=== PATIENT | female | born 1940 | race Caucasian/White ===

== ENCOUNTER → 2018-05-27 10:25 | Outpatient (CLI) | payer MEDICARE, SELFPAY ==
[2018-05-27 10:40] LABS: RBC Urine None Seen (0-5/HPF)
[2018-05-27 11:14] LABS: Appearance Urine UA CLEAR; Bilirubin Urine UA NEGATIVE (NEGATIVE); Color Urine UA YELLOW; Glucose Urine UA NEGATIVE (Normal); Ketones Urine UA NEGATIVE (NEGATIVE); Leukocyte Esterase Urine UA 1+ (NEGATIVE); Nitrite Urine UA NEGATIVE (Negative); Occult Blood Urine UA 1+ (Negative); Protein Urine UA NEGATIVE (Negative); Urobilinogen Urine UA 0.2 E.U./dL (0.2); pH Urine UA 6.5 (4.5-8.0)
[2018-05-27 11:33] LABS: Bacteria Urine Moderate (10-30); WBC Urine 5-10/HPF (0-5/HPF)
[2018-05-27 11:34] LABS: Culture Indicated Urine Specimen Cultured
[2018-05-27 12:20] LABS: Add Manual Diff / Slide Review NO; Basophils Percent Auto 0.7 % (0-2); Eosinophils Percent Auto 1.4 % (2-4); Hematocrit 42.3 % (36-46); Hemoglobin 14.4 g/dL (12.0-16.0); Lymphocytes Percent Auto 25.2 % (25-40); Mean Corpuscular HGB Conc 33.9 % (30-36); Mean Corpuscular Hemoglobin 30.6 PG (26-34); Mean Corpuscular Volume 90.3 fL (80-100); Neutrophils Absolute Auto 5400 /uL (3000-5900); Neutrophils Percent Auto 66.7 % (50-75); Platelet Count 247 X10^3/uL (150-400); Red Blood Cell Count 4.68 X10^6/uL (4.0-5.2); Red Cell Distribution Width 12.5 % (11.6-14.8); White Blood Cell Count 8.1 X10^3/uL (4.5-11.0)
[2018-05-27 12:34] LABS: Blood Urea Nitrogen 12 mg/dL (7-17); Carbon Dioxide 30 mmol/L (22-32); Chloride 96 mmol/L (98-107); Estimated Glomerular Filt Rate > 60.0 mL/min (>60); Glucose 97 mg/dL (80-110); HEMOLYSIS 32 (0-50); Sodium 136 mmol/L (137-145)
[2018-05-27 12:49] LABS: Hemoglobin A1C% w Est Avg Glu 5.6 % (4.0-6.0)
== END ==
PROVIDERS: Family Provider Internal Medicine; PCP Internal Medicine; Visit Provider Orthopaedic Surgery
DX: Z01.818 Encounter for other preprocedural examination (principal); N39.9 Disorder of urinary system, unspecified; R73.09 Other abnormal glucose
CPT/HCPCS: 36415; 80048; 81001; 83036; 85025; 87086; 93005; 93010

== ENCOUNTER → 2018-05-31 12:41 | Outpatient (CLI) | payer MEDICARE, SELFPAY ==
--- NOTE | 2018-05-31 | DI.MRI.S_ITS ---
PROCEDURE: MR KNEE RT WO CON INDICATIONS: PRIMARY OSTEOARTHRITIS OF RIGHT KNEE TECHNIQUE: Noncontrast sagittal PD fast spin echo and T2 fast spin echo with fat saturation, sagittal 3-D FLASH with fat saturation; coronal T1 spin echo and PD fast spin echo with fat saturation, and axial PD fast spin echo with fat saturation through the knee. COMPARISON: None. FINDINGS: Image quality: Excellent. Menisci: There is peripheral displacement of medial meniscus bowling medial collateral ligament. Complex tear involving posterior horn of medial meniscus is seen extending to both superior and inferior articulating surfaces. There is no evidence of focal lateral meniscal tear. The meniscal root ligaments appear intact. Cruciate ligaments: The anterior and posterior cruciate ligaments appear intact. Medial structures: The medial collateral ligament appears intact. The posterior oblique ligament, semimembranosus tendon insertions, oblique popliteal ligament, and meniscocapsular junction appear intact. Visualized portions of the pes anserinus tendons appear normal. No abnormal bursal fluid. Lateral structures: The lateral collateral ligament, long and short heads of the biceps femoris tendon appear intact. The popliteus tendon appears normal; the popliteofibular ligament appears intact. The posterosuperior and anteroinferior popliteomeniscal fascicles appear intact. The arcuate and fabellofibular ligaments appear intact, on either side of the lateral inferior geniculate artery. Iliotibial band appears normal. Anterior structures: The quadriceps and patellar tendons appear intact. Patellar alignment is normal. No femoral trochlear dysplasia or ventral trochlear prominence. No edema in the infrapatellar fat pad. Bones and cartilage: Moderate to severe tricompartment osteoarthritis is seen most prominent in medial femoral-tibial compartment. 6 x 5 mm osteochondral lesion and weightbearing portion of medial femoral condyle is seen. Low to moderate grade chondromalacia involving apex and medial facet of patella cartilage is seen. Joint space: There is moderate knee joint fluid. No Bedolla's cyst. Suggestion of a 1.8 x 0.8 x 2.3 cm loose body in medial aspect of patella femoral compartment is seen. Thickened synovial lining is seen with suggestion of synovitis. IMPRESSION: 1. Moderate to severe tricompartment osteoarthritis more prominent in the medial femorotibial compartment with 6 x 5 mm osteochondral lesion involving weight-bearing portion of medial femoral condyle. No fracture or dislocation. 2. Moderate amount of joint fluid with suggestion of synovitis. Possible loose body in medial aspect of patella femoral compartment. 3. Complex tear involving body and posterior horn of medial meniscus extending to both superior and inferior articulating surfaces. No evidence of focal lateral meniscal tear. 4. Cruciate ligaments are intact. Dictated by: Everardo Arshad M.D. on 05/31/2018 at 14:51 Approved by: Everardo Arshad M.D. on 05/31/2018 at 14:57
== END ==
PROVIDERS: Family Provider Physical Therapist; PCP Internal Medicine; Visit Provider Orthopaedic Surgery
DX: M17.11 Unilateral primary osteoarthritis, right knee (principal)
CPT/HCPCS: 73721

== ENCOUNTER → 2018-06-17 14:59 | Outpatient (CLI) | payer MEDICARE, SELFPAY ==
[2018-06-17 16:04] LABS: Bilirubin Urine UA NEGATIVE (NEGATIVE); Color Urine UA YELLOW; Glucose Urine UA NEGATIVE (Normal); Ketones Urine UA NEGATIVE (NEGATIVE); Leukocyte Esterase Urine UA 2+ (NEGATIVE); Nitrite Urine UA NEGATIVE (Negative); Occult Blood Urine UA TRACE-INTACT (Negative); Protein Urine UA NEGATIVE (Negative); Specific Gravity Urine UA 1.015 (1.000-1.035); Urobilinogen Urine UA 0.2 E.U./dL (0.2); pH Urine UA 6.5 (4.5-8.0)
[2018-06-17 16:20] LABS: Amorphous Sediment Urine 1+; Appearance Urine UA Slightly Cloudy; Bacteria Urine Few (2-10); Mucus Urine 1+ (Negative); RBC Urine 0-1/HPF (0-5/HPF); Squamous Epithelial Cell Urine 0-1 /HPF; WBC Urine 10-30/HPF (0-5/HPF)
[2018-06-17 16:21] LABS: Culture Indicated Urine Specimen Cultured
== END ==
PROVIDERS: PCP Internal Medicine; Visit Provider Orthopaedic Surgery
DX: N39.0 Urinary tract infection, site not specified (principal)
CPT/HCPCS: 81001; 87086

== ENCOUNTER → 2018-07-15 08:00 | Outpatient (CLI) | payer MEDICARE, SELFPAY ==
[2018-07-15 09:46] LABS: HEMOLYSIS < 15 (0-50); Potassium 4.2 mmol/L (3.4-5.1)
== END ==
PROVIDERS: Family Provider Internal Medicine; PCP Internal Medicine; Visit Provider Physician Assistant
DX: M17.11 Unilateral primary osteoarthritis, right knee (principal)
CPT/HCPCS: 36415; 84132

== ENCOUNTER 2018-07-23 10:43 | Inpatient (IN) | payer MEDICARE, SELFPAY ==
[2018-07-08 08:21] VITALS: BMI 28.3
[2018-07-23] VITALS (14 sets, daily range): BP systolic 113–178; BP diastolic 64–88; PULSE 57–92; RESP 11–18; TEMP 36.4–37.1; O2SAT 95–100; BMI 28.3
--- NOTE | 2018-07-23 | DI.RAD.S_ITS ---
PROCEDURE: XR KNEE RT 1TO2V INDICATIONS: POST OP TECHNIQUE: 2 view(s) of the knee acquired. COMPARISON: [facility] Brandyn Castillo, CR, XR KNEE ARTHRITIC SERIES BI, 05/27/2018, 8:31. FINDINGS: Bones: Patient is status post knee joint arthroplasty. Hardware components are in expected positions. Visualized bony structures are intact. Soft tissues: Overlying postoperative changes are noted. Expected postsurgical changes are identified within the soft tissues overlying the knee with areas of soft tissue edema, air, and fluid. Surgical drainage catheter is evident. No unexpected radiopaque foreign bodies are appreciated. IMPRESSION: Expected postoperative changes related to a total right knee arthroplasty. Dictated by: Elian Lam M.D. on 07/23/2018 at 15:56 Approved by: Elian Lam M.D. on 07/23/2018 at 15:57
[2018-07-23] MEDS: LACTATED RINGERS 1,000 ML 42 ML IV ×2 (11:30→14:02)
[2018-07-23] MEDS: ACETAMINOPHEN 325 MG TABLET 975 MG PO ×2 (11:34→19:04)
[2018-07-23] MEDS: PREGABALIN 75 MG CAPSULE PO ×2 (11:35→11:36)
[2018-07-23] MEDS: VANCOMYCIN 1,000 MG/200 ML FROZ.PIGGY 200 MG IV (12:05)
[2018-07-23] MEDS: fentaNYL 100 MCG/2 ML INJ 50 MCG IV (12:28)
[2018-07-23] MEDS: MIDAZOLAM 2 MG/2 ML VIAL IV (12:30)
--- NOTE | 2018-07-23 12:35 | PM.PREOP ---
Pre-operative Note Interval Note Pre-op Check: Yes History & Physical Reviewed by Physician and Yes Exam Performed Changes: No
--- NOTE | 2018-07-23 12:38 | SUR.PREOP ---
Block start time [1230] . Monitoring initiated and maintained throughout procedure. Oxygen and medications given per anesthesiologist instructions. Patient remained stable throughout procedure, no adverse reactions noted. Block end time [1238].
--- NOTE | 2018-07-23 12:42 | P.OP_ITS ---
Operative Date/Time/Diagnoses Date of procedure: 07/23/18 Time of procedure: 12:56 Pre-op diagnosis: Right knee OA Post-op diagnosis: same Procedure & Clinicians Procedure: right total knee arthroplasty Same procedure as scheduled: Yes Indications: The patient has had progressively worsening right knee pain with radiographic changes consistent with arthritis. Non-operative management has failed and the patient has requested total knee replacement. The risks, benefits and alternatives to surgery were discussed with the patient prior to proceeding. Risks discussed included, but were not limited to, failure to relieve pain, stiffness, infection, nerve damage, deep venous thrombosis, pulmonary embolism, stroke, coma, heart attack, permanent paralysis and , as well as the potential need for eventual revision of the prosthetic. Surgeon: Stephanie Hunter Hot Die Press Feeder: Waleska Barraza Anesthesia Type: Spinal and Sedation Operative Notes Findings: severe right knee osteoarthritis Closure Type: primary Specimen(s): none sent Implants & Drains: Hunter and Nephshae Arreguin BCS2 5 femur, 3 tibia, +9 poly, 32 oval mm patella Estimated Blood Loss (mL): 250 Blood products transfused: none Tourniquet time (min): 74 Procedure in detail: The patient was seen in the pre-operative area, where the patient identified the right knee as the operative site and this was marked with my initials. The patient received pre-operative antibiotics, and was taken to the operating room and placed on the operative table in the supine position. After satisfactory anesthesia, a back strip machine operator out was performed. The right leg was encircled with a tourniquet about the proximal thigh, and the leg was prepared from the toes to the tourniquet with ChloroPrep in the usual fashion and draped through sterile drapes. The leg was elevated and exsanguinated with Eschmark bandage and the tourniquet inflated to [250] mmHg pressure. The knee was approached through an approximately 18 cm incision centered over the patella and carried into the knee through a medial parapatellar arthrotomy. A portion of the medial and lateral meniscus was resected. Soft tissue was carefully mobilized around the patella the patella was measured with a caliper. Bone was resected from the patella and the patellar height was reconstituted with up an appropriate sized patellar component. A cover was then placed on the patella. A small amount of additional medial and lateral meniscus was resected. A large loose body in the suprapatellar pouch was removed. The visionare guide fit well to the distal femur. It looked like an appropriate distal femoral cut and the cut was made without difficulty. The rotation was assessed and the appropriate size femoral guide was placed on the distal femur and finishing cuts were made. There was no evidence of notching. The anterior, posterior and chamfer cuts were then made. The posterior osteophytes and soft tissues were then removed. The posterior capsule was injected with part of a mixture of 60 ml 0.25% Marcaine mixed with 20 ml Exparel for post operative pain control. The remainder of this mixture was injected into the capsule and subcutaneous tissues during cement curing. The tibia was prepared and the visionaire guide fit well to the distal tibia. The rotation was assessed. The patient was placed in extension residual medial and lateral meniscus as well as any residual bone was carefully resected. [No] additional tibia was resected. Hemostasis was achieved especially posteriorly. Additional local was injected into the posterior capsule. The extension gap was assessed and additional releases for gap balancing were performed as necessary. It was checked with the gap shredded filler hopper feeder. The femoral component was trial was placed and the notch was finished. Trial tibial and femoral components were then placed and the knee placed through a range of motion. Range of motion was [ 0-130], with good stability throughout the range. The trials were then removed, and the tibia was finished. The bone was prepared with pulsatile lavage, and dried with a sponge. Cement was applied and the final prosthetics placed. Excess cement was removed during and after cement curing. A brief Betadine soak was performed. After confirming there was no extruded cement posteriorly, the final tibial insert was placed. The knee was copiously irrigated and the tourniquet deflated. Hemostasis was obtained with the Bovie. A drain was placed and brought out superolaterally. The capsule was closed with interrupted poly suture. The subcutaneous layer was closed with barbed sutures, and the skin with a running 3-0 V-Lock suture and Surgical glue. An Aquacel Ag dressing was applied and the patient was taken to recovery having tolerated the procedure well. Complications: none Condition: stable Disposition: Acute Care Plan for aftercare: The patient will be maintained on a standard total knee replacement protocol with weight bearing as tolerated. The patient will receive aspirin and sequential compression devices for DVT prophylaxis. The patient will be likely will be discharged to an extended care rehab facility because of her medical problems including gout, htn, depression, and h/o TIA or home if she does better than expected with PT when safe for the home environment.
[2018-07-23] MEDS: CEFAZOLIN 2 GM/100 ML FROZ.PIGGY IV ×2 (12:58→20:42)
[2018-07-23] MEDS: BUPIVACAINE 0.25% W/ EPI VIAL 50 ML INJ (13:41)
[2018-07-23] MEDS: BUPIVACAINE LIPOSOME 266 MG/20 ML VIAL INJ (13:43)
[2018-07-23] MEDS: POVIDONE-IODINE 15 ML, SODIUM CHLORIDE 0.9% 250 ML TOP (13:44)
[2018-07-23] MEDS: TRANEXAMIC ACID 1,000 MG VIAL 1000 MG INJ ×2 (13:45→14:41)
--- NOTE | 2018-07-23 13:48 | SUR.OPER ---
Supine on padded OR bed. Pillow under head, arms secured on padded armboards <90 degree abduction. Safety belt across torso. Non-operative leg secured with tape over blanket over lower leg. Operative leg secured in DeMayo/Vu positioner. Foam padded brace at thigh of operative leg.
--- NOTE | 2018-07-23 15:52 | SUR.PHASEI ---
REPORT CALLED TO ANGELITA LYNN ON ACUTE CARE FLOOR. PT IN STABLE CONDITION, VSS. PT BEING TRANSFERED TO ACUTE CARE FLOOR.
--- NOTE | 2018-07-23 16:22 | SUR.PHASEI ---
PT TRANSFERED TO ACUTE CARE FLOOR IN STABLE CONDITION. PT TALKING TO RN DURING TRANSPORT. BEDSIDE REPORT GIVEN TO ANGELITA ARCHULETA UPON ARRIVAL TO ACUTE CARE. PT TRANSFERED TO ANGELITA ARCHULETA AT THAT TIME.
--- NOTE | 2018-07-23 16:32 | PC.NURSE ---
Pt arrived to floor via PACU @1610. A&Ox3, krystle calf SCD in place. Hemovac clamped, to be unclamped at 1700. Bed alarm. Aquacel drsg w/ romie wrap CDI. No sensation to bilateral LE, unable to move feet r/t spinal. IVF infusing per MD order. Continuous pulse ox 97% RA. Tolerating ice chips.
[2018-07-23] MEDS: LACTATED RINGERS 1,000 ML 125 ML IV (16:39)
[2018-07-23] MEDS: TRAMADOL 50 MG TABLET PO (18:37)
[2018-07-23] MEDS: OXYCODONE IR 5 MG TABLET PO (19:04)
[2018-07-23] MEDS: DOCUSATE 100 MG CAPSULE PO (19:05)
[2018-07-23] MEDS: HYDROMORPHONE 0.5 MG INJ IV (19:54)
[2018-07-23] MEDS: ASPIRIN EC 81 MG TABLET PO (20:41)
[2018-07-23] MEDS: HYDROMORPHONE 2 MG TABLET PO (21:20)
[2018-07-23] MEDS: ATORVASTATIN 20 MG TABLET 40 MG PO (21:55)
[2018-07-23] MEDS: ONDANSETRON 4 MG ODT PO (21:56)
[2018-07-24] MEDS: LACTATED RINGERS 1,000 ML 125 ML IV ×2 (00:55→08:37)
[2018-07-24] MEDS: HYDROMORPHONE 2 MG TABLET PO ×3 (01:16→08:11)
[2018-07-24 03:29] VITALS: BP 138/72; PULSE 65; RESP 16; TEMP 36.6; O2SAT 97
[2018-07-24] MEDS: CEFAZOLIN 2 GM/100 ML FROZ.PIGGY IV (05:29)
[2018-07-24 05:50] LABS: Hematocrit 33.1 % (36-46); Hemoglobin 11.5 g/dL (12.0-16.0)
[2018-07-24] MEDS: HYDROMORPHONE 0.5 MG INJ IV ×3 (06:41→14:23)
[2018-07-24 07:14] VITALS: BP 137/80; PULSE 88; RESP 18; TEMP 36.6; O2SAT 100
--- NOTE | 2018-07-24 07:58 | PM.PNPO.1 ---
Subjective Date Patient Seen: 07/24/18 Time Patient Seen: 07:58 Interval history: Patient's pain was mild overnight. Early this morning her pain is more moderate to severe. She was given some pain meds and now her pain is more mild again. Denies fever chills. No nausea vomiting. Exam Vital Signs (past 8 hours): - 07/24/18 03:29 07/24/18 07:14 Temperature 97.9 F 97.9 F Pulse Rate 65 88 Respiratory Rate 16 18 Blood Pressure 138/72 137/80 Pulse Oximetry 97 100 Oxygen Delivery Method Room Air Narrative Exam Narrative: Drain is in place. Dressing is clean, dry and intact. Neurovascular status is intact distal right lower extremity. Objective Labs Result Diagrams: 07/24/18 05:30 Labs: Laboratory Results - last 24 hr 07/24/18 05:30 Hgb 11.5 L Hct 33.1 L Assessment & Plan Post-op Postoperative Procedures Operation Date: 07/23/18 13:00 Actual Procedures Side Surgeon p Total Knee Arthroplasty Right Stephanie Hunter MD Mobilize with physical therapy. Discharge home or nursing facility in the next 1-2 days.
[2018-07-24] MEDS: ONDANSETRON 4 MG ODT PO ×2 (08:11→20:29)
--- NOTE | 2018-07-24 08:28 | CM.DPC ---
Referral faxed to [facility] per Jeaneth
--- NOTE | 2018-07-24 09:20 | CM.DANOTE ---
Addendum entered by Mary Styles R.N. 07/24/18 14:53: Discussed patient in team rounds with Monique Denis in ortho. Confirmed that patient would need to be here another 2 days, would be eligible for senior living on Sunday. Angela from [facility] confirmed that she received referral. Original Note: DCP: Case received, EMR reviewed and met with patient. Introduced self and role. DCP template completed with information currently available. Patient is a 78 year old female who admitted yesterday morning to the care of the hospitalist team. PCP: Dr. Bee. Surgeon: Dr. Hunter. Payer: confirmed: Medicare/[employer] Patient came to hospital for total knee procedure. Has has chronic knee pain. Patient alert and oriented. Lives alone, and had been going to outpatient P.T. Is requesting rehab, for she stated she lives alone, and has stairs, and may need extra help. Is aware that she would have to be here for 3 days as inpatient for Medicare to cover. She is requesting [facility]. P: To be determined, and will consult with P.T. Went ahead and faxed clinicals to Angela at [facility], who state: can accomidate. Mary Styles RN/Special Education Teaching Assistant
[2018-07-24] MEDS: ACETAMINOPHEN 325 MG TABLET 975 MG PO ×3 (10:57→20:29)
[2018-07-24] MEDS: DOCUSATE 100 MG CAPSULE PO ×2 (10:58→20:29)
[2018-07-24] MEDS: ASPIRIN EC 81 MG TABLET PO ×2 (10:58→20:29)
[2018-07-24] MEDS: LOSARTAN 50 MG TABLET 100 MG PO (10:58)
[2018-07-24] MEDS: hydroCHLOROthiazide 25 MG TABLET PO (10:59)
--- NOTE | 2018-07-24 11:45 | PT.IIE ---
Current Diagnoses Unilateral primary osteoarthritis, right knee (07/23/18) Surgery Performed Operation Date: 07/23/18 13:00 Actual Procedures p Total Knee Arthroplasty(Right) - Stephanie Hunter MD Surgical History (Last Updated 07/08/18 @ 09:01 by Laura Rousseau, RN) Status post total hip replacement, left (Inactive 06/06/16) S/P bilateral breast reduction (Inactive) Hx of appendectomy (Acute) S/P total abdominal hysterectomy and bilateral salpingo-oophorectomy Medical History (Last Updated 07/08/18 @ 09:23 by Laura Rousseau RN) Hypertension (Chronic) Hyperlipidemia (Chronic) Gout (Chronic 07/19/11) Idiopathic peripheral neuropathy (Chronic 02/12/15) Peripheral edema (Chronic 03/21/16) 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) Anxiety (Acute) Depression (Acute) Impaired hearing (Acute) Insomnia (Acute) Multiple lipomas (Acute) TIA (transient ischemic attack) (Acute) Vaginal pessary present (Acute) Physical Therapy Inpatient Evaluation/Re-Eval M1 PT/OT-IP Prior Functional Status Start: 07/24/18 12:38 Freq: NEEDED Status: Active Protocol: Document 07/24/18 11:45 AB (Rec: 07/24/18 13:04 AB [id number]) Medical Review Prior Functional Status Medical History Reviewed Yes Communication able to make needs known Mobility and Gait stated that she is modified independent with all mobilities and ambulation without AD Social History Household Members none Living Arrangements Apartment/Condo Number of Floors (Floors) Two Floors Number of Stairs To Enter/Railing? has 3 steps to enter with L rail ascending to enter; has 13 steps to get to bedroom level: first half has bilateral rails and other half has just R rail ascending (pt uses quad cane on L side) Home Environment Standard Height Toilet Walk in Shower Built-In Shower Seat Home Equipment Front Wheel Walker Quad Cane Straight Cane Bedside Commode Raised Toilet Seat w/Armrests Raised Toilet Seat Without Armrests Shower Seat without Backrest Employment Status Retired M2 PT-IP Current Condition Start: 07/24/18 12:38 Freq: NEEDED Status: Active Protocol: Document 07/24/18 11:45 AB (Rec: 07/24/18 13:04 AB [id number]) Physical Therapy Current Condition Current Condition Evaluation Date 07/24/18 Treatment Diagnosis s/p R TKA; difficulty in walking Onset Date 07/23/18 Weight Bearing Status Weight Bearing Status Weight Bear as Tolerated M3 PT-IP Subjective Start: 07/24/18 12:38 Freq: NEEDED Status: Active Protocol: Document 07/24/18 11:45 AB (Rec: 07/24/18 13:04 AB [id number]) Subjective Physical Therapy Visit Type Type Initial Evaluation Visit Start Time 11:45 Visit Stop Time 12:30 Total Visit Minutes 45 Number of SHIPPING AGENT Visits 0 Physical Therapy Visit Comments Patient Comments i have a lot of pain Patient Goals stated that she plans to go to [facility] Pain Assessment Pain When Pain Assessed At Rest Pain Present Pain Present Pain Reported Location Right Knee Intensity 5 Scale Used increases with mobility Pain Management Techniques Apply Cold Re-positioning Timing of Activity with Medications M4 PT-IP Mobility and Gait Start: 07/24/18 12:38 Freq: NEEDED Status: Active Protocol: Document 07/24/18 11:45 AB (Rec: 07/24/18 13:04 AB [id number]) PT-Bed Mobility Assessment Supine to Sit Supine to Sit Maximum Assistance 1 Person Assistance Scooting Scooting to Edge of Bed Moderate Assistance PT-Transfer Assessment Sit to and From Stand Sit to and from Stand Moderate Assistance 1 Person Assistance Use of Upper Extremities Equipment Transfer Assistive Device Gait Belt Front Wheeled Walker Orthotic/Prosthetic Devices or Brace: No Transfers Transfer Destination Chair Transfer Technique Stand Step Pivot Transfer Ability Level of Assist Maximum Assistance 1 Person Assistance Use of Upper Extremities Gait Assessment Gait Gait Assistance Required: Maximum Assistance Distance (Feet) 5 Able to Maintain Weight Bearing Status Yes During Gait Assistive Devices Assistive Device Gait Belt Front Wheeled Walker Orthotic/Prosthetic Devices or Brace: No Gait Deviations General Gait Pattern Antalgic Decreased Stride Length Decreased Feet Clearance Step-to Gait Factors Limiting Gait Function Factors Limiting Gait Function Decreased Activity Tolerance Decreased Strength Limited Range of Motion Pain Poor Balance Poor Safety Awareness Comments Gait Comments pt c/o increase pain on R knee with movement and unable to put much weight during transfers and ambulation. presents with increase knee flexion ~ 10-15 degrees with standing on RLE. pt ambulated using FWW bed towards the chair ~ 5 ft requiring max A and max cues. required increase time to complete all tasks. After 5 ft of ambulation, pt stated that she cannot do anymore. Asked NAC to move chair closer . pt had a standing rest break requiring max A to maintain standing balance. completed step pivot transfer to chair once chair was closer requiring max A and max cues. positioned pt on chair. call light and table placed within reach. PT-Balance Assessment Sitting Balance and Reactions Static Sitting Balance Ability Good Dynamic Sitting Balance Ability Good Standing Balance and Reactions Static Standing Balance Ability Poor Dynamic Standing Balance Ability Poor Device Used FWW M5 PT-IP Objective Assessments Start: 07/24/18 12:38 Freq: NEEDED Status: Active Protocol: Document 07/24/18 11:45 AB (Rec: 07/24/18 13:04 AB [id number]) Orientation Orientation/Cognition Level of Alertness Alert Orientation Name Age Birthday Month Date Year Day of Week Place Situation Safety Awareness Decreased Safety Awareness Comments seems sleepy Gross Range of Motion Upper Extremity ROM Assessment Within Functional Limits Lower Extremity ROM Assessment Right Impaired Impairments R knee flexion: ~ 20 degrees PROM R knee extension: unable to extend knee to 0 degrees; ~ 10 degrees lacking to 0 Strength Lower Extremity Strength Assessment Right Impaired Knee 3-/5 M6 PT-IP Treatment Start: 07/24/18 12:38 Freq: NEEDED Status: Active Protocol: Document 07/24/18 11:45 AB (Rec: 07/24/18 13:04 AB [id number]) Physical Therapy Treatment Exercises Exercises Heel Slides Seated Knee Flexion/Extension Education Education Provided Precautions Weight Bearing Status Post-Op Packet Safety M7 PT-IP Assessment and Plan Start: 07/24/18 12:38 Freq: NEEDED Status: Active Protocol: Document 07/24/18 11:45 AB (Rec: 07/24/18 13:04 AB [id number]) PT Summary Assessment and Plan Potential Rehabilitation Potential Fair Status of Condition at Evaluation Evolving Summary Impairments Pain ROM Strength Balance Coordination Sensation Tone Cognition Bed Mobility Transfers Gait Activity Tolerance Assessment Summary pt requiring max A with mobility and unable to tolerate much activity due to c/o increase R knee pain. pt will require SNF rehab to improve strength and function. Goals Bed Mobility Goal Contact Guard Assistance Transfer Goal Contact Guard Assistance Front Wheeled Walker Gait Goal Contact Guard Assistance Front Wheel Walker Gait Distance 50 Other Goals up/down 3 steps with L rail ascending CGA; up/down 7 steps bilateral rails + 6 steps R rail ascending /quad cane Days to Meet Goals 5 Frequency of Treatment Frequency Of Treatment Twice a Day Treatment Plan Physical Therapy Treatment Plan Bed Mobility Training Transfer Training Gait Training Therapeutic Exercise Balance Retraining Post Op Education Discharge Planning Hot or Cold Pack Neuromuscular Re-ed Coordination Retraining Manual Therapy Other Recommendations and Next Treatment ambulation Focus Recommendations To Nursing Amount of Assist Needed 1 Person Assist Discharge Recommendations PT Discharge Recommendations SNF Rehab
[2018-07-24] MEDS: METOPROLOL ER 50 MG TABLET 100 MG PO (14:23)
--- NOTE | 2018-07-24 15:59 | PT.IPTN ---
Current Diagnoses Unilateral primary osteoarthritis, right knee (07/23/18) Surgery Performed Operation Date: 07/23/18 13:00 Actual Procedures p Total Knee Arthroplasty(Right) - Stephanie Hunter MD Physical Therapy Treatment Note M2 PT-IP Current Condition Start: 07/24/18 12:38 Freq: NEEDED Status: Active Protocol: Document 07/24/18 11:45 AB (Rec: 07/24/18 13:04 AB [id number]) Physical Therapy Current Condition Current Condition Evaluation Date 07/24/18 Treatment Diagnosis s/p R TKA; difficulty in walking Onset Date 07/23/18 Weight Bearing Status Weight Bearing Status Weight Bear as Tolerated M3 PT-IP Subjective Start: 07/24/18 12:38 Freq: NEEDED Status: Active Protocol: Document 07/24/18 15:58 AB (Rec: 07/24/18 15:59 AB [id number]) Subjective Physical Therapy Visit Type Type Patient Refusal Notes pt stated that she is not going to do anymore therapy for the day. stated that her pain is ok but knows that after PT she will have pain. educated on importance of PT. pt understood but continues to refuse PT. M
[2018-07-24 16:21] VITALS: BP 145/60; PULSE 72; RESP 16; TEMP 36.6
[2018-07-24] MEDS: ONDANSETRON 4 MG/2 ML INJ IV (16:40)
[2018-07-24 17:24] VITALS: BP 145/60; PULSE 72
[2018-07-24] MEDS: CALCIUM CARBONATE 500 MG TAB PO (17:26)
[2018-07-24] MEDS: OXYCODONE IR 5 MG TABLET PO ×3 (17:27→22:42)
[2018-07-24] MEDS: ATORVASTATIN 20 MG TABLET 40 MG PO (20:29)
[2018-07-24 21:38] VITALS: BP 137/75; PULSE 78; RESP 18; TEMP 36.6; O2SAT 99
[2018-07-25] VITALS (17 sets, daily range): BP systolic 130–184; BP diastolic 55–92; PULSE 60–84; RESP 12–18; TEMP 36.3–37.7; O2SAT 94–100; BMI 28.3
[2018-07-25] MEDS: OXYCODONE IR 5 MG TABLET PO ×4 (01:43→20:43)
[2018-07-25] MEDS: ONDANSETRON 4 MG ODT PO ×2 (06:16→20:44)
--- NOTE | 2018-07-25 07:15 | PM.PNPO.1 ---
Subjective Date Patient Seen: 07/25/18 Interval history: Patient seen bedside s/p R. TKA POD #2. Patient's pain has improved, but her hemovac drain could not be pulled out overnight. The nurse stated that it appeared to be stuck. Exam Vital Signs (past 8 hours): - 07/25/18 00:45 07/25/18 01:31 07/25/18 03:38 Temperature 98.7 F 98.0 F Pulse Rate 60 76 67 Respiratory Rate 18 16 Blood Pressure 140/78 Pulse Oximetry 95 96 96 Oxygen Delivery Method Room Air Oxygen Flow Rate 0 Narrative Exam Narrative: WDWN NAD A&Ox3. Dressing CDI, hemovac has minimal drainage but would not move when pulled on. Calf is soft and compressible and operative leg is NVI. Objective Labs Result Diagrams: 07/24/18 05:30 Assessment & Plan Post-op Postoperative Procedures Operation Date: 07/23/18 13:00 Actual Procedures Side Surgeon p Total Knee Arthroplasty Right Stephanie Hunter MD 1. s/p R. TKA POD #2-continue PT, but patient to be made NPO for OR today for drain removal. Discharge plan is tomorrow to a SNF.
--- NOTE | 2018-07-25 10:38 | PT.IPTN ---
Current Diagnoses Unilateral primary osteoarthritis, right knee (07/23/18) Surgery Performed Operation Date: 07/23/18 13:00 Actual Procedures p Total Knee Arthroplasty(Right) - Stephanie Hunter MD Operation Date: 07/25/18 15:00 <No data on this case meets the specified criteria> Physical Therapy Treatment Note M2 PT-IP Current Condition Start: 07/24/18 12:38 Freq: NEEDED Status: Active Protocol: Document 07/24/18 11:45 AB (Rec: 07/24/18 13:04 AB [id number]) Physical Therapy Current Condition Current Condition Evaluation Date 07/24/18 Treatment Diagnosis s/p R TKA; difficulty in walking Onset Date 07/23/18 Weight Bearing Status Weight Bearing Status Weight Bear as Tolerated M3 PT-IP Subjective Start: 07/24/18 12:38 Freq: NEEDED Status: Active Protocol: Document 07/25/18 10:38 GGD (Rec: 07/25/18 10:38 GGD [id number]) Subjective Physical Therapy Visit Type Notes Hold today, pt having surgery at 1500 Recommendations To Nursing Amount of Assist Needed 1 Person Assist Discharge Recommendations PT Discharge Recommendations SNF Rehab
[2018-07-25] MEDS: METOPROLOL ER 50 MG TABLET 100 MG PO (10:47)
[2018-07-25] MEDS: HYDROMORPHONE 0.5 MG INJ IV (10:57)
--- NOTE | 2018-07-25 16:44 | PC.NURSE ---
Addendum entered by Nichole Morel R.N. 07/25/18 17:06: pt transferred off of unit for drain removal Original Note: drain removal hemovac in place. pt awaiting surgery now planned for 1714 for removal. pt states frustration r/t the same.
[2018-07-25] MEDS: LACTATED RINGERS 1,000 ML 42 ML IV (17:29)
[2018-07-25] MEDS: BUPIVACAINE 0.5% W/ EPI (PF) VIAL 30 ML INJ (18:31)
[2018-07-25] MEDS: CEFAZOLIN 1 GM VIAL IV (18:31)
--- NOTE | 2018-07-25 19:04 | PM.OP.1 ---
Operative Date/Time/Diagnoses Date of procedure: 07/25/18 Time of procedure: 18:07 Pre-op diagnosis: Inability to remove right knee drain postoperatively, possibly some sewn in. Post-op diagnosis: same Procedure & Clinicians Procedure: Removal of drain right knee Same procedure as scheduled: Yes Indications: this is a 78-year-old female who had a right total knee arthroplasty. She had substantial pain and we are unable to remove her drain on the zurita without causing undue pain and it was felt that it was possibly sewn in. She brought the operating room for removal of her drain. Surgeon: Stephanie Hunter Click Yes if Unassisted: Yes Anesthesia Type: General Operative Notes Findings: Drain was not sewn in but it was caught in the capsular tissue and could not be easily removed without performing a small arthrotomy. Mild hemarthrosis. Closure Type: primary Estimated Blood Loss (mL): 10 Blood products transfused: none Tourniquet time (min): 16 Procedure in detail: patient was brought to the operating room. Time-out was performed. Antibiotics were given. Anesthesia was given. Patient was transferred to the operating room table and her right lower extremities prepped and draped in a standard sterile fashion after an attempted drain removal showed that it was very tight and difficult to remove. It appeared that it was pulling on the medial aspect of the capsule and it was felt that possibly was sewn in. She was prepped and draped sterilely. About a 2 cm incision was made through the patient's previous surgical incision. Dissection was carried out down to the capsular layer. Two capsular sutures were removed. There was a moderate hematoma in the right knee which was evacuated with the suction. A finger was placed into the knee joint and the drain was palpated. It was mobilized with a finger and then removed without difficulty. The knee was meticulously irrigated with normal saline and any additional hematoma was removed as tolerated. Marcaine was injected into the capsular incision and the incision was closed with interrupted nonabsorbable stitches Vicryl was used in the subcutaneous tissues and skin dalton. Tourniquet was deflated. There was minimal bleeding. Wound was dressed sterilely. Complications none. Complications: none Condition: stable Disposition: Acute Care Plan for aftercare: The patient will be maintained on a standard total knee replacement protocol with weight bearing as tolerated. The patient will receive aspirin and sequential compression devices for DVT prophylaxis. The patient will be discharged home when safe for the home environment.
[2018-07-25] MEDS: ACETAMINOPHEN 325 MG TABLET 975 MG PO (20:44)
[2018-07-25] MEDS: ASPIRIN EC 81 MG TABLET PO (20:44)
[2018-07-25] MEDS: ATORVASTATIN 20 MG TABLET 40 MG PO (20:44)
[2018-07-25] MEDS: DOCUSATE 100 MG CAPSULE PO (20:44)
[2018-07-26 00:05] VITALS: BP 130/60; PULSE 68; RESP 16; TEMP 36.6; O2SAT 95
[2018-07-26] MEDS: OXYCODONE IR 5 MG TABLET PO ×5 (00:26→12:33)
[2018-07-26] MEDS: CEFAZOLIN 2 GM/100 ML FROZ.PIGGY IV ×2 (02:30→11:42)
[2018-07-26 08:10] VITALS: BP 152/72; PULSE 76; RESP 18; TEMP 36.6; O2SAT 97
[2018-07-26] MEDS: METOPROLOL ER 50 MG TABLET 100 MG PO (09:26)
[2018-07-26] MEDS: POLYETHYLENE GLYCOL 3350 17 GM POWD.PACK PO (09:26)
[2018-07-26] MEDS: DOCUSATE 100 MG CAPSULE PO (09:26)
[2018-07-26] MEDS: ACETAMINOPHEN 325 MG TABLET 975 MG PO (09:27)
[2018-07-26] MEDS: ASPIRIN EC 81 MG TABLET PO (09:28)
--- NOTE | 2018-07-26 11:09 | PC.NURSE ---
Pt's aquacel dressing changed to new dressing, pts old one saturated with blood. She tolerated the dressing change well. Will be discharging to [facility].
--- NOTE | 2018-07-26 11:17 | PM.DS.1 ---
History of Present Illness Date Patient Seen: 07/26/18 Time Patient Seen: 11:17 Chief complaint: [id number] Narrative: Hospital day 4, postop day 3 following right total knee arthroplasty by Dr. Hunter. Patient be taken back to the OR yesterday evening of to have her Hemovac drain removed as it was stuck in some tissue and could not be pulled out. Patient states her pain is much better today since the drain was removed. Pain control with oxycodone. Still needs some assist with ambulation and transfers. Still having some difficulty with moving her leg. She is scheduled to go to [facility] today. Discharge Providers Date of admission: 07/23/18 10:43 Primary care physician: Edgardo Bee MD Consults: 07/23/18 11:19 Consult to Anesthesiology Routine Comment: Consulting Provider: Anesthesiologist Reason for consultation: Regional block for post operative pain control 07/23/18 16:09 Consult to Discharge Planning Routine Comment: wants ecf Consult to Physical Therapy Evaluate & Treat Comment: Physician Instructions: postop TKA protocol Consult to Respiratory Therapy Evaluate & Treat Comment: Physician Instructions: Evaluate and treat Discharge provider: Izaiah Porter PA-C Discharge Date: 07/26/18 Summary Discharge Diagnosis: 1. Status post right total knee arthroplasty. 2. Surgical drain removal right knee. Hospital Course: Patient brought to hospital on 07/23/2018 for above noted surgery. She remained stable postoperatively. Progressed slowly with physical therapy. Had persisting right knee pain postoperatively. Unable to remove Hemovac drain postop day 2 and patient was taken to the OR for removal of drain. Pain improved significantly after drain removed. Still needed further assist with ambulation activity. PT OT recommended some SNF. Status at Discharge Cognitive/behavioral status at discharge: Alert, oriented no acute distress Functional status at discharge: uses cane/walker Overall status at discharge: patient is progressing back to baseline Time Spent with Patient Less than 30 minutes Exam Vital Signs (past 8 hours): - 07/26/18 08:10 Temperature 97.9 F Pulse Rate 76 Respiratory Rate 18 Blood Pressure 152/72 H Pulse Oximetry 97 Oxygen Delivery Method Room Air Oxygen Flow Rate 0 Narrative Exam Narrative: Right leg. Aquacel dressing in place to knee without drainage or inflammation. Dry gauze dressing to the Hemovac site as small shadowing. Mild to moderate edema of the knee and lower leg. Calf is soft and nontender. Good pulses distally. Patient is weak on firing her quad. Objective Labs Result Diagrams: 07/24/18 05:30 Discharge Plan Discharge Plan Patient Disposition: SNF Transfer to: [facility] Under care of provider: Facility MD or PCP. Transportation: Facility vehicle Discharge comment: Gradually increase knee range of motion and ambulation with PT OT as tolerated. I certify the postop hospital half-way care is medically necessary on a continuing basis for any conditions for which he/ she received care during this hospitalization.: Yes The receiving facility has agreed to accept transfer and provide medical treatment.: Yes Discharge Med Rec/Prescriptions Prescriptions: New acetaminophen 325 mg Tablet 975 mg PO TID Qty: 60 RF: 0 aspirin 81 mg Tablet,Delayed Release (Dr/Ec) 81 mg PO BID Qty: 60 RF: 0 oxycodone 5 mg Tablet 5 mg PO Q3HR PRN (Reason: Pain, Moderate (4-6)) Qty: 40 RF: 0 Continue tramadol 50 MG tablet 50 mg PO BID PRN (Reason: pain) Qty: 30 RF: 0 losartan 100 mg tablet 100 mg PO DAILY Qty: 90 RF: 1 atorvastatin 40 mg tablet 40 mg PO HS Qty: 90 RF: 3 hydrochlorothiazide 25 mg tablet 25 mg PO QDAY Qty: 90 RF: 3 metoprolol succinate 100 MG tablet extended release 24 hr 100 mg PO QAM RF: 0 Discontinued aspirin 81 mg Tablet,Delayed Release (Dr/Ec) 81 mg PO QPM Qty: 0 RF: 0 acetaminophen 325 MG tablet 325 mg PO PRN PRN (Reason: pain) Qty: 0 RF: 0 Discharge Health Status Brief summary of current health status: Patient is stable postoperatively. Needs further assist with ambulation and activity and strengthening of right leg with range of motion. Multidrug resistant organism: No MDRO MDRO Verified by culture: No Provider Discharge Instructions Diet: Diet as Tolerated Liquid consistency: Normal/Thin Food texture: Regular Activity: Ambulate as tolerated. Work on range of motion of knee. Cold/Heat Therapy: Cold packs to the right knee as needed. Skin/Wound/Dressing Care Report to your healthcare provider any signs of infection, such as:: chills, fever, night sweats, increased pain, unusual drainage and unusual redness Dressing: Keep Aquacel dressing in place until postop visit. Special Rehabilitation Services Reason for rehabilitation: Post-operative therapy Rehab type: Physical therapy and Occupational therapy Discharge Data Primary Care Provider: Edgardo Bee Attending Provider: Stephanie Hunter Admit Date/Time: 07/23/18 10:43
--- NOTE | 2018-07-26 11:22 | P.DS_ITS ---
History of Present Illness Date Patient Seen: 07/26/18 Time Patient Seen: 11:17 Chief complaint: [id number] Narrative: Hospital day 4, postop day 3 following right total knee arthroplasty by Dr. Hunter. Patient be taken back to the OR yesterday evening of to have her Hemovac drain removed as it was stuck in some tissue and could not be pulled out. Patient states her pain is much better today since the drain was removed. Pain control with oxycodone. Still needs some assist with ambulation and transfers. Still having some difficulty with moving her leg. She is scheduled to go to [facility] today. Discharge Providers Date of admission: 07/23/18 10:43 Primary care physician: Edgardo Bee MD Consults: 07/23/18 11:19 Consult to Anesthesiology Routine Comment: Consulting Provider: Anesthesiologist Reason for consultation: Regional block for post operative pain control 07/23/18 16:09 Consult to Discharge Planning Routine Comment: wants ecf Consult to Physical Therapy Evaluate & Treat Comment: Physician Instructions: postop TKA protocol Consult to Respiratory Therapy Evaluate & Treat Comment: Physician Instructions: Evaluate and treat Discharge provider: Izaiah Porter PA-C Discharge Date: 07/26/18 Summary Discharge Diagnosis: 1. Status post right total knee arthroplasty. 2. Surgical drain removal right knee. Hospital Course: Patient brought to hospital on 07/23/2018 for above noted surgery. She remained stable postoperatively. Progressed slowly with physical therapy. Had persisting right knee pain postoperatively. Unable to remove Hemovac drain postop day 2 and patient was taken to the OR for removal of drain. Pain improved significantly after drain removed. Still needed further assist with ambulation activity. PT OT recommended some SNF. Status at Discharge Cognitive/behavioral status at discharge: Alert, oriented no acute distress Functional status at discharge: uses cane/walker Overall status at discharge: patient is progressing back to baseline Time Spent with Patient Less than 30 minutes Exam Vital Signs (past 8 hours): - 07/26/18 08:10 Temperature 97.9 F Pulse Rate 76 Respiratory Rate 18 Blood Pressure 152/72 H Pulse Oximetry 97 Oxygen Delivery Method Room Air Oxygen Flow Rate 0 Narrative Exam Narrative: Right leg. Aquacel dressing in place to knee without drainage or inflammation. Dry gauze dressing to the Hemovac site as small shadowing. Mild to moderate edema of the knee and lower leg. Calf is soft and nontender. Good pulses distally. Patient is weak on firing her quad. Objective Labs Result Diagrams: 07/24/18 05:30 Discharge Plan Discharge Plan Patient Disposition: SNF Transfer to: [facility] Under care of provider: Facility MD or PCP. Transportation: Facility vehicle Discharge comment: Gradually increase knee range of motion and ambulation with PT OT as tolerated. I certify the postop hospital chcf care is medically necessary on a continuing basis for any conditions for which he/ she received care during this hospitalization.: Yes The receiving facility has agreed to accept transfer and provide medical treatment.: Yes Discharge Med Rec/Prescriptions Prescriptions: New acetaminophen 325 mg Tablet 975 mg PO TID Qty: 60 RF: 0 aspirin 81 mg Tablet,Delayed Release (Dr/Ec) 81 mg PO BID Qty: 60 RF: 0 oxycodone 5 mg Tablet 5 mg PO Q3HR PRN (Reason: Pain, Moderate (4-6)) Qty: 40 RF: 0 Continue tramadol 50 MG tablet 50 mg PO BID PRN (Reason: pain) Qty: 30 RF: 0 losartan 100 mg tablet 100 mg PO DAILY Qty: 90 RF: 1 atorvastatin 40 mg tablet 40 mg PO HS Qty: 90 RF: 3 hydrochlorothiazide 25 mg tablet 25 mg PO QDAY Qty: 90 RF: 3 metoprolol succinate 100 MG tablet extended release 24 hr 100 mg PO QAM RF: 0 Discontinued aspirin 81 mg Tablet,Delayed Release (Dr/Ec) 81 mg PO QPM Qty: 0 RF: 0 acetaminophen 325 MG tablet 325 mg PO PRN PRN (Reason: pain) Qty: 0 RF: 0 Discharge Health Status Brief summary of current health status: Patient is stable postoperatively. Needs further assist with ambulation and activity and strengthening of right leg with range of motion. Multidrug resistant organism: No MDRO MDRO Verified by culture: No Provider Discharge Instructions Diet: Diet as Tolerated Liquid consistency: Normal/Thin Food texture: Regular Activity: Ambulate as tolerated. Work on range of motion of knee. Cold/Heat Therapy: Cold packs to the right knee as needed. Skin/Wound/Dressing Care Report to your healthcare provider any signs of infection, such as:: chills, fever, night sweats, increased pain, unusual drainage and unusual redness Dressing: Keep Aquacel dressing in place until postop visit. Special Rehabilitation Services Reason for rehabilitation: Post-operative therapy Rehab type: Physical therapy and Occupational therapy Discharge Data Primary Care Provider: Edgardo Bee Attending Provider: Stephanie Hunter Admit Date/Time: 07/23/18 10:43
[2018-07-26] MEDS: hydroCHLOROthiazide 25 MG TABLET PO (11:53)
--- NOTE | 2018-07-26 14:31 | CM.DPC ---
DCP: assessment: Case received and ortho MOOKIE Porter wrote d/c to snf orders. EMR reviewed. DC summary was noted. Rest of snf orders were not completed. JOLLY completed and faxed to [facility]. Confirmed with pt that this remained her plan. Confirmed with Angela/[facility] that she had a bed for pt and could accept today. ANGELITA Whelan was able to get ortho MOOKIE Tony to complete the rest of the orders although there was some question of the medication for pain and dosing changes with pt noting I have been needing the pain medicine every three hours. She was discussing this with Cleopatra who will pass on info to Angela in report. (MOOKIE Tony had already returned to clinic). Van now anticipate at 1445. Will follow prn until pt leaves.
--- NOTE | 2018-07-26 14:42 | PT.IPTN ---
Current Diagnoses Unilateral primary osteoarthritis, right knee (07/23/18) Surgery Performed Operation Date: 07/23/18 13:00 Actual Procedures p Total Knee Arthroplasty(Right) - Stephanie Hunter MD Operation Date: 07/25/18 15:00 Actual Procedures p Knee drain removal(Right) - Stephanie Hunter MD Physical Therapy Treatment Note M2 PT-IP Current Condition Start: 07/24/18 12:38 Freq: NEEDED Status: Active Protocol: Document 07/26/18 10:25 (Rec: 07/26/18 10:26 [id number]) Physical Therapy Current Condition Current Condition Evaluation Date 07/24/18 Treatment Diagnosis s/p R TKA; difficulty in walking Onset Date 07/23/18 Weight Bearing Status Weight Bearing Status Weight Bear as Tolerated M3 PT-IP Subjective Start: 07/24/18 12:38 Freq: NEEDED Status: Active Protocol: Document 07/26/18 14:41 AB (Rec: 07/26/18 14:41 AB [id number]) Subjective Physical Therapy Visit Type Notes pt getting ready to d/c to SNF and refused PT.
--- NOTE | 2018-07-26 15:10 | PC.NURSE ---
Pt discharged to [facility] and report called.
== END 2018-07-26 14:45 | DRG 470 ==
PROVIDERS: Admitting Provider Orthopaedic Surgery; Family Provider Internal Medicine; PCP Internal Medicine; Visit Provider Orthopaedic Surgery
PROC: 0SRC0JZ Replacement of Right Knee Joint with Synthetic Substitute, Open Approach (ICD-10-PCS; CPT 27447; principal; 2018-07-23 13:00)
PROC: 0SP Lower Joints, Removal (ICD-10-PCS; principal; 2018-07-25 15:00)
DX: M17.11 Unilateral primary osteoarthritis, right knee (principal); T85.698A Other mechanical complication of other specified internal prosthetic devices, implants and grafts, initial encounter; M96.840 Postprocedural hematoma of a musculoskeletal structure following a musculoskeletal system procedure; Z96.642 Presence of left artificial hip joint; I10 Essential (primary) hypertension; E78.5 Hyperlipidemia, unspecified; Z87.891 Personal history of nicotine dependence
CPT/HCPCS: 36415; 64450; 73560; 85014; 85018; 97116; 97162; 97530; C1776; C9290; J0690; J1170; J2250; J2405; J2704; J3010; J3370

== ENCOUNTER 2018-10-06 09:09 | Emergency (ER) | payer MEDICARE, SELFPAY ==
[2018-07-23 16:12] VITALS: BMI 28.3
[2018-10-06 09:10] VITALS: BP 156/76; PULSE 89; RESP 16; TEMP 35.6; O2SAT 100; BMI 28.3
--- NOTE | 2018-10-06 09:26 | ED_ITS ---
HPI - Epistaxis General Chief complaint: Nasal Problem Stated complaint: Epistaxis Time Seen by Provider: 10/06/18 09:24 Source: patient and EMS Mode of arrival: EMS Limitations: no limitations History of Present Illness HPI Narrative: The patient is a 78-year-old female presenting with left-sided epistaxis ongoing for the last 1-2 hours. EMS noted her blood pressure to be quite elevated with 200/100. She is not anticoagulated. His she says it is dripping down her throat. She is unable to get it to stop at home. She previously has nosebleed from the left side 3-4 months ago as well. MD complaint: epistaxis Location: left nostril Onset (ago): hour(s) (2) Duration: constant Related Data Home Medications Medication Instructions Recorded Confirmed diclofenac 1 % topical gel TOP gram 10/01/18 10/01/18 Previous Rx's Medication Instructions Recorded atorvastatin 40 mg tablet 40 mg PO HS #90 tab 06/10/18 hydrochlorothiazide 25 mg tablet 25 mg PO QDAY #90 tab 06/10/18 aspirin 81 mg PO BID #60 tab 07/26/18 [address] #1 each 08/20/18 losartan 100 mg tablet 100 mg PO DAILY #90 tab 08/20/18 metoprolol succinate ER 100 mg 150 mg PO QAM #135 tab 10/01/18 tablet,extended release 24 hr Allergies Allergy/AdvReac Type Severity Reaction Status Date / Time meloxicam Allergy Severe Itching, Verified 10/01/18 10:39 open sores Penicillins [PENICILLINS] Allergy Unknown rash-CHILDH Verified 10/01/18 10:39 OOD amlodipine [AMLODIPINE] AdvReac Intermediate LEG Verified 10/01/18 10:39 SWELLING lisinopril [LISINOPRIL] AdvReac Intermediate cough Verified 10/01/18 10:39 venlafaxine [VENLAFAXINE] AdvReac Mild Pt unsure Verified 10/01/18 10:39 of reaction L NARES TIGHT AdvReac Mild DO NOT USE Uncoded 10/01/18 10:39 L NARES FOR TUBES Review of Systems Review of Systems ROS Unobtainable: All systems reviewed & are unremarkable except as noted in HPI and below Constitutional Denies chills, Denies fever(s), Denies lethargy and Denies weakness Eyes Reports dry eyes ENT Ears, Nose, Mouth, and Throat: Reports as per HPI Cardiovascular Denies chest pain, Denies irregular heart rhythm, Denies lightheadedness, Denies palpitations, Denies dyspnea, Denies dyspnea on exertion and Denies orthopnea Respiratory Denies cough, Denies dyspnea, Denies dyspnea on exertion and Denies wheezing Gastrointestinal Gastrointestinal: Denies abdominal pain, Denies change in bowel habits, Denies diarrhea, Denies nausea and Denies vomiting Musculoskeletal Denies back pain, Denies muscle weakness, Denies numbness and Denies tingling Integumentary/Breasts Denies pruritus, Denies erythema, Denies rash and Denies wounds Neurologic Denies numbness, Denies tingling and Denies weakness Endocrine Denies palpitations Allergic/Immunologic Denies wheezing [facility] Medical History Hypertension (Chronic) Hyperlipidemia (Chronic) Gout (Chronic 07/19/11) Idiopathic peripheral neuropathy (Chronic 02/12/15) Peripheral edema (Chronic 03/21/16) 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) Anxiety (Acute) Depression (Acute) Impaired hearing (Acute) Insomnia (Acute) Multiple lipomas (Acute) TIA (transient ischemic attack) (Acute) Vaginal pessary present (Acute) Surgical History Status post total hip replacement, left (Inactive 06/06/16) S/P bilateral breast reduction (Inactive) Hx of appendectomy (Acute) S/P total abdominal hysterectomy and bilateral salpingo-oophorectomy Social History household members: none Smoking Status: Never smoker alcohol intake: former Social History household members: none Smoking Status: Never smoker alcohol intake: former Exam Initial Vital Signs Initial Vital Signs: Vital Signs Temperature 96.1 F L 10/06/18 09:10 Pulse Rate 89 10/06/18 09:10 Respiratory Rate 16 10/06/18 09:10 Blood Pressure 156/76 H 10/06/18 09:10 Pulse Oximetry 100 10/06/18 09:10 GENERAL: Well-appearing, well-nourished and in no acute distress. CARDIOVASCULAR: peripheral pulses in tact, cap refill <2 sec RESPIRATORY: No respiratory distress, speaks in full sentences without difficulty EXTREMITIES: Normal range of motion, no clubbing or edema. Neurovascularly intact NEUROLOGICAL: Cranial nerves II through XII grossly intact. Normal gait and speech. SKIN: Warm, dry, no petechiae, no rashes or lesions. Procedures Epistaxis Control Time Out Performed: Yes Nostril: left Nose Prepped With: oxymetazoline Direct Inspection: unable to visualize Clots Removed by: blowing nose Device Inserted: hemostatic balloon Patient Tolerated Procedure: well Complications: continued epistaxis Course Vital Signs - 8 hr 10/06/18 09:10 10/06/18 09:58 10/06/18 11:24 Temperature 96.1 F L Pulse Rate 89 89 83 Respiratory Rate 16 18 15 Blood Pressure 156/76 H Blood Pressure [Left Arm] 138/59 L 137/65 Pulse Oximetry 100 97 98 MDM - Epistaxis MDM Narrative Medical decision making narrative: initially foam placed which quickly filled with blood. rhino rocket in place in left nostril 0 bleeding seemed to stop. Patient did tilt her head forward go while going to the restroom it came out the right nostril but then stopped again. The balloon was left in place for an hour and a half. His blue none removed. She felt it bleeding again dripping down her throat. Direct visualization possible site. Silver nitrate used. Bleeding has definitely slowed. I called and spoke with a Dr. Shepherd ENT who recommends reinserting a balloon and leaving in place with follow-up with ENT this week. Patient begrudgingly allowed the is rhino rocket to be replaced. Bleeding controlled and stopped. Patient ready for discharge. Discharge Plan Departure Patient Disposition: Home Clinical Impression: Epistaxis Discharge Date/Time: 10/06/18 11:52 Interventions: ED Discharge Assessment Last Done: 10/06/18 11:51 Instructions: DI for Nosebleed Activity Restrictions/Additional Instructions: *You have been diagnosed with nose bleed *What to do: keep balloon in nose for 2-3 days as. Need to follow-up with ear nose and throat doctor. *Continue to take medications as directed *Follow up with your primary care provider in 2-[address] Ibrahim, ear nose and throat doctor tomorrow *Return to ER if you should have recurrent nose bleed is, worsening pain or any new, worsening or concerning symptoms Prescriptions: No Action atorvastatin 40 mg tablet 40 mg PO HS Qty: 90 RF: 3 hydrochlorothiazide 25 mg tablet 25 mg PO QDAY Qty: 90 RF: 3 losartan 100 mg tablet 100 mg PO DAILY Qty: 90 RF: 3 Disabled Parking Qty: 1 RF: 0 diclofenac sodium 1 % gel TOP RF: 0 metoprolol succinate 100 mg tablet extended release 24 hr 150 mg PO QAM Qty: 135 RF: 3 aspirin 81 mg Tablet,Delayed Release (Dr/Ec) 81 mg PO BID Qty: 60 RF: 0 Referrals: Tai Ibrahim MD [Physician] - Edgardo Bee MD [Primary Care Provider] -
[2018-10-06 09:58] VITALS: BP 138/59; PULSE 89; RESP 18; O2SAT 97
--- NOTE | 2018-10-06 10:06 | PC.NURSE ---
pt had episode while getting up from toilet where blood came out of her right nostril. After we got her back to bed and sitting still bleeding has stopped. I let Dr. Gandara know. All she reports doing is bending over and that was enough to have blood escape from her right nare. it has now stopped.
[2018-10-06 11:24] VITALS: BP 137/65; PULSE 83; RESP 15; O2SAT 98
--- NOTE | 2018-10-06 11:25 | PC.NURSE ---
pt's nose started bleeding again, without the rhino in, gave her some nose clamps as she continues to sit up in no apparent distress.
== END 2018-10-06 11:52 | disposition home or self-care (01) ==
PROVIDERS: Emergency Provider Emergency Medicine; PCP Internal Medicine
DX: R04.0 Epistaxis (principal)
CPT/HCPCS: 30903; 99282

== ENCOUNTER → 2018-11-04 10:06 | Outpatient (CLI) | payer MEDICARE, SELFPAY ==
[2018-07-23 16:12] VITALS: BMI 28.3
--- NOTE | 2018-11-04 | DI.CT.S_ITS ---
PROCEDURE: CT SINUS SCREEN WO CON INDICATIONS: Other chronic sinusitis TECHNIQUE: Noncontrast 3.0 mm axial images acquired from the frontal sinuses to the mid-sella, with coronal and sagittal reformats. For radiation dose reduction, the following was used: automated exposure control, adjustment of mA and/or kV according to patient size. COMPARISON: [facility], , CT SINUS INTERMEDIATE, 01/08/2004, 13:26. FINDINGS: Image quality: Excellent. Maxillary Sinuses: No bony remodeling or destruction. Probable left antrectomy. Bilateral mucosal thickening, mucous retention cyst and air-fluid levels, left greater than right. Ethmoid Air Cells: No bony remodeling or destruction. Sinuses are clear. Sphenoid Sinuses: No bony remodeling or destruction. The left sphenoid sinus is near completely opacified with an air-fluid level. There is calcification within mucous retention material. Frontal Sinuses: No bony remodeling or destruction. Sinuses are clear. Ostiomeatal Complexes: Ostiomeatal complexes are patent. No William cells. Miscellaneous: Visualized intra-orbital contents are normal. No giselle bullosa or paradoxical turbinate curvature. Mild leftward nasal septal deviation. IMPRESSION: 1. The left sphenoid sinus is near completely opacified with an air-fluid level. There is calcification within mucous retention material suggesting inssipated mucous. 2. Bilateral maxillary sinusitis. 3. Mild left nasal septum deviation. Dictated by: Jeff Jefferson M.D. on 11/04/2018 at 11:12 Approved by: Jeff Jefferson M.D. on 11/04/2018 at 11:24
== END ==
PROVIDERS: Family Provider Ophthalmology; PCP Internal Medicine; Visit Provider Otolaryngology
DX: J32.8 Other chronic sinusitis (principal); J34.2 Deviated nasal septum; R51 Headache
CPT/HCPCS: 70486

== ENCOUNTER → 2019-02-18 10:28 | Outpatient (CLI) | payer MEDICARE, SELFPAY ==
[2018-07-23 16:12] VITALS: BMI 28.3
--- NOTE | 2019-02-18 10:30 | DI.MG.S_ITS ---
BILATERAL DIGITAL SCREENING MAMMOGRAM 3D/2D WITH CAD: 02/18/2019 CLINICAL: Routine screening. Comparison is made to exams dated: 01/24/2017 mammogram - [facility], 07/11/2016 mammogram - [facility], 12/22/2015 mammogram, and 10/29/2013 mammogram - [facility]. There are scattered fibroglandular elements in both breasts. Current study was also evaluated with a Computer Aided Detection (CAD) system. There are benign vascular calcifications in both breasts. There also is a benign biopsy clip in the left breast. No significant masses, calcifications, or other findings are seen in either breast. There has been no significant interval change. IMPRESSION: There is no mammographic evidence of malignancy. A 1 year screening mammogram is recommended. This exam was interpreted at Station ID: [id number]. NOTE: For mammograms, a report in lay terms will be sent to the patient. Approximately 15% of breast malignancies will not be visualized mammographically. In the management of a palpable breast mass, a negative mammogram must not discourage biopsy of a clinically suspicious lesion. Electronically Signed By: Alejandra araya/shell:02/18/2019 12:46:36 letter sent: Normal Exam ACR BI-RADS Category 2: Benign Finding(s) 3342F
== END ==
PROVIDERS: PCP Internal Medicine; Visit Provider Internal Medicine
DX: Z12.31 Encounter for screening mammogram for malignant neoplasm of breast (principal)
CPT/HCPCS: 77063; 77067

== ENCOUNTER → 2019-03-07 09:29 | Outpatient (CLI) | payer MEDICARE, SELFPAY ==
[2018-07-23 16:12] VITALS: BMI 28.3
[2019-03-07 10:17] LABS: Add Manual Diff / Slide Review NO; Basophils Absolute Auto 0 /uL (0-100); Basophils Percent Auto 0.6 % (0-2); Eosinophils Absolute Auto 100 /uL (0-450); Eosinophils Percent Auto 1.7 % (2-4); Hematocrit 39.4 % (36-46); Hemoglobin 13.8 g/dL (12.0-16.0); Lymphocytes Absolute Auto 1900 /uL (1100-4500); Lymphocytes Percent Auto 23.6 % (25-40); Mean Corpuscular HGB Conc 34.9 % (30-36); Mean Corpuscular Volume 88.6 fL (80-100); Monocytes Absolute Auto 600 /uL (0-900); Neutrophils Absolute Auto 5300 /uL (1500-7000); Neutrophils Percent Auto 67.1 % (50-75); Platelet Count 240 X10^3/uL (150-400); Red Blood Cell Count 4.45 X10^6/uL (4.0-5.2); Red Cell Distribution Width 12.9 % (11.6-14.8); White Blood Cell Count 7.9 X10^3/uL (4.5-11.0)
[2019-03-07 10:26] LABS: Alanine Aminotransferase 24 IU/L (9-52); Albumin 4.6 g/dL (3.5-5.0); Albumin Globulin Ratio 1.6 (1.0-2.8); Alkaline Phosphatase 75 U/L (38-126); Aspartate Aminotransferase 25 IU/L (14-36); BUN Creatinine Ratio 18.3 (6-22); Bilirubin Total 1.9 mg/dL (0.2-1.3); Blood Urea Nitrogen 11 mg/dL (7-17); Calcium 10.1 mg/dL (8.4-10.2); Carbon Dioxide 28 mmol/L (22-32); Chloride 95 mmol/L (98-107); Estimated Glomerular Filt Rate > 60.0 mL/min (>60); Globulin 2.8 g/dL (1.7-4.1); Glucose 101 mg/dL (80-110); HEMOLYSIS < 15 (0-50); Sodium 134 mmol/L (137-145); Total Protein 7.4 g/dL (6.3-8.2)
[2019-03-07 10:58] LABS: TSH w/ Reflex to FT4 1.01 uIU/mL (0.47-4.68)
== END ==
PROVIDERS: PCP Internal Medicine; Visit Provider Internal Medicine
DX: E78.5 Hyperlipidemia, unspecified (principal); G60.9 Hereditary and idiopathic neuropathy, unspecified; I10 Essential (primary) hypertension; M85.80 Other specified disorders of bone density and structure, unspecified site; R60.9 Edema, unspecified
CPT/HCPCS: 36415; 80053; 84443; 85025

== ENCOUNTER → 2019-05-07 14:52 | Outpatient (CLI) | payer MEDICARE, SELFPAY ==
[2018-07-23 16:12] VITALS: BMI 28.3
--- NOTE | 2019-05-07 14:56 | DI.RAD.S_ITS ---
PROCEDURE: XR CHEST 2V INDICATIONS: GERD TECHNIQUE: 2 views of the chest were acquired. COMPARISON: [facility], CHEST 2 VIEW, 04/10/2007, 9:41. [facility], CHEST 2 VIEW, 06/24/2010, 11:53. FINDINGS: Surgical changes and devices: None. Lungs and pleura: Mild diffuse interstitial prominence with patchy bibasilar opacities. Mild hyperaeration with flattening of the hemidiaphragms best noted on the lateral view. No focal consolidation. Subtle increased medial right lung base opacity remains stable without correlate on the lateral view. This likely represents superimposition of structures. No pleural effusions or pneumothorax. Mediastinum: Mediastinal contours are normal. Heart size is normal. Bones and chest wall: No suspicious bony abnormalities. Soft tissues appear unremarkable. IMPRESSION: Mild diffuse interstitial prominence with patchy bibasilar opacities. Findings may represent an infectious/inflammatory process without focal consolidations. Bibasilar opacities favored to represent atelectasis. Consider short interval followup radiographs for reevaluation if persistent symptoms. Dictated by: Chester Mahoney M.D. on 05/07/2019 at 16:01 Approved by: Chester Mahoney M.D. on 05/07/2019 at 16:05
== END ==
PROVIDERS: PCP Internal Medicine; Visit Provider Hospitalist
DX: K21.9 Gastro-esophageal reflux disease without esophagitis (principal); J84.9 Interstitial pulmonary disease, unspecified
CPT/HCPCS: 71046

== ENCOUNTER → 2019-06-04 09:49 | Outpatient (CLI) | payer MEDICARE, SELFPAY ==
[2018-07-23 16:12] VITALS: BMI 28.3
--- NOTE | 2019-06-04 | DI.MRI.S_ITS ---
PROCEDURE: MR LUMBAR SPINE WO CON INDICATIONS: low back pain TECHNIQUE: Noncontrast sagittal T1 spin echo and T2 fast echo, sagittal STIR, axial T1 and T2 fast spin echo through the lumbar spine. In cases with scoliosis, additional coronal T2 fast spin echo may be performed. COMPARISON: None. FINDINGS: Image quality: Excellent. Alignment and Curvature: There is normal bony alignment. Bone Marrow: Marrow is of normal overall signal. No acute vertebral body compression fractures. There is a remote anterior wedge deformity seen of the L1 level, with 50% loss of height anteriorly. There is minimal posterior displacement of fracture fragments of 2 mm. Spinal Cord: Conus medullaris terminates at the L1 level. Visualized cord demonstrates normal signal and size. Paraspinous Soft Tissues: No paravertebral masses. T12-L1: Mild loss of disc height is seen. Loss of disc signal is seen. Bridging endplate osteophytes are seen. Moderate generalized disc bulge is seen. Mild bilateral neural foraminal narrowing is seen. Mild central canal narrowing is seen. L1-L2: The disc height is well-preserved. Loss of disc signal is seen at this level. Mild to moderate disc bulge is seen, with a left lateral recess disc protrusion, as on series 6 image 12. There is moderate left-sided and mild right-sided neural foraminal narrowing seen. Mild central canal narrowing is seen. L2-L3: The disc height is well-preserved. Loss of disc signal is seen at this level. No significant neural foraminal or central canal narrowing can be seen. L3-L4: The disc height is well-preserved. Loss of disc signal is seen at this level. Mild to moderate disc bulge is seen. Lpdw-gq-dmeibiev facet hypertrophy is seen. There is moderate right-sided and mild left-sided neural foraminal narrowing seen. Mild central canal narrowing is seen. L4-L5: The disc height is well-preserved. Loss of disc signal is seen at this level. Moderate disc bulge is seen, which is eccentric to the left. Moderate to prominent facet hypertrophy is seen. There is associated moderate hypertrophy of the ligamentum flavum. Moderate to severe bilateral neural narrowing seen, left worse than right. There is a degree of compression seen upon the exiting nerve roots. Moderate to severe central canal narrowing is seen, as on series 6 image 26. L5-S1: The disc height is well-preserved. Loss of disc signal is seen at this level. Scmc-ct-mewbixkc disc bulge is seen, which is eccentric to the right. Moderate to prominent facet hypertrophy is seen. Mild bilateral neural foraminal narrowing is seen. Mild central canal narrowing is seen. IMPRESSION: Lumbar spine degenerative changes are seen, which are most prominent at L4-L5, where there is moderate to severe bilateral neural foraminal narrowing and moderate to severe central canal narrowing present. Remote anterior wedge deformity of L1, with minimal posterior displacement of fracture fragments Dictated by: Devonte Arreola M.D. on 06/04/2019 at 10:33 Approved by: Devonte Arreola M.D. on 06/04/2019 at 10:39
== END ==
PROVIDERS: PCP Internal Medicine; Visit Provider Physical Medicine & Rehabilitation Pain Medicine
DX: M54.5 Low back pain (principal); M47.816 Spondylosis without myelopathy or radiculopathy, lumbar region; M47.817 Spondylosis without myelopathy or radiculopathy, lumbosacral region; M48.061 Spinal stenosis, lumbar region without neurogenic claudication; M48.07 Spinal stenosis, lumbosacral region
CPT/HCPCS: 72148

== ENCOUNTER → 2019-10-31 08:50 | Outpatient (CLI) | payer MEDICARE, SELFPAY ==
[2018-07-23 16:12] VITALS: BMI 28.3
[2019-10-31 09:51] LABS: Alanine Aminotransferase 22 IU/L (<35); Albumin 4.6 g/dL (3.5-5.0); Albumin Globulin Ratio 1.3 (1.0-2.8); Alkaline Phosphatase 78 U/L (38-126); Aspartate Aminotransferase 24 IU/L (14-36); BUN Creatinine Ratio 23.5 (6-22); Blood Urea Nitrogen 12 mg/dL (7-17); Carbon Dioxide 30 mmol/L (22-32); Chloride 92 mmol/L (98-107); Cholesterol 172 mg/dL (140-199); Estimated Glomerular Filt Rate > 60.0 mL/min (>60); Globulin 3.5 g/dL (1.7-4.1); Glucose 104 mg/dL (80-110); HDL Cholesterol 56 mg/dL (40-60); HEMOLYSIS 18 (0-50); LDL Cholesterol Calculated 95 mg/dL (<100); Potassium 4.2 mmol/L (3.4-5.1); Sodium 130 mmol/L (137-145); Total Protein 8.1 g/dL (6.3-8.2); Triglycerides 104 mg/dL (35-150)
== END ==
PROVIDERS: PCP Internal Medicine; Referring Provider Internal Medicine; Visit Provider Internal Medicine
DX: E78.5 Hyperlipidemia, unspecified (principal); I10 Essential (primary) hypertension; M10.9 Gout, unspecified
CPT/HCPCS: 36415; 80053; 80061

== ENCOUNTER → 2020-03-09 08:42 | Outpatient (CLI) | payer MEDICARE, SELFPAY ==
[2020-03-08 11:47] VITALS: BMI 28.3
[2020-03-10 17:11] LABS: COVID19 Sendout Not Detected (Not Detected)
== END ==
PROVIDERS: PCP Internal Medicine; Visit Provider Physician Assistant
DX: Z11.59 Encounter for screening for other viral diseases (principal)
CPT/HCPCS: 87635

== ENCOUNTER → 2020-03-20 09:09 | Outpatient (CLI) | payer MEDICARE, SELFPAY ==
[2018-07-23 16:12] VITALS: BMI 28.3
[2020-03-08 11:47] VITALS: BMI 28.3
--- NOTE | 2020-03-20 | DI.MG.S_ITS ---
BILATERAL DIGITAL SCREENING MAMMOGRAM 3D/2D WITH CAD: 03/20/2020 CLINICAL: Routine screening. Comparison is made to exams dated: 02/18/2019 mammogram, 01/24/2017 mammogram, and 12/22/2015 mammogram - [facility]. There are scattered fibroglandular elements in both breasts. Current study was also evaluated with a Computer Aided Detection (CAD) system. There are benign vascular calcifications in both breasts. There also are benign post operative findings in the right breast. Additionally, there are benign post operative findings and biopsy clip in the left breast. No significant masses, calcifications, or other findings are seen in either breast. There has been no significant interval change. IMPRESSION: BENIGN There is no mammographic evidence of malignancy. A 1 year screening mammogram is recommended. This exam was interpreted at Station ID: [id number]. NOTE: For mammograms, a report in lay terms will be sent to the patient. Approximately 15% of breast malignancies will not be visualized mammographically. In the management of a palpable breast mass, a negative mammogram must not discourage biopsy of a clinically suspicious lesion. Electronically Signed By: Chester rogers/shell:03/22/2020 07:46:35 letter sent: Normal Exam ACR BI-RADS Category 2: Benign Finding(s) 3342F
== END ==
PROVIDERS: PCP Internal Medicine; Referring Provider Internal Medicine; Visit Provider Internal Medicine
DX: Z12.31 Encounter for screening mammogram for malignant neoplasm of breast (principal)
CPT/HCPCS: 77063; 77067

== ENCOUNTER → 2020-06-16 09:58 | Outpatient (CLI) | payer MEDICARE, SELFPAY ==
[2020-04-06 16:19] VITALS: BMI 28.3
[2020-06-16 11:50] LABS: Appearance Urine UA CLEAR; Bilirubin Urine UA NEGATIVE (NEGATIVE); Color Urine UA YELLOW; Glucose Urine UA NEGATIVE (Negative); Ketones Urine UA NEGATIVE (NEGATIVE); Leukocyte Esterase Urine UA 1+ (NEGATIVE); Nitrite Urine UA NEGATIVE (Negative); Occult Blood Urine UA 1+ (Negative); Protein Urine UA NEGATIVE (Negative); Urobilinogen Urine UA 0.2 E.U./dL (0.2)
[2020-06-16 12:00] LABS: Bacteria Urine Moderate (10-30); Culture Indicated Urine Specimen Cultured; RBC Urine 0-1/HPF (0-5/HPF); Squamous Epithelial Cell Urine 0-1 /HPF (0-5/HPF); WBC Urine 10-30/HPF (0-5/HPF)
== END ==
PROVIDERS: PCP Internal Medicine; Referring Provider Internal Medicine; Visit Provider Internal Medicine
DX: R30.9 Painful micturition, unspecified (principal)
CPT/HCPCS: 81001; 87077; 87086; 87186

== ENCOUNTER → 2020-07-13 16:15 | Outpatient (CLI) | payer MEDICARE, SELFPAY ==
[2020-04-06 16:19] VITALS: BMI 28.3
== END ==
PROVIDERS: PCP Internal Medicine; Referring Provider Internal Medicine; Visit Provider Internal Medicine
DX: N39.0 Urinary tract infection, site not specified (principal)
CPT/HCPCS: 87077; 87086; 87186

== ENCOUNTER → 2020-07-14 15:29 | Outpatient (CLI) | payer MEDICARE, SELFPAY ==
[2020-04-06 16:19] VITALS: BMI 28.3
--- NOTE | 2020-07-14 15:31 | DI.RAD.S_ITS ---
PROCEDURE: XR WRIST LT MIN 3V INDICATIONS: Left wrist pain after fall TECHNIQUE: 4 views of the wrist were acquired. COMPARISON: [facility], , WRIST MINIMUM 3 VIEWS LEFT, 10/31/2011, 7:57. FINDINGS: Bones: Moderate osteoarthritic changes along radial aspect of left wrist are again seen most prominent at 1st CMC joint. No acute fractures or dislocations. No suspicious bony lesions. Scaphoid view: Scaphoid is intact. Soft tissues: No suspicious soft tissue calcifications. Dorsal wrist soft tissue swelling at the level of carpal bones and metacarpal bases are seen. IMPRESSION: Osteoarthritic changes along radial aspect of left wrist most prominent at 1st CMC joint. No acute fracture or dislocation. Dorsal wrist soft tissue swelling. Dictated by: Everardo Arshad M.D. on 07/14/2020 at 15:59 Approved by: Everardo Arshad M.D. on 07/14/2020 at 16:01
== END ==
PROVIDERS: PCP Internal Medicine; Referring Provider Family Medicine; Visit Provider Family Medicine
DX: S69.92XA Unspecified injury of left wrist, hand and finger(s), initial encounter (principal); W19.XXXA Unspecified fall, initial encounter
CPT/HCPCS: 73110

== ENCOUNTER → 2020-07-15 15:39 | Outpatient (CLI) | payer MEDICARE, SELFPAY ==
[2020-07-15 11:09] VITALS: BMI 28.3
--- NOTE | 2020-07-15 15:40 | DI.CT.S_ITS ---
PROCEDURE: CT HEAD/BRAIN WO CON INDICATIONS: ground level fall on her face, takes aspirin TECHNIQUE: Noncontrast 4.5 mm thick angled axial sections acquired from the foramen magnum to the vertex, with coronal and sagittal reformats. For radiation dose reduction, the following was used: automated exposure control, adjustment of mA and/or kV according to patient size. COMPARISON: [facility], CT, CT SINUS SCREEN WO CON, 11/04/2018, 10:17. FINDINGS: Image quality: Excellent. CSF spaces: Basal cisterns are patent. No extra-axial fluid collections. The ventricles are symmetric in size and shape. Brain: No intracranial bleeds or masses. There is cerebral volume loss for age, with resultant ventricular and sulcal prominence. There are periventricular and deep white matter chronic small vessel ischemic changes. There is intracranial internal carotid artery atherosclerosis. Skull and face: Mild soft tissue swelling can be seen involving the right forehead. No underlying calvarial fracture is seen. Calvarium and visualized facial bones appear intact, without suspicious lesions. Sinuses: There is again seen complete opacification of the left sphenoid sinus, which is not significantly changed compared to 2019. Hyperdense elements can be seen within this opacified sinus. Visualized sinuses and mastoids are otherwise clear. IMPRESSION: No acute intracranial hemorrhage is seen. No acute intracranial process is seen. Mild right forehead soft tissue swelling, without an underlying calvarial fracture. Complete opacification of the left sphenoid sinus again seen. Dictated by: Devonte Arreola M.D. on 07/15/2020 at 15:08 Approved by: Devonte Arreola M.D. on 07/15/2020 at 15:10
== END ==
PROVIDERS: PCP Family Medicine; Referring Provider Nurse Practitioner Family; Visit Provider Nurse Practitioner Family
DX: S00.83XA Contusion of other part of head, initial encounter (principal); S09.90XA Unspecified injury of head, initial encounter; M79.89 Other specified soft tissue disorders; W18.30XA Fall on same level, unspecified, initial encounter; Z79.82 Long term (current) use of aspirin; I65.29 Occlusion and stenosis of unspecified carotid artery
CPT/HCPCS: 70450

== ENCOUNTER → 2020-08-02 08:00 | Outpatient (CLI) | payer MEDICARE, SELFPAY ==
[2020-07-15 11:09] VITALS: BMI 28.3
[2020-08-02 10:51] LABS: Add Manual Diff / Slide Review NO; Basophils Absolute Auto 0 /uL (0-100); Basophils Percent Auto 0.6 % (0-2); Eosinophils Absolute Auto 0 /uL (0-450); Hematocrit 39.6 % (36-46); Hemoglobin 13.7 g/dL (12.0-16.0); Lymphocytes Absolute Auto 1700 /uL (1100-4500); Lymphocytes Percent Auto 23.6 % (25-40); Mean Corpuscular HGB Conc 34.6 % (30-36); Mean Corpuscular Hemoglobin 31.4 PG (26-34); Mean Corpuscular Volume 90.8 fL (80-100); Monocytes Absolute Auto 500 /uL (0-900); Monocytes Percent Auto 7.2 % (3-14); Neutrophils Absolute Auto 4900 /uL (1500-7000); Neutrophils Percent Auto 68.6 % (50-75); Platelet Count 254 X10^3/uL (150-400); Red Blood Cell Count 4.36 X10^6/uL (4.0-5.2); Red Cell Distribution Width 12.7 % (11.6-14.8); White Blood Cell Count 7.2 X10^3/uL (4.5-11.0)
[2020-08-02 11:26] LABS: Alanine Aminotransferase 32 IU/L (<35); Albumin 4.1 g/dL (3.5-5.0); Albumin Globulin Ratio 1.3 (1.0-2.8); Alkaline Phosphatase 80 U/L (38-126); Aspartate Aminotransferase 30 IU/L (14-36); BUN Creatinine Ratio 24.1 (6-22); Bilirubin Total 1.1 mg/dL (0.2-1.3); Blood Urea Nitrogen 13 mg/dL (7-17); Calcium 9.8 mg/dL (8.4-10.2); Carbon Dioxide 31 mmol/L (22-32); Chloride 98 mmol/L (98-107); Cholesterol 165 mg/dL (140-199); Estimated Glomerular Filt Rate > 60.0 mL/min (>60); Globulin 3.1 g/dL (1.7-4.1); Glucose 98 mg/dL (80-110); HDL Cholesterol 53 mg/dL (40-60); HEMOLYSIS < 15 (0-50); LDL Cholesterol Calculated 81 mg/dL (<100); Potassium 4.3 mmol/L (3.4-5.1); Sodium 133 mmol/L (137-145); Total Protein 7.2 g/dL (6.3-8.2); Triglycerides 155 mg/dL (35-150)
[2020-08-02 11:53] LABS: TSH w/ Reflex to FT4 1.64 uIU/mL (0.47-4.68)
== END ==
PROVIDERS: PCP Family Medicine; Referring Provider Family Medicine; Visit Provider Family Medicine
DX: E78.2 Mixed hyperlipidemia (principal); I10 Essential (primary) hypertension; Z13.29 Encounter for screening for other suspected endocrine disorder
CPT/HCPCS: 36415; 80053; 80061; 84443; 85025

== ENCOUNTER → 2020-10-22 15:33 | Outpatient (CLI) | payer MEDICARE, SELFPAY ==
[2020-09-30 09:59] VITALS: BMI 28.3
[2020-10-22] MEDS: COVID-19 VACC, Ad26(JANSSEN)/PF 0.5 ML IM (15:47)
== END ==
PROVIDERS: PCP Family Medicine; Visit Provider Internal Medicine
DX: Z23 Encounter for immunization (principal)
CPT/HCPCS: 0031A; 91303

== ENCOUNTER → 2021-04-06 08:20 | Outpatient (CLI) | payer MEDICARE, SELFPAY ==
[2020-09-30 09:59] VITALS: BMI 28.3
--- NOTE | 2021-04-06 | DI.MG.S_ITS ---
BILATERAL DIGITAL SCREENING MAMMOGRAM 3D/2D WITH CAD: 04/06/2021 CLINICAL: Routine screening. Comparison is made to exams dated: 03/20/2020 mammogram, 02/18/2019 mammogram, and 01/24/2017 mammogram - [facility]. There are scattered fibroglandular elements in both breasts. Current study was also evaluated with a Computer Aided Detection (CAD) system. There is a cluster of grouped fine rim calcifications in the right breast central to the nipple anterior depth. No other significant masses, calcifications, or other findings are seen in either breast. IMPRESSION: INCOMPLETE: NEEDS ADDITIONAL IMAGING EVALUATION The cluster of grouped fine rim calcifications in the right breast are indeterminate. Additional views are recommended. This exam was interpreted at Station ID: [id number]. NOTE: For mammograms, a report in lay terms will be sent to the patient. Approximately 15% of breast malignancies will not be visualized mammographically. In the management of a palpable breast mass, a negative mammogram must not discourage biopsy of a clinically suspicious lesion. Electronically Signed By: Dallas Gan M.D., jr/shell:04/06/2021 10:18:57 letter sent: Additional Imaging Needed ACR BI-RADS Category 0: Incomplete 3340F
== END ==
PROVIDERS: PCP Family Medicine; Referring Provider Family Medicine; Visit Provider Family Medicine
DX: Z12.31 Encounter for screening mammogram for malignant neoplasm of breast (principal)
CPT/HCPCS: 77063; 77067

== ENCOUNTER → 2021-04-13 13:55 | Outpatient (CLI) | payer MEDICARE, SELFPAY ==
[2020-09-30 09:59] VITALS: BMI 28.3
[2021-04-13 17:46] LABS: Uric Acid 5.3 mg/dL (2.5-6.2)
[2021-04-13 18:26] LABS: Hemoglobin A1C% w Est Avg Glu 5.5 % (4.0-6.0)
[2021-04-13 18:39] LABS: Vitamin B12 735 pg/mL (239-931)
== END ==
PROVIDERS: PCP Family Medicine; Referring Provider Family Medicine; Visit Provider Family Medicine
DX: G60.9 Hereditary and idiopathic neuropathy, unspecified (principal); M10.9 Gout, unspecified; B37.0 Candidal stomatitis; I10 Essential (primary) hypertension; E78.5 Hyperlipidemia, unspecified; E66.9 Obesity, unspecified
CPT/HCPCS: 36415; 82607; 83036; 84550

== ENCOUNTER → 2021-04-27 08:37 | Outpatient (CLI) | payer MEDICARE, SELFPAY ==
[2020-09-30 09:59] VITALS: BMI 28.3
--- NOTE | 2021-04-27 08:38 | DI.MG.S_ITS ---
UNILATERAL RIGHT DIGITAL DIAGNOSTIC MAMMOGRAM 3D/2D WITH ADDITIONAL VIEWS: 04/27/2021 CLINICAL: Additional evaluation requested from prior study. Comparison is made to exams dated: 04/06/2021 mammogram, 03/20/2020 mammogram, and 02/18/2019 mammogram - [facility]. There are scattered fibroglandular elements in right breast. The previously questioned cluster of fine calcifications in the right breast central to the nipple anterior depth is not reproduced and presumably represented superimposed breast tissue. No other significant masses or calcifications are seen in the breast. IMPRESSION: PROBABLY BENIGN The previously questioned calcifications are no longer seen. Precautionary follow-up mammogram in 6 months is recommended. This exam was interpreted at Station ID: [id number]. NOTE: For mammograms, a report in lay terms will be sent to the patient. Approximately 15% of breast malignancies will not be visualized mammographically. In the management of a palpable breast mass, a negative mammogram must not discourage biopsy of a clinically suspicious lesion. Electronically Signed By: Dallas Gan M.D. jr/:04/27/2021 09:18:26 letter sent: Followup Recommended ACR BI-RADS Category 3: Probably benign [id number]
== END ==
PROVIDERS: PCP Family Medicine; Referring Provider Family Medicine; Visit Provider Family Medicine
DX: R92.8 Other abnormal and inconclusive findings on diagnostic imaging of breast (principal); G60.9 Hereditary and idiopathic neuropathy, unspecified; N63.10 Unspecified lump in the right breast, unspecified quadrant
CPT/HCPCS: 77065; G0279

== ENCOUNTER → 2021-05-10 10:12 | Outpatient (CLI) | payer MEDICARE, SELFPAY ==
[2020-09-30 09:59] VITALS: BMI 28.3
[2021-05-10 10:44] LABS: Add Manual Diff / Slide Review NO; Basophils Absolute Auto 100 /uL (0-100); Basophils Percent Auto 0.6 % (0-2); Eosinophils Absolute Auto 200 /uL (0-450); Eosinophils Percent Auto 1.9 % (2-4); Hematocrit 41.8 % (36-46); Hemoglobin 14.4 g/dL (12.0-16.0); Lymphocytes Absolute Auto 2100 /uL (1100-4500); Lymphocytes Percent Auto 22.8 % (25-40); Mean Corpuscular HGB Conc 34.6 % (30-36); Mean Corpuscular Hemoglobin 31.3 PG (26-34); Mean Corpuscular Volume 90.7 fL (80-100); Monocytes Absolute Auto 800 /uL (0-900); Neutrophils Absolute Auto 6200 /uL (1500-7000); Neutrophils Percent Auto 66.7 % (50-75); Platelet Count 236 X10^3/uL (150-400); Red Blood Cell Count 4.61 X10^6/uL (4.0-5.2); Red Cell Distribution Width 12.8 % (11.6-14.8); White Blood Cell Count 9.4 X10^3/uL (4.5-11.0)
[2021-05-10 11:11] LABS: Alanine Aminotransferase 25 IU/L (<35); Albumin 4.7 g/dL (3.5-5.0); Albumin Globulin Ratio 1.6 (1.0-2.8); Alkaline Phosphatase 76 U/L (38-126); Aspartate Aminotransferase 31 IU/L (14-36); Bilirubin Total 1.3 mg/dL (0.2-1.3); Blood Urea Nitrogen 13 mg/dL (7-17); Calcium 10.2 mg/dL (8.4-10.2); Carbon Dioxide 30 mmol/L (22-32); Chloride 95 mmol/L (98-107); Estimated Glomerular Filt Rate > 60.0 mL/min (>60); Glucose 102 mg/dL (80-110); HEMOLYSIS < 15 (0-50); Potassium 4.4 mmol/L (3.4-5.1); Sodium 133 mmol/L (137-145); Total Protein 7.7 g/dL (6.3-8.2)
[2021-05-10 11:39] LABS: TSH w/ Reflex to FT4 0.72 uIU/mL (0.47-4.68)
== END ==
PROVIDERS: PCP Family Medicine; Referring Provider Family Medicine; Visit Provider Family Medicine
DX: E78.5 Hyperlipidemia, unspecified (principal); I10 Essential (primary) hypertension
CPT/HCPCS: 36415; 80053; 84443; 85025

== ENCOUNTER 2021-06-10 09:00 | Outpatient (RCR) | payer MEDICARE, SELFPAY ==
[2020-09-30 09:59] VITALS: BMI 28.3
--- NOTE | 2021-05-03 17:00 | PT.OIE ---
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) Chronic sinusitis Chronic UTI Depression Gilbert syndrome Gout (07/19/11) Head contusion Head injury, acute, without loss of consciousness Hordeolum externum of right lower eyelid Hx of appendectomy Hyperlipidemia Hypertension Idiopathic peripheral neuropathy (02/12/15) Idiopathic peripheral neuropathy Impaired hearing Insomnia Left wrist sprain Multiple lipomas Osteoarthritis Osteopenia Osteoporosis Peripheral edema (03/21/16) Postmenopausal atrophic vaginitis Recurrent UTI (urinary tract infection) S/P bilateral breast reduction Status post total right knee replacement Thrush TIA (transient ischemic attack) Tinea Toe deformity Traumatic ecchymosis of face Vaginal pessary present Past Surgical History (Last Reviewed 12/29/20 @ 09:53 by Soy Vu MD) Hx of appendectomy S/P bilateral breast reduction S/P total abdominal hysterectomy and bilateral salpingo-oophorectomy Status post total hip replacement, left (06/06/16) Status post total right knee replacement Visit Care Team Role Provider Type Estuardo Willams DO Attending Provider Physician Primary Care Provider Referring Provider Specialty: [facility] Address: [address] [place] [address], [facility] Email: [email or web address] [facility] Initial Evaluation PT-OP-A Visit Information Start: 05/03/21 16:28 Freq: Status: Active Protocol: Document 05/03/21 16:29 (Rec: 05/03/21 17:00 [email or web address]) Out-Patient Physical Therapy Visit Information Visit Information Visit Type Initial Evaluation Visit Start Time 08:15 Visit Stop Time 09:00 Total Visit Minutes 45 Visit Number 08/31 Number of FARE REGISTER REPAIRER Visits 0 Evaluation Information Evaluation Date 05/03/21 Precautions Precautions Osteoporosis HTN 2 falls within the last month PT-OP-B Current Condition Start: 05/03/21 16:28 Freq: Status: Active Protocol: Document 05/03/21 16:29 HH (Rec: 05/03/21 17:00 [email or web address]) Current Condition History of Current Condition Onset Date a month ago Current Complaints 2 recent falls, decreased in balance History of Current Condition Katie is a 80yo female here to improve her balance who recently has 2 falls within the same month. She stated her balance seemed to decrease suddenly and she tripped over curb/ object and twice. She also has difficulty getting up from floor d/t weakness. Both incidents affect her confidence tremendously to walk since she also lives alone with a cat. She also c/o frequent cramping at lower leg and calves who also has difficulty stepping on gas while driving sometimes. Prior Treatments and Tests Dr. Pelletier has told pt she has peripheral neuropathy. Pt is not diabetic R TKA, L EARLENE Current Functional Impairments (Reported) Functional Limitations- Mobility/Gait pt has 14 steps to 2nd floor. Uses B rails for 7 steps and L rail for remaining 7 steps. Personal Factors Other Personal Factors That May Effect Osteoporosis Therapy/Recovery HTN 2 falls within the last month PT-OP-C Subjective Start: 05/03/21 16:28 Freq: Status: Active Protocol: Document 05/03/21 16:29 (Rec: 05/03/21 17:00 [email or web address]) Patient Questionnaires ABC- Activity Specific Balance Confidence Scale ABC Score 75 ABC Functional Impairment 20 to <40% Impaired (Score 61- 80) PT-OP-D Balance Start: 05/03/21 16:28 Freq: Status: Active Protocol: Document 05/03/21 16:29 (Rec: 05/03/21 17:00 [email or web address]) Balance Tests Single Limb Standing Single Limb- Right 2-3s Single Limb- Left 6-10s PT-OP-E Functional Tests Start: 05/03/21 16:28 Freq: Status: Active Protocol: Document 05/03/21 16:29 (Rec: 05/03/21 17:00 [email or web address]) Functional Tests 30 Second Sit to Stand Test Score 12 times Comments from 20 chair, light push off from table Dynamic Gait Index (DGI) Score 21 DGI Impairment Rating 1 to <20% Impaired (Score 20- 23) Timed Up and Go (TUG) Score 11 TUG Impairment Rating 1 to <20% Impaired (Score 11) PT-OP-F Manual Assessment Start: 05/03/21 16:28 Freq: Status: Active Protocol: Document 05/03/21 16:29 HH (Rec: 05/03/21 17:00 [email or web address]) Manual Assessments Soft Tissue Assessment Soft Tissue Mobility Assessment significant hypertonicty on lower gastro complex discoloration noted at ankle region bilaterally. PT-OP-G Mobility & Gait Start: 05/03/21 16:28 Freq: Status: Active Protocol: Document 05/03/21 16:29 HH (Rec: 05/03/21 17:00 [email or web address]) OP Gait Assessment Comments Gait Comments flat feet gait pattern noted with minimal feet clearance during swing phase. L hip drop noted during RLE stance phase PT-OP-H Neuro Start: 05/03/21 16:28 Freq: Status: Active Protocol: Document 05/03/21 16:29 HH (Rec: 05/03/21 17:00 [email or web address]) Sensation Evaluation Comments Summary Comments sensation to touch and pressure on B LEs = WFL, slight decreased sensation to touch at R lateral calf. Deep Tendon Reflex & Clonus Assessment Deep Tendon Reflex Bilateral Achilles Deep Tendon Reflex 2+ Normal Bilateral Patellar Deep Tendon Reflex 3+ Normal But Brisk PT-OP-K Range of Motion Start: 05/03/21 16:28 Freq: Status: Active Protocol: Document 05/03/21 16:29 HH (Rec: 05/03/21 17:00 [email or web address]) Ankle and Foot Goniometric Range of Motion Ankle and Foot Right Active Ankle/Foot ROM WFL No Testing Position Supine Dorsiflexion with Knee Flexed 5 Dorsiflexion with Knee Extended 0 Plantarflexion 40 Inversion 30 Eversion 0 Left Active Ankle/Foot ROM WFL No Testing Position Supine Dorsiflexion with Knee Flexed 4 Dorsiflexion with Knee Extended 0 Plantarflexion 38 Inversion 28 Eversion 2 PT-OP-M Strength Start: 05/03/21 16:28 Freq: Status: Active Protocol: Document 05/03/21 16:29 HH (Rec: 05/03/21 17:00 [email or web address]) Hip Strength Hip Manual Muscle Testing Right Flexion (L2) 4- Good- Abduction 3+ Fair+ Left Flexion (L2) 4- Good- Abduction 4- Good- Knee Strength Knee Manual Muscle Testing Right Flexion (S2) 4 Good Extension (L3) 4 Good Left Flexion (S2) 4 Good Extension (L3) 4 Good Ankle/Foot Strength Ankle and Foot Manual Muscle Testing Right Dorsiflexion (L4) 4 Good Plantarflexion (S1) 4 Good Left Dorsiflexion (L4) 4 Good Plantarflexion (S1) 4 Good PT-OP-T Assessment and Plan Start: 05/03/21 16:28 Freq: Status: Active Protocol: Document 05/03/21 16:29 (Rec: 05/03/21 17:00 [email or web address]) Physical Therapy Assessment Rehab Potential Rehabilitation Potential Good Evaluation Complexity Number of Personal Factors/Comorbidities 3 or More Number of Body Systems Impaired 3 Clinical Presentation at Evaluation Stable Impairments Impairments Activity Tolerance,Balance, Functional Activities, Functional Mobility,Gait,Pain, Posture,ROM,Soft Tissue Mobility,Strength,Transfers Goals fall recovery Impairment pt stated she is uanble to recovery from the floor Short Term Goal (STG) pt will show improved single leg stability and strength to complete 6 step up x 5 times without UE support. STG Duration 4 weeks Concrete Boom Pump Operator Goal (LTG) pt will show improved single leg stability and strength to recover from the floor with use of chair LTG Duration 8 weeks falls Impairment pt has 2 recent falls within a month Concrete Boom Pump Operator Goal (LTG) pt will show improved mobility , strength and balance so she will not fall again for the next 60 days. LTG Duration 8 weeks ankle ROM Impairment significant limited ankle ROm Short Term Goal (STG) pt will show improved ankle ROM by 5 degrees in all directions STG Duration 4 weeks Concrete Boom Pump Operator Goal (LTG) pt will show improved ankle ROM by 10 degrees in all directions to improve her feet clearance during gait LTG Duration 8 weeks Assessment Summary Assessment Katie is a 80yo female here to improve her balance after 2 recent falls. Upon assessment , pt presents WFL balance who scores 21/24 on DGI, TUG =11 s , 30s STS= 12 times with minimal use of hands. However, pt has very limited ankle AROM and significant muscle tightness which affects her gait stability and feet clearance. I believe pt will show improved gait mechanics, balance to reduce her fall risks and ability to recover from the floor by skilled therapy. Physical Therapy Plan Frequency and Duration Frequency of Treatment 1-2x/wk Duration of Treatment 8 weeks Plan of Care Start Date 05/03/21 Plan of Care End Date 07/02/21 Therapeutic Interventions Therapeutic Interventions Aquatic Therapy,Balance Training,Gait Training,Home Exercise Program,Joint Mobilizations,Manual Therapy, Neuromuscular Re-education, Patient/Caregiver Education, Self-Care/Home Management,Soft Tissue Mobilization,Taping, Therapeutic Activities, Therapeutic Exercises Modalities Cold Pack/Ice Massage,Electric Stimulation,Hot Packs, Infrared Therapy,Traction- Mechanical,Ultrasound Next Visit Focus/Plan Next Note Type Treatment Note Next Visit Plan calf stretch, pf stretch 4 way ankle calf rasies
--- NOTE | 2021-05-03 17:00 | PT.OPPOC ---
Physical, Occupational & Speech Therapy At [facility] Current Diagnoses Hereditary and idiopathic neuropathy, unspecified (05/03/21) Other abnormalities of gait and mobility (05/03/21) Visit Care Team Role Provider Type Estuardo Willams DO Attending Provider Physician Primary Care Provider Referring Provider Specialty: [facility] Address: [address] [place] [address], [facility] Email: [email or web address] Plan Of Care PT-OP-T Assessment and Plan Start: 05/03/21 16:28 Freq: Status: Active Protocol: Document 05/03/21 16:29 (Rec: 05/03/21 17:00 [email or web address]) Physical Therapy Assessment Rehab Potential Rehabilitation Potential Good Evaluation Complexity Number of Personal Factors/Comorbidities 3 or More Number of Body Systems Impaired 3 Clinical Presentation at Evaluation Stable Impairments Impairments Activity Tolerance,Balance, Functional Activities, Functional Mobility,Gait,Pain, Posture,ROM,Soft Tissue Mobility,Strength,Transfers Goals fall recovery Impairment pt stated she is uanble to recovery from the floor Short Term Goal (STG) pt will show improved single leg stability and strength to complete 6 step up x 5 times without UE support. STG Duration 4 weeks Care Home Goal (LTG) pt will show improved single leg stability and strength to recover from the floor with use of chair LTG Duration 8 weeks falls Impairment pt has 2 recent falls within a month Finance Controller Goal (LTG) pt will show improved mobility , strength and balance so she will not fall again for the next 60 days. LTG Duration 8 weeks ankle ROM Impairment significant limited ankle ROm Short Term Goal (STG) pt will show improved ankle ROM by 5 degrees in all directions STG Duration 4 weeks Finance Controller Goal (LTG) pt will show improved ankle ROM by 10 degrees in all directions to improve her feet clearance during gait LTG Duration 8 weeks Assessment Summary Assessment Katie is a 80yo female here to improve her balance after 2 recent falls. Upon assessment , pt presents WFL balance who scores 21/24 on DGI, TUG =11 s , 30s STS= 12 times with minimal use of hands. However, pt has very limited ankle AROM and significant muscle tightness which affects her gait stability and feet clearance. I believe pt will show improved gait mechanics, balance to reduce her fall risks and ability to recover from the floor by skilled therapy. Physical Therapy Plan Frequency and Duration Frequency of Treatment 1-2x/wk Duration of Treatment 8 weeks Plan of Care Start Date 05/03/21 Plan of Care End Date 07/02/21 Therapeutic Interventions Therapeutic Interventions Aquatic Therapy,Balance Training,Gait Training,Home Exercise Program,Joint Mobilizations,Manual Therapy, Neuromuscular Re-education, Patient/Caregiver Education, Self-Care/Home Management,Soft Tissue Mobilization,Taping, Therapeutic Activities, Therapeutic Exercises Modalities Cold Pack/Ice Massage,Electric Stimulation,Hot Packs, Infrared Therapy,Traction- Mechanical,Ultrasound Next Visit Focus/Plan Next Note Type Treatment Note Next Visit Plan calf stretch, pf stretch 4 way ankle calf rasies Plan of Care Dates Plan of Care Start Date 05/03/21 Plan of Care End Date 07/02/21 Electronically Signed by: Tony Headley, PT 05/03/21 1700 Please Sign and Return: I have reviewed this Plan of Care and certify that the skilled therapy services above are required to meet the patient?s needs. Physician Signature Date Printed Name and Credentials Clinical Instructor Signature Printed Name and Credentials
--- NOTE | 2021-05-06 15:16 | PT.OTN ---
Current Diagnoses Hereditary and idiopathic neuropathy, unspecified (05/06/21) Other abnormalities of gait and mobility (05/06/21) Physical Therapy Treatment Note PT-OP-A Visit Information Start: 05/03/21 16:28 Freq: Status: Active Protocol: Document 05/06/21 14:33 HH (Rec: 05/06/21 15:15 HH [id number]) Out-Patient Physical Therapy Visit Information Visit Information Visit Type Initial Evaluation Visit Start Time 14:32 Visit Stop Time 15:15 Total Visit Minutes 43 Visit Number 10/01 Number of ULTRASONIC SEAMING MACHINE OPERATOR Visits 0 PT-OP-B Current Condition Start: 05/03/21 16:28 Freq: Status: Active Protocol: Document 05/03/21 16:29 HH (Rec: 05/03/21 17:00 HH [email or web address]) Current Condition History of Current Condition Onset Date a month ago Current Complaints 2 recent falls, decreased in balance History of Current Condition Katie is a 80yo female here to improve her balance who recently has 2 falls within the same month. She stated her balance seemed to decrease suddenly and she tripped over curb/ object and twice. She also has difficulty getting up from floor d/t weakness. Both incidents affect her confidence tremendously to walk since she also lives alone with a cat. She also c/o frequent cramping at lower leg and calves who also has difficulty stepping on gas while driving sometimes. Prior Treatments and Tests Dr. Pelletier has told pt she has peripheral neuropathy. Pt is not diabetic R TKA, L EARLENE Current Functional Impairments (Reported) Functional Limitations- Mobility/Gait pt has 14 steps to 2nd floor. Uses B rails for 7 steps and L rail for remaining 7 steps. Personal Factors Other Personal Factors That May Effect Osteoporosis Therapy/Recovery HTN 2 falls within the last month PT-OP-C Subjective Start: 05/03/21 16:28 Freq: Status: Active Protocol: Document 05/06/21 14:33 HH (Rec: 05/06/21 15:15 HH [email or web address]) OP-PT Subjective Patient Comments Patient Comments My ankles seem to be looser PT-OP-D Balance Start: 05/03/21 16:28 Freq: Status: Active Protocol: Document 05/03/21 16:29 HH (Rec: 05/03/21 17:00 HH [email or web address]) Balance Tests Single Limb Standing Single Limb- Right 2-3s Single Limb- Left 6-10s PT-OP-E Functional Tests Start: 05/03/21 16:28 Freq: Status: Active Protocol: Document 05/03/21 16:29 HH (Rec: 05/03/21 17:00 [email or web address]) Functional Tests 30 Second Sit to Stand Test Score 12 times Comments from 20 chair, light push off from table Dynamic Gait Index (DGI) Score 21 DGI Impairment Rating 1 to <20% Impaired (Score 20- 23) Timed Up and Go (TUG) Score 11 TUG Impairment Rating 1 to <20% Impaired (Score 11) PT-OP-F Manual Assessment Start: 05/03/21 16:28 Freq: Status: Active Protocol: Document 05/03/21 16:29 HH (Rec: 05/03/21 17:00 [email or web address]) Manual Assessments Soft Tissue Assessment Soft Tissue Mobility Assessment significant hypertonicty on lower gastro complex discoloration noted at ankle region bilaterally. PT-OP-G Mobility & Gait Start: 05/03/21 16:28 Freq: Status: Active Protocol: Document 05/03/21 16:29 HH (Rec: 05/03/21 17:00 [email or web address]) OP Gait Assessment Comments Gait Comments flat feet gait pattern noted with minimal feet clearance during swing phase. L hip drop noted during RLE stance phase PT-OP-H Neuro Start: 05/03/21 16:28 Freq: Status: Active Protocol: Document 05/03/21 16:29 HH (Rec: 05/03/21 17:00 [email or web address]) Sensation Evaluation Comments Summary Comments sensation to touch and pressure on B LEs = WFL, slight decreased sensation to touch at R lateral calf. Deep Tendon Reflex & Clonus Assessment Deep Tendon Reflex Bilateral Achilles Deep Tendon Reflex 2+ Normal Bilateral Patellar Deep Tendon Reflex 3+ Normal But Brisk PT-OP-K Range of Motion Start: 05/03/21 16:28 Freq: Status: Active Protocol: Document 05/03/21 16:29 HH (Rec: 05/03/21 17:00 [email or web address]) Ankle and Foot Goniometric Range of Motion Ankle and Foot Right Active Ankle/Foot ROM WFL No Testing Position Supine Dorsiflexion with Knee Flexed 5 Dorsiflexion with Knee Extended 0 Plantarflexion 40 Inversion 30 Eversion 0 Left Active Ankle/Foot ROM WFL No Testing Position Supine Dorsiflexion with Knee Flexed 4 Dorsiflexion with Knee Extended 0 Plantarflexion 38 Inversion 28 Eversion 2 PT-OP-M Strength Start: 05/03/21 16:28 Freq: Status: Active Protocol: Document 05/03/21 16:29 HH (Rec: 05/03/21 17:00 HH [email or web address]) Hip Strength Hip Manual Muscle Testing Right Flexion (L2) 4- Good- Abduction 3+ Fair+ Left Flexion (L2) 4- Good- Abduction 4- Good- Knee Strength Knee Manual Muscle Testing Right Flexion (S2) 4 Good Extension (L3) 4 Good Left Flexion (S2) 4 Good Extension (L3) 4 Good Ankle/Foot Strength Ankle and Foot Manual Muscle Testing Right Dorsiflexion (L4) 4 Good Plantarflexion (S1) 4 Good Left Dorsiflexion (L4) 4 Good Plantarflexion (S1) 4 Good PT-OP-Q Treatments Start: 05/03/21 16:28 Freq: Status: Active Protocol: Document 05/06/21 14:33 HH (Rec: 05/06/21 15:15 [id number]) Cardio Equipment Recumbent Stepper (Sci-Fit) Duration (Minutes) 5 Resistance 2 Therapeutic Exercises Standing Exercises weight shift Standing Exercise Name sagittal place Comments for HEP calf raises Reps/Minutes 10 x2 Comments for HEP PF stretch Reps/Minutes 15s x 5 Comments for HEP, painful at toes d/t pressure calf stretch Reps/Minutes 15s x5 Comments for HEP Manual Therapy Treatment Soft Tissue Mobilization gastro Body Location gastro complex Mobilization Type Myofascial Release,Sustained Pressure,Trigger Point Release Intensity/Depth Moderate Body Position Supine Comments significant hypertonicity at post tib PT-OP-T Assessment and Plan Start: 05/03/21 16:28 Freq: Status: Active Protocol: Document 05/06/21 14:33 HH (Rec: 05/06/21 15:15 [id number]) Physical Therapy Assessment Goals fall recovery Impairment pt stated she is uanble to recovery from the floor Short Term Goal (STG) pt will show improved single leg stability and strength to complete 6 step up x 5 times without UE support. STG Duration 4 weeks Mcfp Goal (LTG) pt will show improved single leg stability and strength to recover from the floor with use of chair LTG Duration 8 weeks falls Impairment pt has 2 recent falls within a month Livestock Agent Goal (LTG) pt will show improved mobility , strength and balance so she will not fall again for the next 60 days. LTG Duration 8 weeks ankle ROM Impairment significant limited ankle ROm Short Term Goal (STG) pt will show improved ankle ROM by 5 degrees in all directions STG Duration 4 weeks Mcfp Goal (LTG) pt will show improved ankle ROM by 10 degrees in all directions to improve her feet clearance during gait LTG Duration 8 weeks Assessment Summary Assessment first tx session today with focus on ankle stretches and strengthening ex. She does has signifciant tightness at gastro complex with posterior tib as well. Will assess her post session tolerance. Also check hip mobility next time. Physical Therapy Plan Frequency and Duration Frequency of Treatment 1-2x/wk Duration of Treatment 8 weeks Plan of Care Start Date 05/03/21 Plan of Care End Date 07/02/21 Therapeutic Interventions Therapeutic Interventions Aquatic Therapy,Balance Training,Gait Training,Home Exercise Program,Joint Mobilizations,Manual Therapy, Neuromuscular Re-education, Patient/Caregiver Education, Self-Care/Home Management,Soft Tissue Mobilization,Taping, Therapeutic Activities, Therapeutic Exercises Modalities Cold Pack/Ice Massage,Electric Stimulation,Hot Packs, Infrared Therapy,Traction- Mechanical,Ultrasound Next Visit Focus/Plan Next Note Type Treatment Note Next Visit Plan calf stretch, pf stretch 4 way ankle calf rasies
--- NOTE | 2021-05-11 09:04 | PT.OTN ---
Current Diagnoses Hereditary and idiopathic neuropathy, unspecified (05/11/21) Other abnormalities of gait and mobility (05/11/21) Physical Therapy Treatment Note PT-OP-A Visit Information Start: 05/03/21 16:28 Freq: Status: Active Protocol: Document 05/11/21 08:15 HH (Rec: 05/11/21 09:04 [id number]) Out-Patient Physical Therapy Visit Information Visit Information Visit Type Treatment Note Visit Start Time 08:16 Visit Stop Time 09:00 Total Visit Minutes 44 Visit Number 3 Number of CASE PACKER AND SEALER Visits 0 PT-OP-B Current Condition Start: 05/03/21 16:28 Freq: Status: Active Protocol: Document 05/03/21 16:29 HH (Rec: 05/03/21 17:00 [email or web address]) Current Condition History of Current Condition Onset Date a month ago Current Complaints 2 recent falls, decreased in balance History of Current Condition Katie is a 80yo female here to improve her balance who recently has 2 falls within the same month. She stated her balance seemed to decrease suddenly and she tripped over curb/ object and twice. She also has difficulty getting up from floor d/t weakness. Both incidents affect her confidence tremendously to walk since she also lives alone with a cat. She also c/o frequent cramping at lower leg and calves who also has difficulty stepping on gas while driving sometimes. Prior Treatments and Tests Dr. Pelletier has told pt she has peripheral neuropathy. Pt is not diabetic R TKA, L EARLENE Current Functional Impairments (Reported) Functional Limitations- Mobility/Gait pt has 14 steps to 2nd floor. Uses B rails for 7 steps and L rail for remaining 7 steps. Personal Factors Other Personal Factors That May Effect Osteoporosis Therapy/Recovery HTN 2 falls within the last month PT-OP-C Subjective Start: 05/03/21 16:28 Freq: Status: Active Protocol: Document 05/11/21 08:15 HH (Rec: 05/11/21 09:04 [id number]) OP-PT Subjective Patient Comments Patient Comments Sanam been doing my stretches. Im going to see Dr. Hunter soon for my R knee pain. PT-OP-D Balance Start: 05/03/21 16:28 Freq: Status: Active Protocol: Document 05/03/21 16:29 HH (Rec: 05/03/21 17:00 [email or web address]) Balance Tests Single Limb Standing Single Limb- Right 2-3s Single Limb- Left 6-10s PT-OP-E Functional Tests Start: 05/03/21 16:28 Freq: Status: Active Protocol: Document 05/03/21 16:29 HH (Rec: 05/03/21 17:00 [email or web address]) Functional Tests 30 Second Sit to Stand Test Score 12 times Comments from 20 chair, light push off from table Dynamic Gait Index (DGI) Score 21 DGI Impairment Rating 1 to <20% Impaired (Score 20- 23) Timed Up and Go (TUG) Score 11 TUG Impairment Rating 1 to <20% Impaired (Score 11) PT-OP-F Manual Assessment Start: 05/03/21 16:28 Freq: Status: Active Protocol: Document 05/03/21 16:29 HH (Rec: 05/03/21 17:00 [email or web address]) Manual Assessments Soft Tissue Assessment Soft Tissue Mobility Assessment significant hypertonicty on lower gastro complex discoloration noted at ankle region bilaterally. PT-OP-G Mobility & Gait Start: 05/03/21 16:28 Freq: Status: Active Protocol: Document 05/03/21 16:29 HH (Rec: 05/03/21 17:00 [email or web address]) OP Gait Assessment Comments Gait Comments flat feet gait pattern noted with minimal feet clearance during swing phase. L hip drop noted during RLE stance phase PT-OP-H Neuro Start: 05/03/21 16:28 Freq: Status: Active Protocol: Document 05/03/21 16:29 (Rec: 05/03/21 17:00 [email or web address]) Sensation Evaluation Comments Summary Comments sensation to touch and pressure on B LEs = WFL, slight decreased sensation to touch at R lateral calf. Deep Tendon Reflex & Clonus Assessment Deep Tendon Reflex Bilateral Achilles Deep Tendon Reflex 2+ Normal Bilateral Patellar Deep Tendon Reflex 3+ Normal But Brisk PT-OP-K Range of Motion Start: 05/03/21 16:28 Freq: Status: Active Protocol: Document 05/03/21 16:29 HH (Rec: 05/03/21 17:00 [email or web address]) Ankle and Foot Goniometric Range of Motion Ankle and Foot Right Active Ankle/Foot ROM WFL No Testing Position Supine Dorsiflexion with Knee Flexed 5 Dorsiflexion with Knee Extended 0 Plantarflexion 40 Inversion 30 Eversion 0 Left Active Ankle/Foot ROM WFL No Testing Position Supine Dorsiflexion with Knee Flexed 4 Dorsiflexion with Knee Extended 0 Plantarflexion 38 Inversion 28 Eversion 2 PT-OP-M Strength Start: 05/03/21 16:28 Freq: Status: Active Protocol: Document 05/03/21 16:29 HH (Rec: 05/03/21 17:00 HH [email or web address]) Hip Strength Hip Manual Muscle Testing Right Flexion (L2) 4- Good- Abduction 3+ Fair+ Left Flexion (L2) 4- Good- Abduction 4- Good- Knee Strength Knee Manual Muscle Testing Right Flexion (S2) 4 Good Extension (L3) 4 Good Left Flexion (S2) 4 Good Extension (L3) 4 Good Ankle/Foot Strength Ankle and Foot Manual Muscle Testing Right Dorsiflexion (L4) 4 Good Plantarflexion (S1) 4 Good Left Dorsiflexion (L4) 4 Good Plantarflexion (S1) 4 Good PT-OP-Q Treatments Start: 05/03/21 16:28 Freq: Status: Active Protocol: Document 05/11/21 08:15 HH (Rec: 05/11/21 09:04 HH [id number]) Cardio Equipment Recumbent Stepper (Sci-Fit) Duration (Minutes) 5 Resistance 2 Gym Equipment Shuttle Recovery SL squat Resistance #37 Shuttle Recovery Platform Stable Reps/Time 12 x 2 Therapeutic Exercises Standing Exercises ankle board Standing Exercise Name cues with ankle mobility, knee extended Side bilateral Reps/Minutes 8 mins weight shift Standing Exercise Name sagittal place Comments for HEP calf raises Standing Exercise Name review Reps/Minutes 10 x2 Comments for HEP PF stretch Standing Exercise Name review Reps/Minutes 15s x 5 Comments for HEP, painful at toes d/t pressure calf stretch Standing Exercise Name review Reps/Minutes 15s x5 Comments for HEP Manual Therapy Treatment Soft Tissue Mobilization gastro Body Location gastro complex Mobilization Type Myofascial Release,Sustained Pressure,Trigger Point Release Intensity/Depth Moderate Body Position Supine Comments significant hypertonicity at post tib Neuro Re-Education Treatment Balance Activities NBOS Details EO, EC Surface ground level then blue foam Comments CGA tandem stance Details close to full tandem Surface ground level Comments tandem walk after PT-OP-T Assessment and Plan Start: 05/03/21 16:28 Freq: Status: Active Protocol: Document 05/11/21 08:15 HH (Rec: 05/11/21 09:04 [id number]) Physical Therapy Assessment Goals fall recovery Impairment pt stated she is uanble to recovery from the floor Short Term Goal (STG) pt will show improved single leg stability and strength to complete 6 step up x 5 times without UE support. STG Duration 4 weeks Retirement Goal (LTG) pt will show improved single leg stability and strength to recover from the floor with use of chair LTG Duration 8 weeks falls Impairment pt has 2 recent falls within a month Behavioral Health Counselor Goal (LTG) pt will show improved mobility , strength and balance so she will not fall again for the next 60 days. LTG Duration 8 weeks ankle ROM Impairment significant limited ankle ROm Short Term Goal (STG) pt will show improved ankle ROM by 5 degrees in all directions STG Duration 4 weeks Behavioral Health Counselor Goal (LTG) pt will show improved ankle ROM by 10 degrees in all directions to improve her feet clearance during gait LTG Duration 8 weeks Assessment Summary Assessment pt shows good understanding of HEP. She shows improved ankle mobility and strategy today. Will add hip stability ex next visit. Physical Therapy Plan Frequency and Duration Frequency of Treatment 1-2x/wk Duration of Treatment 8 weeks Plan of Care Start Date 05/03/21 Plan of Care End Date 07/02/21 Therapeutic Interventions Therapeutic Interventions Aquatic Therapy,Balance Training,Gait Training,Home Exercise Program,Joint Mobilizations,Manual Therapy, Neuromuscular Re-education, Patient/Caregiver Education, Self-Care/Home Management,Soft Tissue Mobilization,Taping, Therapeutic Activities, Therapeutic Exercises Modalities Cold Pack/Ice Massage,Electric Stimulation,Hot Packs, Infrared Therapy,Traction- Mechanical,Ultrasound Next Visit Focus/Plan Next Note Type Treatment Note Next Visit Plan calf stretch, pf stretch 4 way ankle calf rasies
--- NOTE | 2021-05-13 09:03 | PT.OTN ---
Current Diagnoses Hereditary and idiopathic neuropathy, unspecified (05/13/21) Other abnormalities of gait and mobility (05/13/21) Physical Therapy Treatment Note PT-OP-A Visit Information Start: 05/03/21 16:28 Freq: Status: Active Protocol: Document 05/13/21 08:22 HH (Rec: 05/13/21 09:03 [id number]) Out-Patient Physical Therapy Visit Information Visit Information Visit Type Treatment Note Visit Start Time 08:17 Visit Stop Time 09:00 Total Visit Minutes 44 Visit Number 11/29 Number of PAPER AND PULP MILL WORKER Visits 0 PT-OP-B Current Condition Start: 05/03/21 16:28 Freq: Status: Active Protocol: Document 05/03/21 16:29 HH (Rec: 05/03/21 17:00 [email or web address]) Current Condition History of Current Condition Onset Date a month ago Current Complaints 2 recent falls, decreased in balance History of Current Condition Katie is a 80yo female here to improve her balance who recently has 2 falls within the same month. She stated her balance seemed to decrease suddenly and she tripped over curb/ object and twice. She also has difficulty getting up from floor d/t weakness. Both incidents affect her confidence tremendously to walk since she also lives alone with a cat. She also c/o frequent cramping at lower leg and calves who also has difficulty stepping on gas while driving sometimes. Prior Treatments and Tests Dr. Pelletier has told pt she has peripheral neuropathy. Pt is not diabetic R TKA, L EARLENE Current Functional Impairments (Reported) Functional Limitations- Mobility/Gait pt has 14 steps to 2nd floor. Uses B rails for 7 steps and L rail for remaining 7 steps. Personal Factors Other Personal Factors That May Effect Osteoporosis Therapy/Recovery HTN 2 falls within the last month PT-OP-C Subjective Start: 05/03/21 16:28 Freq: Status: Active Protocol: Document 05/13/21 08:22 HH (Rec: 05/13/21 09:03 HH [id number]) OP-PT Subjective Patient Comments Patient Comments I didnt get too tired from last time. I noticed my leg cramps are getting less frequent Patient Reported Progress Improving PT-OP-D Balance Start: 05/03/21 16:28 Freq: Status: Active Protocol: Document 05/03/21 16:29 HH (Rec: 05/03/21 17:00 HH [email or web address]) Balance Tests Single Limb Standing Single Limb- Right 2-3s Single Limb- Left 6-10s PT-OP-E Functional Tests Start: 05/03/21 16:28 Freq: Status: Active Protocol: Document 05/03/21 16:29 (Rec: 05/03/21 17:00 [email or web address]) Functional Tests 30 Second Sit to Stand Test Score 12 times Comments from 20 chair, light push off from table Dynamic Gait Index (DGI) Score 21 DGI Impairment Rating 1 to <20% Impaired (Score 20- 23) Timed Up and Go (TUG) Score 11 TUG Impairment Rating 1 to <20% Impaired (Score 11) PT-OP-F Manual Assessment Start: 05/03/21 16:28 Freq: Status: Active Protocol: Document 05/03/21 16:29 (Rec: 05/03/21 17:00 [email or web address]) Manual Assessments Soft Tissue Assessment Soft Tissue Mobility Assessment significant hypertonicty on lower gastro complex discoloration noted at ankle region bilaterally. PT-OP-G Mobility & Gait Start: 05/03/21 16:28 Freq: Status: Active Protocol: Document 05/03/21 16:29 (Rec: 05/03/21 17:00 [email or web address]) OP Gait Assessment Comments Gait Comments flat feet gait pattern noted with minimal feet clearance during swing phase. L hip drop noted during RLE stance phase PT-OP-H Neuro Start: 05/03/21 16:28 Freq: Status: Active Protocol: Document 05/03/21 16:29 (Rec: 05/03/21 17:00 [email or web address]) Sensation Evaluation Comments Summary Comments sensation to touch and pressure on B LEs = WFL, slight decreased sensation to touch at R lateral calf. Deep Tendon Reflex & Clonus Assessment Deep Tendon Reflex Bilateral Achilles Deep Tendon Reflex 2+ Normal Bilateral Patellar Deep Tendon Reflex 3+ Normal But Brisk PT-OP-K Range of Motion Start: 05/03/21 16:28 Freq: Status: Active Protocol: Document 05/03/21 16:29 (Rec: 05/03/21 17:00 [email or web address]) Ankle and Foot Goniometric Range of Motion Ankle and Foot Right Active Ankle/Foot ROM WFL No Testing Position Supine Dorsiflexion with Knee Flexed 5 Dorsiflexion with Knee Extended 0 Plantarflexion 40 Inversion 30 Eversion 0 Left Active Ankle/Foot ROM WFL No Testing Position Supine Dorsiflexion with Knee Flexed 4 Dorsiflexion with Knee Extended 0 Plantarflexion 38 Inversion 28 Eversion 2 PT-OP-M Strength Start: 05/03/21 16:28 Freq: Status: Active Protocol: Document 05/03/21 16:29 (Rec: 05/03/21 17:00 [email or web address]) Hip Strength Hip Manual Muscle Testing Right Flexion (L2) 4- Good- Abduction 3+ Fair+ Left Flexion (L2) 4- Good- Abduction 4- Good- Knee Strength Knee Manual Muscle Testing Right Flexion (S2) 4 Good Extension (L3) 4 Good Left Flexion (S2) 4 Good Extension (L3) 4 Good Ankle/Foot Strength Ankle and Foot Manual Muscle Testing Right Dorsiflexion (L4) 4 Good Plantarflexion (S1) 4 Good Left Dorsiflexion (L4) 4 Good Plantarflexion (S1) 4 Good PT-OP-Q Treatments Start: 05/03/21 16:28 Freq: Status: Active Protocol: Document 05/13/21 08:22 (Rec: 05/13/21 09:03 [id number]) Cardio Equipment Recumbent Stepper (Sci-Fit) Duration (Minutes) 5 Resistance 2 Therapeutic Exercises Supine Exercises bridging Side bilateral Reps/Minutes 10 x2 Standing Exercises ankle board Standing Exercise Name cues with ankle mobility, knee extended Side bilateral Reps/Minutes 8 mins weight shift Standing Exercise Name sagittal place Comments for [facility] Gait Training Gait Activity marching Level of Assistance SBA Surface ground level Distance/Duration 20 ft x6 Comments for [facility] heel toe Level of Assistance SBA Surface ground level Distance/Duration 20 ft x 6 Comments for [facility] Manual Therapy Treatment Soft Tissue Mobilization gastro Body Location gastro complex Mobilization Type Myofascial Release,Sustained Pressure,Trigger Point Release Intensity/Depth Moderate Body Position Supine Comments significant hypertonicity at post tib PT-OP-T Assessment and Plan Start: 05/03/21 16:28 Freq: Status: Active Protocol: Document 05/13/21 08:22 (Rec: 05/13/21 09:03 [id number]) Physical Therapy Assessment Goals fall recovery Impairment pt stated she is uanble to recovery from the floor Short Term Goal (STG) pt will show improved single leg stability and strength to complete 6 step up x 5 times without UE support. STG Duration 4 weeks [facility] Goal (LTG) pt will show improved single leg stability and strength to recover from the floor with use of chair LTG Duration 8 weeks falls Impairment pt has 2 recent falls within a month [facility] Goal (LTG) pt will show improved mobility , strength and balance so she will not fall again for the next 60 days. LTG Duration 8 weeks ankle ROM Impairment significant limited ankle ROm Short Term Goal (STG) pt will show improved ankle ROM by 5 degrees in all directions STG Duration 4 weeks [facility] Goal (LTG) pt will show improved ankle ROM by 10 degrees in all directions to improve her feet clearance during gait LTG Duration 8 weeks Assessment Summary Assessment pt shows good balance with EC and improved ankle strategy. However, she lacks of heel strike during gait with minimal feet clearance. Added heel toe gait and marching in place for HEP. Physical Therapy Plan Frequency and Duration Frequency of Treatment 1-2x/wk Duration of Treatment 8 weeks Plan of Care Start Date 05/03/21 Plan of Care End Date 07/02/21 Therapeutic Interventions Therapeutic Interventions Aquatic Therapy,Balance Training,Gait Training,Home Exercise Program,Joint Mobilizations,Manual Therapy, Neuromuscular Re-education, Patient/Caregiver Education, Self-Care/Home Management,Soft Tissue Mobilization,Taping, Therapeutic Activities, Therapeutic Exercises Modalities Cold Pack/Ice Massage,Electric Stimulation,Hot Packs, Infrared Therapy,Traction- Mechanical,Ultrasound Next Visit Focus/Plan Next Note Type Treatment Note Next Visit Plan calf stretch, pf stretch 4 way ankle calf rasies
--- NOTE | 2021-05-25 12:09 | PT.OTN ---
Current Diagnoses Hereditary and idiopathic neuropathy, unspecified (05/25/21) Other abnormalities of gait and mobility (05/25/21) Physical Therapy Treatment Note PT-OP-A Visit Information Start: 05/03/21 16:28 Freq: Status: Active Protocol: Document 05/25/21 10:31 HH (Rec: 05/25/21 12:09 [id number]) Out-Patient Physical Therapy Visit Information Visit Information Visit Type Treatment Note Visit Start Time 10:33 Visit Stop Time 11:15 Total Visit Minutes 42 Visit Number 12/29 Number of ASSISTANT OFFSET PRESS OPERATOR Visits 0 PT-OP-B Current Condition Start: 05/03/21 16:28 Freq: Status: Active Protocol: Document 05/03/21 16:29 HH (Rec: 05/03/21 17:00 HH [email or web address]) Current Condition History of Current Condition Onset Date a month ago Current Complaints 2 recent falls, decreased in balance History of Current Condition Katie is a 80yo female here to improve her balance who recently has 2 falls within the same month. She stated her balance seemed to decrease suddenly and she tripped over curb/ object and twice. She also has difficulty getting up from floor d/t weakness. Both incidents affect her confidence tremendously to walk since she also lives alone with a cat. She also c/o frequent cramping at lower leg and calves who also has difficulty stepping on gas while driving sometimes. Prior Treatments and Tests Dr. Pelletier has told pt she has peripheral neuropathy. Pt is not diabetic R TKA, L EARLENE Current Functional Impairments (Reported) Functional Limitations- Mobility/Gait pt has 14 steps to 2nd floor. Uses B rails for 7 steps and L rail for remaining 7 steps. Personal Factors Other Personal Factors That May Effect Osteoporosis Therapy/Recovery HTN 2 falls within the last month PT-OP-C Subjective Start: 05/03/21 16:28 Freq: Status: Active Protocol: Document 05/25/21 10:31 HH (Rec: 05/25/21 12:09 [id number]) OP-PT Subjective Patient Comments Patient Comments I went to [facility] and saw my nieces and granddaughter. I noticed my balance has gotten slightly better but i did lost my balance while getting to the bathroom and my arm hit the ledge of the side. Patient Reported Progress Improving PT-OP-D Balance Start: 05/03/21 16:28 Freq: Status: Active Protocol: Document 05/03/21 16:29 HH (Rec: 05/03/21 17:00 [email or web address]) Balance Tests Single Limb Standing Single Limb- Right 2-3s Single Limb- Left 6-10s PT-OP-E Functional Tests Start: 05/03/21 16:28 Freq: Status: Active Protocol: Document 05/03/21 16:29 HH (Rec: 05/03/21 17:00 [email or web address]) Functional Tests 30 Second Sit to Stand Test Score 12 times Comments from 20 chair, light push off from table Dynamic Gait Index (DGI) Score 21 DGI Impairment Rating 1 to <20% Impaired (Score 20- 23) Timed Up and Go (TUG) Score 11 TUG Impairment Rating 1 to <20% Impaired (Score 11) PT-OP-F Manual Assessment Start: 05/03/21 16:28 Freq: Status: Active Protocol: Document 05/03/21 16:29 HH (Rec: 05/03/21 17:00 [email or web address]) Manual Assessments Soft Tissue Assessment Soft Tissue Mobility Assessment significant hypertonicty on lower gastro complex discoloration noted at ankle region bilaterally. PT-OP-G Mobility & Gait Start: 05/03/21 16:28 Freq: Status: Active Protocol: Document 05/03/21 16:29 HH (Rec: 05/03/21 17:00 [email or web address]) OP Gait Assessment Comments Gait Comments flat feet gait pattern noted with minimal feet clearance during swing phase. L hip drop noted during RLE stance phase PT-OP-H Neuro Start: 05/03/21 16:28 Freq: Status: Active Protocol: Document 05/03/21 16:29 HH (Rec: 05/03/21 17:00 [email or web address]) Sensation Evaluation Comments Summary Comments sensation to touch and pressure on B LEs = WFL, slight decreased sensation to touch at R lateral calf. Deep Tendon Reflex & Clonus Assessment Deep Tendon Reflex Bilateral Achilles Deep Tendon Reflex 2+ Normal Bilateral Patellar Deep Tendon Reflex 3+ Normal But Brisk PT-OP-K Range of Motion Start: 05/03/21 16:28 Freq: Status: Active Protocol: Document 05/03/21 16:29 HH (Rec: 05/03/21 17:00 [email or web address]) Ankle and Foot Goniometric Range of Motion Ankle and Foot Right Active Ankle/Foot ROM WFL No Testing Position Supine Dorsiflexion with Knee Flexed 5 Dorsiflexion with Knee Extended 0 Plantarflexion 40 Inversion 30 Eversion 0 Left Active Ankle/Foot ROM WFL No Testing Position Supine Dorsiflexion with Knee Flexed 4 Dorsiflexion with Knee Extended 0 Plantarflexion 38 Inversion 28 Eversion 2 PT-OP-M Strength Start: 05/03/21 16:28 Freq: Status: Active Protocol: Document 05/03/21 16:29 HH (Rec: 05/03/21 17:00 [email or web address]) Hip Strength Hip Manual Muscle Testing Right Flexion (L2) 4- Good- Abduction 3+ Fair+ Left Flexion (L2) 4- Good- Abduction 4- Good- Knee Strength Knee Manual Muscle Testing Right Flexion (S2) 4 Good Extension (L3) 4 Good Left Flexion (S2) 4 Good Extension (L3) 4 Good Ankle/Foot Strength Ankle and Foot Manual Muscle Testing Right Dorsiflexion (L4) 4 Good Plantarflexion (S1) 4 Good Left Dorsiflexion (L4) 4 Good Plantarflexion (S1) 4 Good PT-OP-Q Treatments Start: 05/03/21 16:28 Freq: Status: Active Protocol: Document 05/25/21 10:31 HH (Rec: 05/25/21 12:09 [id number]) Cardio Equipment Recumbent Stepper (Sci-Fit) Duration (Minutes) 5 Resistance 2 Gym Equipment Shuttle Recovery SL squat Resistance #37, 50 Shuttle Recovery Platform Stable Reps/Time 12 x2 x Therapeutic Exercises Standing Exercises ankle board Standing Exercise Name cues with ankle mobility, knee extended Side bilateral Reps/Minutes 8 mins weight shift Standing Exercise Name sagittal place Comments for HEP Manual Therapy Treatment Soft Tissue Mobilization R knee Mobilization Type Myofascial Release Intensity/Depth Moderate Body Position Supine Comments R knee joint line, surgical scar. Neuro Re-Education Treatment Balance Activities step tap Reps/Duration 20 x 2 Comments for HEP. side stepping Surface ground level Equipment next to grab bar Reps/Duration 20 ft x 5 marching Surface ground level Equipment next to grab bar Reps/Duration 20ft x 5 PT-OP-T Assessment and Plan Start: 05/03/21 16:28 Freq: Status: Active Protocol: Document 05/25/21 10:31 HH (Rec: 05/25/21 12:09 [id number]) Physical Therapy Assessment Goals fall recovery Impairment pt stated she is uanble to recovery from the floor Short Term Goal (STG) pt will show improved single leg stability and strength to complete 6 step up x 5 times without UE support. STG Duration 4 weeks Lead Worker Of Housekeeping And Laundry Goal (LTG) pt will show improved single leg stability and strength to recover from the floor with use of chair LTG Duration 8 weeks falls Impairment pt has 2 recent falls within a month [facility] Goal (LTG) pt will show improved mobility , strength and balance so she will not fall again for the next 60 days. LTG Duration 8 weeks ankle ROM Impairment significant limited ankle ROm Short Term Goal (STG) pt will show improved ankle ROM by 5 degrees in all directions STG Duration 4 weeks Lead Worker Of Housekeeping And Laundry Goal (LTG) pt will show improved ankle ROM by 10 degrees in all directions to improve her feet clearance during gait LTG Duration 8 weeks Assessment Summary Assessment pt reports improved ankle mobility and strength so far. She does notice slight improved in balance but still has occasional LOB. Denies dizziness/ weakness. Updated her HEP with more focus on LE strength, and dynamic balance. Physical Therapy Plan Frequency and Duration Frequency of Treatment 1-2x/wk Duration of Treatment 8 weeks Plan of Care Start Date 05/03/21 Plan of Care End Date 07/02/21 Therapeutic Interventions Therapeutic Interventions Aquatic Therapy,Balance Training,Gait Training,Home Exercise Program,Joint Mobilizations,Manual Therapy, Neuromuscular Re-education, Patient/Caregiver Education, Self-Care/Home Management,Soft Tissue Mobilization,Taping, Therapeutic Activities, Therapeutic Exercises Modalities Cold Pack/Ice Massage,Electric Stimulation,Hot Packs, Infrared Therapy,Traction- Mechanical,Ultrasound Next Visit Focus/Plan Next Note Type Treatment Note Next Visit Plan calf stretch, pf stretch 4 way ankle calf rasies
--- NOTE | 2021-06-01 09:46 | PT.OTN ---
Current Diagnoses Hereditary and idiopathic neuropathy, unspecified (06/01/21) Other abnormalities of gait and mobility (06/01/21) Physical Therapy Treatment Note PT-OP-A Visit Information Start: 05/03/21 16:28 Freq: Status: Active Protocol: Document 06/01/21 08:12 HH (Rec: 06/01/21 09:46 HH [id number]) Out-Patient Physical Therapy Visit Information Visit Information Visit Type Treatment Note Visit Start Time 09:01 Visit Stop Time 09:45 Total Visit Minutes 44 Visit Number 02/28 Number of DRUM WORKER Visits 0 PT-OP-B Current Condition Start: 05/03/21 16:28 Freq: Status: Active Protocol: Document 05/03/21 16:29 HH (Rec: 05/03/21 17:00 HH [email or web address]) Current Condition History of Current Condition Onset Date a month ago Current Complaints 2 recent falls, decreased in balance History of Current Condition Katie is a 80yo female here to improve her balance who recently has 2 falls within the same month. She stated her balance seemed to decrease suddenly and she tripped over curb/ object and twice. She also has difficulty getting up from floor d/t weakness. Both incidents affect her confidence tremendously to walk since she also lives alone with a cat. She also c/o frequent cramping at lower leg and calves who also has difficulty stepping on gas while driving sometimes. Prior Treatments and Tests Dr. Pelletier has told pt she has peripheral neuropathy. Pt is not diabetic R TKA, L EARLENE Current Functional Impairments (Reported) Functional Limitations- Mobility/Gait pt has 14 steps to 2nd floor. Uses B rails for 7 steps and L rail for remaining 7 steps. Personal Factors Other Personal Factors That May Effect Osteoporosis Therapy/Recovery HTN 2 falls within the last month PT-OP-C Subjective Start: 05/03/21 16:28 Freq: Status: Active Protocol: Document 06/01/21 08:12 HH (Rec: 06/01/21 09:46 HH [id number]) OP-PT Subjective Patient Comments Patient Comments I feel my legs are getting stronger. Sanam been trying to lift my legs up higher while climbing stairs. Patient Reported Progress Improving PT-OP-D Balance Start: 05/03/21 16:28 Freq: Status: Active Protocol: Document 05/03/21 16:29 HH (Rec: 05/03/21 17:00 HH [email or web address]) Balance Tests Single Limb Standing Single Limb- Right 2-3s Single Limb- Left 6-10s PT-OP-E Functional Tests Start: 05/03/21 16:28 Freq: Status: Active Protocol: Document 05/03/21 16:29 (Rec: 05/03/21 17:00 [email or web address]) Functional Tests 30 Second Sit to Stand Test Score 12 times Comments from 20 chair, light push off from table Dynamic Gait Index (DGI) Score 21 DGI Impairment Rating 1 to <20% Impaired (Score 20- 23) Timed Up and Go (TUG) Score 11 TUG Impairment Rating 1 to <20% Impaired (Score 11) PT-OP-F Manual Assessment Start: 05/03/21 16:28 Freq: Status: Active Protocol: Document 05/03/21 16:29 (Rec: 05/03/21 17:00 [email or web address]) Manual Assessments Soft Tissue Assessment Soft Tissue Mobility Assessment significant hypertonicty on lower gastro complex discoloration noted at ankle region bilaterally. PT-OP-G Mobility & Gait Start: 05/03/21 16:28 Freq: Status: Active Protocol: Document 05/03/21 16:29 (Rec: 05/03/21 17:00 [email or web address]) OP Gait Assessment Comments Gait Comments flat feet gait pattern noted with minimal feet clearance during swing phase. L hip drop noted during RLE stance phase PT-OP-H Neuro Start: 05/03/21 16:28 Freq: Status: Active Protocol: Document 05/03/21 16:29 (Rec: 05/03/21 17:00 [email or web address]) Sensation Evaluation Comments Summary Comments sensation to touch and pressure on B LEs = WFL, slight decreased sensation to touch at R lateral calf. Deep Tendon Reflex & Clonus Assessment Deep Tendon Reflex Bilateral Achilles Deep Tendon Reflex 2+ Normal Bilateral Patellar Deep Tendon Reflex 3+ Normal But Brisk PT-OP-K Range of Motion Start: 05/03/21 16:28 Freq: Status: Active Protocol: Document 05/03/21 16:29 (Rec: 05/03/21 17:00 [email or web address]) Ankle and Foot Goniometric Range of Motion Ankle and Foot Right Active Ankle/Foot ROM WFL No Testing Position Supine Dorsiflexion with Knee Flexed 5 Dorsiflexion with Knee Extended 0 Plantarflexion 40 Inversion 30 Eversion 0 Left Active Ankle/Foot ROM WFL No Testing Position Supine Dorsiflexion with Knee Flexed 4 Dorsiflexion with Knee Extended 0 Plantarflexion 38 Inversion 28 Eversion 2 PT-OP-M Strength Start: 05/03/21 16:28 Freq: Status: Active Protocol: Document 05/03/21 16:29 HH (Rec: 05/03/21 17:00 [email or web address]) Hip Strength Hip Manual Muscle Testing Right Flexion (L2) 4- Good- Abduction 3+ Fair+ Left Flexion (L2) 4- Good- Abduction 4- Good- Knee Strength Knee Manual Muscle Testing Right Flexion (S2) 4 Good Extension (L3) 4 Good Left Flexion (S2) 4 Good Extension (L3) 4 Good Ankle/Foot Strength Ankle and Foot Manual Muscle Testing Right Dorsiflexion (L4) 4 Good Plantarflexion (S1) 4 Good Left Dorsiflexion (L4) 4 Good Plantarflexion (S1) 4 Good PT-OP-Q Treatments Start: 05/03/21 16:28 Freq: Status: Active Protocol: Document 06/01/21 08:12 HH (Rec: 06/01/21 09:46 [id number]) Cardio Equipment Recumbent Stepper (Sci-Fit) Duration (Minutes) 5 Resistance 2 Gym Equipment Shuttle Recovery SL squat Resistance #37, 50 Shuttle Recovery Platform Stable Reps/Time 15x2 Therapeutic Exercises Standing Exercises ankle board Standing Exercise Name cues with ankle mobility, knee extended Side bilateral Reps/Minutes 8 mins weight shift Standing Exercise Name sagittal place Comments for HEP Therapeutic Activity Therapeutic Activity stair climb Comments step to pattern on4 and 6 SBA Gait Training Gait Activity marching Level of Assistance SBA Surface ground level Distance/Duration 20 ft x6 Comments for HEP heel toe Level of Assistance SBA Surface ground level Distance/Duration 20 ft x 6 Comments for HEP Neuro Re-Education Treatment Balance Activities hurdles Reps/Duration 10 mins Comments step to pattern first then step over. PT-OP-T Assessment and Plan Start: 05/03/21 16:28 Freq: Status: Active Protocol: Document 06/01/21 08:12 (Rec: 06/01/21 09:46 [id number]) Physical Therapy Assessment Goals fall recovery Impairment pt stated she is uanble to recovery from the floor Short Term Goal (STG) pt will show improved single leg stability and strength to complete 6 step up x 5 times without UE support. STG Duration 4 weeks Nuclear Equipment Research Engineer Goal (LTG) pt will show improved single leg stability and strength to recover from the floor with use of chair LTG Duration 8 weeks falls Impairment pt has 2 recent falls within a month [facility] Goal (LTG) pt will show improved mobility , strength and balance so she will not fall again for the next 60 days. LTG Duration 8 weeks ankle ROM Impairment significant limited ankle ROm Short Term Goal (STG) pt will show improved ankle ROM by 5 degrees in all directions STG Duration 4 weeks Nuclear Equipment Research Engineer Goal (LTG) pt will show improved ankle ROM by 10 degrees in all directions to improve her feet clearance during gait LTG Duration 8 weeks Assessment Summary Assessment pt reports improved leg strength overall and no more leg cramps at night now. She continues to show good balance and increased confidence. Recommended her to participate strength and balance at [facility] to carry over. Physical Therapy Plan Frequency and Duration Frequency of Treatment 1-2x/wk Duration of Treatment 8 weeks Plan of Care Start Date 05/03/21 Plan of Care End Date 07/02/21 Therapeutic Interventions Therapeutic Interventions Aquatic Therapy,Balance Training,Gait Training,Home Exercise Program,Joint Mobilizations,Manual Therapy, Neuromuscular Re-education, Patient/Caregiver Education, Self-Care/Home Management,Soft Tissue Mobilization,Taping, Therapeutic Activities, Therapeutic Exercises Modalities Cold Pack/Ice Massage,Electric Stimulation,Hot Packs, Infrared Therapy,Traction- Mechanical,Ultrasound Next Visit Focus/Plan Next Note Type Treatment Note Next Visit Plan calf stretch, pf stretch 4 way ankle calf rasies
--- NOTE | 2021-06-10 09:55 | PT.OTN ---
Current Diagnoses Hereditary and idiopathic neuropathy, unspecified (06/10/21) Other abnormalities of gait and mobility (06/10/21) Physical Therapy Treatment Note PT-OP-A Visit Information Start: 05/03/21 16:28 Freq: Status: Active Protocol: Document 06/10/21 09:06 HH (Rec: 06/10/21 09:54 [id number]) Out-Patient Physical Therapy Visit Information Visit Information Visit Type Discharge Summary Visit Start Time 09:02 Visit Stop Time 09:45 Total Visit Minutes 43 Visit Number 03/31 Number of [employer]ATION MANAGER Visits 0 PT-OP-B Current Condition Start: 05/03/21 16:28 Freq: Status: Active Protocol: Document 05/03/21 16:29 HH (Rec: 05/03/21 17:00 HH [email or web address]) Current Condition History of Current Condition Onset Date a month ago Current Complaints 2 recent falls, decreased in balance History of Current Condition Katie is a 80yo female here to improve her balance who recently has 2 falls within the same month. She stated her balance seemed to decrease suddenly and she tripped over curb/ object and twice. She also has difficulty getting up from floor d/t weakness. Both incidents affect her confidence tremendously to walk since she also lives alone with a cat. She also c/o frequent cramping at lower leg and calves who also has difficulty stepping on gas while driving sometimes. Prior Treatments and Tests Dr. Pelletier has told pt she has peripheral neuropathy. Pt is not diabetic R TKA, L EARLENE Current Functional Impairments (Reported) Functional Limitations- Mobility/Gait pt has 14 steps to 2nd floor. Uses B rails for 7 steps and L rail for remaining 7 steps. Personal Factors Other Personal Factors That May Effect Osteoporosis Therapy/Recovery HTN 2 falls within the last month PT-OP-C Subjective Start: 05/03/21 16:28 Freq: Status: Active Protocol: Document 06/10/21 09:06 HH (Rec: 06/10/21 09:54 [id number]) OP-PT Subjective Patient Comments Patient Comments Its going pretty good so far. However, my L middle toe was very painful for a few days so i didnt walk too much. I have more confidence now and i can climb my stairs without holding onto the rails. Patient Reported Progress Improving PT-OP-D Balance Start: 05/03/21 16:28 Freq: Status: Active Protocol: Document 05/03/21 16:29 HH (Rec: 05/03/21 17:00 [email or web address]) Balance Tests Single Limb Standing Single Limb- Right 2-3s Single Limb- Left 6-10s PT-OP-E Functional Tests Start: 05/03/21 16:28 Freq: Status: Active Protocol: Document 05/03/21 16:29 HH (Rec: 05/03/21 17:00 [email or web address]) Functional Tests 30 Second Sit to Stand Test Score 12 times Comments from 20 chair, light push off from table Dynamic Gait Index (DGI) Score 21 DGI Impairment Rating 1 to <20% Impaired (Score 20- 23) Timed Up and Go (TUG) Score 11 TUG Impairment Rating 1 to <20% Impaired (Score 11) PT-OP-F Manual Assessment Start: 05/03/21 16:28 Freq: Status: Active Protocol: Document 05/03/21 16:29 HH (Rec: 05/03/21 17:00 [email or web address]) Manual Assessments Soft Tissue Assessment Soft Tissue Mobility Assessment significant hypertonicty on lower gastro complex discoloration noted at ankle region bilaterally. PT-OP-G Mobility & Gait Start: 05/03/21 16:28 Freq: Status: Active Protocol: Document 05/03/21 16:29 HH (Rec: 05/03/21 17:00 [email or web address]) OP Gait Assessment Comments Gait Comments flat feet gait pattern noted with minimal feet clearance during swing phase. L hip drop noted during RLE stance phase PT-OP-H Neuro Start: 05/03/21 16:28 Freq: Status: Active Protocol: Document 05/03/21 16:29 HH (Rec: 05/03/21 17:00 [email or web address]) Sensation Evaluation Comments Summary Comments sensation to touch and pressure on B LEs = WFL, slight decreased sensation to touch at R lateral calf. Deep Tendon Reflex & Clonus Assessment Deep Tendon Reflex Bilateral Achilles Deep Tendon Reflex 2+ Normal Bilateral Patellar Deep Tendon Reflex 3+ Normal But Brisk PT-OP-K Range of Motion Start: 05/03/21 16:28 Freq: Status: Active Protocol: Document 05/03/21 16:29 HH (Rec: 05/03/21 17:00 [email or web address]) Ankle and Foot Goniometric Range of Motion Ankle and Foot Right Active Ankle/Foot ROM WFL No Testing Position Supine Dorsiflexion with Knee Flexed 5 Dorsiflexion with Knee Extended 0 Plantarflexion 40 Inversion 30 Eversion 0 Left Active Ankle/Foot ROM WFL No Testing Position Supine Dorsiflexion with Knee Flexed 4 Dorsiflexion with Knee Extended 0 Plantarflexion 38 Inversion 28 Eversion 2 PT-OP-M Strength Start: 05/03/21 16:28 Freq: Status: Active Protocol: Document 05/03/21 16:29 (Rec: 05/03/21 17:00 [email or web address]) Hip Strength Hip Manual Muscle Testing Right Flexion (L2) 4- Good- Abduction 3+ Fair+ Left Flexion (L2) 4- Good- Abduction 4- Good- Knee Strength Knee Manual Muscle Testing Right Flexion (S2) 4 Good Extension (L3) 4 Good Left Flexion (S2) 4 Good Extension (L3) 4 Good Ankle/Foot Strength Ankle and Foot Manual Muscle Testing Right Dorsiflexion (L4) 4 Good Plantarflexion (S1) 4 Good Left Dorsiflexion (L4) 4 Good Plantarflexion (S1) 4 Good PT-OP-Q Treatments Start: 05/03/21 16:28 Freq: Status: Active Protocol: Document 06/10/21 09:06 (Rec: 06/10/21 09:54 [id number]) Cardio Equipment Recumbent Stepper (Sci-Fit) Duration (Minutes) 5 Resistance 2 Gym Equipment Shuttle Recovery SL squat Resistance 50 Shuttle Recovery Platform Stable Reps/Time 15x2 Therapeutic Exercises Sitting Exercises lumbar flexion Reps/Minutes 15 s hold x 5 Comments for HEP Standing Exercises calf stretch Standing Exercise Name review Reps/Minutes 15s x5 Comments for HEP Gait Training Gait Activity SPC Level of Assistance SBA Surface ground level Distance/Duration 20 ft x 5 Comments with SPC. 2 point pattern Manual Therapy Treatment Soft Tissue Mobilization R knee Mobilization Type Myofascial Release Intensity/Depth Moderate Body Position Supine Comments R knee joint line, surgical scar. Joint Mobilizations patella Joint patella mob Direction medial nad lateral Grade III Body Position Supine PT-OP-T Assessment and Plan Start: 05/03/21 16:28 Freq: Status: Active Protocol: Document 06/10/21 09:06 (Rec: 06/10/21 09:54 [id number]) Physical Therapy Assessment Goals fall recovery Impairment pt stated she is uanble to recovery from the floor Short Term Goal (STG) 06/10 goal met pt is able to complete 6 step up x 5 times without UE support. STG Duration 4 weeks Care Home Goal (LTG) pt will show improved single leg stability and strength to recover from the floor with use of chair LTG Duration 8 weeks falls Impairment pt has 2 recent falls within a month Short Term Goal (STG) 06/10 goal met pt has not reported any LOB/ falls since evaluation. She felt more confident with her blaance at this point. She is also able to climb stairs witohut support. Care Home Goal (LTG) pt will show improved mobility , strength and balance so she will not fall again for the next 60 days. LTG Duration 8 weeks ankle ROM Impairment significant limited ankle ROm Short Term Goal (STG) pt will show improved ankle ROM by 5 degrees in all directions STG Duration 4 weeks [employer]house Order Filler Goal (LTG) pt will show improved ankle ROM by 10 degrees in all directions to improve her feet clearance during gait LTG Duration 8 weeks Assessment Summary Assessment pt reports she is more confident and able to be more attentive on challenging physical activity which reduces her fall risk. Educated her how to use SPC with 2 point pattern for future use. Pt please with her progress and would like to be DC. She will start strength and balance class at the [facility] soon. Physical Therapy Plan Frequency and Duration Frequency of Treatment 1-2x/wk Duration of Treatment 8 weeks Plan of Care Start Date 05/03/21 Plan of Care End Date 07/02/21 Therapeutic Interventions Therapeutic Interventions Aquatic Therapy,Balance Training,Gait Training,Home Exercise Program,Joint Mobilizations,Manual Therapy, Neuromuscular Re-education, Patient/Caregiver Education, Self-Care/Home Management,Soft Tissue Mobilization,Taping, Therapeutic Activities, Therapeutic Exercises Modalities Cold Pack/Ice Massage,Electric Stimulation,Hot Packs, Infrared Therapy,Traction- Mechanical,Ultrasound Next Visit Focus/Plan Next Note Type Treatment Note Next Visit Plan calf stretch, pf stretch 4 way ankle calf rasies
== END 2021-06-23 14:08 ==
LOC: PHYS 09:00
PROVIDERS: PCP Family Medicine; Referring Provider Family Medicine; Visit Provider Family Medicine
DX: R26.89 Other abnormalities of gait and mobility (principal); G60.9 Hereditary and idiopathic neuropathy, unspecified
CPT/HCPCS: 97110; 97112; 97116; 97140; 97161

== ENCOUNTER → 2021-10-26 16:34 | Outpatient (CLI) | payer MEDICARE, SELFPAY ==
[2020-09-30 09:59] VITALS: BMI 28.3
--- NOTE | 2021-10-26 16:40 | DI.MRI.S_ITS ---
PROCEDURE: MR LUMBAR SPINE WO CON INDICATIONS: spinal stenosis, lumbar region TECHNIQUE: Noncontrast sagittal T1 spin echo and T2 fast echo, sagittal STIR, axial T1 and T2 fast spin echo through the lumbar spine. In cases with scoliosis, additional coronal T2 fast spin echo may be performed. COMPARISON: [facility], CR, XR LUMBAR SPINE WITH OBLIQUES PLUS FLEXION EXTENSION, 10/19/2021, 14:20. [facility], , MR LUMBAR SPINE WO CON, 06/04/2019, 9:57. FINDINGS: Image quality: Excellent. Alignment and Curvature: There is normal bony alignment. Bone Marrow: Marrow is of normal overall signal. No acute vertebral body compression fractures. Moderately severe chronic L1 compression fracture, unchanged, with approximately 50% anterior vertebral body height loss and minimal posterior retropulsion. Spinal Cord: Conus medullaris terminates at the L1-L2 level. Visualized cord demonstrates normal signal and size. Paraspinous Soft Tissues: No paravertebral masses. T11-T12: No canal stenosis or foraminal stenosis. T12-L1: Unchanged. The L1 compression has resulted in minimal posterior bony retropulsion at the level of T12-L1 with associated disc bulge. Borderline canal stenosis. Mild right foraminal stenosis. L1-L2: Unchanged. Minimal disc bulge. No canal stenosis. Mild bilateral foraminal stenosis. L2-L3: No significant change. Mild disc bulge. Facet hypertrophy. No canal stenosis or significant foraminal stenosis. L3-L4: Unchanged. Facet hypertrophy. Borderline canal stenosis. Mild right foraminal stenosis. L4-L5: Slight interval progression. Disc bulge. Prominent facet and ligament hypertrophy. Moderate to severe canal stenosis. Moderate to severe bilateral foraminal narrowing with a degree of bilateral foraminal L4 nerve root impingement. L5-S1: Prominent bilateral facet hypertrophy. No central canal stenosis. No significant foraminal stenosis. IMPRESSION: 1. Old L1 compression fracture, unchanged. No new compression fractures. 2. Findings are most significant at L4-L5, where there has been interval progression. There is moderate to severe canal stenosis and bilateral moderate to severe foraminal narrowing with bilateral foraminal L4 nerve root impingement. 3. Findings are not significantly at other levels. Dictated by: Rob Cornell M.D. on 10/27/2021 at 8:34 Approved by: Rob Cornell M.D. on 10/27/2021 at 8:54
== END ==
PROVIDERS: PCP Family Medicine; Referring Provider Physical Medicine & Rehabilitation Pain Medicine; Visit Provider Physical Medicine & Rehabilitation Pain Medicine
DX: M48.062 Spinal stenosis, lumbar region with neurogenic claudication (principal); M48.56XA Collapsed vertebra, not elsewhere classified, lumbar region, initial encounter for fracture
CPT/HCPCS: 72148

== ENCOUNTER → 2021-10-28 11:10 | Outpatient (CLI) | payer MEDICARE, SELFPAY ==
[2020-09-30 09:59] VITALS: BMI 28.3
[2021-10-28 12:22] LABS: Add Manual Diff / Slide Review NO; Basophils Absolute Auto 0 /uL (0-100); Basophils Percent Auto 0.6 % (0-2); Eosinophils Absolute Auto 200 /uL (0-450); Eosinophils Percent Auto 2.2 % (2-4); Hematocrit 39.3 % (36-46); Hemoglobin 13.5 g/dL (12.0-16.0); Lymphocytes Absolute Auto 1500 /uL (1100-4500); Lymphocytes Percent Auto 19.2 % (25-40); Mean Corpuscular HGB Conc 34.3 % (30-36); Mean Corpuscular Hemoglobin 30.7 PG (26-34); Mean Corpuscular Volume 89.6 fL (80-100); Monocytes Absolute Auto 600 /uL (0-900); Monocytes Percent Auto 8.2 % (3-14); Neutrophils Absolute Auto 5400 /uL (1500-7000); Neutrophils Percent Auto 69.8 % (50-75); Platelet Count 231 X10^3/uL (150-400); Red Blood Cell Count 4.38 X10^6/uL (4.0-5.2); Red Cell Distribution Width 12.3 % (11.6-14.8); White Blood Cell Count 7.7 X10^3/uL (4.5-11.0)
[2021-10-28 12:50] LABS: Alanine Aminotransferase 19 IU/L (<35); Albumin 4.4 g/dL (3.5-5.0); Albumin Globulin Ratio 1.5 (1.0-2.8); Alkaline Phosphatase 68 U/L (38-126); Aspartate Aminotransferase 24 IU/L (14-36); BUN Creatinine Ratio 25.4 (6-22); Bilirubin Total 0.8 mg/dL (0.2-1.3); Blood Urea Nitrogen 15 mg/dL (7-17); Carbon Dioxide 30 mmol/L (22-32); Chloride 96 mmol/L (98-107); Estimated Glomerular Filt Rate > 60.0 mL/min (>60); Globulin 2.9 g/dL (1.7-4.1); Glucose 92 mg/dL (80-110); HEMOLYSIS < 15 (0-50); Potassium 4.3 mmol/L (3.4-5.1); Sodium 132 mmol/L (137-145); Total Protein 7.3 g/dL (6.3-8.2)
== END ==
PROVIDERS: PCP Family Medicine; Referring Provider Family Medicine; Visit Provider Family Medicine
DX: E78.5 Hyperlipidemia, unspecified (principal); I10 Essential (primary) hypertension; Z00.00 Encounter for general adult medical examination without abnormal findings
CPT/HCPCS: 36415; 80053; 85025

== ENCOUNTER → 2021-11-01 10:03 | Outpatient (CLI) | payer MEDICARE, SELFPAY ==
[2020-09-30 09:59] VITALS: BMI 28.3
[2021-11-02 09:41] LABS: Fecal Immunochemical Test Negative (Negative)
== END ==
PROVIDERS: PCP Family Medicine; Referring Provider Family Medicine; Visit Provider Family Medicine
DX: I10 Essential (primary) hypertension (principal); E78.5 Hyperlipidemia, unspecified; Z00.00 Encounter for general adult medical examination without abnormal findings
CPT/HCPCS: 82274

== ENCOUNTER → 2021-11-07 12:38 | Outpatient (CLI) | payer MEDICARE, SELFPAY ==
[2020-09-30 09:59] VITALS: BMI 28.3
[2021-11-07 13:23] LABS: Appearance Urine UA CLOUDY; Bilirubin Urine UA NEGATIVE (NEGATIVE); Color Urine UA YELLOW; Glucose Urine UA NEGATIVE (Negative); Ketones Urine UA NEGATIVE (NEGATIVE); Leukocyte Esterase Urine UA 1+ (NEGATIVE); Nitrite Urine UA NEGATIVE (Negative); Occult Blood Urine UA 3+ (Negative); Protein Urine UA TRACE (Negative); Specific Gravity Urine UA 1.015 (1.000-1.035); Urobilinogen Urine UA 0.2 E.U./dL (0.2)
[2021-11-07 13:48] LABS: pH Urine UA 6.5 (4.5-8.0)
[2021-11-07 13:55] LABS: Amorphous Sediment Urine 1+; Bacteria Urine Moderate (10-30); Culture Indicated Urine Cult Not Indicated; RBC Urine 5-10/HPF (0-5/HPF); Squamous Epithelial Cell Urine 5-10 /HPF (0-5/HPF); WBC Urine 5-10/HPF (0-5/HPF)
== END ==
PROVIDERS: PCP Family Medicine; Referring Provider Family Medicine; Visit Provider Family Medicine
DX: N39.0 Urinary tract infection, site not specified (principal); R30.9 Painful micturition, unspecified
CPT/HCPCS: 81001

== ENCOUNTER → 2021-11-22 09:08 | Outpatient (CLI) | payer MEDICARE, SELFPAY ==
[2020-09-30 09:59] VITALS: BMI 28.3
[2021-11-22 11:19] LABS: Appearance Urine UA CLEAR; Bilirubin Urine UA NEGATIVE (NEGATIVE); Color Urine UA YELLOW; Glucose Urine UA TRACE g/dL (Negative); Ketones Urine UA NEGATIVE (NEGATIVE); Leukocyte Esterase Urine UA NEGATIVE (NEGATIVE); Nitrite Urine UA NEGATIVE (Negative); Occult Blood Urine UA TRACE-LYSED (Negative); Protein Urine UA NEGATIVE (Negative); Specific Gravity Urine UA 1.015 (1.000-1.035); Urobilinogen Urine UA 0.2 E.U./dL (0.2)
[2021-11-22 11:47] LABS: Amorphous Sediment Urine 1+; Bacteria Urine Few (2-10); Culture Indicated Urine Specimen Cultured; RBC Urine 1-5/HPF (0-5/HPF); Squamous Epithelial Cell Urine 1-5 /HPF (0-5/HPF); WBC Urine 0-1/HPF (0-5/HPF)
== END ==
PROVIDERS: PCP Family Medicine; Referring Provider Family Medicine; Visit Provider Family Medicine
DX: N39.0 Urinary tract infection, site not specified (principal)
CPT/HCPCS: 81001; 87086

== ENCOUNTER → 2021-12-28 14:33 | Outpatient (CLI) | payer MEDICARE, SELFPAY ==
[2020-09-30 09:59] VITALS: BMI 28.3
--- NOTE | 2021-12-28 14:35 | DI.ECHO.S_ITS ---
[place] [facility]---------+ [facility] +---------+ : : [address] : : : : [id number] : : : : Phone: [phone]+ Echocardiogram Report + + :Name: MARK BEAL Study Date: 12/28/2021 Height: 64 in : :[facility] ReadingLocation: Weight: 180 lb : : Gender: Female BSA: 1.9 m2 : :: 1940 Age: 81 yrs BP: 180/71 mmHg: :Reason For Study: HYPERTENSION : :Ordering Physician: BRYANNA, : :OSIEL Performed By: Sonal Solis : :Referring: OSIEL GOULD : + + Interpretation Summary 1) Mildly increased left ventricular thickness (concentric) with normal size, normal wall motion, and normal systolic function (EF 65-70%). 2) Normal right ventricular size and function. 3) There is mild aortic regurgitation. 4) There is mild to moderate tricuspid regurgitation. 5) The right ventricular systolic pressure is estimated to be at least 57 mmHg based on an estimated right atrial pressure of 3 mm Hg. 6) Hypertension present during the study (BP 180/71mmHg). 7) No prior Echo available for comparison. Procedure: A two-dimensional transthoracic echocardiogram with color flow and Doppler was performed. The study quality was technically adequate. There is no prior echocardiogram noted for this patient. The patient was in sinus rhythm with heart rates between 57-63 bpm during the exam. Left Ventricle: The left ventricle is normal in size. There is mild concentric left ventricular hypertrophy. The ejection fraction is estimated to be 65-70%. Left ventricular systolic function appears normal without focal wall motion abnormalities. Right Ventricle: The right ventricle is normal in size and function. Atria: The left atrium is severely dilated. Right atrial size is normal. There is no Doppler evidence for an interatrial shunt. Mitral Valve: The mitral valve chordae are thickened and/or calcified. There is mild mitral annular calcification. There is trace mitral regurgitation. Aortic Valve: The aortic valve is trileaflet. The aortic valve is mildly calcified. There is no aortic valve stenosis. There is mild aortic regurgitation. Tricuspid Valve: The tricuspid valve is normal in structure and function. There is mild to moderate tricuspid regurgitation. The right ventricular systolic pressure is estimated to be at least 57 mmHg based on an estimated right atrial pressure of 3 mm Hg. Pulmonic Valve: The pulmonic valve leaflets are thin and pliable; valve motion is normal. There is no pulmonic valvular regurgitation. Great Vessels: The aortic root is normal size. The dimensions of the ascending aorta are normal. The IVC is of normal diameter and collapses greater than 50% with a sniff. This suggests a low right atrial pressure of 3 mm Hg. Pericardium/ Pleura There is no pericardial effusion. There is no pleural effusion. MMode/2D Measurements & Calculations LVIDd: 3.9 cm LVOT diam: 2.0 cm LVIDs: 2.5 cm Ao root diam: 2.9 cm FS: 36.3 % asc Aorta Diam: 3.4 cm IVSd: 1.4 cm Ao Arch Diam (Prox Trans): 3.1 cm LVPWd: 1.1 cm LV baxter. diameter/BSA (cm/m^2): 2.1 LV sys. diameter/BSA (cm/m^2): 1.3 LA A2 area: 27.7 cm2 RA long axis: 6.2 cm LA A4 area: 26.4 cm2 RA area: 21.3 cm2 LA length (vol): 5.9 cm RA vol: 61.8 ml LA vol: 105.0 ml RA : 33.0 ml/m2 LA vol index: 56.2 ml/m2 IVC diam: 1.2 cm RVD1 (basal): 3.9 cm RVD2 (mid): 3.2 cm TAPSE: 2.4 cm Doppler Measurements & Calculations Ao V2 max: 143.3 cm/sec LVOT Max Ian: 109.9 cm/sec Ao V2 mean: 99.7 cm/sec LV V1 max P.8 mmHg Ao max P.2 mmHg LV V1 VTI: 27.1 cm Ao mean P.5 mmHg JUANITO(I,D): 2.7 cm2 Ao V2 VTI: 31.9 cm JUANITO(V,D): 2.4 cm2 sev ratio: 0.85 JUANITO indexed to BSA (cm^2/m^2): 1.4 AI P1/2t: 666.9 msec AI dec slope: 167.0 cm/sec2 MV E max ian: 130.3 cm/sec TR max ian: 369.2 cm/sec MV A max ian: 32.4 cm/sec TR max P.5 mmHg MV E/A: 4.0 PA V2 max: 85.0 cm/sec Med Peak E' Ian: 5.3 cm/sec PA V2 mean: 60.4 cm/sec E/E' med: 24.6 PA mean P.7 mmHg Lat Peak E' Ian: 6.1 cm/sec PA pr(Accel): 36.2 mmHg E/E' lat: 21.5 E/e' average: 23.0 MV dec time: 0.18 sec SV(LVOT): 85.2 ml Reading Physician:04:01 PM
== END ==
PROVIDERS: PCP Family Medicine; Referring Provider Family Medicine; Visit Provider Family Medicine
DX: I10 Essential (primary) hypertension (principal); E78.5 Hyperlipidemia, unspecified; I08.2 Rheumatic disorders of both aortic and tricuspid valves
CPT/HCPCS: 93306

== ENCOUNTER → 2022-04-04 13:17 | Outpatient (CLI) | payer MEDICARE, SELFPAY ==
[2020-09-30 09:59] VITALS: BMI 28.3
--- NOTE | 2022-04-04 13:18 | DI.RAD.S_ITS ---
PROCEDURE: XR HAND RT MIN 3V INDICATIONS: Dog bite TECHNIQUE: 3 views of the hand(s) acquired. COMPARISON: None. FINDINGS: Bones: No fractures or dislocations. Degenerative arthritis involving the base of the thumb, wrist, and multiple DIP and PIP joints. Soft tissues: No suspicious soft tissue calcifications. Dorsal soft tissue swelling. There is no soft tissue gas or radiopaque foreign body. IMPRESSION: 1. 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 2. No evidence acute bony abnormality of the right hand. Dictated by: Rob Cornell M.D. on 04/04/2022 at 13:45 Approved by: Rob Cornell M.D. on 04/04/2022 at 13:46
== END ==
PROVIDERS: PCP Family Medicine; Referring Provider Student in an Organized Health Care Education/Training Program; Visit Provider Student in an Organized Health Care Education/Training Program
DX: S61.451A Open bite of right hand, initial encounter (principal); M19.041 Primary osteoarthritis, right hand; M19.031 Primary osteoarthritis, right wrist; W54.0XXA Bitten by dog, initial encounter
CPT/HCPCS: 73130

== ENCOUNTER → 2022-04-24 08:02 | Outpatient (CLI) | payer MEDICARE, SELFPAY ==
[2020-09-30 09:59] VITALS: BMI 28.3
[2022-04-24 09:26] LABS: Add Manual Diff / Slide Review NO; Basophils Absolute Auto 0 /uL (0-100); Basophils Percent Auto 0.6 % (0-2); Eosinophils Absolute Auto 100 /uL (0-450); Hematocrit 40.9 % (36-46); Hemoglobin 14.2 g/dL (12.0-16.0); Lymphocytes Absolute Auto 1400 /uL (1100-4500); Lymphocytes Percent Auto 19.4 % (25-40); Mean Corpuscular HGB Conc 34.7 % (30-36); Mean Corpuscular Hemoglobin 31.1 PG (26-34); Mean Corpuscular Volume 89.5 fL (80-100); Monocytes Absolute Auto 500 /uL (0-900); Monocytes Percent Auto 7.1 % (3-14); Neutrophils Absolute Auto 5100 /uL (1500-7000); Neutrophils Percent Auto 70.9 % (50-75); Platelet Count 232 X10^3/uL (150-400); Red Blood Cell Count 4.57 X10^6/uL (4.0-5.2); Red Cell Distribution Width 12.5 % (11.6-14.8); White Blood Cell Count 7.2 X10^3/uL (4.5-11.0)
[2022-04-24 09:47] LABS: Alanine Aminotransferase 22 IU/L (<35); Albumin 4.1 g/dL (3.5-5.0); Albumin Globulin Ratio 1.2 (1.0-2.8); Alkaline Phosphatase 69 U/L (38-126); Aspartate Aminotransferase 23 IU/L (14-36); Bilirubin Total 1.2 mg/dL (0.2-1.3); Blood Urea Nitrogen 13 mg/dL (7-17); Calcium 9.6 mg/dL (8.4-10.2); Carbon Dioxide 29 mmol/L (22-32); Chloride 98 mmol/L (98-107); Estimated Glomerular Filt Rate > 60 mL/min (>60); Globulin 3.3 g/dL (1.7-4.1); Glucose 111 mg/dL (80-110); HEMOLYSIS < 15 (0-50); Potassium 4.1 mmol/L (3.4-5.1); Sodium 134 mmol/L (137-145); Total Protein 7.4 g/dL (6.3-8.2); Uric Acid 4.3 mg/dL (2.5-6.2)
[2022-04-24 10:37] LABS: Thyroid Stimulating Hormone 1.45 uIU/mL (0.47-4.68)
== END ==
PROVIDERS: PCP Family Medicine; Referring Provider Family Medicine; Visit Provider Family Medicine
DX: I10 Essential (primary) hypertension (principal); E78.5 Hyperlipidemia, unspecified; Z00.00 Encounter for general adult medical examination without abnormal findings; M10.9 Gout, unspecified
CPT/HCPCS: 36415; 80053; 84443; 84550; 85025

== ENCOUNTER → 2022-06-09 08:40 | Outpatient (CLI) | payer MEDICARE, SELFPAY ==
[2020-09-30 09:59] VITALS: BMI 28.3
--- NOTE | 2022-06-09 08:43 | DI.MG.S_ITS ---
BILATERAL DIGITAL DIAGNOSTIC MAMMOGRAM 3D/2D SHORT-TERM FOLLOW-UP: 06/09/2022 CLINICAL: Short term follow up of the right breast, due for bilateral imaging. Comparison is made to exams dated: 04/27/2021 mammogram, 04/06/2021 mammogram, and 03/20/2020 mammogram - [facility]. There are scattered areas of fibroglandular density in both breasts (category b / 25%-50% glandular tissue). No significant masses, calcifications, or other findings are seen in either breast. There has been no significant interval change. IMPRESSION: NEGATIVE There is no mammographic evidence of malignancy. A 1 year screening mammogram is recommended. Based on the Tyrer Cuzick model (a risk assessment model) the patient's lifetime risk is 2.6% and her 10 year risk is 0.0%. According to the ACR, ACS, and NCCN guidelines, an annual breast MRI exam along with mammogram is recommended if the patient's lifetime risk is 20% or greater. This exam was interpreted at Station ID: [id number]. NOTE: For mammograms, a report in lay terms will be sent to the patient. Approximately 15% of breast malignancies will not be visualized mammographically. In the management of a palpable breast mass, a negative mammogram must not discourage biopsy of a clinically suspicious lesion. Electronically Signed By: Alejandra araya/shell:06/09/2022 09:11:06 letter sent: Normal Exam ACR BI-RADS Category 1: Negative [id number]
== END ==
PROVIDERS: PCP Family Medicine; Referring Provider Family Medicine; Visit Provider Family Medicine
DX: R92.8 Other abnormal and inconclusive findings on diagnostic imaging of breast (principal)
CPT/HCPCS: 77066; G0279

== ENCOUNTER 2022-06-13 12:11 | Emergency (ER) | payer MEDICARE, SELFPAY ==
[2020-09-30 09:59] VITALS: BMI 28.3
[2022-06-13] VITALS (13 sets, daily range): BP systolic 225–253; BP diastolic 92–114; PULSE 49–62; RESP 15–25; TEMP 35.9; O2SAT 96–98; BMI 30.9
--- NOTE | 2022-06-13 12:34 | DI.RAD.S_ITS ---
PROCEDURE: XR CHEST 2V INDICATIONS: shortness of breath TECHNIQUE: 2 views of the chest were acquired. COMPARISON: [facility], CR, XR CHEST 2V, 05/07/2019, 14:56. FINDINGS: Surgical changes and devices: None. Lungs and pleura: Increased pulmonary vascular prominence. Mediastinum: Mediastinal contours are normal. Heart size is enlarged. Bones and chest wall: No suspicious bony abnormalities. Soft tissues appear unremarkable. IMPRESSION: Increased pulmonary vascularity most suggestive of edema. Dictated by: Bridget Bettencourt M.D. on 06/13/2022 at 13:21 Approved by: Bridget Bettencourt M.D. on 06/13/2022 at 13:22
[2022-06-13 13:06] LABS: Add Manual Diff / Slide Review NO; Basophils Absolute Auto 100 /uL (0-100); Basophils Percent Auto 0.6 % (0-2); Eosinophils Absolute Auto 100 /uL (0-450); Eosinophils Percent Auto 1.6 % (2-4); Hematocrit 38.7 % (36-46); Lymphocytes Absolute Auto 1700 /uL (1100-4500); Lymphocytes Percent Auto 17.9 % (25-40); Mean Corpuscular HGB Conc 33.6 % (30-36); Mean Corpuscular Hemoglobin 30.8 PG (26-34); Mean Corpuscular Volume 91.7 fL (80-100); Monocytes Absolute Auto 600 /uL (0-900); Monocytes Percent Auto 6.7 % (3-14); Neutrophils Absolute Auto 6800 /uL (1500-7000); Neutrophils Percent Auto 73.2 % (50-75); Platelet Count 227 X10^3/uL (150-400); Red Blood Cell Count 4.23 X10^6/uL (4.0-5.2); Red Cell Distribution Width 12.9 % (11.6-14.8); White Blood Cell Count 9.3 X10^3/uL (4.5-11.0)
[2022-06-13 13:09] LABS: Alanine Aminotransferase 27 IU/L (<35); Albumin 4.2 g/dL (3.5-5.0); Albumin Globulin Ratio 1.3 (1.0-2.8); Alkaline Phosphatase 78 U/L (38-126); Aspartate Aminotransferase 30 IU/L (14-36); BUN Creatinine Ratio 25.4 (6-22); Bilirubin Total 1.4 mg/dL (0.2-1.3); Blood Urea Nitrogen 15 mg/dL (7-17); Calcium 9.5 mg/dL (8.4-10.2); Carbon Dioxide 25 mmol/L (22-32); Chloride 101 mmol/L (98-107); Estimated Glomerular Filt Rate > 60 mL/min (>60); Globulin 3.3 g/dL (1.7-4.1); Glucose 103 mg/dL (80-110); HEMOLYSIS 18 (0-50); Sodium 133 mmol/L (137-145); Total Protein 7.5 g/dL (6.3-8.2)
[2022-06-13 13:10] LABS: Lactate (Lactic Acid) 0.8 mmol/L (0.7-2.1)
[2022-06-13 13:18] LABS: NT-proBNP (BNP-Adult 18+) 687 pg/mL (<450)
[2022-06-13 15:05] LABS: Troponin I < 0.012 ng/mL (0.01-0.034)
[2022-06-13 16:19] LABS: Troponin I < 0.012 ng/mL (0.01-0.034)
[2022-06-13] MEDS: hydroCHLOROthiazide 25 MG TABLET PO (16:30)
--- NOTE | 2022-06-20 20:08 | ED_ITS ---
HPI - SOB/Dyspnea General Chief Complaint: Shortness of Breath/Dyspnea Stated Complaint: Chest pressure, exhaustion, Pain in left arm Time Seen by Provider: 06/13/22 14:40 Source: patient Mode of arrival: Family Vehicle History of Present Illness HPI Narrative: 82-year-old female with past medical history hyperlipidemia, hypertension, GERD, gout presents to the ED for worsening shortness of breath, fatigue over several weeks. Patient states that the shortness of breath and fatigue is worse with activity. Patient also complains of being hypertensive, her PCP Dr. Willams has been titrating her medications for better BP control. Patient denies fever, chills, chest pain, abdominal pain, dysuria, nausea, vomiting, lightheadedness, dizziness, syncope. Patient also had a recent echocardiogram in December 2021, with no acute findings other than hypertension. Related Data Home Medications Medication Instructions Recorded Confirmed aspirin 81 mg tablet,delayed 81 mg PO ONCE 02/04/19 06/14/22 release melatonin 5 mg capsule 5 mg PO BEDTIME 05/07/19 06/14/22 famotidine 10 mg tablet (Pepcid AC) 10 mg PO DAILY PRN 01/30/20 06/14/22 diphenhydramine HCl 25 mg capsule 25 mg PO BEDTIME 09/14/20 06/14/22 (Allergy (diphenhydramine)) calcium citrate 200 mg (950 mg) 200 mg PO DAILY 09/27/20 06/14/22 tablet glucosamine HCl 750 mg tablet 750 mg PO DAILY 09/27/20 06/14/22 lysine 500 mg tablet (L-Lysine) 500 mg PO DAILY 09/27/20 06/14/22 multivitamin (Multiple Vitamins 1 tab PO DAILY 09/27/20 06/14/22 tablet) omega-3 fatty acids 1,250 mg 1,250 mg PO DAILY 09/27/20 06/14/22 capsule D-Mannose PO 11/30/20 06/14/22 Turmeric Liquid - 2000mg PO 04/13/21 06/14/22 Previous Rx's Medication Instructions Recorded diclofenac sodium 1 % topical gel 2 g topical TID-QID #100 grams 06/02/21 estradiol 0.01% (0.1 mg/gram) 1 g vaginal 2XW #42.5 grams 06/24/21 vaginal cream nystatin 100,000 unit/mL oral 1 ml buccal TID As needed thrush 10/11/21 suspension #250 mL triamcinolone acetonide 0.1 % 1 applic mucous membrane BID-TID 10/11/21 dental paste PRN mouth irritation #5 grams valacyclovir 1 gram tablet 1,000 mg PO TID #20 tabs 10/11/21 atorvastatin 40 mg tablet See Rx Instructions .Route 01/31/22 .COMPLEX #90 tabs olmesartan 40 mg tablet See Rx Instructions .Route 01/31/22 .COMPLEX #90 tabs ketoconazole 2 % topical cream 1 applic topical TID #60 grams 02/27/22 metoprolol succinate 100 mg 100 mg PO BID #180 tabs 04/05/22 tablet,extended release 24 hr losartan 50 mg tablet 50 mg PO DAILY #90 tabs 04/21/22 clotrimazole 10 mg ladi 10 mg mucous membrane 5XD #20 tabs 05/09/22 gabapentin 100 mg capsule See Rx Instructions .Route 05/17/22 .COMPLEX #200 caps meloxicam 15 mg tablet 15 mg PO DAILY #90 tabs 05/17/22 chlorthalidone 25 mg tablet 25 mg PO DAILY blood pressure #90 06/14/22 tabs Allergies Allergy/AdvReac Type Severity Reaction Status Date / Time Penicillins [PENICILLINS] Allergy Unknown rash-CHILDH Verified 06/14/22 09:26 OOD amlodipine [AMLODIPINE] AdvReac Intermediate LEG Verified 06/14/22 09:26 SWELLING lisinopril [LISINOPRIL] AdvReac Intermediate cough Verified 06/14/22 09:26 venlafaxine [VENLAFAXINE] AdvReac Mild Pt unsure Verified 06/14/22 09:26 of reaction L NARES TIGHT AdvReac Mild DO NOT USE Uncoded 06/14/22 09:26 L NARES FOR TUBES. Review of Systems Review of Systems ROS Unobtainable: All systems reviewed & are unremarkable except as noted in HPI and below Constitutional Constitutional: Denies chills, Reports fatigue, Denies fever(s), Denies frequent falls, Reports lethargy and Denies weakness Eyes Eyes: Denies change in vision, Denies eye discharge, Denies irritation and Denies loss of vision ENT Ears, Nose, Mouth, and Throat: Denies change in voice, Denies dizziness, Denies neck pain, Denies sore throat and Denies throat swelling Cardiovascular Cardiovascular: Denies chest pain, Denies irregular heart rhythm, Denies lightheadedness, Denies palpitations, Reports dyspnea, Reports dyspnea on exertion and Denies orthopnea Respiratory Respiratory: Denies cough, Reports dyspnea, Reports dyspnea on exertion and De nies wheezing Gastrointestinal Gastrointestinal: Denies abdominal pain, Denies change in bowel habits, Denies diarrhea, Denies nausea and Denies vomiting Genitourinary Genitourinary: Denies hematuria, Denies flank pain, Denies urinary incontinence and Denies urinary urgency Musculoskeletal Musculoskeletal: Denies back pain, Denies muscle weakness, Denies neck pain, Denies numbness and Denies tingling Integumentary/Breasts Skin/Breast: Denies pruritus, Denies erythema, Denies rash and Denies wounds Neurologic Neurologic: Denies behavioral changes, Denies confusion, Denies dizziness, Denies frequent falls, Denies loss of vision, Denies numbness, Denies tingling and Denies weakness Psychiatric Psychiatric: Denies anxiety, Denies behavioral changes, Denies confusion, Denies depression, Denies homicidal ideation and Denies suicidal ideation Endocrine Endocrine: Reports fatigue, Denies flushing and Denies palpitations Hematologic/Lymphatic Hematologic/Lymphatic: Denies easy bruising Allergic/Immunologic Allergic/Immunologic: Denies urticaria, Denies throat swelling and Denies wheezing Patient History Medical History Anxiety Arthritis [place] grade 3 cystocele (03/21/16) Chronic sinusitis Chronic UTI Depression Gilbert syndrome Gout (07/19/11) Head contusion Head injury, acute, without loss of consciousness Hordeolum externum of right lower eyelid Hyperlipidemia Hypertension Idiopathic peripheral neuropathy (02/12/15) Idiopathic peripheral neuropathy Impaired hearing Insomnia Left wrist sprain Multiple lipomas Osteoarthritis Osteopenia Osteoporosis Peripheral edema (03/21/16) Postmenopausal atrophic vaginitis Recurrent UTI (urinary tract infection) Thrush TIA (transient ischemic attack) Tinea Toe deformity Traumatic ecchymosis of face Vaginal pessary present Well adult exam Surgical History Hx of appendectomy S/P bilateral breast reduction S/P total abdominal hysterectomy and bilateral salpingo-oophorectomy Status post total hip replacement, 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 Father Prostate cancer Mother Ventricular fibrillation Diabetes mellitus Thyroid disorder Social History marital status: household members: none Smoking Status: Never smoker alcohol intake: current caffeine: No Smoking Status: Never smoker alcohol intake frequency: holidays/special occasions only Substance Use Type: does not use Exam Narrative Exam Narrative: Const General:?cooperative, healthy appearing and comfortable [facility] Head:?normal to inspection Ears:?hearing grossly normal bilaterally Nose:?external nose normal Face and sinus:?normal facial exam and sinuses nontender Mouth:?oral mucosae normal Throat:?posterior oropharynx normal Eyes General:?appearance normal, both eyes and all related structures Neck Neck:?normal visual inspection and no lymphadenopathy noted Resp Effort & Inspection:?normal respiratory effort Auscultation:?clear to auscultation bilaterally Cardio Rate:?regular rate Rhythm:?regular rhythm GI Abdomen is soft, nondistended, nontender to palpation. No CVA tenderness. Neuro General:?patient alert, patient awake and patient oriented x3 Initial Vital Signs Initial Vital Signs: Vital Signs Temperature 96.7 F L 06/13/22 12:23 Pulse Rate 62 06/13/22 12:23 Respiratory Rate 18 06/13/22 12:23 Blood Pressure 253/114 H 06/13/22 12:23 Pulse Oximetry 96 06/13/22 12:23 Oxygen Delivery Method 06/13/22 12:23 Course Orders Ordered: Discontinued Medications Hydrochlorothiazide (Hydrochlorothiazide 25 Mg Tablet) 25 mg PO NOW ONE Stop: 06/13/22 16:10 Last Admin: 06/13/22 16:30 Dose: 25 mg Documented By: MSDon MDM - SOB/Dyspnea Lab Data Result diagrams: 06/13/22 12:50 06/13/22 12:50 Labs: Lab Results 06/13/22 06/13/22 06/13/22 Range/Units 12:50 12:50 12:50 WBC 9.3 (4.5-11.0) X10^3/uL RBC 4.23 (4.0-5.2) X10^6/uL Hgb 13.0 (12.0-16.0) g/dL Hct 38.7 (36-46) % MCV 91.7 (80-100) fL MCH 30.8 (26-34) PG MCHC 33.6 (30-36) % RDW 12.9 (11.6-14.8) % Plt Count 227 (150-400) X10^3/uL Neut % (Auto) 73.2 (50-75) % Lymph % (Auto) 17.9 L (25-40) % [place] % (Auto) 6.7 (3-14) % Eos % (Auto) 1.6 L (2-4) % Baso % (Auto) 0.6 (0-2) % Neut # (Auto) 6800 (0305-0889) /uL Lymph # (Auto) 1700 (8041-2551) /uL [place] # (Auto) 600 (0-900) /uL Eos # (Auto) 100 (0-450) /uL Baso # (Auto) 100 (0-100) /uL Sodium 133 L (137-145) mmol/L Potassium 4.0 (3.4-5.1) mmol/L Chloride 101 (98-107) mmol/L Carbon Dioxide 25 (22-32) mmol/L BUN 15 (7-17) mg/dL Creatinine 0.59 (0.52-1.04) mg/dL Estimated GFR > 60 (>60) mL/min BUN/Creatinine Ratio 25.4 H (6-22) Glucose 103 (80-110) mg/dL Lactate 0.8 (0.7-2.1) mmol/L Calcium 9.5 (8.4-10.2) mg/dL Total Bilirubin 1.4 H (0.2-1.3) mg/dL AST 30 (14-36) IU/L ALT 27 (<35) IU/L Alkaline Phosphatase 78 (38-126) U/L Troponin I (0.01-0.034) ng/mL NT-Pro-B Natriuret Pep 687 H (<450) pg/mL Total Protein 7.5 (6.3-8.2) g/dL Albumin 4.2 (3.5-5.0) g/dL Globulin 3.3 (1.7-4.1) g/dL Albumin/Globulin Ratio 1.3 (1.0-2.8) 06/13/22 06/13/22 Range/Units 12:50 15:48 WBC (4.5-11.0) X10^3/uL RBC (4.0-5.2) X10^6/uL Hgb (12.0-16.0) g/dL Hct (36-46) % MCV (80-100) fL MCH (26-34) PG MCHC (30-36) % RDW (11.6-14.8) % Plt Count (150-400) X10^3/uL Neut % (Auto) (50-75) % Lymph % (Auto) (25-40) % [place] % (Auto) (3-14) % Eos % (Auto) (2-4) % Baso % (Auto) (0-2) % Neut # (Auto) (6460-5452) /uL Lymph # (Auto) (4165-4802) /uL [place] # (Auto) (0-900) /uL Eos # (Auto) (0-450) /uL Baso # (Auto) (0-100) /uL Sodium (137-145) mmol/L Potassium (3.4-5.1) mmol/L Chloride (98-107) mmol/L Carbon Dioxide (22-32) mmol/L BUN (7-17) mg/dL Creatinine (0.52-1.04) mg/dL Estimated GFR (>60) mL/min BUN/Creatinine Ratio (6-22) Glucose (80-110) mg/dL Lactate (0.7-2.1) mmol/L Calcium (8.4-10.2) mg/dL Total Bilirubin (0.2-1.3) mg/dL AST (14-36) IU/L ALT (<35) IU/L Alkaline Phosphatase (38-126) U/L Troponin I < 0.012 < 0.012 (0.01-0.034) ng/mL NT-Pro-B Natriuret Pep (<450) pg/mL Total Protein (6.3-8.2) g/dL Albumin (3.5-5.0) g/dL Globulin (1.7-4.1) g/dL Albumin/Globulin Ratio (1.0-2.8) Urine Dip Bedside Urine Glucose Negative Bedside Urine Bilirubin - Negative Bedside Urine Ketone - Negative Urine Specific [place] 1.015 Bedside Urine Occult Blood - Negative Bedside Urine pH 6.0 Bedside Urine Protein - Negative Bedside Urine Urobilinogen - Negative Bedside Urine Nitrite - Negative Bedside Urine Leukocytes - Negative Esterase Imaging Data Chest x-ray: Radiologist's Impression: PROCEDURE:? XR CHEST 2V ? INDICATIONS:? shortness of breath ? TECHNIQUE:? 2 views of the chest were acquired.? ? COMPARISON:? [facility], CR, XR CHEST 2V, 05/07/2019, 14:56. ? FINDINGS:? ? Surgical changes and devices:? None.? ? Lungs and pleura:? Increased pulmonary vascular prominence. ? Mediastinum:? Mediastinal contours are normal.? Heart size is enlarged. ? Bones and chest wall:? No suspicious bony abnormalities.? Soft tissues appear unremarkable.? ? IMPRESSION:? Increased pulmonary vascularity most suggestive of edema. ? ? Dictated by: Bridget Bettencourt M.D. on 06/13/2022 at 13:21 ? ? Approved by: Bridget Bettencourt M.D. on 06/13/2022 at 13:22 ? MDM Narrative Medical decision making narrative: 82-year-old female with past medical history hyperlipidemia, hypertension, GERD, gout presents to the ED for worsening shortness of breath, fatigue over several weeks. Concern for ACS versus CHF versus pneumonia versus electrolyte derangements versus dehydration versus UTI versus other. Will obtain chest x- ray, EKG, labs, troponin. Workup was unremarkable. It is unclear why patient is experiencing symptoms of shortness of breath and fatigue. Patient agrees to follow-up with PCP for continued BP control and monitoring. ED return precautions were discussed with patient. Patient verbalized understanding. Discharge Plan Departure Patient Disposition: Home Clinical Impression: Fatigue Instructions: DI for Fatigue, DI for Shortness of Breath Activity Restrictions/Additional Instructions: You were evaluated in the ED today for fatigue and shortness of breath on exertion. Your labs, EKG, chest x-ray, urine were normal. Your blood pressure was high today, please follow-up with your PCP to re-evaluate your blood pressure medications for better control. Return to the ED if you experience any chest pain, shortness of breath. Prescriptions: No Action diclofenac sodium 1 % gel 2 g topical TID-QID Qty: 100 2RF Rx Instructions: Apply to right knee TID-QID PRN for pain estradiol 0.01 % (0.1 mg/gram) cream 1 g VAG 2XW Qty: 42.5 3RF Rx Instructions: use a pea sized amount and apply to the outer vaginal area, 2 times per week atorvastatin 40 mg tablet See Rx Instructions .ROUTE .COMPLEX Qty: 90 3RF Dose Instruction: TAKE 1 TABLET BY MOUTH AT BEDTIME Rx Instructions: TAKE 1 TABLET BY MOUTH AT BEDTIME olmesartan 40 mg tablet See Rx Instructions .ROUTE .COMPLEX Qty: 90 3RF Dose Instruction: TAKE 1 TABLET BY MOUTH DAILY Rx Instructions: TAKE 1 TABLET BY MOUTH DAILY ketoconazole 2 % cream 1 applic topical TID Qty: 60 2RF Rx Instructions: Apply to affected areas clotrimazole 10 mg ladi 10 mg mucous membrane 5XD Qty: 20 1RF gabapentin 100 mg capsule See Rx Instructions .ROUTE .COMPLEX Qty: 200 2RF Dose Instruction: TAKE 1 CAPSULE BY MOUTH TWICE DAILY Rx Instructions: TAKE 1 CAPSULE BY MOUTH TWICE DAILY meloxicam 15 mg tablet 15 mg PO DAILY Qty: 90 3RF melatonin 5 mg capsule 5 mg PO BEDTIME famotidine [Pepcid AC] 10 mg tablet 10 mg PO DAILY PRN Turmeric Liquid - 2000mg PO Rx Instructions: Take 1000mg PO BID - if all vitamins taken valacyclovir 1 gram tablet 1,000 mg PO TID Qty: 20 2RF Rx Instructions: One p.o. t.i.d. for 1 day as needed cold sore triamcinolone acetonide 0.1 % paste 1 applic mucous membrane BID-TID PRN (Reason: mouth irritation) Qty: 5 1RF Rx Instructions: Use on apthus ulcers nystatin 100,000 unit/mL suspension 1 ml buccal TID Qty: 250 1RF Rx Instructions: administer 1/2 of dose in each side of the mouth losartan 50 mg tablet 50 mg PO DAILY Qty: 90 3RF aspirin 81 mg tablet,delayed release (DR/EC) 81 mg PO ONCE diphenhydramine HCl [Allergy (diphenhydramine)] 25 mg capsule 25 mg PO BEDTIME D-Mannose 500 mg capsule PO metoprolol succinate 100 mg tablet extended release 24 hr 100 mg PO BID Qty: 180 3RF chlorthalidone 25 mg tablet 25 mg PO DAILY Qty: 90 0RF multivitamin [Multiple Vitamins] Tablet 1 tab PO DAILY omega-3 fatty acids 1,250 mg capsule 1,250 mg PO DAILY calcium citrate 200 mg (950 mg) tablet 200 mg PO DAILY glucosamine HCl 750 mg tablet 750 mg PO DAILY Rx Instructions: administer with a meal lysine [L-Lysine] 500 mg tablet 500 mg PO DAILY Referrals: Estuardo Willams, [Primary Care Provider] - Visit Report Forms: Patient Portal/API
== END 2022-06-13 18:13 | disposition home or self-care (01) ==
PROVIDERS: Family Medicine Addiction Medicine; Emergency Provider Student in an Organized Health Care Education/Training Program; PCP Family Medicine
DX: R06.02 Shortness of breath (principal); R53.83 Other fatigue; I10 Essential (primary) hypertension
CPT/HCPCS: 36415; 71046; 80053; 81003; 83605; 83880; 84484; 85025; 93005; 99284

== ENCOUNTER 2022-06-30 10:56 | Emergency (ER) | payer MEDICARE, SELFPAY ==
[2020-09-30 09:59] VITALS: BMI 28.3
[2022-06-30 12:16] VITALS: BP 185/100; PULSE 60; RESP 18; TEMP 36.2; O2SAT 99
[2022-06-30 17:02] VITALS: BP 188/70; PULSE 78; RESP 14; O2SAT 99
[2022-06-30 17:15] LABS: RBC Urine 1-5/HPF (0-5/HPF); WBC Urine 1-5/HPF (0-5/HPF)
[2022-06-30 17:16] LABS: Bacteria Urine Few (2-10); Culture Indicated Urine Specimen Cultured; Squamous Epithelial Cell Urine 1-5 /HPF (0-5/HPF)
--- NOTE | 2022-06-30 17:17 | ED_ITS ---
HPI - Back Pain/Injury <Jolanta Roy, [facility] - Last Filed: 06/30/22 17:26> General Chief Complaint: Back Pain/Injury Stated Complaint: Pain RT side from front to back t-3 Time Seen by Provider: 06/30/22 16:11 Source: patient History of Present Illness HPI Narrative: This is a 82-year-old female presents to the emergency department right-sided low back pain and states that it is been worse with activity. She states that it is a right flank side but she endorses working out in her yd 2 weeks ago, she is right-hand dominant and was raking leaves. She states that the pain kind of radiates over her hip and into her groin. She denies any numbness or tingling, denies any weakness. Patient states that she has history UTIs, denies any dysuria, urinary frequency or urgency but states that she has incontinence at baseline and wears depends. On prior chart review it looks like patient has had urinary tract infections for most all of her urine tests, she has multiple resistant organisms and multiple allergies to antibiotics. Most recent susceptibility of her urine grew E coli with resistance to ampicillin, Cipro, levofloxacin, and Bactrim it does show susceptibility to Macrobid Related Data Previous Rx's Medication Instructions Recorded atorvastatin 40 mg tablet See Rx Instructions .Route 01/31/22 .COMPLEX #90 tabs metoprolol succinate 100 mg 100 mg PO BID #180 tabs 04/05/22 tablet,extended release 24 hr gabapentin 100 mg capsule See Rx Instructions .Route 05/17/22 .COMPLEX #200 caps meloxicam 15 mg tablet 15 mg PO DAILY #90 tabs 05/17/22 olmesartan 40 mg tablet See Rx Instructions .Route 06/26/22 .COMPLEX #90 tabs chlorthalidone 25 mg tablet 25 mg PO DAILY blood pressure #90 07/12/22 tabs methocarbamol 500 mg tablet 500 mg PO TID PRN muscle pain #60 07/12/22 tabs tramadol 50 mg tablet 50 mg PO Q6H PRN pain #60 tabs 07/12/22 amlodipine 2.5 mg tablet (Norvasc) 2.5 mg PO DAILY blood pressure #90 07/14/22 tabs oxycodone-acetaminophen 7.5 mg-325 1 tab PO Q6H PRN pain #30 tabs 07/14/22 mg tablet Allergies Allergy/AdvReac Type Severity Reaction Status Date / Time Penicillins [PENICILLINS] Allergy Unknown rash-CHILDH Verified 07/14/22 10:09 OOD amlodipine [AMLODIPINE] AdvReac Intermediate LEG Verified 07/14/22 10:09 SWELLING lisinopril [LISINOPRIL] AdvReac Intermediate cough Verified 07/14/22 10:09 venlafaxine [VENLAFAXINE] AdvReac Mild Pt unsure Verified 07/14/22 10:09 of reaction L NARES TIGHT AdvReac Mild DO NOT USE Uncoded 07/14/22 10:09 L NARES FOR TUBES. Review of Systems <PHOENIX Ramos - Last Filed: 06/30/22 17:26> Review of Systems Narrative: Review of systems is negative for acute abnormalities unless otherwise noted in HPI Patient History <PHOENIX Ramos - Last Filed: 06/30/22 17:26> Medical History Anxiety Arthritis [place] grade 3 cystocele (03/21/16) Chronic sinusitis Chronic UTI Depression Gilbert syndrome Gout (07/19/11) Head contusion Head injury, acute, without loss of consciousness Hordeolum externum of right lower eyelid Hyperlipidemia Hypertension Idiopathic peripheral neuropathy (02/12/15) Idiopathic peripheral neuropathy Impaired hearing Insomnia Left wrist sprain Multiple lipomas Osteoarthritis Osteopenia Osteoporosis Peripheral edema (03/21/16) Postmenopausal atrophic vaginitis Recurrent UTI (urinary tract infection) Thrush TIA (transient ischemic attack) Tinea Toe deformity Traumatic ecchymosis of face Vaginal pessary present Well adult exam Surgical History Hx of appendectomy S/P bilateral breast reduction S/P total abdominal hysterectomy and bilateral salpingo-oophorectomy Status post total hip replacement, 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 Father Prostate cancer Mother Ventricular fibrillation Diabetes mellitus Thyroid disorder Social History marital status: household members: none Smoking Status: Never smoker alcohol intake: current caffeine: No Smoking Status: Never smoker alcohol intake frequency: holidays/special occasions only Substance Use Type: does not use Exam <PHOENIX Ramos - Last Filed: 06/30/22 17:26> Narrative Exam Narrative: Reviewed vitals signs and nursing notes. General: cooperative, comfortable, in no acute distress, well groomed afebrile HEENT: symmetrical facial expressions, moist mucous membranes Cardiovascular: regular rate and rhythm, no peripheral edema, warm extremities Respiratory: normal effort, able to speak in complete sentences, without wheezing, stridor, or abnormal breath sounds. No retractions or tachypnea. GI: abdomen soft, nontender to palpation, nondistended, without masses, rebound tenderness or exquisite tenderness with exam. MSK: moves all extremities, neurovascularly intact, no weakness, normal tone right-sided CVA tenderness, no tenderness along her lumbar spine, paraspinal musculature of her lumbar spine is tense but nontender, CVA tenderness is present in her right flank Skin: brisk capillary refill, without pallor or erythema Neuro: normal speech and cognition, A&O x3, ambulatory, clear speech Psych: mental status is grossly normal, congruent mood, normal affect, pleasant and cooperative Initial Vital Signs Initial Vital Signs: Vital Signs Temperature 97.1 F L 06/30/22 12:16 Pulse Rate 60 06/30/22 12:16 Respiratory Rate 18 06/30/22 12:16 Blood Pressure 185/100 H 06/30/22 12:16 Pulse Oximetry 99 06/30/22 12:16 Oxygen Delivery Method 06/30/22 12:16 <Mirella Angel DO - Last Filed: 07/14/22 11:00> Initial Vital Signs Initial Vital Signs: Vital Signs Temperature 97.1 F L 06/30/22 12:16 Pulse Rate 60 06/30/22 12:16 Respiratory Rate 18 06/30/22 12:16 Blood Pressure 185/100 H 06/30/22 12:16 Pulse Oximetry 99 06/30/22 12:16 Oxygen Delivery Method 06/30/22 12:16 Course <PHOENIX Ramos - Last Filed: 06/30/22 17:26> Orders Ordered: ED Orders 06/30/22 16:45 Urine Culture Stat Urine Microscopic Stat Vital Signs Vital signs: Vital Signs - 8 hr 06/30/22 12:16 06/30/22 17:02 Temperature 97.1 F L Pulse Rate 60 78 Respiratory Rate 18 14 Blood Pressure 185/100 H 188/70 H Pulse Oximetry 99 99 Oxygen Delivery Method Room Air Room Air <Mirella Angel DO - Last Filed: 07/14/22 11:00> Orders Ordered: ED Orders 06/30/22 16:45 Urine Culture Stat Urine Microscopic Stat Vital Signs Vital signs: Vital Signs - 8 hr 06/30/22 12:16 06/30/22 17:02 Temperature 97.1 F L Pulse Rate 60 78 Respiratory Rate 18 14 Blood Pressure 185/100 H 188/70 H Pulse Oximetry 99 99 Oxygen Delivery Method Room Air Room Air MDM - Back Pain/Injury <PHOENIX Ramos - Last Filed: 06/30/22 17:26> Lab Data Labs: Lab Results 06/30/22 Range/Units 16:45 Urine RBC 1-5/hpf (0-5/HPF) Urine WBC 1-5/hpf (0-5/HPF) Ur Squamous Epith Cells 1-5 /hpf (0-5/HPF) Urine Bacteria Few (2-10) H (None) Ur Culture Indicated? Specimen cultured Urine Dip Bedside Urine Glucose Negative Bedside Urine Bilirubin - Negative Bedside Urine Ketone - Negative Urine Specific [place] 1.015 Bedside Urine Occult Blood - Negative Bedside Urine pH 7.0 Bedside Urine Protein +/- 15 Bedside Urine Urobilinogen - Negative Bedside Urine Nitrite - Negative Bedside Urine Leukocytes - Negative [facility] CLIA ID [id number] [address] [place] [address] RUN DATE: 06/30/22 Specimen Inquiry PAGE 1 RUN TIME: 1721 Name: Katie Vincent Age/Sex: 80/F Attend Dr: Edgardo Bee MD Unit#: [id number] : 1940Location: LAB Re07/13/20 Disch: Status: REG CLI SPEC #: [id number] RIDGE: 07/13/20 STATUS: COMP REQ #: [id number] SPDESC: RECD: 07/13/[address]: Edgardo Bee MD SOURCE: Urine CC ENTR: 07/13/20 [facility] : FAX TO: ORDERED: URINE CULTURE Procedure Result Verified Site Urine Culture Final 07/15/20651 Organism 1 Escherichia coli [place] Count 10,000 - 20,000 CFU/ml 1. Escherichia coli M.I.C. RX --------- --- * Amoxicillin/Clavulanate 16 I * Ampicillin >=32 R * Ampicillin/Sulbactam >=32 R * Cefazolin <=4 S * Cefepime <=1 S * Ceftriaxone <=1 S * Ciprofloxacin >=4 R * Ertapenem <=0.5 S * Gentamicin <=1 S * Imipenem <=0.25 S * Levofloxacin >=8 R * Nitrofurantoin <=16 S * Tobramycin <=1 S * Trimethoprim/Sulfamethoxazole >=320 R * Piperacillin/Tazobactam <=4 S MDM Narrative Medical decision making narrative: This is an 82-year-old female presents to the emergency department with right- sided flank pain. History of urinary tract infections. Patient was discharged prior to her urine coming back however she has a urinary tract infection with bacteria in her urine and is resistant to multiple antibiotics with multiple antibiotic allergies. Patient does not have any weakness, sensation changes, she is ambulatory, afebrile, without abdominal pain, nausea vomiting, chills, fever or of vomiting. She denies any upper respiratory symptoms. She was nontender over her lumbar spine, she has right-sided CVA tenderness to palpation, no suprapubic tenderness, urinary incontinence at baseline. Patient was prescribed methocarbamol to use at night for muscle spasms, instructed that she may have sleepiness associated with this and to not take during the day. Told her she could take her tramadol and that is okay to take, she has a urinary tract infection with culture pending, prescribed for her nitrofurantoin as she was resistant to most other antibiotics on her last urine culture. Encouraged her to follow-up with her primary care provider for test of cure. No peritoneal signs on abdominal exam. Patient remains p.o. tolerant. Serial abdominal exam without increase in abdominal pain. Given history and exam, low suspicion for acute abdominal process, such as acute cholecystitis, pancreatitis, perforated viscus, atypical appendicitis, colitis, diverticulitis or torsion. Multiple etiologies of back pain considered including; Epidural abscess, cauda equina, mass occupying lesion, lumbar fracture, intra-abdominal pathology chronic neuropathic pain and other considered Extensive conversation about ER return precautions and need for close follow-up. Patient is appropriate and amenable to discharge home. Vital signs are stable on repeat examination is unremarkable. Patient has been informed of results. Patient has been given strict return to ER precautions for any new or worsening symptoms. Patient understands to follow up closely with outpatient providers as instructed. Patient understands plan and agrees to discharge home. All questions and concerns answered at this time. <Mirella Angel, DO - Last Filed: 07/14/22 11:00> Lab Data Labs: Lab Results 06/30/22 Range/Units 16:45 Urine RBC 1-5/hpf (0-5/HPF) Urine WBC 1-5/hpf (0-5/HPF) Ur Squamous Epith Cells 1-5 /hpf (0-5/HPF) Urine Bacteria Few (2-10) H (None) Ur Culture Indicated? Specimen cultured Urine Dip Bedside Urine Glucose Negative Bedside Urine Bilirubin - Negative Bedside Urine Ketone - Negative Urine Specific [place] 1.015 Bedside Urine Occult Blood - Negative Bedside Urine pH 7.0 Bedside Urine Protein +/- 15 Bedside Urine Urobilinogen - Negative Bedside Urine Nitrite - Negative Bedside Urine Leukocytes - Negative Esterase Discharge Plan Departure Patient Disposition: Home Clinical Impression: Acute lumbar radiculopathy, Muscle strain Acute cystitis Qualifiers: Hematuria presence: without hematuria Qualified Code(s): N30.00 - Acute cystitis without hematuria Instructions: DI for Muscle Strain, DI for Back Spasm, DI for Lumbar Radiculopathy Activity Restrictions/Additional Instructions: *You have been diagnosed with low back pain with an exacerbation of it. This could be a muscle strain, it could be a urinary tract infection, I will call you if urine is positive for an infection. I have sent a muscle relaxer and lidocaine patches and a topical gel to the pharmacy for you to use for pain control. Please take tramadol morning and night as needed for your pain, you can take this in addition to Tylenol 650 mg every 6 hours with food and water. Please apply a lidocaine patch to the area of pain and or the diclofenac gel. This will hopefully help with your pain. You can take a half of a muscle relaxer if this is helpful to start, it will make you sleepy so please take right before bed so that you do not get too sleepy and have a fall. Please schedule follow-up appointment with Dr. Edward Miller if you have worsening of your symptoms. Please have him help work you up for your concerns about your lipomas. I hope you have a happy Thanksgiving, stay hydrated, empty her bladder frequently as able, I will call you soon if your urine has infection and send the prescription to your pharmacy. *What to do: *Please continue to take your regular medications as directed. [x ] New medication prescriptions sent to your pharmacy: [ [facility]] [ ] New medication written as a paper prescription [ ] No new medications given *Please follow up with your primary care provider in 2-3 days, call for an appointment. Let them know you were seen in the Emergency Department and that we asked that you be seen for follow-up. We will electronically transmit a record of today's note if your PCP is in our system *If you do not have a primary care provider please contact [phone] to establish care with one of [facility] primary care providers. *Return to Emergency Department if you should have any new, worsening, or concerning symptoms, such as [fever greater than 101F, chills, worsening pain, persistent vomiting or other bothersome symptoms]. Prescriptions: No Action atorvastatin 40 mg tablet See Rx Instructions .ROUTE .COMPLEX Qty: 90 3RF Dose Instruction: TAKE 1 TABLET BY MOUTH AT BEDTIME Rx Instructions: TAKE 1 TABLET BY MOUTH AT BEDTIME gabapentin 100 mg capsule See Rx Instructions .ROUTE .COMPLEX Qty: 200 2RF Dose Instruction: TAKE 1 CAPSULE BY MOUTH TWICE DAILY Rx Instructions: TAKE 1 CAPSULE BY MOUTH TWICE DAILY meloxicam 15 mg tablet 15 mg PO DAILY Qty: 90 3RF olmesartan 40 mg tablet See Rx Instructions .ROUTE .COMPLEX Qty: 90 3RF Dose Instruction: TAKE 1 TABLET BY MOUTH DAILY Rx Instructions: TAKE 1 TABLET BY MOUTH DAILY metoprolol succinate 100 mg tablet extended release 24 hr 100 mg PO BID Qty: 180 3RF oxycodone-acetaminophen 7.5-325 mg tablet 1 tab PO Q6H PRN (Reason: pain) Qty: 30 0RF amlodipine [Norvasc] 2.5 mg tablet 2.5 mg PO DAILY Qty: 90 3RF chlorthalidone 25 mg tablet 25 mg PO DAILY Qty: 90 3RF methocarbamol 500 mg tablet 500 mg PO TID PRN (Reason: muscle pain) Qty: 60 5RF tramadol 50 mg tablet 50 mg PO Q6H PRN (Reason: pain) Qty: 60 3RF Referrals: Estuardo Willams DO [Primary Care Provider] - Edward Miller DO [Physician] - Visit Report Forms: Patient Portal/API <Mirella Angel DO - Last Filed: 07/14/22 11:00> Cosign ED Attending Teresaature Attestation: I was immediately available in the department for consultation. Documentation has been reviewed.
== END 2022-06-30 17:04 | disposition home or self-care (01) ==
PROVIDERS: Emergency Provider Nurse Practitioner Critical Care Medicine; PCP Family Medicine
DX: M54.16 Radiculopathy, lumbar region (principal); S39.012A Strain of muscle, fascia and tendon of lower back, initial encounter; N30.00 Acute cystitis without hematuria
CPT/HCPCS: 81003; 81015; 87086; 99282

== ENCOUNTER 2022-07-10 07:03 | Emergency (ER) | payer MEDICARE, SELFPAY ==
[2020-09-30 09:59] VITALS: BMI 28.3
[2022-07-10 07:08] VITALS: BP 225/100; PULSE 54; RESP 18; TEMP 36.6; O2SAT 96; BMI 29.2
--- NOTE | 2022-07-10 07:34 | DI.RAD.S_ITS ---
PROCEDURE: XR THORACIC SPINE 2V INDICATIONS: R sided T/L pain TECHNIQUE: 2 views of the thoracic spine were acquired. COMPARISON: None. FINDINGS: Bones: Height loss of multiple vertebral bodies, including T7 and T8. L1 height loss also present, seen on lumbar radiograph from 05/17/2020. There is some wedging of other thoracic vertebral bodies. Moderate overall spondylotic changes. Soft tissues: No suspicious calcifications. IMPRESSION: Age-indeterminate vertebral body height loss as above. Consider MRI evaluation to determine chronicity if necessary. Moderate overall spondylosis Dictated by: Hi Dewitt M.D. on 07/10/2022 at 8:40 Approved by: Hi Dewitt M.D. on 07/10/2022 at 8:43
--- NOTE | 2022-07-10 07:34 | DI.RAD.S_ITS ---
PROCEDURE: XR LUMBAR SPINE 2-3V INDICATIONS: R sided T/L pain TECHNIQUE: 3 views of the lumbar spine were acquired. [facility]PAR[facility], XR LUMBAR SPINE WITH OBLIQUES PLUS FLEXION EXTENSION, 10/19/2021, 14:20. FINDINGS: Bones: There are 5 lumbar type vertebral bodies. Height loss of the L1 vertebral body was seen previously. Mild to moderate overall spondylosis. Trace anterolisthesis of L4 on L5 and retrolisthesis of L3 on L4. Soft tissues: Vascular calcifications. Partially seen left hip arthroplasty. Right hip arthrosis partially seen. Moderate fecal loading. IMPRESSION: [id number] overall spondylosis. Height loss of the L1 vertebral body was seen previously. If there is high concern for further derangement, consider MRI evaluation. Dictated by: Hi Dewitt M.D. on 07/10/2022 at 8:43 Approved by: Hi Dewitt M.D. on 07/10/2022 at 8:45
--- NOTE | 2022-07-10 07:34 | ED_ITS ---
HPI - Back Pain/Injury General Chief Complaint: Back Pain/Injury Stated Complaint: back pain Time Seen by Provider: 07/10/22 07:17 Source: patient Mode of arrival: Ambulatory Limitations: no limitations History of Present Illness HPI Narrative: Patient is an 82 year female who is here for evaluation of right-sided mid and lower back discomfort. She was seen here in the emergency department approximately 10 days ago for very similar symptoms. During that workup is found that she would bacteria in her urine. She does have frequent urinary tract infections. She was treated with antibiotics for urinary tract infection. She was also given medications has it sounds like the diagnosis of the back pain was musculoskeletal and not a pyelonephritis. Patient returns today because of continued/increasing discomfort. She has had discomfort like this in the past. Was many years ago. She has had multiple injections in the past. She does have a primary care doctor and is scheduled to see him later this week. He has been taking some oxycodone that she had left over from a knee procedure. She is no radiation down into her legs. No fevers. No specific injury that caused the discomfort. Related Data Home Medications Medication Instructions Recorded Confirmed aspirin 81 mg tablet,delayed 81 mg PO ONCE 02/04/19 07/05/22 release melatonin 5 mg capsule 5 mg PO BEDTIME 05/07/19 07/05/22 famotidine 10 mg tablet (Pepcid AC) 10 mg PO DAILY PRN 01/30/20 07/05/22 diphenhydramine HCl 25 mg capsule 25 mg PO BEDTIME 09/14/20 07/05/22 (Allergy (diphenhydramine)) calcium citrate 200 mg (950 mg) 200 mg PO DAILY 09/27/20 07/05/22 tablet glucosamine HCl 750 mg tablet 750 mg PO DAILY 09/27/20 07/05/22 lysine 500 mg tablet (L-Lysine) 500 mg PO DAILY 09/27/20 07/05/22 multivitamin (Multiple Vitamins 1 tab PO DAILY 09/27/20 07/05/22 tablet) omega-3 fatty acids 1,250 mg 1,250 mg PO DAILY 09/27/20 07/05/22 capsule D-Mannose PO 11/30/20 07/05/22 Turmeric Liquid - 2000mg PO 04/13/21 07/05/22 Previous Rx's Medication Instructions Recorded estradiol 0.01% (0.1 mg/gram) 1 g vaginal 2XW #42.5 grams 06/24/21 vaginal cream nystatin 100,000 unit/mL oral 1 ml buccal TID As needed thrush 10/11/21 suspension #250 mL triamcinolone acetonide 0.1 % 1 applic mucous membrane BID-TID 10/11/21 dental paste PRN mouth irritation #5 grams atorvastatin 40 mg tablet See Rx Instructions .Route 01/31/22 .COMPLEX #90 tabs ketoconazole 2 % topical cream 1 applic topical TID #60 grams 02/27/22 metoprolol succinate 100 mg 100 mg PO BID #180 tabs 04/05/22 tablet,extended release 24 hr losartan 50 mg tablet 50 mg PO DAILY #90 tabs 04/21/22 clotrimazole 10 mg ladi 10 mg mucous membrane 5XD #20 tabs 05/09/22 gabapentin 100 mg capsule See Rx Instructions .Route 05/17/22 .COMPLEX #200 caps meloxicam 15 mg tablet 15 mg PO DAILY #90 tabs 05/17/22 chlorthalidone 25 mg tablet 25 mg PO DAILY blood pressure #90 06/14/22 tabs olmesartan 40 mg tablet See Rx Instructions .Route 06/26/22 .COMPLEX #90 tabs diclofenac sodium 1 % topical gel 2 g topical QID PRN pain #100 grams 06/30/22 lidocaine 5 % topical patch 1 patch topical DAILY PRN low back 06/30/22 (Lidoderm) pain #15 ea methocarbamol 500 mg tablet 500 mg PO TID PRN muscle spasm #30 07/05/22 tabs tramadol 50 mg tablet 50 mg PO Q8H PRN pain #30 tabs 07/05/22 tramadol 50 mg tablet 50 mg PO Q6H PRN pain #30 tabs 07/10/22 Allergies Allergy/AdvReac Type Severity Reaction Status Date / Time Penicillins [PENICILLINS] Allergy Unknown rash-CHILDH Verified 07/05/22 07:21 OOD amlodipine [AMLODIPINE] AdvReac Intermediate LEG Verified 07/05/22 07:21 SWELLING lisinopril [LISINOPRIL] AdvReac Intermediate cough Verified 07/05/22 07:21 venlafaxine [VENLAFAXINE] AdvReac Mild Pt unsure Verified 07/05/22 07:21 of reaction L NARES TIGHT AdvReac Mild DO NOT USE Uncoded 07/05/22 07:21 L NARES FOR TUBES. Review of Systems Constitutional Constitutional: Reports system reviewed and no additional complaints, except as documented Cardiovascular Cardiovascular: Reports system reviewed and no additional complaints, except as documented Respiratory Respiratory: Reports system reviewed and no additional complaints, except as documented Gastrointestinal Gastrointestinal: Reports system reviewed and no additional complaints, except as documented Genitourinary Genitourinary: Reports system reviewed and no additional complaints, except as documented Musculoskeletal Musculoskeletal: Reports system reviewed and no additional complaints, except as documented Integumentary/Breasts Skin/Breast: Reports system reviewed and no additional complaints, except as documented Neurologic Neurologic: Reports system reviewed and no additional complaints, except as documented Allergic/Immunologic Allergic/Immunologic: Reports system reviewed and no additional complaints, except as documented Patient History Medical History Anxiety Arthritis [place]-Walker grade 3 cystocele (03/21/16) Chronic sinusitis Chronic UTI Depression Gilbert syndrome Gout (07/19/11) Head contusion Head injury, acute, without loss of consciousness Hordeolum externum of right lower eyelid Hyperlipidemia Hypertension Idiopathic peripheral neuropathy (02/12/15) Idiopathic peripheral neuropathy Impaired hearing Insomnia Left wrist sprain Multiple lipomas Osteoarthritis Osteopenia Osteoporosis Peripheral edema (03/21/16) Postmenopausal atrophic vaginitis Recurrent UTI (urinary tract infection) Thrush TIA (transient ischemic attack) Tinea Toe deformity Traumatic ecchymosis of face Vaginal pessary present Well adult exam Surgical History Hx of appendectomy S/P bilateral breast reduction S/P total abdominal hysterectomy and bilateral salpingo-oophorectomy Status post total hip replacement, 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 Father Prostate cancer Mother Ventricular fibrillation Diabetes mellitus Thyroid disorder Social History marital status: household members: none Smoking Status: Never smoker alcohol intake: current caffeine: No Smoking Status: Never smoker alcohol intake frequency: holidays/special occasions only Substance Use Type: does not use Exam Initial Vital Signs Initial Vital Signs: Vital Signs Temperature 97.8 F 07/10/22 07:08 Pulse Rate 54 L 07/10/22 07:08 Respiratory Rate 18 07/10/22 07:08 Blood Pressure 225/100 H 07/10/22 07:08 Pulse Oximetry 96 07/10/22 07:08 Oxygen Delivery Method 07/10/22 07:08 Const General: cooperative and comfortable HENMT Head: normal to inspection Resp Effort & Inspection: normal respiratory effort Cardio Rate: regular rate GI Inspection: normal to inspection Palpation: soft, No firm and No tender Back/Spine/Pelvis Back: CVA tenderness right Thoracic/Lumbar Spine: paraspinal tenderness (Right side), No thoracic spinal tenderness and No lumbar spinal tenderness Skin General: no rashes or lesions noted Neuro General: patient alert, patient awake and moves all extremities Extrem General: normal to inspection and capillary refill normal Psych Appearance: grossly normal and well kempt Course Orders Ordered: ED Orders 07/10/22 07:34 XR lumbar spine 2-3V Stat XR thoracic spine 2V Stat Vital Signs Vital signs: Vital Signs - 8 hr 07/10/22 07:08 Temperature 97.8 F Pulse Rate 54 L Respiratory Rate 18 Blood Pressure 225/100 H Pulse Oximetry 96 Oxygen Delivery Method Room Air MDM - Back Pain/Injury Imaging Data T spine: Radiologist's Impression: [place] [address] XRay Report Signed Patient: Katie Vincent MR#: [id number] : 1940 Acct:[id number] Age/Sex: 82 / F Date of Service: 07/10/22 Loc: ED Accession Number: [id number] ?? Procedure: XR thoracic spine 2V Ordering Provider: Kwadwo Pacheco D.O. PROCEDURE:? XR THORACIC SPINE 2V ? INDICATIONS:? R sided T/L pain ? TECHNIQUE:? 2 views of the thoracic spine were acquired.? ? COMPARISON:? None. ? FINDINGS:? ? Bones:? Height loss of multiple vertebral bodies, including T7 and T8.? L1 height loss also present, seen on lumbar radiograph from 05/17/2020.? There is some wedging of other thoracic vertebral bodies.? Moderate overall spondylotic changes. ? Soft tissues:? No suspicious calcifications. ? ? IMPRESSION:? Age-indeterminate vertebral body height loss as above.? Consider MRI evaluation to determine chronicity if necessary.? Moderate overall spondylosis ? Dictated by: Hi Dewitt M.D. on 07/10/2022 at 8:40 ? ? Approved by: Hi Dewitt M.D. on 07/10/2022 at 8:43?? L spine: Radiologist's Impression: [address] [address] XRay Report Signed Patient: Katie Vincent MR#: [id number] : 1940 Acct:[id number] Age/Sex: 82 / F Date of Service: 07/10/22 Loc: ED Accession Number: [id number] ?? Procedure: XR lumbar spine 2-3V Ordering Provider: Kwadwo Pacheco D.O. PROCEDURE:? XR LUMBAR SPINE 2-3V ? INDICATIONS:? R sided T/L pain ? TECHNIQUE:? 3 views of the lumbar spine were acquired.? ? COMPARISON:? [facility], XR LUMBAR SPINE WITH OBLIQUES PLUS FLEXION EXTENSION, 10/19/2021, 14:20. ? FINDINGS:? ? Bones:? There are 5 lumbar type vertebral bodies.? Height loss of the L1 vertebral body was seen previously.? Mild to moderate overall spondylosis.? Trace anterolisthesis of L4 on L5 and retrolisthesis of L3 on L4. ? Soft tissues:? Vascular calcifications.? Partially seen left hip arthroplasty.? Right hip arthrosis partially seen.? Moderate fecal loading. ? ? IMPRESSION:? [id number] overall spondylosis.? Height loss of the L1 vertebral body was seen previously. If there is high concern for further derangement, consider MRI evaluation. ? Dictated by: Hi Dewitt M.D. on 07/10/2022 at 8:43 ? ? Approved by: Hi Dewitt M.D. on 07/10/2022 at 8:45? MDM Narrative Medical decision making narrative: X-rays today show no signs of acute fractures although she does have compressions of her thoracic spine. Her tenderness is not midline but off to the side. I feel that we can hold on a CT scan for now as the discomfort that she is having is reproducible with palpation to the right paraspinal muscles and she has had discomfort like this in the past. No abdominal tenderness. I have low suspicion that this is pyelonephritis. Higher suspicion that this is musculoskeletal. She has a prescription for diclofenac cream, lidocaine patches which she states she can not use because she can put them on her back and also methocarbamol. She had prescription for tramadol at home because of a knee injury in the past and she thinks that that works better than the oxycodone. I will refill her prescription for the tramadol. Will have her follow-up with her primary doctor on Sunday to discuss potential further imaging to include MRI and also potentially referral to see Physical therapy Orthopedic surgery. She was given return precautions. Discharge Plan Departure Patient Disposition: Home Clinical Impression: Right-sided back pain Instructions: DI for Back Strain or Sprain Activity Restrictions/Additional Instructions: I recommend that you continue to use the diclofenac cream and also the methocarbamol. The methocarbamol as a muscle relaxer. Keep your appointment that you have on Sunday with your primary care doctor and discuss the indications for referral to see physical therapy or potential further imaging studies such as an MRI. A prescription for tramadol was sent to [facility] per your request. Please take it as needed and as directed. Return to the emergency department for new symptoms. Prescriptions: New tramadol 50 mg tablet 50 mg PO Q6H PRN (Reason: pain) Qty: 30 0RF No Action estradiol 0.01 % (0.1 mg/gram) cream 1 g VAG 2XW Qty: 42.5 3RF Rx Instructions: use a pea sized amount and apply to the outer vaginal area, 2 times per week atorvastatin 40 mg tablet See Rx Instructions .ROUTE .COMPLEX Qty: 90 3RF Dose Instruction: TAKE 1 TABLET BY MOUTH AT BEDTIME Rx Instructions: TAKE 1 TABLET BY MOUTH AT BEDTIME ketoconazole 2 % cream 1 applic topical TID Qty: 60 2RF Rx Instructions: Apply to affected areas clotrimazole 10 mg ladi 10 mg mucous membrane 5XD Qty: 20 1RF gabapentin 100 mg capsule See Rx Instructions .ROUTE .COMPLEX Qty: 200 2RF Dose Instruction: TAKE 1 CAPSULE BY MOUTH TWICE DAILY Rx Instructions: TAKE 1 CAPSULE BY MOUTH TWICE DAILY meloxicam 15 mg tablet 15 mg PO DAILY Qty: 90 3RF olmesartan 40 mg tablet See Rx Instructions .ROUTE .COMPLEX Qty: 90 3RF Dose Instruction: TAKE 1 TABLET BY MOUTH DAILY Rx Instructions: TAKE 1 TABLET BY MOUTH DAILY melatonin 5 mg capsule 5 mg PO BEDTIME famotidine [Pepcid AC] 10 mg tablet 10 mg PO DAILY PRN Turmeric Liquid - 2000mg PO Rx Instructions: Take 1000mg PO BID - if all vitamins taken triamcinolone acetonide 0.1 % paste 1 applic mucous membrane BID-TID PRN (Reason: mouth irritation) Qty: 5 1RF Rx Instructions: Use on apthus ulcers nystatin 100,000 unit/mL suspension 1 ml buccal TID Qty: 250 1RF Rx Instructions: administer 1/2 of dose in each side of the mouth losartan 50 mg tablet 50 mg PO DAILY Qty: 90 3RF aspirin 81 mg tablet,delayed release (DR/EC) 81 mg PO ONCE diphenhydramine HCl [Allergy (diphenhydramine)] 25 mg capsule 25 mg PO BEDTIME D-Mannose 500 mg capsule PO metoprolol succinate 100 mg tablet extended release 24 hr 100 mg PO BID Qty: 180 3RF chlorthalidone 25 mg tablet 25 mg PO DAILY Qty: 90 0RF tramadol 50 mg tablet 50 mg PO Q8H PRN (Reason: pain) Qty: 30 0RF methocarbamol 500 mg tablet 500 mg PO TID PRN (Reason: muscle spasm) Qty: 30 0RF Rx Instructions: This will make you tired, please take only before bed so that you do not get too sleepy and have a fall. lidocaine [Lidoderm] 5 % adhesive patch,medicated 1 patch topical DAILY PRN (Reason: low back pain) Qty: 15 0RF Rx Instructions: leave on most painful area for up to 12 hrs diclofenac sodium 1 % gel 2 g topical QID PRN (Reason: pain) Qty: 100 0RF Rx Instructions: Apply to area pain up to 4 times daily multivitamin [Multiple Vitamins] Tablet 1 tab PO DAILY omega-3 fatty acids 1,250 mg capsule 1,250 mg PO DAILY calcium citrate 200 mg (950 mg) tablet 200 mg PO DAILY glucosamine HCl 750 mg tablet 750 mg PO DAILY Rx Instructions: administer with a meal lysine [L-Lysine] 500 mg tablet 500 mg PO DAILY Referrals: Estuardo Willams, DO [Primary Care Provider] -
[2022-07-10 09:26] VITALS: BP 188/76; PULSE 60; RESP 17; O2SAT 99
== END 2022-07-10 09:26 | disposition home or self-care (01) ==
PROVIDERS: Emergency Provider Emergency Medicine; PCP Family Medicine
DX: M54.50 Low back pain, unspecified (principal)
CPT/HCPCS: 72070; 72100; 99281; 99283

== ENCOUNTER → 2022-07-19 15:19 | Outpatient (CLI) | payer MEDICARE, SELFPAY ==
[2020-09-30 09:59] VITALS: BMI 28.3
--- NOTE | 2022-07-19 15:20 | DI.MRI.S_ITS ---
PROCEDURE: MR LUMBAR SPINE WO CON INDICATIONS: back pain, ? compression fx TECHNIQUE: Noncontrast sagittal T1 spin echo and T2 fast echo, sagittal STIR, and T2 fast spin echo through the lumbar spine. In cases with scoliosis, additional coronal T2 fast spin echo may be performed. COMPARISON: [facility], MR, MR LUMBAR SPINE WO CON, 10/26/2021, 16:56. FINDINGS: Image quality: Excellent. Alignment and Curvature: There is normal bony alignment. Bone Marrow: Marrow is of normal overall signal. No acute vertebral body compression fractures. There is an old appearing moderate to severe wedge compression fracture involving L1. Spinal Cord: Conus medullaris terminates at the L1 level. Visualized cord demonstrates normal signal and size. Paraspinous Soft Tissues: No paravertebral masses. T12-L1: There is mild retropulsion of fracture fragments involving the superior endplate of L1 however there is no significant central canal stenosis. There is mild bilateral neural foraminal stenosis. L1-L2: There is a mild diffuse disc bulge present. No significant central canal or neural foraminal stenosis. L2-L3: There is a mild diffuse disc bulge present. There is mild bilateral neural foraminal stenosis. Mild central canal stenosis. L3-L4: No significant disc bulge or protrusion. There is mild bilateral neural foraminal stenosis and mild central canal stenosis. L4-L5: There is a small to moderate-sized broad-based disc protrusion present causing moderate to severe bilateral neural foraminal stenosis and in conjunction with ligamentum flavum buckling and moderate bilateral facet degenerative change causes moderate to severe central canal stenosis. L5-S1: Normal appearance. IMPRESSION: 1. Degenerative changes noted throughout the patient's lumbar spine from T12-L1 through L5-S1 as described above on a level by level basis with the L4-L5 level being most severely affected. 2. The degree of degenerative change appears relatively stable dating back to prior examination 10/26/2021. 3. Stable moderate to severe old wedge compression fracture L1. Dictated by: Kwadwo Joseph M.D. on 07/19/2022 at 16:48 Approved by: Kwadwo Joseph M.D. on 07/19/2022 at 16:54
--- NOTE | 2022-07-19 15:20 | DI.MRI.S_ITS ---
PROCEDURE: MR THORACIC SPINE WO CON INDICATIONS: back pain, ? compression fx TECHNIQUE: Noncontrast sagittal T1 spine echo and T2 fast spin echo, sagittal STIR, and T2 fast spin echo through the thoracic spine. COMPARISON: None. FINDINGS: Image quality: Excellent. Alignment and Curvature: There is normal bony alignment. Bone Marrow: There is moderate bone marrow edema present in the T8 vertebral body with an associated moderate to severe compression fracture involving the inferior endplate of T8 with approximately 60% loss of vertebral body height. No retropulsion of fracture fragments are identified. There is an old moderate to severe wedge compression fracture involving T7. There are mild diffuse disc bulges present T6-T7, T7-T8, and T8-T9. There is some moderate bilateral neural foraminal stenosis present T8-T9. No central canal stenosis is seen. Spinal Cord: Visualized spinal cord is normal in size and signal. Paraspinous Soft Tissues: No paravertebral masses. Miscellaneous: On axial images, central canal and foramina appear widely patent at all scanned levels. IMPRESSION: 1. Moderate to severe acute wedge compression fracture with associated marrow edema involving the T8 vertebral body with loss of approximately 60% of vertebral body height. 2. Old moderate to severe wedge compression fracture T7 3. Mild diffuse disc bulges present T6-T7, T7-T8, and T8-T9. 4. Moderate bilateral neural foraminal stenosis present T8-T9. 5. Vertebral body hemangioma in T4. Dictated by: Kwadwo Joseph M.D. on 07/19/2022 at 16:30 Approved by: Kwadwo Joseph M.D. on 07/19/2022 at 16:36
== END ==
PROVIDERS: PCP Family Medicine; Referring Provider Family Medicine; Visit Provider Family Medicine
DX: M51.34 Other intervertebral disc degeneration, thoracic region (principal); M48.54XA Collapsed vertebra, not elsewhere classified, thoracic region, initial encounter for fracture; M47.815 Spondylosis without myelopathy or radiculopathy, thoracolumbar region; M47.816 Spondylosis without myelopathy or radiculopathy, lumbar region; M47.817 Spondylosis without myelopathy or radiculopathy, lumbosacral region; M54.50 Low back pain, unspecified; M48.56XS Collapsed vertebra, not elsewhere classified, lumbar region, sequela of fracture
CPT/HCPCS: 72146; 72148

== ENCOUNTER → 2022-11-07 10:53 | Outpatient (CLI) | payer MEDICARE, SELFPAY ==
[2020-09-30 09:59] VITALS: BMI 28.3
--- NOTE | 2022-11-07 10:55 | DI.RAD.S_ITS ---
PROCEDURE: XR THORACIC SPINE 3V INDICATIONS: COMPRESSION FRACTURE TECHNIQUE: 3 views of the thoracic spine were acquired. COMPARISON: [facility], MR, MR THORACIC SPINE WO CON, 07/19/2022, 15:26. [facility], CR, XR THORACIC SPINE 2V, 07/10/2022, 7:40. FINDINGS: Bones: Compression fracture is present at T8 with approximately 61% compression. This corresponds to subacute compression deformity on 07/19/2022. T7 compression deformity appearing old on 07/19/2022 is unchanged. Wedge deformity at L1 is also stable. No suspicious bony lesions. 12 pairs of ribs are noted, and appear intact where visualized. Multilevel bridging anterior osteophytes as well as degenerative disc space narrowing is present. Soft tissues: No paravertebral stripe thickening. IMPRESSION: Stable appearance of previously identified compression deformities. Dictated by: Bridget Bettencourt M.D. on 11/07/2022 at 12:23 Approved by: Bridget Bettencourt M.D. on 11/07/2022 at 12:26
--- NOTE | 2022-11-07 10:55 | DI.RAD.S_ITS ---
PROCEDURE: XR LUMBAR SPINE MIN 4V INDICATIONS: compression fracture L1 TECHNIQUE: 5 views of the lumbar spine were acquired, including bilateral oblique views. COMPARISON: [facility], MR, MR LUMBAR SPINE WO CON, 07/19/2022, 15:26. [facility], CR, XR LUMBAR SPINE 2-3V, 07/10/2022, 7:40. FINDINGS: Bones: 5 nonrib-bearing vertebrae are present. There is normal bony alignment. Compression deformity at L1 is stable. Multilevel degenerative disc and foraminal narrowing are present. Small bridging anterior osteophytes are noted most prominent at T12-L1. No suspicious bony lesions. Soft tissues: Overlying bowel gas pattern is normal. No suspicious soft tissue calcifications. Oblique images: No pars defects. IMPRESSION: Compression deformity at L1 stable compared to 07/19/2022 Dictated by: Bridget Bettencourt M.D. on 11/07/2022 at 12:26 Approved by: Bridget Bettencourt M.D. on 11/07/2022 at 12:27
== END ==
PROVIDERS: PCP Family Medicine; Referring Provider Physical Medicine & Rehabilitation; Visit Provider Physical Medicine & Rehabilitation
DX: S22.060D Wedge compression fracture of T7-T8 vertebra, subsequent encounter for fracture with routine healing (principal); S32.010D Wedge compression fracture of first lumbar vertebra, subsequent encounter for fracture with routine healing
CPT/HCPCS: 72072; 72110

== ENCOUNTER → 2022-12-01 15:56 | Outpatient (CLI) | payer MEDICARE, SELFPAY ==
[2020-09-30 09:59] VITALS: BMI 28.3
== END ==
PROVIDERS: PCP Family Medicine; Visit Provider Family Medicine
DX: R31.9 Hematuria, unspecified (principal)
CPT/HCPCS: 87077; 87086; 87186

== ENCOUNTER 2023-03-04 19:19 | Inpatient (IN) | payer MEDICARE, SELFPAY ==
[2020-09-30 09:59] VITALS: BMI 28.3
[2023-03-04] VITALS (9 sets, daily range): BP systolic 151–213; BP diastolic 70–86; PULSE 59–75; RESP 13–25; TEMP 35.9–36.2; O2SAT 95–99; BMI 25.7
--- NOTE | 2023-03-04 | DI.ECHO.S_ITS ---
[facility] +---------+ [facility] +---------+ : : [address] : : : : [id number] : : : : Phone: [phone]+ Echocardiogram Report + + :Name: MARK BEAL Study Date: 03/05/2023 Height: 64 in : :[facility] ReadingLocation: Weight: 150 lb : : Gender: Female BSA: 1.7 m2 : :: 1940 Age: 82 yrs BP: 162/76 mmHg: :Reason For Study: CVA : :Ordering Physician: Francine, : :Tobi Performed By: Nichole Canela : :Referring: Tobi Escamilla : + + Interpretation Summary The ejection fraction is estimated to be 65-70%. There is mild-moderate concentric left ventricular hypertrophy. The right ventricle is normal size. The right ventricular systolic pressure is estimated to be at least 51 mmHg based on an estimated right atrial pressure of 3 mm Hg. There is no Doppler evidence for an interatrial shunt. There is mild mitral stenosis. There is a moderate left-sided pleural effusion. Procedure: A two-dimensional transthoracic echocardiogram with color flow and Doppler was performed. The study quality was technically adequate. Comparison is made with the echocardiogram of 12/28/2021. The patient was in normal sinus rhythm during the exam. Left Ventricle: The left ventricle is normal in size. There is mild-moderate concentric left ventricular hypertrophy. The ejection fraction is estimated to be 65-70%. Diastolic parameters suggest a relaxation abnormality of the left ventricle, consistent with probable normal filling pressures. Right Ventricle: The right ventricle is normal size. The right ventricular systolic function is normal. Atria: The left atrium grossly appears normal in size. Right atrial size is normal. There is no Doppler evidence for an interatrial shunt. Mitral Valve: The mitral valve leaflets appear mildly thickened, but open well. There is mild to moderate mitral annular calcification. There is mild mitral stenosis. The mitral valve mean gradient is 4 mmHg. There is trace mitral regurgitation. Aortic Valve: The aortic valve is not well visualized. There is no aortic valve stenosis. There is mild aortic regurgitation. Tricuspid Valve: The tricuspid valve is not well visualized. There is no tricuspid stenosis. Regurgitant color flow jet not well visualized. Spectral soppler suggestive of mild to moderate tricupsid regurgitation. The right ventricular systolic pressure is estimated to be at least 51 mmHg based on an estimated right atrial pressure of 3 mm Hg. Pulmonic Valve: The pulmonic valve is not well visualized. There is no pulmonic valvular stenosis. There is no pulmonic valvular regurgitation. Great Vessels: The aortic root is normal size. The ascending aorta is normal in size. The pulmonary artery is normal size. The IVC is of normal diameter and collapses greater than 50% with a sniff. This suggests a low right atrial pressure of 3 mm Hg. Pericardium/ Pleura There is a trivial pericardial effusion noted. There is a moderate left-sided pleural effusion. MMode/2D Measurements & Calculations LVIDd: 3.3 cm LVOT diam: 2.8 cm LVIDs: 1.8 cm Ao root diam: 2.7 cm FS: 45.5 % asc Aorta Diam: 3.3 cm IVSd: 1.7 cm LVPWd: 1.3 cm LV baxter. diameter/BSA (cm/m^2): 1.9 LV sys. diameter/BSA (cm/m^2): 1.0 LA A2 area: 18.0 cm2 RA long axis: 4.8 cm LA A4 area: 17.7 cm2 RA area: 10.6 cm2 LA length (vol): 5.3 cm RA vol: 19.6 ml LA vol: 50.8 ml RA : 11.3 ml/m2 LA vol index: 29.4 ml/m2 RVD1 (basal): 3.5 cm LVLd ap2: 6.4 cm LVLs ap2: 5.1 cm Doppler Measurements & Calculations Ao V2 max: 168.0 cm/sec LVOT Max Ian: 143.0 cm/sec Ao V2 mean: 121.0 cm/sec LV V1 max P.2 mmHg Ao max P.0 mmHg LV V1 VTI: 32.0 cm Ao mean P.0 mmHg JUANITO(I,D): 5.3 cm2 Ao V2 VTI: 36.1 cm JUANITO(V,D): 5.1 cm2 sev ratio: 0.89 JUANITO indexed to BSA (cm^2/m^2): 3.0 Lat Peak E' Ian: 7.1 cm/sec TR max ian: 346.0 cm/sec MVA(VTI): 6.2 cm2 TR max P.9 mmHg MV V2 mean: 95.6 cm/sec SV(LVOT): 190.1 ml MV mean P.0 mmHg MV V2 VTI: 30.7 cm AV VR_phl: 0.85 JUANITO(VTI)/BSA_phl: 3.2 Reading Physician:CODIE
--- NOTE | 2023-03-04 10:29 | DI.MRI.S_ITS ---
PROCEDURE: MR HEAD/BRAIN WO CON INDICATIONS: CVA TECHNIQUE: Non-contrast axial T1 spin echo, axial T2 fast spin echo, sagittal and axial FLAIR, coronal T2 fast spin echo, axial gradient echo, axial diffusion and ADC through the brain. COMPARISON: [facility], CT, CT STROKE, 03/04/2023, 19:38. FINDINGS: Image quality: Excellent. CSF spaces: Ventricles appear symmetric in size and shape. Basal cisterns are patent. No extra-axial fluid collections. Brain: There are multiple small foci of restricted diffusion throughout the left cerebral hemisphere with a larger focus of restricted diffusion in the left posterior parietal and occipital lobes. There is associated edema. There is no hemorrhagic conversion. No intracranial bleeds or mass effects. There is cerebral volume loss for age. There are periventricular and deep white matter chronic small vessel ischemic changes. Brainstem appears normal. Normal intravascular flow voids are present. Skull and face: Calvarial bone marrow is normal in signal. Orbits are normal. Sinuses: Sinuses and mastoids are clear. IMPRESSION: 1. Infarct within left posterior parietal and occipital lobe with associated edema. There are multiple additional small foci restricted diffusion throughout the left cerebral hemisphere. Findings are most concerning for embolic phenomenon. No hemorrhagic conversion. 2. Age-related volume loss and small vessel ischemic change. Findings discussed with Dr. Crane at 11:31 a.m. On 03/05/2023. Dictated by: Jose Antonio Nowak M.D. on 03/05/2023 at 11:22 Approved by: Jose Antonio Nowak M.D. on 03/05/2023 at 11:33
--- NOTE | 2023-03-04 19:29 | DI.CT.S_ITS ---
PROCEDURE: CT STROKE INDICATIONS: altered, word finding TECHNIQUE: Noncontrast 4.5 mm thick angled axial sections acquired from the foramen magnum to the vertex, with coronal reformats. For radiation dose reduction, the following was used: automated exposure control, adjustment of mA and/or kV according to patient size. COMPARISON: [facility], CT, CT HEAD/BRAIN WO CON, 07/15/2020, 15:41. FINDINGS: Image quality: Mild streak artifact can be seen through the skull base. CSF spaces: Basal cisterns are patent. No extra-axial fluid collections. The ventricles are symmetric in size and shape. Brain: No intracranial bleeds or masses. There is cerebral volume loss for age, with resultant ventricular and sulcal prominence. There are periventricular and deep white matter chronic small vessel ischemic changes. There is intracranial internal carotid artery atherosclerosis. Symmetric calcification can be seen involving the basal ganglia, which is considered to be normal for age. Skull and face: Calvarium and visualized facial bones appear intact, without suspicious lesions. Sinuses: There is complete opacification of the left sphenoid sinus. The right sphenoid sinus is now opacified. The paranasal sinuses otherwise appear clear. No abnormal fluid is seen within the mastoid air cells. IMPRESSION: No acute intracranial hemorrhage is seen. No acute intracranial process is seen. If there is strong clinical suspicion for an acute stroke, please consider a brain MRI for further evaluation, as it is more sensitive (assuming that there is no contraindication to MRI). Complete opacification of the sphenoid sinuses incidentally noted. Note: Case discussed by telephone with Dr. Mccormack at 6:47 p.m. [place] time on March 04, 2023. This study fulfills neurological imaging criteria for inclusion or exclusion of acute stroke therapies based on available published neurological guidelines. Dictated by: Devonte Arreola M.D. on 03/04/2023 at 18:46 Approved by: Devonte Arreola M.D. on 03/04/2023 at 18:49
--- NOTE | 2023-03-04 19:30 | DI.CT.S_ITS ---
PROCEDURE: CT ANGIO HEAD AND NECK INDICATIONS: altered, word finding TECHNIQUE: Noncontrast images were performed earlier in the day and not repeated. After the administration of intravenous contrast, 1 mm thick sections acquired from the aortic arch through the [place] of [place]. Post-contrast 4.5 mm thick sections then re-acquired from the foramen magnum to the vertex. 3-dimensional baepkpi-sgbpcgvxi-ldezvgwpzs (MIP) and/or volume rendering reformats were acquired of the central intracranial vasculature and neck separately. For radiation dose reduction, the following was used: automated exposure control, adjustment of mA and/or kV according to patient size. COMPARISON: [facility], CT, CT STROKE, 03/04/2023, 19:38. [facility], MR, MR THORACIC SPINE WO CON, 07/19/2022, 15:26. FINDINGS: Image quality: Excellent. BRAIN: CSF spaces: Ventricles are normal in size and shape. Basal cisterns are patent. No extra-axial fluid collections. Brain: No midline shift. No intracranial bleeds or masses. Javed-white matter interface appears intact. Skull and face: Calvarium and facial bones appear intact, without suspicious lesions. Orbits appear normal. Sinuses: Sinuses and mastoids are clear. HEAD CT ANGIOGRAPHY: Anterior circulation: Intracranial internal carotid arteries are normal in size and flow. The flow within the paired anterior cerebral arteries is normal and symmetric. The flow within the middle cerebral arteries is normal and symmetric. The anterior communicating artery is seen. No aneurysms are seen. Posterior circulation: Visualized portions of the vertebral arteries demonstrate normal caliber, and join to form a normal appearing basilar artery. Flow within the posterior cerebral arteries is normal and symmetric. No aneurysms are seen. NECK CT ANGIOGRAPHY: Carotid system: The great vessels demonstrate a conventional anatomy as they arise from the aortic arch. The origins of the common carotid arteries appear patent. The common carotid arteries demonstrate normal caliber and courses. The bifurcation regions are both widely patent. The internal carotid arteries demonstrate normal calibers. The internal carotid arteries are mildly to moderately tortuous. Posterior circulation: Note is made of bilateral type origins of the posterior cerebral arteries, with an associated diminutive basilar artery. The flow within the posterior cerebral arteries is normal and symmetric. The distal vertebral arteries are overall small in size, yet otherwise unremarkable. No aneurysms are seen. Soft tissues: Visualized neck soft tissues demonstrate no suspicious abnormalities. Irregularity can be seen of the thyroid including a 1.8 cm right thyroid nodule and a 1.9 cm left thyroid nodule Bones: No suspicious bony lesions. Visualized cervical spine appears normally aligned. Focal sphenoid sinus disease is seen. Moderate lower cervical spine degenerative change can be seen. There is a remote C6 fracture, which is stable compared to 202. A T4 vertebral body hemangioma can be seen, as previously demonstrated. There is a remote T7 central compression deformity, which is stable compared to 202. IMPRESSION: No significant intracranial arterial abnormality is seen. Within the arteries of the neck, no hemodynamically significant stenosis can be seen. Cysts Bilateral thyroid nodules are incidentally noted. When clinically appropriate, please consider a follow-up. Additional findings: [id number] developmental anomalies Focal sphenoid sinus disease Moderate lower cervical spine degenerative change Remote C6 fracture, stable from 2021 T4 vertebral body hemangioma Stable T7 central compression deformity Any quantitative measurements of stenosis were performed using NASCET criteria. Dictated by: Devonte Arreola M.D. on 03/04/2023 at 18:57 Approved by: Devonte Arreola M.D. on 03/04/2023 at 19:02
[2023-03-04 19:45] LABS: Add Manual Diff / Slide Review NO; Basophils Absolute Auto 100 /uL (0-100); Basophils Percent Auto 1.1 % (0-2); Eosinophils Absolute Auto 300 /uL (0-450); Eosinophils Percent Auto 2.8 % (2-4); Hematocrit 41.9 % (36-46); Hemoglobin 14.9 g/dL (12.0-16.0); Lymphocytes Absolute Auto 2600 /uL (1100-4500); Lymphocytes Percent Auto 26.2 % (25-40); Mean Corpuscular HGB Conc 35.6 % (30-36); Mean Corpuscular Hemoglobin 31.6 PG (26-34); Mean Corpuscular Volume 88.6 fL (80-100); Monocytes Absolute Auto 700 /uL (0-900); Monocytes Percent Auto 6.6 % (3-14); Neutrophils Absolute Auto 6300 /uL (1500-7000); Neutrophils Percent Auto 63.3 % (50-75); Platelet Count 279 X10^3/uL (150-400); Red Blood Cell Count 4.73 X10^6/uL (4.0-5.2); Red Cell Distribution Width 12.4 % (11.6-14.8)
[2023-03-04 19:50] LABS: Prothrombin Time 11.8 SECONDS (10.1-12.7)
[2023-03-04 19:52] LABS: PTT Partial Thromboplastin Tim 31 SECONDS (26-36)
--- NOTE | 2023-03-04 19:55 | ED.NEUROSD ---
HPI - Neuro Symptoms/Deficit General Chief Complaint: Neuro Symptoms/Deficit Stated Complaint: feels confused/stroke?? Time Seen by Provider: 03/04/23 19:29 Source: patient Mode of arrival: Ambulatory History of Present Illness HPI Narrative: 82-year-old female nonsmoker with history of hypertension, hyperlipidemia presents with a chief complaint of confusion. The patient herself states she thinks it has been going on at least 3 hours but is unsure exactly when. The patient was unable to answer her age accurately and in triage mentioned that she is 63 in fact she is 82. She states the year is 1989 but then corrected to 2022. Her last known well was about 9:00 a.m. this morning when her friend left and over the course of the day she was at home alone. When her friend returned home at about 7:00 p.m. she found her to be confused. The patient denies any change in medications. She is had no trauma or injury. She has trouble speaking and troubles with vision. Initially her last known was unclear and she was activated as a code stroke and taken directly to CT. When her friend arrived she was able to confirm last known well was 9:00 a.m.. At this point she is clearly not a tPA candidate and not activated as a code IR given her lack of high LAMS On Anticoagulants: No Related Data Home Medications Medication Instructions Recorded Confirmed aspirin 81 mg tablet,delayed 81 mg PO DAILY 11/08/22 03/04/23 release (Adult Low Dose Aspirin) diphenhydramine HCl 25 mg capsule 25 mg PO BID PRN Allergic Symptoms 11/08/22 03/04/23 (Benadryl) melatonin 5 mg capsule 5 mg PO BEDTIME 12/28/22 03/04/23 atorvastatin 40 mg tablet 40 mg PO QPM 03/04/23 03/04/23 estradiol 0.01% (0.1 mg/gram) 1 g vaginal 2XW 03/04/23 vaginal cream olmesartan 40 mg tablet 40 mg PO QAM 03/04/23 03/04/23 Previous Rx's Medication Instructions Recorded metoprolol succinate 100 mg 100 mg PO BID #180 tabs 04/05/22 tablet,extended release 24 hr meloxicam 15 mg tablet 15 mg PO DAILY #90 tabs 05/17/22 chlorthalidone 25 mg tablet 25 mg PO DAILY blood pressure #90 09/11/22 tabs amlodipine 2.5 mg tablet 2.5 mg PO BID #180 tabs 12/28/22 gabapentin 100 mg capsule 200 mg PO BID #360 caps 12/28/22 hydrochlorothiazide 12.5 mg tablet 12.5 mg PO DAILY #90 tabs 02/27/23 Allergies Allergy/AdvReac Type Severity Reaction Status Date / Time Penicillins [PENICILLINS] Allergy Unknown rash-CHILDH Verified 02/27/23 10:12 OOD amlodipine [AMLODIPINE] AdvReac Intermediate LEG Verified 02/27/23 10:12 SWELLING lisinopril [LISINOPRIL] AdvReac Intermediate cough Verified 02/27/23 10:12 venlafaxine [VENLAFAXINE] AdvReac Mild Pt unsure Verified 02/27/23 10:12 of reaction L NARES TIGHT AdvReac Mild DO NOT USE Uncoded 02/27/23 10:12 L NARES FOR TUBES. Review of Systems Review of Systems Narrative: GENERAL: Denies chills, fatigue, malaise, fever, sweats. HEENT: Denies sinus pain, ear pain, sore throat, difficulty swallowing, dizziness. RESPIRATORY: Denies dyspnea, cough, wheezing, hemoptysis, sputum. CARDIOVASCULAR: Denies chest pain, palpitations, orthopnea, edema, GASTROINTESTINAL: Denies nausea, vomiting, abdominal pain, diarrhea, constipation, melena. : Denies dysuria, frequency, incontinence, hematuria, urinary retention. MUSCULOSKELETAL: denies weakness, joint pain, or bony pain SKIN: Denies rash, skin lesions, or other NEUROLOGIC: See HPI PSYCHIATRIC: No concerning psychosocial issues. 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) Chronic sinusitis Chronic UTI Compression fracture of L1 lumbar vertebra Compression fracture of T7 vertebra Compression fracture of T8 vertebra Depression Edema Gilbert syndrome Gout (07/19/11) Head contusion Head injury, acute, without loss of consciousness Hordeolum externum of right lower eyelid Hyperlipidemia Hypertension Idiopathic peripheral neuropathy (02/12/15) Idiopathic peripheral neuropathy Impaired hearing Insomnia Left wrist sprain Multiple lipomas Osteoarthritis Osteopenia Osteoporosis Peripheral edema (03/21/16) Postmenopausal atrophic vaginitis Recurrent UTI (urinary tract infection) Thrush TIA (transient ischemic attack) Tinea Toe deformity Traumatic ecchymosis of face Vaginal pessary present Well adult exam Surgical History Hx of appendectomy S/P bilateral breast reduction S/P total abdominal hysterectomy and bilateral salpingo-oophorectomy Status post total hip replacement, 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 Father Prostate cancer Mother Ventricular fibrillation Diabetes mellitus Thyroid disorder Social History marital status: household members: none Smoking Status: Never smoker alcohol intake: current caffeine: No Smoking Status: Never smoker alcohol intake frequency: holidays/special occasions only Substance Use Type: does not use Exam Narrative Exam Narrative: GENERAL: [82] year old patient appears stated age. Well-developed patient, in mild distress. GCS 14 for confusion HEAD: Atraumatic. Normocephalic. EYES: Pupils equal round and reactive. Extraocular motions intact. No scleral icterus. No injection or drainage. ENT: Nose without bleeding, purulent drainage. Throat without erythema, tonsillar hypertrophy or exudate. Airway patent. NECK: Trachea midline. Non tender CARDIOVASCULAR: Regular rate and rhythm without murmurs, gallops, or rubs. RESPIRATORY: Clear to auscultation. Breath sounds equal bilaterally. No wheezes, rales, or rhonchi. GASTROINTESTINAL: Abdomen soft, non-tender, nondistended. EXTREMITIES: No edema or joint tenderness. BACK: Nontender without deformity or crepitance. No flank tenderness. NEURO: AOx3. SKIN: No rash or erythema of visible areas Initial Vital Signs Initial Vital Signs: Vital Signs Temperature 96.7 F L 03/04/23 19:22 Pulse Rate 62 03/04/23 19:22 Respiratory Rate 18 03/04/23 19:22 Blood Pressure 213/86 H 03/04/23 19:22 Pulse Oximetry 97 03/04/23 19:22 Oxygen Delivery Method Room Air 03/04/23 19:22 Scores NIH Stroke Scale Level of Conciousness: Alert, keenly responsive Ask month/age: Answers neither question correctly, aphasic, stuporous, coma Open/close eyes, close hand: Performs both tasks correctly Best gaze horizontal: Normal Visual gutiérrez: Complete hemianopia Facial palsy: Minor paralysis, flattened nasolabial fold, asymmetry on smiling Left arm drift: No drift for full 10 sec Right arm drift: No drift for full 10 sec Left leg drift: No drift for full 5 sec Right leg drift: No drift for full 5 sec Limb ataxia: Absent Sensory on face/arms/legs: Normal, no sensory loss Best language: Mild to moderate, slurs some words Dysarthria: Normal Extinction or inattention: No abnormality Total NIH Stroke scale score: 6 Course Orders Ordered: ED Orders 03/04/23 19:29 CT Stroke Stat EKG-12 Lead Stat 03/04/23 19:30 CT angio head and neck Stat 03/04/23 19:32 Complete Blood Count AUTO DIFF Stat Comprehensive Metabolic Panel Stat Ethanol (ETOH) Stat PTT Partial Thromboplastin Lalo Stat Prothrombin Time INR Stat Troponin & CK Cardiac Panel Stat 03/04/23 20:02 Urinalysis and Microscopic Stat Urine Drug Screen, Rapid Stat 03/04/23 21:43 Education, smoking cessation ONGOING 03/04/23 21:48 EKG-12 Lead Stat 03/04/23 21:51 Consult to Discharge Planning Routine Consult to Occupational Therapy Evaluate & Treat Consult to Physical Therapy Evaluate & Treat Consult to Speech Therapy Evaluate & Treat Education, smoking cessation ONGOING Acetaminophen (Acetaminophen 325 Mg Tablet) 650 mg PO Q6H PRN PRN Reason: Fever/Mild Pain (1-3) Atorvastatin Calcium (Atorvastatin 20 Mg Tablet) 80 mg PO BEDTIME [facility] Last Admin: 03/05/23 00:28 Dose: 80 mg Documented By: SEAN Calcium Carbonate (Calcium Carbonate 500 Mg Tab) 1,000 mg PO Q4HR PRN PRN Reason: Dyspepsia Enoxaparin Sodium (Enoxaparin 40 Mg/0.4 Ml Syringe) 40 mg SUBCUT DAILY [facility] Hydralazine HCl (Hydralazine 20 Mg/Ml Vial) 10 mg IV Q6HR PRN PRN Reason: Hypertension Dextrose/Sodium Chloride (Dextrose 5%-0.45% Ns) 1,000 mls @ 100 mls/hr IV CONT [facility] Last Admin: 03/05/23 00:17 Dose: 100 mls/hr Documented By: SEAN Naloxone HCl (Naloxone 0.4 Mg/Ml Vial) 0.2 mg IV Q2MIN PRN PRN Reason: Opiate Reversal Ondansetron HCl (Ondansetron 4 Mg/2 Ml Inj) 4 mg IV Q8HR PRN PRN Reason: Nausea And Vomiting Discontinued Medications Aspirin (Aspirin Ec 325 Mg Tablet) 325 mg PO NOW ONE Stop: 03/04/23 20:12 Last Admin: 03/04/23 20:21 Dose: 325 mg Documented By: MICHELLE Atorvastatin Calcium (Atorvastatin 20 Mg Tablet) 80 mg PO NOW MELISA Stop: 03/04/23 23:46 Vital Signs Vital signs: Vital Signs - 8 hr 03/04/23 19:22 03/04/23 19:44 03/04/23 19:51 Temperature 96.7 F L Pulse Rate 62 65 65 Respiratory Rate 18 18 19 Blood Pressure 213/86 H 151/79 H Pulse Oximetry 97 99 98 Oxygen Delivery Method Room Air Room Air 03/04/23 20:06 03/04/23 19:48 03/04/23 20:30 Temperature Pulse Rate 69 68 69 Respiratory Rate 22 18 20 Blood Pressure 174/74 H Pulse Oximetry 98 98 97 Oxygen Delivery Method Room Air 03/04/23 21:00 03/04/23 21:19 03/04/23 21:19 Temperature Pulse Rate 65 75 Respiratory Rate 13 25 H Blood Pressure 199/84 H Pulse Oximetry 95 95 Oxygen Delivery Method 03/04/23 21:35 Temperature Pulse Rate Respiratory Rate Blood Pressure Pulse Oximetry Oxygen Delivery Method Room Air MDM - Neuro Symptoms/Deficit Lab Data 03/04/23 19:32 03/04/23 19:32 Labs: Lab Results 03/04/23 03/04/23 03/04/23 Range/Units 19:32 19:32 19:32 WBC 10.0 (4.5-11.0) X10^3/uL RBC 4.73 (4.0-5.2) X10^6/uL Hgb 14.9 (12.0-16.0) g/dL Hct 41.9 (36-46) % MCV 88.6 (80-100) fL MCH 31.6 (26-34) PG MCHC 35.6 (30-36) % RDW 12.4 (11.6-14.8) % Plt Count 279 (150-400) X10^3/uL Neut % (Auto) 63.3 (50-75) % Lymph % (Auto) 26.2 (25-40) % [place] % (Auto) 6.6 (3-14) % Eos % (Auto) 2.8 (2-4) % Baso % (Auto) 1.1 (0-2) % Neut # (Auto) 6300 (0028-7314) /uL Lymph # (Auto) 2600 (6998-4284) /uL [place] # (Auto) 700 (0-900) /uL Eos # (Auto) 300 (0-450) /uL Baso # (Auto) 100 (0-100) /uL PT 11.8 (10.1-12.7) SECONDS INR 1.0 (0.9-1.3) APTT 31 (26-36) SECONDS Sodium 131 L (137-145) mmol/L Potassium 4.0 (3.4-5.1) mmol/L Chloride 91 L (98-107) mmol/L Carbon Dioxide 30 (22-32) mmol/L BUN 20 H (7-17) mg/dL Creatinine 0.79 (0.52-1.04) mg/dL Estimated GFR > 60 (>60) mL/min BUN/Creatinine Ratio 25.3 H (6-22) Glucose 110 (80-110) mg/dL Calcium 10.5 H (8.4-10.2) mg/dL Total Bilirubin 0.7 (0.2-1.3) mg/dL AST 29 (14-36) IU/L ALT 28 (<35) IU/L Alkaline Phosphatase 101 (38-126) U/L Total Creatine Kinase 77 (30-135) U/L Troponin I < 0.012 (0.01-0.034) ng/mL Total Protein 8.8 H (6.3-8.2) g/dL Albumin 4.9 (3.5-5.0) g/dL Globulin 3.9 (1.7-4.1) g/dL Albumin/Globulin Ratio 1.3 (1.0-2.8) Urine Color Urine Appearance Urine pH (4.5-8.0) Ur Specific [place] (1.000-1.035) Urine Protein (Negative) Urine Glucose (UA) (Negative) g/dL Urine Ketones (NEGATIVE) Urine Occult Blood (Negative) Urine Nitrate (Negative) Urine Bilirubin (NEGATIVE) Urine Urobilinogen (0.2) E.U./dL Ur Leukocyte Esterase (NEGATIVE) Urine RBC (0-5/HPF) Urine WBC (0-5/HPF) Ur Squamous Epith Cells (0-5/HPF) Urine Bacteria (None) Ur Culture Indicated? U Opiates 300ng/mL cut (Negative) Ur Oxycodone Screen (Negative) Urine Methadone Screen (Negative) Ur Barbiturates Screen (Negative) U Tricyclic Antidepress (Negative) Ur Phencyclidine Scrn (Negative) Ur Amphetamines Screen (Negative) U Methamphetamines Scrn (Negative) Ur MDMA Scrn (Ecstasy) (Negative) U Benzodiazepines Scrn (Negative) Urine Cocaine Screen (Negative) U Marijuana (THC) Screen (Negative) Ethyl Alcohol < 10 ( - 10) mg/dL 03/04/23 03/04/23 Range/Units 20:02 20:02 WBC (4.5-11.0) X10^3/uL RBC (4.0-5.2) X10^6/uL Hgb (12.0-16.0) g/dL Hct (36-46) % MCV (80-100) fL MCH (26-34) PG MCHC (30-36) % RDW (11.6-14.8) % Plt Count (150-400) X10^3/uL Neut % (Auto) (50-75) % Lymph % (Auto) (25-40) % [place] % (Auto) (3-14) % Eos % (Auto) (2-4) % Baso % (Auto) (0-2) % Neut # (Auto) (6554-7972) /uL Lymph # (Auto) (9645-9677) /uL [place] # (Auto) (0-900) /uL Eos # (Auto) (0-450) /uL Baso # (Auto) (0-100) /uL PT (10.1-12.7) SECONDS INR (0.9-1.3) APTT (26-36) SECONDS Sodium (137-145) mmol/L Potassium (3.4-5.1) mmol/L Chloride (98-107) mmol/L Carbon Dioxide (22-32) mmol/L BUN (7-17) mg/dL Creatinine (0.52-1.04) mg/dL Estimated GFR (>60) mL/min BUN/Creatinine Ratio (6-22) Glucose (80-110) mg/dL Calcium (8.4-10.2) mg/dL Total Bilirubin (0.2-1.3) mg/dL AST (14-36) IU/L ALT (<35) IU/L Alkaline Phosphatase (38-126) U/L Total Creatine Kinase (30-135) U/L Troponin I (0.01-0.034) ng/mL Total Protein (6.3-8.2) g/dL Albumin (3.5-5.0) g/dL Globulin (1.7-4.1) g/dL Albumin/Globulin Ratio (1.0-2.8) Urine Color Yellow Urine Appearance Clear Urine pH 7.0 (4.5-8.0) Ur Specific [place] 1.010 (1.000-1.035) Urine Protein Negative (Negative) Urine Glucose (UA) Negative (Negative) g/dL Urine Ketones Negative (NEGATIVE) Urine Occult Blood Trace-intact (Negative) Urine Nitrate Negative (Negative) Urine Bilirubin Negative (NEGATIVE) Urine Urobilinogen 0.2 (0.2) E.U./dL Ur Leukocyte Esterase Negative (NEGATIVE) Urine RBC None seen (0-5/HPF) Urine WBC None seen (0-5/HPF) Ur Squamous Epith Cells None seen (0-5/HPF) Urine Bacteria None seen (None) Ur Culture Indicated? Cult not indicated U Opiates 300ng/mL cut Negative (Negative) Ur Oxycodone Screen Negative (Negative) Urine Methadone Screen Negative (Negative) Ur Barbiturates Screen Negative (Negative) U Tricyclic Antidepress Negative (Negative) Ur Phencyclidine Scrn Negative (Negative) Ur Amphetamines Screen Negative (Negative) U Methamphetamines Scrn Negative (Negative) Ur MDMA Scrn (Ecstasy) Negative (Negative) U Benzodiazepines Scrn Negative (Negative) Urine Cocaine Screen Negative (Negative) U Marijuana (THC) Screen Negative (Negative) Ethyl Alcohol ( - 10) mg/dL Point of Care Testing Glucose POC 107 Urine Dip Bedside Urine Glucose Negative Bedside Urine Bilirubin - Negative Bedside Urine Ketone - Negative Urine Specific [place] 1.01 Bedside Urine Occult Blood +/- Bedside Urine pH 6.5 Bedside Urine Protein - Negative Bedside Urine Urobilinogen - Negative Bedside Urine Nitrite - Negative Bedside Urine Leukocytes - Negative Esterase MDM Narrative Medical decision making narrative: 82-year-old female with multiple risk factors for stroke presents as a code stroke but is quickly realized to be outside of any tPA window and is not a candidate for IR. Radiologist ([place]) called with Negative head CT for stroke protocol. No abnormal findings on CTA. Dr. Escamilla happy to accept on his service. We have discussed patient history and physical exam in detail Discharge Plan Departure Patient Disposition: Admitted As Inpatient Clinical Impression: Stroke Admit Date/Time: 03/04/23 22:42 Admit Provider: Tobi Escamilla
[2023-03-04 19:57] LABS: Alanine Aminotransferase 28 IU/L (<35); Albumin 4.9 g/dL (3.5-5.0); Albumin Globulin Ratio 1.3 (1.0-2.8); Alkaline Phosphatase 101 U/L (38-126); Aspartate Aminotransferase 29 IU/L (14-36); BUN Creatinine Ratio 25.3 (6-22); Bilirubin Total 0.7 mg/dL (0.2-1.3); Blood Urea Nitrogen 20 mg/dL (7-17); Calcium 10.5 mg/dL (8.4-10.2); Carbon Dioxide 30 mmol/L (22-32); Chloride 91 mmol/L (98-107); Creatine Kinase 77 U/L (30-135); Estimated Glomerular Filt Rate > 60 mL/min (>60); Ethanol (ETOH) < 10 mg/dL; Globulin 3.9 g/dL (1.7-4.1); Glucose 110 mg/dL (80-110); HEMOLYSIS < 15 (0-50); Sodium 131 mmol/L (137-145); Total Protein 8.8 g/dL (6.3-8.2)
[2023-03-04 20:08] LABS: Troponin I < 0.012 ng/mL (0.01-0.034)
[2023-03-04 20:12] LABS: Appearance Urine UA CLEAR; Bilirubin Urine UA NEGATIVE (NEGATIVE); Color Urine UA YELLOW; Glucose Urine UA NEGATIVE (Negative); Ketones Urine UA NEGATIVE (NEGATIVE); Leukocyte Esterase Urine UA NEGATIVE (NEGATIVE); Nitrite Urine UA NEGATIVE (Negative); Occult Blood Urine UA TRACE-INTACT (Negative); Protein Urine UA NEGATIVE (Negative); Urobilinogen Urine UA 0.2 E.U./dL (0.2)
[2023-03-04] MEDS: ASPIRIN EC 325 MG TABLET PO (20:21)
[2023-03-04 20:29] LABS: Bacteria Urine None Seen; Culture Indicated Urine Cult Not Indicated; RBC Urine None Seen (0-5/HPF); Squamous Epithelial Cell Urine None Seen (0-5/HPF); WBC Urine None Seen (0-5/HPF)
[2023-03-04 20:31] LABS: UR Morphine/Opiate cutoff 300 Negative (Negative); Ur Creatinine Normal (Normal); Ur Specific Gravity Normal (Normal); Urine Amphetamines Negative (Negative); Urine Barbiturates Negative (Negative); Urine Benzodiazepines Negative (Negative); Urine Cocaine Negative (Negative); Urine MDMA Negative (Negative); Urine Methadone Negative (Negative); Urine Methamphetamines Negative (Negative); Urine Oxycodone Negative (Negative); Urine Phencyclidine Negative (Negative); Urine Tetrahydrocannabinol Negative (Negative); Urine Tricyclic Antidepressant Negative (Negative); Urine pH Normal (Normal)
--- NOTE | 2023-03-04 21:19 | P.HP_ITS ---
History of Present Illness History of Present Illness Date Patient Seen: 03/04/23 Time Patient Seen: 22:00 Date of Onset of Symptoms: 03/04/23 Chief complaint: feels confused/stroke?? Narrative: 82-year-old female presented with confusion. On prsentation she was not oriented to time but later improved. Her last known well was about 12 hours agho. Later aroung 7:00 p.m. pt found her to be confused. She has trouble speaking and troubles with vision.?The patient denies any change in medications.? She is had no trauma or injury.? At this point she is clearly not a tPA candidate? [facility] Medical History Anxiety Arthritis [place] grade 3 cystocele (03/21/16) Chronic sinusitis Chronic UTI Compression fracture of L1 lumbar vertebra Compression fracture of T7 vertebra Compression fracture of T8 vertebra Depression Edema Gilbert syndrome Gout (07/19/11) Head contusion Head injury, acute, without loss of consciousness Hordeolum externum of right lower eyelid Hyperlipidemia Hypertension Idiopathic peripheral neuropathy (02/12/15) Idiopathic peripheral neuropathy Impaired hearing Insomnia Left wrist sprain Multiple lipomas Osteoarthritis Osteopenia Osteoporosis Peripheral edema (03/21/16) Postmenopausal atrophic vaginitis Recurrent UTI (urinary tract infection) Thrush TIA (transient ischemic attack) Tinea Toe deformity Traumatic ecchymosis of face Vaginal pessary present Well adult exam Surgical History Hx of appendectomy S/P bilateral breast reduction S/P total abdominal hysterectomy and bilateral salpingo-oophorectomy Status post total hip replacement, 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 Father Prostate cancer Mother Ventricular fibrillation Diabetes mellitus Thyroid disorder Social History marital status: household members: none Smoking Status: Never smoker alcohol intake: current caffeine: No Meds Home Medications and Allergies Home Medications Medication Instructions Recorded Confirmed Type metoprolol succinate 100 mg 100 mg PO BID #180 tabs 04/05/22 02/27/23 Rx tablet,extended release 24 hr meloxicam 15 mg tablet 15 mg PO DAILY #90 tabs 05/17/22 02/27/23 Rx olmesartan 40 mg tablet See Rx Instructions .Route 06/26/22 02/27/23 Rx .COMPLEX #90 tabs chlorthalidone 25 mg tablet 25 mg PO DAILY blood pressure #90 09/11/22 02/27/23 Rx tabs estradiol 0.01% (0.1 mg/gram) 1 g vaginal QWEEK #42.5 grams 09/27/22 02/27/23 Rx vaginal cream atorvastatin 40 mg tablet See Rx Instructions .Route 10/13/22 02/27/23 Rx .COMPLEX #90 tabs aspirin 81 mg tablet,delayed 81 mg PO DAILY 11/08/22 12/28/22 History release (Adult Low Dose Aspirin) diphenhydramine HCl 25 mg capsule 25 mg PO BID PRN 11/08/22 02/27/23 History (Benadryl) amlodipine 2.5 mg tablet 2.5 mg PO BID #180 tabs 12/28/22 02/27/23 Rx gabapentin 100 mg capsule 200 mg PO BID #360 caps 12/28/22 02/27/23 Rx melatonin 5 mg capsule 5 mg PO BEDTIME 12/28/22 02/27/23 History tumeric liquid 1,000 mg PO 12/28/22 History hydrochlorothiazide 12.5 mg tablet 12.5 mg PO DAILY #90 tabs 02/27/23 02/27/23 Rx triamcinolone acetonide 0.1 % 1 applic mucous membrane BID-TID 02/27/23 02/27/23 Rx dental paste PRN mouth irritation #5 grams Allergies Allergy/AdvReac Type Severity Reaction Status Date / Time Penicillins [PENICILLINS] Allergy Unknown rash-CHILDH Verified 02/27/23 10:12 OOD amlodipine [AMLODIPINE] AdvReac Intermediate LEG Verified 02/27/23 10:12 SWELLING lisinopril [LISINOPRIL] AdvReac Intermediate cough Verified 02/27/23 10:12 venlafaxine [VENLAFAXINE] AdvReac Mild Pt unsure Verified 02/27/23 10:12 of reaction L NARES TIGHT AdvReac Mild DO NOT USE Uncoded 02/27/23 10:12 L NARES FOR TUBES. Review of Systems Review of Systems Narrative: all systems reviewed and were negative except what mentioned in the HPI Exam Vital Signs (past 8 hours): - 03/04/23 19:22 03/04/23 19:44 03/04/23 19:51 Temperature 96.7 F L Pulse Rate 62 65 65 Respiratory Rate 18 18 19 Blood Pressure 213/86 H 151/79 H Pulse Oximetry 97 99 98 Oxygen Delivery Method Room Air Room Air 03/04/23 20:06 03/04/23 19:48 03/04/23 20:30 Temperature Pulse Rate 69 68 69 Respiratory Rate 22 18 20 Blood Pressure 174/74 H Pulse Oximetry 98 98 97 Oxygen Delivery Method Room Air Oxygen Delivery Method Room Air Const General: comfortable HENMT Head: normocephalic Eyes General: appearance normal, both eyes and all related structures Neck Neck: supple Resp Effort & Inspection: normal respiratory effort Cardio Rate: regular rate GI Inspection: normal to inspection Neuro General: patient alert Motor: strength 5/5 throughout Sensory Exam: no sensory deficits noted Other: possible slight dysarthria and hemianopia Psych Appearance: grossly normal Objective ECG Impression: NSR Imaging CT scan - head: My impression: no acute change CT angio: unremarkable per ED MD Labs 03/04/23 19:32 03/04/23 19:32 Labs: Laboratory Results - last 24 hr 03/04/23 03/04/23 03/04/23 19:32 19:32 19:32 WBC 10.0 RBC 4.73 Hgb 14.9 Hct 41.9 MCV 88.6 MCH 31.6 MCHC 35.6 RDW 12.4 Plt Count 279 Neut % (Auto) 63.3 Lymph % (Auto) 26.2 [place] % (Auto) 6.6 Eos % (Auto) 2.8 Baso % (Auto) 1.1 Neut # (Auto) 6300 Lymph # (Auto) 2600 [place] # (Auto) 700 Eos # (Auto) 300 Baso # (Auto) 100 PT 11.8 INR 1.0 APTT 31 Sodium 131 L Potassium 4.0 Chloride 91 L Carbon Dioxide 30 BUN 20 H Creatinine 0.79 Estimated GFR > 60 BUN/Creatinine Ratio 25.3 H Glucose 110 Calcium 10.5 H Total Bilirubin 0.7 AST 29 ALT 28 Alkaline Phosphatase 101 Total Creatine Kinase 77 Troponin I < 0.012 Total Protein 8.8 H Albumin 4.9 Globulin 3.9 Albumin/Globulin Ratio 1.3 Urine Color Urine Appearance Urine pH Ur Specific [place] Urine Protein Urine Glucose (UA) Urine Ketones Urine Occult Blood Urine Nitrate Urine Bilirubin Urine Urobilinogen Ur Leukocyte Esterase Urine RBC Urine WBC Ur Squamous Epith Cells Urine Bacteria Ur Culture Indicated? U Opiates 300ng/mL cut Ur Oxycodone Screen Urine Methadone Screen Ur Barbiturates Screen U Tricyclic Antidepress Ur Phencyclidine Scrn Ur Amphetamines Screen U Methamphetamines Scrn Ur MDMA Scrn (Ecstasy) U Benzodiazepines Scrn Urine Cocaine Screen U Marijuana (THC) Screen Ethyl Alcohol < 10 03/04/23 03/04/23 20:02 20:02 WBC RBC Hgb Hct MCV MCH MCHC RDW Plt Count Neut % (Auto) Lymph % (Auto) [place] % (Auto) Eos % (Auto) Baso % (Auto) Neut # (Auto) Lymph # (Auto) [place] # (Auto) Eos # (Auto) Baso # (Auto) PT INR APTT Sodium Potassium Chloride Carbon Dioxide BUN Creatinine Estimated GFR BUN/Creatinine Ratio Glucose Calcium Total Bilirubin AST ALT Alkaline Phosphatase Total Creatine Kinase Troponin I Total Protein Albumin Globulin Albumin/Globulin Ratio Urine Color Yellow Urine Appearance Clear Urine pH 7.0 Ur Specific [place] 1.010 Urine Protein Negative Urine Glucose (UA) Negative Urine Ketones Negative Urine Occult Blood Trace-intact Urine Nitrate Negative Urine Bilirubin Negative Urine Urobilinogen 0.2 Ur Leukocyte Esterase Negative Urine RBC None seen Urine WBC None seen Ur Squamous Epith Cells None seen Urine Bacteria None seen Ur Culture Indicated? Cult not indicated U Opiates 300ng/mL cut Negative Ur Oxycodone Screen Negative Urine Methadone Screen Negative Ur Barbiturates Screen Negative U Tricyclic Antidepress Negative Ur Phencyclidine Scrn Negative Ur Amphetamines Screen Negative U Methamphetamines Scrn Negative Ur MDMA Scrn (Ecstasy) Negative U Benzodiazepines Scrn Negative Urine Cocaine Screen Negative U Marijuana (THC) Screen Negative Ethyl Alcohol Assessment & Plan Assessment and plan (1) Stroke: Status: Acute Plan 82 y/o F: # possible TIA/CVA: ischemic stroke protocol with permissive HTN, telemetry, echo, change asa to plavix, increase lipitor, neruochecks. speach and swallow carlos. # HTN: permissive as above # HPL: increase lipitor, check panel # full code # sqh
--- NOTE | 2023-03-04 21:28 | PC.NURSE ---
notified friend of room number and admission Nella [phone]
--- NOTE | 2023-03-04 21:52 | PC.NURSE ---
2134: Pt arrived to room 209 via wheelchair; received report from ANGELITA [employer]. Pt ambulated to the bed from wheelchair with no issues. Pt is alert, oriented to self, place, situation, disoriented to time but pt states I feel confused. Please see NIH stroke assessment. Pt denies pain, dizziness, c/p, headache. VSS with noted elevated SBP 160s, HR 60s. Respirations even and unlabored on RA. Telemetry was placed on pt. Per Answering Service Agent RN, pt's chart unable to be moved from ED chart to Acute care d/t programming issue but they are working on having pt be added on to a bed in acute care since pt is already in room to be admitted to Acute care. Telehealth MD unable to place admit orders at this time d/t this. RN oriented pt to room, unit, RN, and CHAIN SALES REPRESENTATIVE. Pt verbalized understanding. Pt is on fall precautions and pt was educated regarding calling for assistance using call light and before getting OOB and bed alarm on. Pt verbalized understanding.
[2023-03-05] VITALS (10 sets, daily range): BP systolic 126–157; BP diastolic 60–86; PULSE 59–91; RESP 16–18; TEMP 36.4–36.8; O2SAT 94–97
[2023-03-05] MEDS: DEXTROSE 5%-0.45% NS 1,000 ML 100 ML IV (00:17)
[2023-03-05] MEDS: ATORVASTATIN 20 MG TABLET 80 MG PO (00:28)
[2023-03-05 01:39] LABS: COVID-19 CEPHEID PCR (VTM/NP) Negative (Negative)
[2023-03-05 06:27] LABS: Add Manual Diff / Slide Review NO; Basophils Absolute Auto 100 /uL (0-100); Basophils Percent Auto 0.6 % (0-2); Eosinophils Absolute Auto 200 /uL (0-450); Eosinophils Percent Auto 1.7 % (2-4); Hematocrit 38.6 % (36-46); Hemoglobin 13.8 g/dL (12.0-16.0); Lymphocytes Absolute Auto 1600 /uL (1100-4500); Lymphocytes Percent Auto 15.3 % (25-40); Mean Corpuscular HGB Conc 35.8 % (30-36); Mean Corpuscular Hemoglobin 31.8 PG (26-34); Mean Corpuscular Volume 88.7 fL (80-100); Monocytes Absolute Auto 800 /uL (0-900); Monocytes Percent Auto 7.3 % (3-14); Neutrophils Absolute Auto 8000 /uL (1500-7000); Neutrophils Percent Auto 75.1 % (50-75); Platelet Count 247 X10^3/uL (150-400); Red Blood Cell Count 4.35 X10^6/uL (4.0-5.2); Red Cell Distribution Width 12.5 % (11.6-14.8); White Blood Cell Count 10.7 X10^3/uL (4.5-11.0)
[2023-03-05 06:33] LABS: Alanine Aminotransferase 26 IU/L (<35); Albumin 4.3 g/dL (3.5-5.0); Albumin Globulin Ratio 1.3 (1.0-2.8); Alkaline Phosphatase 80 U/L (38-126); Aspartate Aminotransferase 26 IU/L (14-36); BUN Creatinine Ratio 26.4 (6-22); Bilirubin Total 1.1 mg/dL (0.2-1.3); Blood Urea Nitrogen 14 mg/dL (7-17); Calcium 9.7 mg/dL (8.4-10.2); Carbon Dioxide 28 mmol/L (22-32); Chloride 93 mmol/L (98-107); Cholesterol 148 mg/dL (140-199); Estimated Glomerular Filt Rate > 60 mL/min (>60); Globulin 3.3 g/dL (1.7-4.1); Glucose 123 mg/dL (80-110); HDL Cholesterol 53 mg/dL (40-60); HEMOLYSIS < 15 (0-50); LDL Cholesterol Calculated 73 mg/dL (<100); Potassium 3.5 mmol/L (3.4-5.1); Sodium 128 mmol/L (137-145); Total Protein 7.6 g/dL (6.3-8.2); Triglycerides 109 mg/dL (35-150)
--- NOTE | 2023-03-05 06:56 | PC.NURSE ---
MRI screening sheet completed with pt. Pt answered all of the questions, however, d/t pt having confusion on/off, RN ( telegraphic typewriter installer) informed radiologic technology program director that information may not be as accurate. Pt does not have family in town that can verify information. Per radiologic technology program director, he will look through pt's chart and verify history to ensure accuracy and also he will contact hospitalist to verify information. RN informed radiologic technology program director that [facility] and to notify her of any updates.
--- NOTE | 2023-03-05 09:31 | CM.DANOTE ---
Addendum entered by Mary Styles R.N. 03/05/23 14:13: Meena called back from [facility], she now has the referral. Stated, she should have some beds opening up tomorrow. Let her know that this is AARP/Medicare, would need an auth. She will review, and will follow up with tomorrow. Let her know that patient could be ready for discharge tomorrow. Met with patient, gave her the [facility] pamphlet, she did have limited word finding. Friend, Laverne, would most likely need to transport. Addendum entered by Mary Styles R.N. 03/05/23 12:23: Spoke to hospitalist, confirmed CVA. O.T has seen patient, is recommending acute inpatient rehab. Called over at [facility], left a message with Viri, to check on bed availabilities. Will have MARIO Barr medical assistant supervisor, to fax over referral once all therapy notes are in. If no response from Inpatient Acute Rehab, later today, will attempt [place]. Will also discuss with patient. Original Note: DCP: Case received, EMR reviewed and met with patient. Friend, Laverne, was at bedside. Introduced self and role. Was able to obtain information regarding patient's baseline activity status at home prior to admission, as well as her current living situation. DCP assessment completed with information currently available. Patient is an 82 year old female who admitted yesterday evening to the care of the hospitalist team. PCP: Dr. Willams. Payer: confirmed: Dr. Willams. Patient came to the hospital via private vehicle secondary to having increased confusion, felt it had been going on for the last 3 hours. Patient holds diagnosis of TIA/CVA, will have a work up today, therapy has been ordered. Met with patient in her room. Her friend, Laverne, was at bedside, she has been temporarily staying with her. Patient knows she is in the hospital, can't remember the town she lives in. Was able to state that she has been driving, uses no DME at baseline. Confirmed that she also has a daughter in law named Darlene. P: DCP to follow closely. Could need long term, will have to see how she does with therapy. Mary Styles RN/Rag Cutting Machine Feeder Discharge Planning/Care Management CM Discharge Assessment Start: 03/05/23 09:27 Freq: Status: Active Protocol: Document 03/05/23 09:27 (Rec: 03/05/23 09:31 [id number]) Discharge Planning Assessment Assigned [facility] Mary Styles RN/Rag Cutting Machine Feeder Advance Directives? Yes Advance Directives on File Yes History Provided By Patient,Medical Record Prior Living Arrangements Apartment/Condo Household Members none Comment Friend, Laverne, has been temporarily staying with her Type of transporation used prior to Drives own vehicle admit Independent with ADL's Yes Is patient alert and oriented? Yes Caregiver for Another No Comment Confusion could potentially be a barrier, will need to see if further testing is ordered. Discharge Plan Home Transportation Arrangement Friend Referrals Initiated Other Additional Comment Will have to see how he does with therapy Whiteboard Updated in Patient Room with Yes name and ext. # of [facility] Review Status In Process Next Review Type Continued Stay Review
[2023-03-05] MEDS: ENOXAPARIN 40 MG/0.4 ML SYRINGE SUBCUT (10:05)
--- NOTE | 2023-03-05 10:13 | SLP.IPNOTE ---
EDGING SUPERVISOR attempted evaluation at 10:11am; however, pt had just been taken for MRI. Will re-attempt later today as available.
--- NOTE | 2023-03-05 11:23 | PT.IIE ---
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) Status post total right knee replacement Medical History (Last Reviewed 02/27/23 @ 10:50 by Estuardo Willams DO) Anxiety Arthritis [place]-Walker grade 3 cystocele (03/21/16) Chronic sinusitis Chronic UTI Compression fracture of L1 lumbar vertebra Compression fracture of T7 vertebra Compression fracture of T8 vertebra Depression Edema Gilbert syndrome Gout (07/19/11) Head contusion Head injury, acute, without loss of consciousness Hordeolum externum of right lower eyelid Hyperlipidemia Hypertension Idiopathic peripheral neuropathy (02/12/15) Idiopathic peripheral neuropathy Impaired hearing Insomnia Left wrist sprain Multiple lipomas Osteoarthritis Osteopenia Osteoporosis Peripheral edema (03/21/16) Postmenopausal atrophic vaginitis Recurrent UTI (urinary tract infection) Thrush TIA (transient ischemic attack) Tinea Toe deformity Traumatic ecchymosis of face Vaginal pessary present Well adult exam Physical Therapy Inpatient Evaluation/Re-Eval M1 PT/OT-IP Prior Functional Status Start: 03/05/23 08:30 Freq: NEEDED Status: Active Protocol: Document 03/05/23 11:23 (Rec: 03/05/23 11:54 [id number]) Medical Review Prior Functional Status Medical History Reviewed Yes Communication pt at baseline is an effective verbal communicator Mobility and Gait independent Activities of Daily Living and IADL's independent Prior Functional Level (Other details) Independent w/out AD. Drives and does her own grocery shopping. Social History Household Members none Living Arrangements Apartment/Condo Number of Floors (Floors) Two Floors Number of Stairs To Enter/Railing? unknown if stairs to enter home. flight of stairs inside home. Additional Social History Comment unable secondary to word finding difficulty to clarify if stairs to enter home. There are 2 bathrooms in the home, one on each floor. M2 PT-IP Current Condition Start: 03/05/23 08:30 Freq: NEEDED Status: Active Protocol: Document 03/05/23 11:23 (Rec: 03/05/23 11:54 [id number]) Physical Therapy Current Condition Current Condition Evaluation Date 03/05/23 M3 PT-IP Subjective Start: 03/05/23 08:30 Freq: NEEDED Status: Active Protocol: Document 03/05/23 11:23 (Rec: 03/05/23 11:54 [id number]) Subjective Physical Therapy Visit Type Type Initial Evaluation Visit Start Time 10:52 Visit Stop Time 11:23 Total Visit Minutes 31 Number of [employer] Visits 0 Physical Therapy Visit Comments Patient Comments pt was sitting w/ grandson upon PT encounter. She was willing to work w/ PT. M4 PT-IP Mobility and Gait Start: 03/05/23 08:30 Freq: NEEDED Status: Active Protocol: Document 03/05/23 11:23 (Rec: 03/05/23 11:54 [id number]) PT-Transfer Assessment Sit to and From Stand Sit to and from Stand Standby Assistance Equipment Transfer Assistive Device Gait Belt,Front Wheeled Walker Transfer Ability Level of Assist Standby Assistance Comments Mobility Comments was hesitant w/ all transfers . Standby assist as needed. Gait Assessment Gait Gait Assistance Required: Standby Assistance,Contact Guard Assist Distance (Feet) 160 Assistive Devices Assistive Device None,Gait Belt,Front Wheeled Walker Gait Deviations General Gait Pattern Decreased Stride Length, Decreased Feet Clearance, Flexed Trunk,Narrow Based Gait Factors Limiting Gait Function Factors Limiting Gait Function Poor Balance Comments Gait Comments Pt has been using AD since being in the hospital because she feels unbalanced. pt walked around room w/FWW PT standby assist as needed. She was able to walk w/out AD to the stairs w/PT CGA. She did have some losses in balance and some R side inattention vs visual field deficits w/ and w/out AD. Stair Climbing Assessment Evaluation Level of Assist On Stairs Standby Assistance Devices Stair Climbing Assistive Devices Left Railing,Right Railing Comments Stair Climbing Comments pt was hesitant to do the stairs. She did 6 steps descending and ascending with PT standby assist. a mix of step to and step through. M5 PT-IP Objective Assessments Start: 03/05/23 08:30 Freq: NEEDED Status: Active Protocol: Document 03/05/23 11:23 (Rec: 03/05/23 11:54 [id number]) Orientation Orientation/Cognition Level of Alertness Alert Orientation Name,Birthday Language Function Ability Word Finding Difficulties Comments pt states that she is confused . Appears to be more affected by word finding difficulty. Gross Range of Motion Upper Extremity ROM Assessment Right Impaired Impairments She does not lift her R as high as she lifts her L Strength Upper Extremity Strength Assessment Right Impaired Lower Extremity Strength Assessment Bilaterally Impaired Ankle 5/5 B Comments Strength Comments BLE are weak. RLE is weaker than LLE. RUE is weaker than LUE. R hip flexion 2-/5. unable to get to test postion. Coordination Assessment Gross Coordination Gross Coordination Impaired Assessment Foot Tapping Test Normal Performance Coordination Comments Pt wasn't able to find top of thighs with hands for pronation/supination, movement was coordinated. R was slower than L. Sensation Assessment Sensation Gross Sensation WNL Other Assessments Other Other Assessments Smooth pursuit: unable to track R sided. convergence: unable to follow directions for convergence. [ End ] M6 PT-IP Treatment Start: 03/05/23 08:30 Freq: NEEDED Status: Active Protocol: Document 03/05/23 11:23 (Rec: 03/05/23 11:54 [id number]) Physical Therapy Treatment Other Treatments Other Treatment Performed Smooth pursuit: unable to track R sided. convergence: unable to follow directions for convergence. M7 PT-IP Assessment and Plan Start: 03/05/23 08:30 Freq: NEEDED Status: Active Protocol: Document 03/05/23 11:23 (Rec: 03/05/23 11:54 [id number]) PT Summary Assessment and Plan Potential Rehabilitation Potential Good Status of Condition at Evaluation Evolving Summary Impairments Strength,Balance,Coordination, Cognition,Gait,Activity Tolerance Assessment Summary Pt was admitted to ED with stroke symptoms on 03/04/23. MRI indicates infarct w/ L posterior parietal and occipital lobes. Pt feels confused but appears to more affected by word finding difficulty than lack of orientation. She lives alone in a 2 story condo/apartment. She is fuzzy about the specifics of her home but does recall that there is a bathroom on both floors. Upon encounter w/ PT she was sitting and talking w/ her grandson and was able to recall who he is. She notes that she has not had any falls in recent years but does feel more balanced when walking w/ the FWW. Pt did demonstrate some right sided inattention likely related to visual field cuts when walking. Pt was standby assist w/gait belt, she did have a few losses in balance when walking to the stairs. Upon re-entry in the room pt notes that she did not feel fatigued or dizzy but did stumble on her R side. Based on evaluation findings including decrease balance and visual field cuts, PT recommends inpatient rehab to maximize functional recovery. Pt has the ability to attend to a task and participate in therapy at the dose required for inpatient rehab. Goals Bed Mobility Goal Independent Transfer Goal Independent Gait Goal Independent Gait Distance 200ft Other Goals pt will be able to walk independently w/ or w/out AD for 200ft or more. pt will be able to go up and down 10 steps w/ or w/out AD. Frequency of Treatment Frequency Of Treatment Once a Day Treatment Plan Physical Therapy Treatment Plan Bed Mobility Training,Transfer Training,Gait Training, Therapeutic Exercise,Balance Retraining,Discharge Planning, Neuromuscular Re-ed, Coordination Retraining Precautions Other Precautions right visual field cuts Recommendations To Nursing Amount of Assist Needed Standby Assistance Discharge Recommendations PT Discharge Recommendations Acute Rehab Equipment Needed for Home Before FWW Discharge Transportation Needs at Discharge Private Vehicle Treatment was provided by Sunitha Claire, SPT and supervised by Connie Lau, PT, DPT. I personally reviewed this note and agree with its contents.
--- NOTE | 2023-03-05 11:53 | OT.IP.EVAL ---
Current Diagnoses Cerebral infarction, unspecified (03/04/23) Past Medical History (Last Reviewed 02/27/23 @ 10:50 by Estuardo Willams DO) Anxiety Arthritis [place]-Walker grade 3 cystocele (03/21/16) Chronic sinusitis Chronic UTI Compression fracture of L1 lumbar vertebra Compression fracture of T7 vertebra Compression fracture of T8 vertebra Depression Edema Gilbert syndrome Gout (07/19/11) Head contusion Head injury, acute, without loss of consciousness Hordeolum externum of right lower eyelid Hyperlipidemia Hypertension Idiopathic peripheral neuropathy (02/12/15) Idiopathic peripheral neuropathy Impaired hearing Insomnia Left wrist sprain Multiple lipomas Osteoarthritis Osteopenia Osteoporosis Peripheral edema (03/21/16) Postmenopausal atrophic vaginitis Recurrent UTI (urinary tract infection) Thrush TIA (transient ischemic attack) Tinea Toe deformity Traumatic ecchymosis of face Vaginal pessary present Well adult exam Surgical History (Last Reviewed 02/27/23 @ 10:50 by Estuardo Willams DO) Hx of appendectomy S/P bilateral breast reduction S/P total abdominal hysterectomy and bilateral salpingo-oophorectomy Status post total hip replacement, left (06/06/16) Status post total right knee replacement Occupational Therapy Inpatient Evaluation/Re-Eval M1 PT/OT-IP Prior Functional Status Start: 03/05/23 08:30 Freq: NEEDED Status: Active Protocol: Document 03/05/23 12:30 CGR (Rec: 03/05/23 12:59 CGR [id number]) Medical Review Prior Functional Status Medical History Reviewed Yes Communication pt at baseline is an effective verbal communicator Mobility and Gait independent Activities of Daily Living and IADL's independent Prior Functional Level (Other details) Independent w/out AD. Drives and does her own grocery shopping. Social History Household Members none Living Arrangements Apartment/Condo Number of Floors (Floors) Two Floors Number of Stairs To Enter/Railing? 3 steps to enter the home with L railing. flight of stairs inside home partially with B railings. Home Environment Standard Height Toilet,Walk in Shower,Built-In Shower Seat Home Equipment Front Wheel Walker,Quad Cane, Straight Cane,Raised Toilet Seat w/Armrests,Raised Toilet Seat Without Armrests,Shower Seat with Backrest Additional Social History Comment Most home infomation was taken from a previous admit. Pt was able to confirm that she is still living in the same home as she was with the previous admit. M2 OT-IP Current Condition Start: 03/05/23 12:30 Freq: Status: Active Protocol: Document 03/05/23 12:30 CGR (Rec: 03/05/23 12:59 CGR [id number]) Occupational Therapy Current Condition Current Condition Evaluation Date 03/05/23 Treatment Diagnosis CVA Diagnosis Onset Date 03/04/23 M3 OT- IP Subjective and Pain Start: 03/05/23 12:30 Freq: Status: Active Protocol: Document 03/05/23 12:30 CGR (Rec: 03/05/23 12:59 CGR [id number]) OT- Subjective Occupational Therapy Visit Type Type Initial Evaluation Visit Start Time 11:26 Visit Stop Time 11:53 Total Visit Minutes 27 Notes Pt just finished with P.T. OT Pain Assessment Pain When Pain Assessed At Rest Pain Present Pain Present Denied Pain M4 OT- IP ADL's Start: 03/05/23 12:30 Freq: Status: Active Protocol: Document 03/05/23 12:30 CGR (Rec: 03/05/23 12:59 CGR [id number]) OT [id number] Comments OT Self-Feeding Comments not meal time OT ADL-Grooming General Evaluation Grooming Ability Standby Assistance Areas Needing Assistance Combing/Brushing Hair,Face Washing Comments OT Grooming Comments standing at sink, needs vc to find comb to the R OT ADL-Oral Care General Eval Oral Care Ability Standby Assistance Areas of Assistance Brushing Teeth Comments Oral Care Comments Standing at sink, needs vc to find tooth brush and tooth paste to the R OT ADL-Dressing General Eval Lower Body Dressing Ability Standby Assistance Areas Needing Assistance Socks Comments OT Dressing Comments Pt demonstrates ability to doff and don socks to BLE with extra time. OT ADL-Toileting General Evaluation Toileting Ability Standby Assistance Comments OT Toileting Comments Pt urinated seated on toilet OT ADL-Bathing Comments OT Bathing Comments not performed M5 OT- IP IADL's Start: 03/05/23 12:30 Freq: Status: Active Protocol: Document 03/05/23 12:30 CGR (Rec: 03/05/23 12:59 CGR [id number]) OT-Instrumental Activities of Daily Living Deficits IADL Deficits Identified No Deficits Home Safety Awareness Awareness of Need for Assistance at Home Good Awareness Ability to Problem Solve Emergency Able to Problem Solve Situations Medication Management Medication Management Comments concerns regarding pts ability to perform given visual field cut Money Management Money Management Comments concerns regarding pts ability to perform given visual field cut Meal Preparation Meal Preparation Comments concerns regarding pts ability to perform given visual field cut [employer]ing And [employer] And [employer] Comments concerns regarding pts ability to perform given visual field cut Driving Driving Comments concerns regarding pts ability to perform given visual field cut M6 OT- IP Functional Cognition Start: 03/05/23 12:30 Freq: Status: Active Protocol: Document 03/05/23 12:30 CGR (Rec: 03/05/23 12:59 CGR [id number]) Cognitive Factors Limiting Selfcare Function Cognitive Ability Level of Alertness Alert Patient Orientation Name,Age,Birthday,Month,Date, Year,Day of Week,Place, Situation Attention Span Ability Capable of Focused Attention, Capable of Sustained Attention Ability to Follow Commands Able to Follow One Step Commands with Increased Time, Able to Follow One Step Commands with Repetition Cognitive Comments Cognitive Assessment Comments Pt appears to be cognitively intact but is having word finding difficulties. OT- Vision and Hearing OT- Hearing Assessment OT- Hearing Assessment WFL OT- Vision Assessment Visual Acuity WFL Visual Attentiveness Impaired Occular Pursuits WFL Visual Convergence WFL Visual Bhardwaj Impaired Vision Assessment Comments Pt presents with a R visual field cut. M7 OT- IP Mobility and Balance Start: 03/05/23 12:30 Freq: Status: Active Protocol: Document 03/05/23 12:30 CGR (Rec: 03/05/23 12:59 CGR [id number]) OT- Bed Mobility Assessment Sit to Supine Sit to Supine Assist Standby Assistance OT-Transfer Assessment Sit to and From Stand Sit to and from Stand Standby Assistance Transfers Transfer Ability Standby Assistance Technique Transfer Destination Bed,Chair,Toilet Transfer Technique Stand Step Pivot Devices Transfer Assistive Devices Gait Belt,Front Wheeled Walker Comments Mobility Comments Pt mobilizes with a 2ww and ambulates around the room with SBA OT- Gait Assessment Gait Gait Assistance Required: Standby Assistance Assistive Devices Assistive Device Gait Belt,Front Wheeled Walker OT- Balance Assessment Sitting Balance and Reactions Static Sitting Balance Ability Normal Dynamic Sitting Balance Ability Normal M8 OT- IP Objective Assessments Start: 03/05/23 12:30 Freq: Status: Active Protocol: Document 03/05/23 12:30 CGR (Rec: 03/05/23 12:59 CGR [id number]) OT Gross Range of Motion Upper Extremity Range of Motion Assessment Within Functional Limits OT Strength Upper Extremity Strength Assessment Within Functional Limits Comments Strength Comments RUE 4-/5, LUE 4/5 OT- Coordination Assessment Upper Extremity Finger to Nose Test Within Functional Limits Finger Tapping Test Within Functional Limits OT-Muscle Tone Assessment Muscle Tone WNL Yes OT Sensation Assessment Edema Edema Absent M9 OT- IP Assessment and Plan Start: 03/05/23 12:30 Freq: Status: Active Protocol: Document 03/05/23 12:30 CGR (Rec: 03/05/23 12:59 CGR [id number]) OT Summary Assessment and Plan Potential Rehabilitation Potential Good Analytic Complexity at Evaluation Moderate Summary OT Impairments Strength,Functional Mobility, Self-Feeding,Grooming,Dressing ,Toileting,Bathing,Toilet Transfers,Shower Transfers Progress Towards Goals Progressing Toward Goals Assessment Summary Pt presents as a moderate complexity evaluation s/p admit for CVA. Pt found to have large CVA with expressive aphasia, slight weakness to the R side, and R visual field cut. Pt will benefit from continued therapy services. Given her endurance and deficits, pt would be an excellent candidate for acute rehab. Recommend d/c to acute rehab. Goals Self-Feeding Goal Independent Grooming Goal Independent Dressing Goal Independent Toileting Goal Independent Bathing Goal Independent Toilet Transfer Goal Independent Shower Transfer Goal Independent OT-Other Goals Pt can demonstrate tracking to the R to assist with R visual field deficit Days to Meet Goals 15 Frequency of Treatment Frequency Of Treatment Once a Day Treatment Plan OT Treatment Plan ADL Training,Functional Mobility,Vision Retraining, Patient/Family Education, Discharge Planning Other Treatment Recommendations and Next shower Treatment Focus Discharge Recommendations OT Discharge Recommendations Acute Rehab Transportation Needs at Discharge Private Vehicle
--- NOTE | 2023-03-05 12:07 | PC.NURSE ---
Addendum entered by Cleopatra Tucker R.N. 03/05/23 14:21: Patient resting comfortably and has refused lunch.. She is sleeping now. Original Note: Patient is having some r.vision issues, per OT! Patient is mostly alert and oriented x2/3 but is having difficulty getting her words out. She knows what she wants to say and where she is but having difficulty with expressive aphagia. She does not have any drift noted in her arms and legs and is able to hold them up when asked. Reading words is hard from her, her smile is symmetrical. She is a one person assist when getting onto the commode. Patient has been working with therapies.
--- NOTE | 2023-03-05 13:45 | P.PN_ITS ---
Subjective Subjective Interval history: Patient's MRI positive with multiple embolic appearing infarcts. Given size and some associated edema, not recommended for anticoagulation for 2 weeks. She is not confused but has significant word finding difficulties as a result of her stroke. Exam Vital Signs (past 8 hours): - 03/05/23 08:00 03/05/23 12:00 Temperature 98.3 F 97.7 F Pulse Rate 60 68 Respiratory Rate 18 18 Blood Pressure 136/60 139/63 Pulse Oximetry 96 96 Oxygen Flow Rate 0 0 Oxygen Delivery Method Room Air Oxygen Flow Rate 0 Narrative Exam Narrative: Gen: no acute distress, WDWN CV: RRR no m/r/g Pulm: CTA b/l no wheezing rhonchi or rales Ext: No edema or joint effusions Neuro: brocas aphasia, no deficits in sensation to light touch, bilaterally weak R visual field deficit Objective Labs 03/05/23 06:13 03/05/23 06:13 Labs: Laboratory Results - last 24 hr 03/04/23 03/04/23 03/04/23 19:32 19:32 19:32 WBC 10.0 RBC 4.73 Hgb 14.9 Hct 41.9 MCV 88.6 MCH 31.6 MCHC 35.6 RDW 12.4 Plt Count 279 Neut % (Auto) 63.3 Lymph % (Auto) 26.2 [place] % (Auto) 6.6 Eos % (Auto) 2.8 Baso % (Auto) 1.1 Neut # (Auto) 6300 Lymph # (Auto) 2600 [place] # (Auto) 700 Eos # (Auto) 300 Baso # (Auto) 100 PT 11.8 INR 1.0 APTT 31 Sodium 131 L Potassium 4.0 Chloride 91 L Carbon Dioxide 30 BUN 20 H Creatinine 0.79 Estimated GFR > 60 BUN/Creatinine Ratio 25.3 H Glucose 110 Calcium 10.5 H Total Bilirubin 0.7 AST 29 ALT 28 Alkaline Phosphatase 101 Total Creatine Kinase 77 Troponin I < 0.012 Total Protein 8.8 H Albumin 4.9 Globulin 3.9 Albumin/Globulin Ratio 1.3 Triglycerides Cholesterol LDL Cholesterol, Calc HDL Cholesterol Urine Color Urine Appearance Urine pH Ur Specific [place] Urine Protein Urine Glucose (UA) Urine Ketones Urine Occult Blood Urine Nitrate Urine Bilirubin Urine Urobilinogen Ur Leukocyte Esterase Urine RBC Urine WBC Ur Squamous Epith Cells Urine Bacteria Ur Culture Indicated? U Opiates 300ng/mL cut Ur Oxycodone Screen Urine Methadone Screen Ur Barbiturates Screen U Tricyclic Antidepress Ur Phencyclidine Scrn Ur Amphetamines Screen U Methamphetamines Scrn Ur MDMA Scrn (Ecstasy) U Benzodiazepines Scrn Urine Cocaine Screen U Marijuana (THC) Screen Ethyl Alcohol < 10 SARS-CoV-2 (PCR) 03/04/23 03/04/23 03/05/23 20:02 20:02 00:42 WBC RBC Hgb Hct MCV MCH MCHC RDW Plt Count Neut % (Auto) Lymph % (Auto) [place] % (Auto) Eos % (Auto) Baso % (Auto) Neut # (Auto) Lymph # (Auto) [place] # (Auto) Eos # (Auto) Baso # (Auto) PT INR APTT Sodium Potassium Chloride Carbon Dioxide BUN Creatinine Estimated GFR BUN/Creatinine Ratio Glucose Calcium Total Bilirubin AST ALT Alkaline Phosphatase Total Creatine Kinase Troponin I Total Protein Albumin Globulin Albumin/Globulin Ratio Triglycerides Cholesterol LDL Cholesterol, Calc HDL Cholesterol Urine Color Yellow Urine Appearance Clear Urine pH 7.0 Ur Specific [place] 1.010 Urine Protein Negative Urine Glucose (UA) Negative Urine Ketones Negative Urine Occult Blood Trace-intact Urine Nitrate Negative Urine Bilirubin Negative Urine Urobilinogen 0.2 Ur Leukocyte Esterase Negative Urine RBC None seen Urine WBC None seen Ur Squamous Epith Cells None seen Urine Bacteria None seen Ur Culture Indicated? Cult not indicated U Opiates 300ng/mL cut Negative Ur Oxycodone Screen Negative Urine Methadone Screen Negative Ur Barbiturates Screen Negative U Tricyclic Antidepress Negative Ur Phencyclidine Scrn Negative Ur Amphetamines Screen Negative U Methamphetamines Scrn Negative Ur MDMA Scrn (Ecstasy) Negative U Benzodiazepines Scrn Negative Urine Cocaine Screen Negative U Marijuana (THC) Screen Negative Ethyl Alcohol SARS-CoV-2 (PCR) Negative 03/05/23 03/05/23 06:13 06:13 WBC 10.7 RBC 4.35 Hgb 13.8 Hct 38.6 MCV 88.7 MCH 31.8 MCHC 35.8 RDW 12.5 Plt Count 247 Neut % (Auto) 75.1 H Lymph % (Auto) 15.3 L [place] % (Auto) 7.3 Eos % (Auto) 1.7 L Baso % (Auto) 0.6 Neut # (Auto) 8000 H Lymph # (Auto) 1600 [place] # (Auto) 800 Eos # (Auto) 200 Baso # (Auto) 100 PT INR APTT Sodium 128 L Potassium 3.5 Chloride 93 L Carbon Dioxide 28 BUN 14 Creatinine 0.53 Estimated GFR > 60 BUN/Creatinine Ratio 26.4 H Glucose 123 H Calcium 9.7 Total Bilirubin 1.1 AST 26 ALT 26 Alkaline Phosphatase 80 Total Creatine Kinase Troponin I Total Protein 7.6 Albumin 4.3 Globulin 3.3 Albumin/Globulin Ratio 1.3 Triglycerides 109 Cholesterol 148 LDL Cholesterol, Calc 73 HDL Cholesterol 53 Urine Color Urine Appearance Urine pH Ur Specific [place] Urine Protein Urine Glucose (UA) Urine Ketones Urine Occult Blood Urine Nitrate Urine Bilirubin Urine Urobilinogen Ur Leukocyte Esterase Urine RBC Urine WBC Ur Squamous Epith Cells Urine Bacteria Ur Culture Indicated? U Opiates 300ng/mL cut Ur Oxycodone Screen Urine Methadone Screen Ur Barbiturates Screen U Tricyclic Antidepress Ur Phencyclidine Scrn Ur Amphetamines Screen U Methamphetamines Scrn Ur MDMA Scrn (Ecstasy) U Benzodiazepines Scrn Urine Cocaine Screen U Marijuana (THC) Screen Ethyl Alcohol SARS-CoV-2 (PCR) PFS Medical History Anxiety Arthritis [place]-Walker grade 3 cystocele (03/21/16) Chronic sinusitis Chronic UTI Compression fracture of L1 lumbar vertebra Compression fracture of T7 vertebra Compression fracture of T8 vertebra Depression Edema Gilbert syndrome Gout (07/19/11) Head contusion Head injury, acute, without loss of consciousness Hordeolum externum of right lower eyelid Hyperlipidemia Hypertension Idiopathic peripheral neuropathy (02/12/15) Idiopathic peripheral neuropathy Impaired hearing Insomnia Left wrist sprain Multiple lipomas Osteoarthritis Osteopenia Osteoporosis Peripheral edema (03/21/16) Postmenopausal atrophic vaginitis Recurrent UTI (urinary tract infection) Thrush TIA (transient ischemic attack) Tinea Toe deformity Traumatic ecchymosis of face Vaginal pessary present Well adult exam Surgical History Hx of appendectomy S/P bilateral breast reduction S/P total abdominal hysterectomy and bilateral salpingo-oophorectomy Status post total hip replacement, 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 Initial NIH was 6. - likely embolic in nature with multiple small infarcts and a couple larger ones on MRI with associated brain edema, recommend no anticoagulation for presumed atrial fibrillation for two weeks. - follow up echo, check DVT study if there is a PFO - hold asa, okay for DVT ppx - continue tele, EKG stat if afib is noticed. #HTN - allowed for permissive HTN, but BP currently normotensive without medication thus far - restart home metoprolol at 25 mg BID tonight (home dosing 100 BID). Continue to hold olmesartan, chlorthalidone, and amlodipine #HLD - continue statin therapy #chronic peripheral neuropathy - continue home gabapentin Code: full, surrogate she states is her friend DVT: Lovenox daily Dispo: Admitted inpatient, hopeful for acute rehab after initial PT/OT evaluations. Discussed with case management and therapy teams today. I have reviewed patient's imaging, admitting documentation, and lab evaluations personally.
[2023-03-05] MEDS: ATORVASTATIN 20 MG TABLET 40 MG PO (18:56)
[2023-03-05] MEDS: METOPROLOL ER 25 MG TABLET PO (22:25)
[2023-03-05] MEDS: GABAPENTIN 100 MG CAPSULE 200 MG PO (22:26)
[2023-03-06] VITALS (7 sets, daily range): BP systolic 140–156; BP diastolic 63–82; PULSE 75–85; RESP 18; TEMP 36.3–37.7; O2SAT 94–97
--- NOTE | 2023-03-06 07:57 | P.PN_ITS ---
Subjective Subjective Interval history: Patient does not want to be bothered. She is having trouble getting words out. Per OT her visual deficits are worsening and she now has full right-sided neglect. Stat CT head ordred to ensure no hemorrhagic conversion. Exam Vital Signs (past 8 hours): - 03/06/23 00:45 03/06/23 04:52 Temperature 99.2 F 99.8 F H Pulse Rate 85 78 Respiratory Rate 18 18 Blood Pressure 147/82 H 140/63 Pulse Oximetry 97 94 Oxygen Flow Rate 0 0 Oxygen Delivery Method Room Air Oxygen Flow Rate 0 Narrative Exam Narrative: Gen: no acute distress, WDWN CV: RRR no m/r/g Pulm: CTA b/l no wheezing rhonchi or rales Ext: No edema or joint effusions Neuro: brocas aphasia, no deficits in sensation to light touch, bilateral full R visual field deficits Objective Labs 03/05/23 06:13 03/05/23 06:13 PFS Medical History Anxiety Arthritis [place]-Walker grade 3 cystocele (03/21/16) Chronic sinusitis Chronic UTI Compression fracture of L1 lumbar vertebra Compression fracture of T7 vertebra Compression fracture of T8 vertebra Depression Edema Gilbert syndrome Gout (07/19/11) Head contusion Head injury, acute, without loss of consciousness Hordeolum externum of right lower eyelid Hyperlipidemia Hypertension Idiopathic peripheral neuropathy (02/12/15) Idiopathic peripheral neuropathy Impaired hearing Insomnia Left wrist sprain Multiple lipomas Osteoarthritis Osteopenia Osteoporosis Peripheral edema (03/21/16) Postmenopausal atrophic vaginitis Recurrent UTI (urinary tract infection) Thrush TIA (transient ischemic attack) Tinea Toe deformity Traumatic ecchymosis of face Vaginal pessary present Well adult exam Surgical History Hx of appendectomy S/P bilateral breast reduction S/P total abdominal hysterectomy and bilateral salpingo-oophorectomy Status post total hip replacement, 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 Initial NIH was 6. - likely embolic in nature with multiple small infarcts and a couple larger ones on MRI with associated brain edema, recommend no anticoagulation for presumed atrial fibrillation for two weeks. - echo with no PFO, EF 65-70% and mild-mod LVH, mild MS, mod left-sided pleural effusion and RVSP 51 - start asa 81mg daily, okay for DVT ppx - continue tele, EKG stat if afib is noticed. - developed worsening speech and visual deficits on 03/06, stat repeat head CT with evolving stroke, punctate hyperdensity which may be hemorrhagic vs calcification - repeat stat head CT on 03/07 to r/o hemorrhage - started celexa 10mg daily for depression prevention, patient seemed quite sad and depressed on 03/06 #HTN - allowed for permissive HTN, but BP currently normotensive without medication thus far - restarted home metoprolol at 25 mg BID (home dosing 100 BID). Held olmesartan, chlorthalidone, and amlodipine x48 hrs then resumed. #HLD - continue statin therapy but increase to 80mg nightly from 40 #chronic peripheral neuropathy - continue home gabapentin Code: full, surrogate she states is her friend DVT: Lovenox daily Dispo: Pending acute rehab arrangement through [facility].
--- NOTE | 2023-03-06 09:06 | CM.DPC ---
Addendum entered by Mary Styles R.N. 03/06/23 13:33: Did clarify with DEVENDRA, occupational therapist, that patient did worse today, visual field is worse. Faxed O.T, and updated progress note to [facility]. Viri received, and will submit auth. Just found out per Dr. Dyson, that patient is suicidal, wanting to . Asked if he can put in a stat order for Dr. Davis, or will place. Will update behavioral health Original Note: DCP Cont: Ramy from [facility] left a message, indicated,she may be too high functioning for our needs, based upon therapy notes. Viri from [facility] also left a message from yesterday, regarding her function. Spoke to DEVENDRA, O.T. today, stated, patient was doing worse today, more left sided visual disturbances, and left sided weakness. Called [facility]i back at [facility], and updated her. She will need updated O.T. note and progress note. Asked DEVENDRA to put her note in as soon as possible. Asking MARIO Barr Personnel Security Specialist, to fax the O.T. note and updated progress note to [facility]. She then will submit auth. P: Will work on discharge plan. Mary Styles RN/Vibratory Pile Driver
--- NOTE | 2023-03-06 09:41 | OT.IP.TRT ---
Current Diagnoses Cerebral infarction, unspecified (03/04/23) Occupational Therapy Treatment Note M2 OT-IP Current Condition Start: 03/05/23 12:30 Freq: Status: Active Protocol: Document 03/05/23 12:30 CGR (Rec: 03/05/23 12:59 CGR [id number]) Occupational Therapy Current Condition Current Condition Evaluation Date 03/05/23 Treatment Diagnosis CVA Diagnosis Onset Date 03/04/23 M3 OT- IP Subjective and Pain Start: 03/05/23 12:30 Freq: Status: Active Protocol: Document 03/06/23 09:33 CGR (Rec: 03/06/23 09:41 CGR [id number]) OT- Subjective Occupational Therapy Visit Type Type Progress Note Visit Start Time 08:28 Visit Stop Time 08:44 Total Visit Minutes 16 Notes Pt sleeping when OT entered OT Pain Assessment Pain When Pain Assessed At Rest Pain Present Pain Present Denied Pain M4 OT- IP ADL's Start: 03/05/23 12:30 Freq: Status: Active Protocol: Document 03/06/23 09:33 CGR (Rec: 03/06/23 09:41 CGR [id number]) OT [id number] General Evaluation Self-Feeding Ability Independent Comments OT Self-Feeding Comments drinking coffee OT ADL-Grooming General Evaluation Grooming Ability Moderate Assistance Areas Needing Assistance Combing/Brushing Hair,Face Washing Comments OT Grooming Comments Pt stood for ADLs on this date . Pt needed total assist for finding items on her right. Pt now demonstrating R visual field cut and R neglect that is imparing her ability to perform simple ADLs. Pt was able to wash face and brush hair with mod a once items were identified. Assist with R side. OT ADL-Oral Care General Eval Oral Care Ability Moderate Assistance Areas of Assistance Brushing Teeth Comments Oral Care Comments Pt stood for brushing teeth. Pt needed total assist with finding tooth brush and tooth paste as it was on her right side. Pt displays frustration with tasks on this date. OT ADL-Dressing Comments OT Dressing Comments not performed. Pt declined OT ADL-Toileting Comments OT Toileting Comments Pt declined need OT ADL-Bathing Comments OT Bathing Comments Pt declined offer stating that she had just woken up. M5 OT- IP IADL's Start: 03/05/23 12:30 Freq: Status: Active Protocol: Document 03/05/23 12:30 CGR (Rec: 03/05/23 12:59 CGR [id number]) OT-Instrumental Activities of Daily Living Deficits IADL Deficits Identified No Deficits Home Safety Awareness Awareness of Need for Assistance at Home Good Awareness Ability to Problem Solve Emergency Able to Problem Solve Situations Medication Management Medication Management Comments concerns regarding pts ability to perform given visual field cut Money Management Money Management Comments concerns regarding pts ability to perform given visual field cut Meal Preparation Meal Preparation Comments concerns regarding pts ability to perform given visual field cut Desulfurizer Machine Desulfurizer Machine Comments concerns regarding pts ability to perform given visual field cut Driving Driving Comments concerns regarding pts ability to perform given visual field cut M6 OT- IP Functional Cognition Start: 03/05/23 12:30 Freq: Status: Active Protocol: Document 03/06/23 09:33 CGR (Rec: 03/06/23 09:41 CGR [id number]) Cognitive Factors Limiting Selfcare Function Cognitive Ability Level of Alertness Alert Patient Orientation Name,Age,Birthday,Month,Date, Year,Day of Week,Place, Situation Cognitive Comments Cognitive Assessment Comments Pt appears more frustrated today with less problem solving. Pt states she had a poor nights sleep. M7 OT- IP Mobility and Balance Start: 03/05/23 12:30 Freq: Status: Active Protocol: Document 03/06/23 09:33 CGR (Rec: 03/06/23 09:41 CGR [id number]) OT- Bed Mobility Assessment Supine to Sit Supine to Sit Assist Standby Assistance Scooting Scooting to Edge of Bed Standby Assistance OT-Transfer Assessment Sit to and From Stand Sit to and from Stand Contact Guard Assistance, Minimal Assistance Transfers Transfer Ability Minimal Assistance Technique Transfer Destination Bed,Chair Transfer Technique Stand Step Pivot Devices Transfer Assistive Devices Gait Belt,Front Wheeled Walker Comments Mobility Comments Pt needed more assist today with mobility and use of walker. Pt needing verbal cues to use walker properly and safely and to avoid hitting items on the right. Pt needed VC to see chair and move towards it. OT- Balance Assessment Sitting Balance and Reactions Static Sitting Balance Ability Normal Dynamic Sitting Balance Ability Normal M8 OT- IP Objective Assessments Start: 03/05/23 12:30 Freq: Status: Active Protocol: Document 03/05/23 12:30 CGR (Rec: 03/05/23 12:59 CGR [id number]) OT Gross Range of Motion Upper Extremity Range of Motion Assessment Within Functional Limits OT Strength Upper Extremity Strength Assessment Within Functional Limits Comments Strength Comments RUE 4-/5, LUE 4/5 OT- Coordination Assessment Upper Extremity Finger to Nose Test Within Functional Limits Finger Tapping Test Within Functional Limits OT-Muscle Tone Assessment Muscle Tone WNL Yes OT Sensation Assessment Edema Edema Absent M9 OT- IP Assessment and Plan Start: 03/05/23 12:30 Freq: Status: Active Protocol: Document 03/06/23 09:33 CGR (Rec: 03/06/23 09:41 CGR [id number]) OT Summary Assessment and Plan Potential Rehabilitation Potential Excellent Analytic Complexity at Evaluation Moderate Summary OT Impairments Strength,Functional Mobility, Self-Feeding,Grooming,Dressing ,Toileting,Bathing,Toilet Transfers,Shower Transfers Progress Towards Goals Progressing Toward Goals Assessment Summary Pt presents as a moderate complexity evaluation s/p admit for CVA. Pt found to have large CVA with expressive aphasia, slight weakness to the R side, and R visual field cut. Today pt demonstrates R neglect and frustration with attempting to get pt to attend to the R. Pt needed more VC and more assist with all activities today. Recommend acute rehab at discharge. Goals Self-Feeding Goal Independent Grooming Goal Independent Dressing Goal Independent Toileting Goal Independent Bathing Goal Independent Toilet Transfer Goal Independent Shower Transfer Goal Independent OT-Other Goals Pt can demonstrate tracking to the R to assist with R visual field deficit Days to Meet Goals 15 Frequency of Treatment Frequency Of Treatment Once a Day Treatment Plan OT Treatment Plan ADL Training,Functional Mobility,Vision Retraining, Patient/Family Education, Discharge Planning Other Treatment Recommendations and Next shower Treatment Focus Discharge Recommendations OT Discharge Recommendations Acute Rehab Transportation Needs at Discharge Private Vehicle
--- NOTE | 2023-03-06 09:44 | PT.IPTN ---
Current Diagnoses Cerebral infarction, unspecified (03/04/23) Physical Therapy Treatment Note M2 PT-IP Current Condition Start: 03/05/23 08:30 Freq: NEEDED Status: Active Protocol: Document 03/05/23 11:23 (Rec: 03/05/23 11:54 [id number]) Physical Therapy Current Condition Current Condition Evaluation Date 03/05/23 Treatment Diagnosis Acute CVA, Right visual field loss M3 PT-IP Subjective Start: 03/05/23 08:30 Freq: NEEDED Status: Active Protocol: Document 03/06/23 10:10 TS (Rec: 03/06/23 10:35 TS [id number]) Subjective Physical Therapy Visit Type Type Treatment Note Visit Start Time 09:44 Visit Stop Time 10:08 Total Visit Minutes 24 Notes Friend present in room. Number of ALODIZE MACHINE OPERATOR Visits 1 Physical Therapy Visit Comments Patient Comments Pt having word finding difficulties and confusion when attempting to answer ALODIZE MACHINE OPERATOR' s questions. Friend reports she lives alone and has a lot of stairs into her house and up to the bedroom, pt agreeable to PT after motivated to participate. M4 PT-IP Mobility and Gait Start: 03/05/23 08:30 Freq: NEEDED Status: Active Protocol: Document 03/06/23 10:10 TS (Rec: 03/06/23 10:35 TS [id number]) PT-Bed Mobility Assessment Supine to Sit Supine to Sit Contact Guard Assistance, Minimal Assistance,1 Person Assistance,Bedrails Sit to Supine Sit to Supine Contact Guard Assistance, Minimal Assistance,1 Person Assistance,Head of Bed Elevated Scooting Scooting to Edge of Bed Contact Guard Assistance, Minimal Assistance PT-Transfer Assessment Sit to and From Stand Sit to and from Stand Contact Guard Assistance, Minimal Assistance Equipment Transfer Assistive Device Gait Belt,Front Wheeled Walker Comments Mobility Comments Supine to sit CGA, pt only using L side to sit up due to R sided neglect. Sit to stand CGA with FWW, pt required tactile cues for grasping of FWW with R hand. She ambulated 160' CGA. Pt with poor vision on R side, tends to drift to R with gait requires cues to avoid objects in hallway and cues for turning to R side, when turning to right pt takes very wide turns. She performed stairs CGA with bilateral rails, pt required tactile cues for grasping of R handrail. Pt was left back in bed with call light nearby, bed alarm on, friend in room. Gait Assessment Gait Gait Assistance Required: Contact Guard Assist,Minimum Assistance Distance (Feet) 160 Assistive Devices Assistive Device Gait Belt,Front Wheeled Walker Gait Deviations General Gait Pattern Decreased Stride Length, Decreased Feet Clearance, Flexed Trunk,Narrow Based Gait Factors Limiting Gait Function Factors Limiting Gait Function Decreased Activity Tolerance, Decreased Strength,Difficulty Following Directions, Incoordination,Poor Balance, Poor Safety Awareness Comments Gait Comments See mobility comments. Stair Climbing Assessment Evaluation Level of Assist On Stairs Contact Guard Assistance Devices Stair Climbing Assistive Devices Left Railing,Right Railing Technique/Endurance Stair Climbing Direction Ascend and Descend Stair Climbing Technique Step to Step Number of Steps Climbed 9 PT-Balance Assessment Sitting Balance and Reactions Static Sitting Balance Ability Good Dynamic Sitting Balance Ability Fair Standing Balance and Reactions Static Standing Balance Ability Good Dynamic Standing Balance Ability Fair M5 PT-IP Objective Assessments Start: 03/05/23 08:30 Freq: NEEDED Status: Active Protocol: Document 03/05/23 11:23 (Rec: 03/05/23 11:54 [id number]) Orientation Orientation/Cognition Level of Alertness Alert Orientation Name,Birthday Language Function Ability Word Finding Difficulties Comments pt states that she is confused . Appears to be more affected by word finidng difficulty. Gross Range of Motion Upper Extremity ROM Assessment Right Impaired Impairments She does not lift her R as high as she lifts her L Strength Upper Extremity Strength Assessment Right Impaired Lower Extremity Strength Assessment Bilaterally Impaired Ankle 5/5 B Comments Strength Comments BLE are weak. RLE is weaker than LLE. RUE is weaker than LUE. R hip flexion 2-/5. unable to get to test postion. Coordination Assessment Gross Coordination Gross Coordination Impaired Assessment Foot Tapping Test Normal Performance Coordination Comments Pt wasnt able to find top of thighs with hands for pronation/supination, movement was coordinated. R was slower than L. Sensation Assessment Sensation Gross Sensation WNL Other Assessments Other Other Assessments Smooth pursuit: unable to track R sided. convergence: unable to follow directions for convergence. [ End ] M6 PT-IP Treatment Start: 03/05/23 08:30 Freq: NEEDED Status: Active Protocol: Document 03/05/23 11:23 (Rec: 03/05/23 11:54 [id number]) Physical Therapy Treatment Other Treatments Other Treatment Performed Smooth pursuit: unable to track R sided. convergence: unable to follow directions for convergence. M7 PT-IP Assessment and Plan Start: 03/05/23 08:30 Freq: NEEDED Status: Active Protocol: Document 03/06/23 10:10 TS (Rec: 03/06/23 10:35 TS [id number]) PT Summary Assessment and Plan Potential Rehabilitation Potential Good Summary Impairments Strength,Balance,Coordination, Cognition,Gait,Activity Tolerance Progress Towards Goals Slow Progress due to Medical Issues Assessment Summary Pt continues to have confusion and word finding difficulties when asked questions, becomes increasingly frustrated. She is CGA for all mobility due to poor balance and R sided neglect. Supine to sit pt uses only L side to assist into upright position. She performed sit to stand CGA with FWW, required tactile cues for R hand on FWW. She continues to ambulate ~160' CGA, has wide turns when instructed to turn R in hallway, tends to drift to R side, requires verbal and tactile cues to avoid objects in hallway and FWW management. When instructed to turn R out of room pt turned L instead. She performed stairs x9 with bilateral rail assist, pt required tacitle hand over hand assist for use of R rail. cuts PT recommends inpatient rehab to maximize functional recovery. Pt has the ability to attend to a task and participate in therapy at the does required for inpatient rehab. Goals Bed Mobility Goal Independent Transfer Goal Independent Gait Goal Independent Gait Distance 200ft Other Goals pt will be able to walk independently w/ or w/out AD for 200ft or more. pt will be able to go up and down 10 steps w/ or w/out AD. Frequency of Treatment Frequency Of Treatment Once a Day Treatment Plan Physical Therapy Treatment Plan Bed Mobility Training,Transfer Training,Gait Training, Therapeutic Exercise,Balance Retraining,Discharge Planning, Neuromuscular Re-ed, Coordination Retraining Other Recommendations and Next Treatment ambulation Focus Precautions Other Precautions right visual field cuts Recommendations To Nursing Amount of Assist Needed 1 Person Assist Discharge Recommendations PT Discharge Recommendations Acute Rehab Equipment Needed for Home Before FWW Discharge Transportation Needs at Discharge Private Vehicle
--- NOTE | 2023-03-06 10:19 | DI.CT.S_ITS ---
PROCEDURE: CT HEAD/BRAIN WO CON INDICATIONS: worsening stroke symptoms TECHNIQUE: Noncontrast 4.5 mm thick angled axial sections acquired from the foramen magnum to the vertex, with coronal and sagittal reformats. For radiation dose reduction, the following was used: automated exposure control, adjustment of mA and/or kV according to patient size. COMPARISON: [facility], MR, MR HEAD/BRAIN WO CON, 03/05/2023, 10:11. [facility], CT, CT ANGIO HEAD AND NECK, 03/04/2023, 19:38. [facility], CT, CT STROKE, 03/04/2023, 19:38. [facility], CT, CT HEAD/BRAIN WO CON, 07/15/2020, 15:41. FINDINGS: Image quality: Excellent. CSF spaces: Basal cisterns are patent. No extra-axial fluid collections. The ventricles are symmetric in size and shape. Brain: No intracranial bleeds. There is developing hypodensity within the left posterior parietal occipital lobe. Along the anterior margin there is a punctate area of hyperdensity which was present on exam of 03/04/2023 but not on exam of 07/15/2020. It is noted that multiple smaller foci of acute/subacute ischemia are identified predominantly within the left cerebral hemisphere on MRI brain 03/05/2023. The smaller foci are not well visualized on current exam. There is cerebral volume loss for age, with resultant ventricular and sulcal prominence. There are periventricular and deep white matter chronic small vessel ischemic changes. There is intracranial internal carotid artery atherosclerosis. Skull and face: Calvarium and visualized facial bones appear intact, without suspicious lesions. Sinuses: Visualized sinuses demonstrate scattered mild mucosal thickening noting near complete opacification of the sphenoid sinuses. IMPRESSION: Evolving area of subacute ischemia in the left parietal occipital lobe as identified on prior MRI brain. Smaller foci of subacute ischemia are not as well characterized on current CT. Punctate area of hyperdensity is present along the anterior margin of the above described focus of ischemia. This is suspected to represent dystrophic calcification given stability. However, it is new since 2019 and attention is region on follow-up exams is recommended to exclude small potential of punctate hemorrhage. Dictated by: Bridget Bettencourt M.D. on 03/06/2023 at 11:04 Approved by: Bridget Bettencourt M.D. on 03/06/2023 at 11:08
[2023-03-06] MEDS: ENOXAPARIN 40 MG/0.4 ML SYRINGE SUBCUT (10:53)
[2023-03-06] MEDS: METOPROLOL ER 25 MG TABLET PO ×2 (10:54→21:06)
[2023-03-06] MEDS: GABAPENTIN 100 MG CAPSULE 200 MG PO ×2 (10:54→21:07)
[2023-03-06] MEDS: ASPIRIN EC 81 MG TABLET PO (10:54)
[2023-03-06] MEDS: CITALOPRAM 10 MG TABLET PO (10:56)
[2023-03-06] MEDS: CHLORTHALIDONE 25 MG TABLET PO (14:17)
[2023-03-06] MEDS: LOSARTAN 50 MG TABLET 100 MG PO (14:17)
[2023-03-06] MEDS: AMLODIPINE 5 MG TABLET 2.5 MG PO ×2 (14:17→21:06)
--- NOTE | 2023-03-06 16:55 | ST.IPIE ---
Visit Care Team Role Provider Type Estuardo Willams DO Primary Care Provider Physician Specialty: Family Practice Address: [address] [place] [address], [id number] Email: [email or web address] Other Providers Physician Specialty: Behavioral Health Psychiatry Address: [address] [place] [address], [place], [address] Email: [email or web address] (T/A) Felipe Mccormack DO Emergency Provider Physician Referring Provider Specialty: Emergency Medicine Address: [address] [place] [address], [id number] Email: [email or web address] (T/A) Tobi Escamilla MD Admit Provider Physician Attending Provider Specialty: Internal Medicine Address: [address] [place] [address], [facility] Fax: Email: Current Diagnoses Cerebral infarction, unspecified (03/04/23) Past Medical History (Last Reviewed 02/27/23 @ 10:50 by Estuardo Willams DO) Anxiety (Medical) Arthritis (Medical) 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) Chronic sinusitis (Medical) Chronic UTI (Medical) Compression fracture of L1 lumbar vertebra (Medical) Compression fracture of T7 vertebra (Medical) Compression fracture of T8 vertebra (Medical) Depression (Medical) Edema (Medical) Gilbert syndrome (Medical) Gout (Medical 07/19/11) Head contusion (Medical) Head injury, acute, without loss of consciousness (Medical) Hordeolum externum of right lower eyelid (Medical) Hyperlipidemia (Medical) Hypertension (Medical) Idiopathic peripheral neuropathy (Medical 02/12/15) Idiopathic peripheral neuropathy (Medical) Impaired hearing (Medical) Insomnia (Medical) Left wrist sprain (Medical) Multiple lipomas (Medical) Osteoarthritis (Medical) Osteopenia (Medical) Osteoporosis (Medical) Peripheral edema (Medical 03/21/16) Postmenopausal atrophic vaginitis (Medical) Recurrent UTI (urinary tract infection) (Medical) Thrush (Medical) TIA (transient ischemic attack) (Medical) mild per pt Tinea (Medical) Toe deformity (Medical) Traumatic ecchymosis of face (Medical) Vaginal pessary present (Medical) Well adult exam (Medical) ST IP Initial Evaluation Report TECHNICAL SOLUTIONS CONSULTANT Adult Cognitive Linguistic Eval Start: 03/06/23 16:06 Freq: Status: Active Protocol: Document 03/06/23 16:06 CG (Rec: 03/06/23 16:55 CG [id number]) Adult Cognitive Linguistic Evaluation Session Time Visit Start Time 11:41 Visit Stop Time 12:06 Total Visit Minutes 25 Visit Information Visit Number 1 Referral Referring Provider Karis Reason for Referral Aphasia Setting Assessment Location Acute Care Visit Type Note Type Initial evaluation Next Note Type Next Note Type Treatment Note Patient Information Identification Type Name Patient History Pt is a 82 year old female who presented to the ED on with stroke symptoms including confusion, difficulty speaking, and difficulty with vision. MRI report from 03/05/23 indicated: Infarct within left posterior parietal and occipital lobe with associated edema. There are multiple additional small foci restricted diffusion throughout the left cerebral hemisphere. Findings are most concerning for embolic phenomenon. No hemorrhagic conversion. Since admission, OT has noticed that pt's word-finding difficulties have increased and that her difficulties with her right visual field have progressed to full right-sided visual neglect. OT states that the pt says I want to . She is apparently increasingly frustrated from yesterday and having more difficulties with problem solving. Dr. Dyson ordered stat CT to rule out hemorrhagic conversion. Hearing Hearing Level Normal Vision Vision Status Impaired Comments R sided visual neglect Previous Therapy Previous Speech-Language Therapy No: Unknown Subjective Patient Report Pt was laying on her side in bed upon ST entry to room, asleep. She was woken by TECHNICAL SOLUTIONS CONSULTANT entering room and agreeable to answer some TECHNICAL SOLUTIONS CONSULTANT questions. However, she appeared frustrated throughout assessment and stated I want to to TECHNICAL SOLUTIONS CONSULTANT. She stated she wanted to be left alone but was agreeable to partial aphasia assessment given encouragement from TECHNICAL SOLUTIONS CONSULTANT. Mental Status Lethargic,Uncooperative Assessment Oral Motor Examination Completed No Informal Assessment Receptive Language Normal No Receptive Language Impairment(s) Comprehension of simple yes/no questions,Comprehension of complex yes/no questions, Picture/Object identification, Comprehension of conversation Expressive Language Normal No Expressive Language Impairment(s) Sentence closure/completion, Confrontation naming, Expression of basic wants/ needs,Expression of complex thoughts/ideas Speech Normal No Speech Impairment(s) Slow speech rate Cognition Normal No: Unable to fully assess due to expressive language impairment Cognitive Impairment(s) Orientation Formal Assessment Standardized Test/Screener Type Quick Aphasia Battery (QAB) Administration Initiated,Discontinued Results Portions of the Quick Aphasia Battery were completed as tolerated by the patient. Assessment was discontinued early due to pt frustration. Pt performance was as follows: 1. Level of consciousness - : - Pt is able to answer yes/no orientation questions to orient to palce, but unable to answer independently. She was unable to orient to month. 2. Connected speech: Unable to complete. Fewer than 10 words per minute, mainly yes or no and a few single words or attempts. Max utterance length approximately 4-5 words. 3. Word comprehension: -Pt was unable to point to pictures named (including guitar, tiger, saxophone, zebra). Discontinued section early due to pt frustration. Results likely impacted by visual field deficits. 4. Sentence comprehension: The remaining subsections of the QAB, including picture naming, repetition, reading aloud, and motor speech evaluation, were not completed as the assessment was discontinued due to pt frustration. Findings/Results Language Function Severely impaired Cognitive Function Moderately impaired Findings Pt presents with severe expressive aphasia in addition to moderate impairments in receptive language. Without full assessment of pt's ability to repeat modeled phrases, the specific subtype of aphasia is unable to be determined at this time. 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 Pt's impairments in expressive language include anomia (word -finding deficits) at the single word level. Pt primarily communicates with yes or no at this time, though she occasionally is able to produce short phrases. Unclear if automatic speech is intact due to discontinuing assessment early based on pt frustration. Pt's impairments in receptive language include difficulty comprehending complex yes/no questions (such as questions using passive voice or multiple dependent clauses) as well as difficulty identifying pictures based on spoken word. Pt's cognitive function is unable to be fully assessed due to concomitant visual field deficits and expressive language impairment. However, pt does present with moderately impaired orientation abilities at this time. Pt expressed to TECHNICAL SOLUTIONS CONSULTANT that I want to . Reported this to Dr. Dyson who is pursuing psych consult. Given psychiatric/behavioral health intervention, pt would likely be an excellent candidate for intensive inpatient rehabilitation with PT/OT/ST. Cognitive Communication Deficits Self-awareness of Cognitive- Situational awareness ( Communication Deficits recognition of problem in context;in real time) Concomitant Factors Concomitant Factors Visual field neglect,Other ( comment) Comment Suicidal ideation Impact on Functioning Activity Limits/Particip.Rest. Sev: General Tasks and Demands Interpersonal Interactions Community Safety Risks Sev: Being Left Alone at Home Reacting to Emergency Managing Medication Traveling Alone in Community Prognosis Prognosis Guarded Based on Other (comment) Comment Pt is severely depressed, impacting participation Plan of Care Speech-Language Treatment Yes Frequency Daily while inpatient Patient/Caregiver Education Patient requires further education/training Short Term Goals Pt will answer yes/no questions with 80% accuracy independently in order to increase receptive communication skills and facilitate accurate communication with hospital staff. Pt will complete automatic speech tasks with 50% accuracy in order to rehabilitate expressive language skills. Pt will benefit from education regarding communication strategies for aphasia, including melodic intonation-based strategies and low-tech AAC. Discharge Recommendations Inpatient rehab facility
[2023-03-06] MEDS: ONDANSETRON 4 MG/2 ML INJ IV (19:20)
[2023-03-06] MEDS: ATORVASTATIN 20 MG TABLET 80 MG PO (21:07)
--- NOTE | 2023-03-06 23:52 | PC.NURSE ---
manifest clerk RN attempted to do NIH, Pt refused, Pt limited with speech, RN asked simple yes/no questions. Pt requested to sleep, and hold off NIH until the morning. Pt denies any Pain, N/V. Call light within reach.
[2023-03-07] VITALS (9 sets, daily range): BP systolic 99–148; BP diastolic 50–72; PULSE 67–75; RESP 12–19; TEMP 35.7–36.8; O2SAT 94–97
--- NOTE | 2023-03-07 06:00 | DI.CT.S_ITS ---
PROCEDURE: CT HEAD/BRAIN WO CON INDICATIONS: evaluate any change to punctate hyperdensity TECHNIQUE: Noncontrast 4.5 mm thick angled axial sections acquired from the foramen magnum to the vertex, with coronal and sagittal reformats. For radiation dose reduction, the following was used: automated exposure control, adjustment of mA and/or kV according to patient size. COMPARISON: [facility], CT, CT ANGIO HEAD AND NECK, 03/04/2023, 19:38. [facility], CT, CT STROKE, 03/04/2023, 19:38. [facility], MR, MR HEAD/BRAIN WO CON, 03/05/2023, 10:11. [facility], CT, CT HEAD/BRAIN WO CON, 03/06/2023, 10:37. FINDINGS: Image quality: Excellent. CSF spaces: Basal cisterns are patent. No extra-axial fluid collections. The ventricles are symmetric in size and shape. Brain: No intracranial bleeds or masses. There is now clear evidence of a small to moderate-sized cortical infarct involving the left posterior parietal region. The punctate focus of increased density along the anterior margin of the infarcted region is stable, likely representing chronic dystrophic calcification. No new or enlarging infarcts identified. There is cerebral volume loss for age, with resultant ventricular and sulcal prominence. There are periventricular and deep white matter chronic small vessel ischemic changes. There is intracranial internal carotid artery atherosclerosis. Skull and face: Calvarium and visualized facial bones appear intact, without suspicious lesions. Sinuses: Visualized sinuses and mastoids are clear. IMPRESSION: 1. Subacute left posterior parietal infarct. 2. Suspect the small punctate focus of increased density at the anterior margin is a chronic incidental calcification. 3. No interval development of additional infarcts. No evidence of hemorrhagic transformation. Dictated by: Rob Cornell M.D. on 03/07/2023 at 8:13 Approved by: Rob Cornell M.D. on 03/07/2023 at 8:20
[2023-03-07] MEDS: ENOXAPARIN 40 MG/0.4 ML SYRINGE SUBCUT (10:58)
[2023-03-07] MEDS: AMLODIPINE 5 MG TABLET 2.5 MG PO ×2 (10:59→21:03)
[2023-03-07] MEDS: ASPIRIN EC 81 MG TABLET PO (10:59)
[2023-03-07] MEDS: GABAPENTIN 100 MG CAPSULE 200 MG PO ×2 (10:59→21:04)
[2023-03-07] MEDS: CHLORTHALIDONE 25 MG TABLET PO (10:59)
[2023-03-07] MEDS: LOSARTAN 50 MG TABLET 100 MG PO (10:59)
[2023-03-07] MEDS: CITALOPRAM 10 MG TABLET PO (10:59)
[2023-03-07] MEDS: METOPROLOL ER 25 MG TABLET PO ×2 (11:00→21:04)
--- NOTE | 2023-03-07 11:01 | CM.SWNOTE ---
LAINA Brief Suicide Assessment: Per provider in rounds, patient has expressed SI after recent stroke. Patient reported to have stated 'I wish I would have ' to staff over the past few days. Per OT in rounds, patient was friendly and communicative a few days ago. Per nursing staff, she has repeated the SI multiple times. Per nursing staff, she struggles to articulate with her words due to recent stroke. PRICING MANAGER reviewed EMR. PRICING MANAGER entered room and introduced self and role. Patient was laying in bed. Patient's speech was delayed/slower than normal limits throughout interaction. Patient would get frustrated with herself. Patient appeared to know she was struggling cognitively to articulate her thoughts as evidenced by agitated hand gestures when attempting to speak. Patient reported she had moved to [place] 6 years ago but could not remember where she lived before this or why she moved her. Patient reported remembering her friend Laverne but did not remember if friend was staying with her or for how long. Patient reported no history of suicidal ideation prior to this event or suicide attempts. Patient reported no history of self harm. Patient reported no history of suicide in family, attempts or completion. Patient reported no history of mood disorders/trauma disorders/personality disorders at this time. When asked how patient would end her life if she were to do it, patient threw her hands up in the air and said oh I don't know. Patient reported no means to end her life at home at this time. Patient reported no access to firearms. Patient reports no thoughts of harming others. Patient reported feeling frustrated and hopeless. Patient would often repeat I just don't see how... and trail off throughout interaction. PLASTER WHITTLER entered room to deliver something to patient. Patient appeared to be frustrated by this and then asked PRICING MANAGER to leave. Patient reported she would be interested in talking to her again but when this PRICING MANAGER asked what time would be good to come back, patient reported with never. This entire interaction lasted 15 minutes. PRICING MANAGER updated provider on interaction and findings. Summary: It appears that patient has passive suicidal ideation due to recent stroke. Patient reports feeling frustrated with current abilities and hopeless that she will not get better. Per current brief assessment, patient reports no active plan for ending her life. LAINA Stallings
--- NOTE | 2023-03-07 11:17 | OT.IPNOTE ---
Attempted to see pt for OT services. Pt declined activities at this time. Pt indicates that she is tired and requests that this lyric writer turn off her phone. Phone was turned off. Will continue to follow.
--- NOTE | 2023-03-07 12:56 | CM.DPC ---
DCP Cont: Checked in with Meena at Inpatient Acute Rehab, [facility]. Indicated that she has not yet received auth from [facility]. She will call back with updates, and stated that she would not be able to take patient today, if auth received, due to the admissions, but hopes she will have auth for tomorrow. Elsa, SENIOR DESIGN ENGINEER, was to do a mental health assessment on patient, for she has mentioned wanting to . Patient has been independent at her baseline, before the CVA. A referral was placed for psychiatry, but he has not been over here to assess. P: KEATON will continue to work on getting patient to acute inpatient rehab, Meena at [facility] will update care management. Will need to be cleared, to ensure that patient is not suicidal, before she can be placed, regardless. Mary Styles RN/Community Worker
[2023-03-07] MEDS: ONDANSETRON 4 MG/2 ML INJ IV (13:37)
--- NOTE | 2023-03-07 14:10 | PT.IPTN ---
Current Diagnoses Cerebral infarction, unspecified (03/04/23) Physical Therapy Treatment Note M2 PT-IP Current Condition Start: 03/05/23 08:30 Freq: NEEDED Status: Active Protocol: Document 03/05/23 11:23 (Rec: 03/05/23 11:54 [id number]) Physical Therapy Current Condition Current Condition Evaluation Date 03/05/23 Treatment Diagnosis Acute CVA, Right visual field loss M3 PT-IP Subjective Start: 03/05/23 08:30 Freq: NEEDED Status: Active Protocol: Document 03/07/23 14:25 TS (Rec: 03/07/23 14:43 TS [id number]) Subjective Physical Therapy Visit Type Type Treatment Note Visit Start Time 14:10 Visit Stop Time 14:25 Total Visit Minutes 15 Number of PATIENT CARE PROVIDER Visits 2 Physical Therapy Visit Comments Patient Comments Pt continues to have word finding difficulty and confusion when asked questions from therapist. She appears to be in a better mood today and agreeable to PT. M4 PT-IP Mobility and Gait Start: 03/05/23 08:30 Freq: NEEDED Status: Active Protocol: Document 03/07/23 14:25 TS (Rec: 03/07/23 14:43 TS [id number]) PT-Bed Mobility Assessment Supine to Sit Supine to Sit Contact Guard Assistance, Minimal Assistance,1 Person Assistance,Bedrails Sit to Supine Sit to Supine Contact Guard Assistance, Minimal Assistance,1 Person Assistance,Head of Bed Elevated Scooting Scooting to Edge of Bed Contact Guard Assistance, Minimal Assistance PT-Transfer Assessment Sit to and From Stand Sit to and from Stand Contact Guard Assistance, Minimal Assistance Equipment Transfer Assistive Device Gait Belt,Front Wheeled Walker Comments Mobility Comments Supine to sit Rosenda for uprighting trunk, pt required cues for handrail assist. Sit to stand Rosenda for handover hand assistance of R hand to FWW, continues to demonstrate some R sided neglect and visual cut. She ambulated ~150 ' CGA/Rosenda for FWW management, pt x1 bumped into wall on R side. Pt makes wide turns when cued for turning right and does not know to turn to R unless she is cued. She performed stairs x9 CGA with bilateral handrail assist, demonstrated better grasping of R rail with R hand. Pt ambulated back to room, sit to supine CGA/Rosenda for LEs into bed. Pt was left in bed with call light nearby, bed alarm on, RN notified. Gait Assessment Gait Gait Assistance Required: Contact Guard Assist,Minimum Assistance Distance (Feet) 150 Assistive Devices Assistive Device Gait Belt,Front Wheeled Walker Gait Deviations General Gait Pattern Decreased Stride Length, Decreased Feet Clearance, Flexed Trunk,Narrow Based Gait Factors Limiting Gait Function Factors Limiting Gait Function Decreased Activity Tolerance, Decreased Strength,Difficulty Following Directions, Incoordination,Poor Balance, Poor Safety Awareness Comments Gait Comments See mobility comments. Stair Climbing Assessment Evaluation Level of Assist On Stairs Contact Guard Assistance Devices Stair Climbing Assistive Devices Left Railing,Right Railing Technique/Endurance Stair Climbing Direction Ascend and Descend Stair Climbing Technique Step to Step Number of Steps Climbed 9 Comments Stair Climbing Comments See mobility comments. PT-Balance Assessment Sitting Balance and Reactions Static Sitting Balance Ability Good Dynamic Sitting Balance Ability Fair Standing Balance and Reactions Static Standing Balance Ability Good Dynamic Standing Balance Ability Fair M5 PT-IP Objective Assessments Start: 03/05/23 08:30 Freq: NEEDED Status: Active Protocol: Document 03/05/23 11:23 (Rec: 03/05/23 11:54 [id number]) Orientation Orientation/Cognition Level of Alertness Alert Orientation Name,Birthday Language Function Ability Word Finding Difficulties Comments pt states that she is confused . Appears to be more affected by word finidng difficulty. Gross Range of Motion Upper Extremity ROM Assessment Right Impaired Impairments She does not lift her R as high as she lifts her L Strength Upper Extremity Strength Assessment Right Impaired Lower Extremity Strength Assessment Bilaterally Impaired Ankle 5/5 B Comments Strength Comments BLE are weak. RLE is weaker than LLE. RUE is weaker than LUE. R hip flexion 2-/5. unable to get to test postion. Coordination Assessment Gross Coordination Gross Coordination Impaired Assessment Foot Tapping Test Normal Performance Coordination Comments Pt wasnt able to find top of thighs with hands for pronation/supination, movement was coordinated. R was slower than L. Sensation Assessment Sensation Gross Sensation WNL Other Assessments Other Other Assessments Smooth pursuit: unable to track R sided. convergence: unable to follow directions for convergence. [ End ] M6 PT-IP Treatment Start: 03/05/23 08:30 Freq: NEEDED Status: Active Protocol: Document 03/05/23 11:23 (Rec: 03/05/23 11:54 [id number]) Physical Therapy Treatment Other Treatments Other Treatment Performed Smooth pursuit: unable to track R sided. convergence: unable to follow directions for convergence. M7 PT-IP Assessment and Plan Start: 03/05/23 08:30 Freq: NEEDED Status: Active Protocol: Document 03/07/23 14:25 TS (Rec: 03/07/23 14:43 TS [id number]) PT Summary Assessment and Plan Potential Rehabilitation Potential Good Summary Impairments Strength,Balance,Coordination, Cognition,Gait,Activity Tolerance Progress Towards Goals Progressing Toward Goals Assessment Summary Pt continues to have confusion , word finding difficulties and increased frustration when asked questions from therapist. She is in a more pleasant mood this afternoon and much more agreeable to PT. She continues to be CGA/Rosenda for bed mobility, she demonstrated increased use of R side from previous session for uprighting her trunk. She performed sit to stand Rosenda with hand over hand assistance of R hand for placement on FWW. She ambulated ~150' CGA/ Rosenda, pt bumped into wall x1 on R side, requires cueing for when she needs to turn R. She continues to be CGA with stairs x9, demonstrated stronger ability to grasp R rail. Pt continues to have R sided neglect and R visual cut . PT continues to recommend acute rehab at this time to maximize funcitonal recovery. Goals Bed Mobility Goal Independent Transfer Goal Independent Gait Goal Independent Gait Distance 200ft Other Goals pt will be able to walk independently w/ or w/out AD for 200ft or more. pt will be able to go up and down 10 steps w/ or w/out AD. Frequency of Treatment Frequency Of Treatment Once a Day Treatment Plan Physical Therapy Treatment Plan Bed Mobility Training,Transfer Training,Gait Training, Therapeutic Exercise,Balance Retraining,Discharge Planning, Neuromuscular Re-ed, Coordination Retraining Other Recommendations and Next Treatment ambulation Focus Precautions Other Precautions right visual field cuts Recommendations To Nursing Amount of Assist Needed 1 Person Assist Discharge Recommendations PT Discharge Recommendations Acute Rehab Equipment Needed for Home Before FWW Discharge Transportation Needs at Discharge Private Vehicle
--- NOTE | 2023-03-07 14:39 | ST.IPTN ---
Visit Care Team Role Provider Type Estuardo Willams DO Primary Care Provider Physician Address: [address] [place] [address], [id number] Bharathi Leon MD Other Providers Physician Address: [address] [place] [address], [place], [address] Felipe Mccormack DO Emergency Provider Physician Referring Provider Address: [address] [place] [address], [id number] Tobi Escamilla MD Admit Provider Physician Attending Provider Address: [address] [place] [address], [facility] Fax: DISEASE AND INSECT CONTROL BOSS Treatment Note DISEASE AND INSECT CONTROL BOSS Treatment Note Start: 03/07/23 14:26 Freq: Status: Active Protocol: Document 03/07/23 14:27 CG (Rec: 03/07/23 14:39 CG [id number]) Speech Pathology Treatment Note Session Time Visit Start Time 10:11 Visit Stop Time 10:40 Total Visit Minutes 29 Visit Information Visit Number 2 Setting Treatment Setting Acute Care Visit Type Note Type Treatment Note Next Note Type Next Note Type Treatment Note General Information Patient History Pt is a 82 year old female who presented to the ED on with stroke symptoms including confusion, difficulty speaking, and difficulty with vision. MRI report from 03/05/23 indicated: Infarct within left posterior parietal and occipital lobe with associated edema. There are multiple additional small foci restricted diffusion throughout the left cerebral hemisphere. Findings are most concerning for embolic phenomenon. No hemorrhagic conversion. Since admission, OT has noticed that pt's word-finding difficulties have increased and that her difficulties with her right visual field have progressed to full right-sided visual neglect. OT states that the pt says I want to . She is apparently increasingly frustrated from yesterday and having more difficulties with problem solving. Dr. Dyson ordered stat CT to rule out hemhorragic conversion. Subjective Observations/Patient Presentation Pt was seated upright in bedside chair upon ST entry to the room. She was more alert compared to last session, and more engaged in conversation. Pt was oriented to place given yes/no questions. Chief Complaint(s) Language Objective Short Term Goals Pt will answer yes/no questions with 80% accuracy independently in order to increase receptive communication skills and facilitate accurate communication with hospital staff. Pt will complete automatic speech tasks with 50% accuracy in order to rehabilitate expressive language skills. Pt will benefit from education regarding communicationstrategies for aphasia, including melodic intonation-based strategies and low-tech AAC. Treatment Activities Completed automatic speech/ closed sentence activities to increase verbal expression. Provided pt education regarding sequalae of CVA and typical healing process. Provided further education regarding R visual field neglect. Provided training the the use of melodic intonation for increased expression to facilitate communication of wants/needs. Discussed discharge plan, encouraging pt to consider inpatient rehabilitation. Assessment Patient Response to Treatment Fair Rehab Potential Good Impairments Identified Expressive language,Receptive language,Speech Progress Towards Goals Good Progress Assessment of Overall Progress Improving Assessment of Improvement Pt's verbal expression was much improved since yesterday' s visit. She was able to produce basic various 5-7 word utterances including I wanna get up a little more and Oh I don't think so. During automatic/closed sentence tasks, she was able to correctly produce a target word with 40% accuracy. She presents with frequent phonemic paraphasias during attempts at connected speech, and speech remains halted. Pt is aware of deficits and is frustrated by inability to express herself verbally. She was receptive to instruction in melodic intonation strategy , and was successful in about 50% of trials to produce connected speech given max cues and simultaneous production from DISEASE AND INSECT CONTROL BOSS. She did demonstrate some perseveration from one target phrase to another. For example, after practicing I'm in [place] and moving on to practice I want a drink of water, she produced I want a [place]. She benefitted from visual input of looking at DISEASE AND INSECT CONTROL BOSS's mouth during simultaneous production. Pt appeared to understand DISEASE AND INSECT CONTROL BOSS explanation of recommendation for inpatient rehabilitation after discharge. Pt expressed that she still feels as though there's no point in trying to participate in rehabilitation. When DISEASE AND INSECT CONTROL BOSS brought up that her friends and family would like to be able to communicate with her again, including her friend who was at her bedside yesterday, patient became teary eyed. She is still hesistant to the idea of intensive rehabilitation, but appeared to agree that she would like to be able to communicate with friends again . Will continue to work towards therapeutic buy-in. Overall, pt's trajectory is positive from yesterday and verbal expression is continuing to improve. Reviewed with Patient Goals,Progress Being Made Patient/Caregiver Understanding Good Plan Comment daily while inpatient, then IPR Treatment Emphasis Next Session Continue melodic intonation; begin confrontation naming Therapeutic Contents Client Education,Expressive Language Training Provided Patient/Caregiver Instruction Plan of Care Therapy Recommendations Continue with Current Program
--- NOTE | 2023-03-07 16:38 | P.PN_ITS ---
Subjective Subjective Interval history: Patient expressed suicidal ideation overnight saying I just want to . Seen by INSIDE SALES ACCOUNT REPRESENTATIVE and she has no plan and deemed not actively suicidal. Spoke with psych who agreed with INSIDE SALES ACCOUNT REPRESENTATIVE. Patient seems more motivated today to do acute rehab. Exam Vital Signs (past 8 hours): - 03/07/23 09:00 03/07/23 12:22 Temperature 96.7 F L 96.2 F L Pulse Rate 69 67 Respiratory Rate 16 19 Blood Pressure 132/61 132/61 Pulse Oximetry 95 97 Oxygen Delivery Method Room Air Oxygen Flow Rate 0 Narrative Exam Narrative: Gen: no acute distress, has obvious expressive aphasia CV: RRR no m/r/g Pulm: CTA b/l no wheezing rhonchi or rales Ext: No edema or joint effusions Neuro: expressive aphasia with word salad, no deficits in sensation to light touch, bilateral full R visual field deficits Objective Labs 03/05/23 06:13 03/05/23 06:13 [facility] Medical History Anxiety Arthritis [place]-Walker grade 3 cystocele (03/21/16) Chronic sinusitis Chronic UTI Compression fracture of L1 lumbar vertebra Compression fracture of T7 vertebra Compression fracture of T8 vertebra Depression Edema Gilbert syndrome Gout (07/19/11) Head contusion Head injury, acute, without loss of consciousness Hordeolum externum of right lower eyelid Hyperlipidemia Hypertension Idiopathic peripheral neuropathy (02/12/15) Idiopathic peripheral neuropathy Impaired hearing Insomnia Left wrist sprain Multiple lipomas Osteoarthritis Osteopenia Osteoporosis Peripheral edema (03/21/16) Postmenopausal atrophic vaginitis Recurrent UTI (urinary tract infection) Thrush TIA (transient ischemic attack) Tinea Toe deformity Traumatic ecchymosis of face Vaginal pessary present Well adult exam Surgical History Hx of appendectomy S/P bilateral breast reduction S/P total abdominal hysterectomy and bilateral salpingo-oophorectomy Status post total hip replacement, 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 Initial NIH was 6. - likely embolic in nature with multiple small infarcts and a couple larger ones on MRI with associated brain edema, recommend no anticoagulation for presumed atrial fibrillation for two weeks. - echo with no PFO, EF 65-70% and mild-mod LVH, mild MS, mod left-sided pleural effusion and RVSP 51 - start asa 81mg daily, okay for DVT ppx - continue tele, EKG stat if afib is noticed. - developed worsening speech and visual deficits on 03/06, stat repeat head CT with evolving stroke, punctate hyperdensity which may be hemorrhagic vs calcification - repeat stat head CT on 03/07 without expanding hemorrhage, punctate hyperdensity likely calcification - started celexa 10mg daily for depression prevention, patient seemed quite sad and depressed on 03/06 # suicidal ideation -expressed I just want to to multiple care team members -patient deemd not actively suicidal by INSIDE SALES ACCOUNT REPRESENTATIVE -spoke with psych who agreed can continue SSRI #HTN - allowed for permissive HTN, but BP currently normotensive without medication thus far - restarted home metoprolol at 25 mg BID (home dosing 100 BID). Held olmesartan, chlorthalidone, and amlodipine x48 hrs then resumed. #HLD - continue statin therapy but increase to 80mg nightly from 40 #chronic peripheral neuropathy - continue home gabapentin Code: full, surrogate she states is her friend DVT: Lovenox daily Dispo: Pending acute rehab arrangement through INSIDE SALES ACCOUNT REPRESENTATIVE.
[2023-03-07] MEDS: ACETAMINOPHEN 325 MG TABLET 650 MG PO (21:03)
[2023-03-07] MEDS: ATORVASTATIN 20 MG TABLET 80 MG PO (21:05)
[2023-03-08] VITALS (9 sets, daily range): BP systolic 114–136; BP diastolic 51–85; PULSE 62–77; RESP 16–18; TEMP 35.3–36.8; O2SAT 94–96
[2023-03-08] MEDS: GABAPENTIN 100 MG CAPSULE 200 MG PO ×2 (08:11→20:49)
[2023-03-08] MEDS: ENOXAPARIN 40 MG/0.4 ML SYRINGE SUBCUT (08:11)
[2023-03-08] MEDS: LOSARTAN 50 MG TABLET 100 MG PO (08:12)
[2023-03-08] MEDS: CHLORTHALIDONE 25 MG TABLET PO (08:12)
[2023-03-08] MEDS: ASPIRIN EC 81 MG TABLET PO (08:12)
[2023-03-08] MEDS: METOPROLOL ER 25 MG TABLET PO ×2 (08:12→20:51)
[2023-03-08] MEDS: AMLODIPINE 5 MG TABLET 2.5 MG PO ×2 (08:13→20:49)
[2023-03-08] MEDS: CITALOPRAM 10 MG TABLET PO (08:13)
--- NOTE | 2023-03-08 11:29 | ST.IPTN ---
Visit Care Team Role Provider Type Estuardo Willams DO Primary Care Provider Physician Address: [address] [place] [address], [address] Bharathi Leon MD Other Providers Physician Address: [address] [place] [address], [place], [address] Felipe Mccormack DO Emergency Provider Physician Referring Provider Address: [address] [place] [address], [address] Tobi Escamilla MD Admit Provider Physician Attending Provider Address: [address] [place] [address], [facility] Fax: PACKAGE WRAPPER Treatment Note PACKAGE WRAPPER Treatment Note Start: 03/07/23 14:26 Freq: Status: Active Protocol: Document 03/08/23 11:12 NUVIA (Rec: 03/08/23 11:28 LNK [id number]) Speech Pathology Treatment Note Session Time Visit Start Time 10:30 Visit Stop Time 10:45 Total Visit Minutes 15 Visit Information Visit Number 3 Setting Treatment Setting Acute Care Visit Type Note Type Treatment Note Next Note Type Next Note Type Treatment Note General Information Patient History Pt is a 82 year old female who presented to the ED on with stroke symptoms including confusion, difficulty speaking, and difficulty with vision. MRI report from 03/05/23 indicated: Infarct within left posterior parietal and occipital lobe with associated edema. There are multiple additional small foci restricted diffusion throughout the left cerebral hemisphere. Findings are most concerning for embolic phenomenon. No hemorrhagic conversion. Since admission, OT has noticed that pt's word-finding difficulties have increased and that her difficulties with her right visual field have progressed to full right-sided visual neglect. OT states that the pt says I want to . She is apparently increasingly frustrated from yesterday and having more difficulties with problem solving. Dr. Dyson ordered stat CT to rule out hemorrhagic conversion. Subjective Observations/Patient Presentation Pt was seated upright in bed chair upon ST entry to the room. Two family/friends were in the room with her. After a few minutes, a third friend came into the room. She more alert compared and willing to try some language exercises. She perked up when the third friend entered the room. Chief Complaint(s) Language Objective Short Term Goals Pt will answer yes/no questions with 80% accuracy independently in order to increase receptive communication skills and facilitate accurate communication with hospital staff. Pt will complete automatic speech tasks with 50% accuracy in order to rehabilitate expressive language skills. Pt will benefit from education regarding communication strategies for aphasia, including melodic intonation-based strategies and low-tech AAC. Treatment Activities Pt was able to answer yes/no questions a@ 5/5 accurately re : orientation. Closure/ completion of common phrases attempted. Automatic speech/ closed sentence activities to increase verbal expression. Pt 's spontaneous responses/ comments were appropriate without obvious WFD. At the end of the session, the pt was asked if her friends should leave the room (their suggestion), or if this PACKAGE WRAPPER should leave, the pt clearly stated I want you to go. Pt was able to track this PACKAGE WRAPPER from left to right. When seated on her right, the pt did turn her head to look at me. to f Continued discussion re: discharge plan, encouraging pt to consider inpatient rehabilitation. Inpatient/Acute rehabilitation is recommended as pt is an excellent candidate. Assessment Patient Response to Treatment Fair Rehab Potential Good Impairments Identified Expressive language,Receptive language,Speech Progress Towards Goals Good Progress Assessment of Overall Progress Improving Assessment of Improvement Pt's verbal expression continues to improve given reports over the past 2 days. She was able to produce 5-7 word utterances including I know its important. During automatic/closed sentence tasks, she was unable to correctly produce a target word without assistance ot category strategy. She did not present with phonemic paraphasias during attempts at connected speech, however the session was relatively short. Pt is aware of deficits and is frustrated by inability to express herself verbally. Overall, pt's trajectory remains positive from yesterday and verbal expression is continuing to improve. Reviewed with Patient Goals,Progress Being Made Patient/Caregiver Understanding Good Plan Comment daily while inpatient, then IPR Treatment Emphasis Next Session Continue melodic intonation; begin confrontation naming Therapeutic Contents Client Education,Expressive Language Training Provided Patient/Caregiver Instruction Plan of Care Therapy Recommendations Continue with Current Program Comment Recommend inpatient rehab as pt is an excellent candidate
--- NOTE | 2023-03-08 11:36 | PT.IPTN ---
Current Diagnoses Cerebral infarction, unspecified (03/04/23) Physical Therapy Treatment Note M2 PT-IP Current Condition Start: 03/05/23 08:30 Freq: NEEDED Status: Active Protocol: Document 03/05/23 11:23 (Rec: 03/05/23 11:54 [id number]) Physical Therapy Current Condition Current Condition Evaluation Date 03/05/23 Treatment Diagnosis Acute CVA, Right visual field loss M3 PT-IP Subjective Start: 03/05/23 08:30 Freq: NEEDED Status: Active Protocol: Document 03/08/23 11:25 KS (Rec: 03/08/23 13:05 KS [id number]) Subjective Physical Therapy Visit Type Type Treatment Note Visit Start Time 11:25 Visit Stop Time 11:36 Total Visit Minutes 11 Number of TRANSPORTATION DIRECTOR Visits 3 Physical Therapy Visit Comments Patient Comments Pt agreeable to work w/ PT. M4 PT-IP Mobility and Gait Start: 03/05/23 08:30 Freq: NEEDED Status: Active Protocol: Document 03/08/23 11:25 KS (Rec: 03/08/23 13:05 TN [id number]) PT-Bed Mobility Assessment Supine to Sit Supine to Sit Contact Guard Assistance,1 Person Assistance,Head of Bed Elevated Scooting Scooting to Edge of Bed Contact Guard Assistance PT-Transfer Assessment Sit to and From Stand Sit to and from Stand Contact Guard Assistance,1 Person Assistance,Use of Upper Extremities Equipment Transfer Assistive Device Gait Belt,Front Wheeled Walker Transfers Transfer Destination Chair Transfer Technique Ambulated Transfer Ability Level of Assist Contact Guard Assistance, Minimal Assistance,1 Person Assistance,Use of Upper Extremities Comments Mobility Comments Pt in bed upon arrival, agreeable to ambulate. CGA for sup<>sit w/ HOB elevated and sit<>stand w/ FWW. Pt ambulated 40 ft w/ FWW Min A d /t r side neglect. Still having balance deficits. Pt transferred to chair and left w/ all needs in reach. Gait Assessment Gait Gait Assistance Required: Contact Guard Assist,Minimum Assistance Distance (Feet) 40 Assistive Devices Assistive Device Gait Belt,Front Wheeled Walker Orthotic/Prosthetic Devices or Brace: No Gait Deviations General Gait Pattern Decreased Stride Length, Decreased Feet Clearance, Flexed Trunk,Narrow Based Gait Factors Limiting Gait Function Factors Limiting Gait Function Decreased Activity Tolerance, Decreased Strength,Difficulty Following Directions, Incoordination,Poor Balance, Poor Safety Awareness Comments Gait Comments R side neglect, Min A for FWW mgmt and obstacle avoidance. PT-Balance Assessment Sitting Balance and Reactions Static Sitting Balance Ability Good Dynamic Sitting Balance Ability Fair Standing Balance and Reactions Static Standing Balance Ability Good Dynamic Standing Balance Ability Fair Device Used FWW M5 PT-IP Objective Assessments Start: 03/05/23 08:30 Freq: NEEDED Status: Active Protocol: Document 03/05/23 11:23 (Rec: 03/05/23 11:54 [id number]) Orientation Orientation/Cognition Level of Alertness Alert Orientation Name,Birthday Language Function Ability Word Finding Difficulties Comments pt states that she is confused . Appears to be more affected by word finidng difficulty. Gross Range of Motion Upper Extremity ROM Assessment Right Impaired Impairments She does not lift her R as high as she lifts her L Strength Upper Extremity Strength Assessment Right Impaired Lower Extremity Strength Assessment Bilaterally Impaired Ankle 5/5 B Comments Strength Comments BLE are weak. RLE is weaker than LLE. RUE is weaker than LUE. R hip flexion 2-/5. unable to get to test postion. Coordination Assessment Gross Coordination Gross Coordination Impaired Assessment Foot Tapping Test Normal Performance Coordination Comments Pt wasnt able to find top of thighs with hands for pronation/supination, movement was coordinated. R was slower than L. Sensation Assessment Sensation Gross Sensation WNL Other Assessments Other Other Assessments Smooth pursuit: unable to track R sided. convergence: unable to follow directions for convergence. [ End ] M6 PT-IP Treatment Start: 03/05/23 08:30 Freq: NEEDED Status: Active Protocol: Document 03/08/23 13:05 KS (Rec: 03/08/23 13:05 TN [id number]) Physical Therapy Treatment Education Education Provided Safety M7 PT-IP Assessment and Plan Start: 03/05/23 08:30 Freq: NEEDED Status: Active Protocol: Document 03/08/23 11:25 KS (Rec: 03/08/23 13:05 TN [id number]) PT Summary Assessment and Plan Potential Rehabilitation Potential Good Summary Impairments Strength,Balance,Coordination, Cognition,Gait,Activity Tolerance Progress Towards Goals Progressing Toward Goals Assessment Summary Pt requiring CGA to Min A throughout treatment, presents w/ R sided neglect especially when ambulating. PT continues to recommend acute rehab at this time to maximize funcitonal recovery. Goals Bed Mobility Goal Independent Transfer Goal Independent Gait Goal Independent Gait Distance 200ft Other Goals pt will be able to walk independently w/ or w/out AD for 200ft or more. pt will be able to go up and down 10 steps w/ or w/out AD. Frequency of Treatment Frequency Of Treatment Once a Day Treatment Plan Physical Therapy Treatment Plan Bed Mobility Training,Transfer Training,Gait Training, Therapeutic Exercise,Balance Retraining,Discharge Planning, Neuromuscular Re-ed, Coordination Retraining Other Recommendations and Next Treatment ambulation Focus Precautions Other Precautions right visual field cuts Recommendations To Nursing Amount of Assist Needed 1 Person Assist Discharge Recommendations PT Discharge Recommendations Acute Rehab Equipment Needed for Home Before FWW Discharge Transportation Needs at Discharge Private Vehicle
--- NOTE | 2023-03-08 12:22 | P.PN_ITS ---
Subjective Subjective Interval history: No chest pain or dyspnea. Speech better. Exam Vital Signs (past 8 hours): - 03/08/23 04:43 03/08/23 08:00 03/08/23 08:12 Temperature 97.8 F 97.3 F L Pulse Rate 72 74 74 Respiratory Rate 16 17 Blood Pressure 136/85 125/61 125/61 Pulse Oximetry 95 94 Oxygen Flow Rate 0 0 03/08/23 08:12 03/08/23 09:32 03/08/23 11:38 Temperature 97.8 F Pulse Rate 74 77 69 Respiratory Rate 17 Blood Pressure 125/61 119/64 Pulse Oximetry 96 Oxygen Flow Rate 0 Oxygen Delivery Method Room Air Oxygen Flow Rate 0 Narrative Exam Narrative: NAD Speech slow Lungs clear Heart regular Abdomen soft and NT No leg edema Moves all extremities. Objective Labs 03/05/23 06:13 03/05/23 06:13 PFS Medical History Anxiety Arthritis [place]-Walker grade 3 cystocele (03/21/16) Chronic sinusitis Chronic UTI Compression fracture of L1 lumbar vertebra Compression fracture of T7 vertebra Compression fracture of T8 vertebra Depression Edema Gilbert syndrome Gout (07/19/11) Head contusion Head injury, acute, without loss of consciousness Hordeolum externum of right lower eyelid Hyperlipidemia Hypertension Idiopathic peripheral neuropathy (02/12/15) Idiopathic peripheral neuropathy Impaired hearing Insomnia Left wrist sprain Multiple lipomas Osteoarthritis Osteopenia Osteoporosis Peripheral edema (03/21/16) Postmenopausal atrophic vaginitis Recurrent UTI (urinary tract infection) Thrush TIA (transient ischemic attack) Tinea Toe deformity Traumatic ecchymosis of face Vaginal pessary present Well adult exam Surgical History Hx of appendectomy S/P bilateral breast reduction S/P total abdominal hysterectomy and bilateral salpingo-oophorectomy Status post total hip replacement, 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 Father Prostate cancer Mother Ventricular fibrillation Diabetes mellitus Thyroid disorder Social History marital status: household members: none Smoking Status: Never smoker alcohol intake: current caffeine: No Assessment & Plan Assessment & Plan narrative: 1. Stroke with aphasia. POA. 2. HTN, POAS. 3. HLD, POAS. 4. Peripheral neuropathy, POAS Continue current medications and PT,OT, ST. Full code Dispo: [facility] IP rehab as soon as they can accept. Time Spent With Patient Time with patient: less than 30 minutes
--- NOTE | 2023-03-08 13:54 | CM.DPC ---
Addendum entered by Linette Vuong, [facility] 03/08/23 16:04: ADD: Per , just completed Peer to Peer and [facility] declined Acute Rehab and requested they approve SNF. LEI met with pt's cousin Aaliyah and via phone with [facility] and updated on Acute denial and they were very disappointed. SW discussed options of SNF vs home with caregivers or family to assist and intensive outpt therapies. Preference is SNF and discussed need for [facility] contracted facility and provided SNF Choice list and preference is 1) [facility] as Darlene lives near by and pt has friends that could visit her there and 2) [facility] or [facility]. SW made initial referrals to [facility], [facility], [facility] and left msgs requesting urgent review. Will need PASRR if SNF. Family wanted to discuss with pt the option of SNF before SW talked to pt bedside. BF Addendum entered by Linette Vuong, [facility] 03/08/23 14:52: ADD: SW received a call from [facility] stating pt's review for auth went to their physician review and physician is requesting a Peer to Peer for final determination if pt will be auth'd or denied for Acute Rehab. SW presented the information and contact number for Hospitalist to call and Hospitalist kindly calling for Peer to Peer this shift. LEI called Meena at [facility] and updated on request of Peer to Peer. Plan: SW awaiting [facility] review and Peer to Peer to determine if pt auth'd for Acute Rehab. BF Original Note: DCP Cont: Per , pt denies any ongoing S.I. or plan and seems more motivated and engaged today and making progress with speech. LEI spoke to Meena at [facility] this morning and around lunchtime and still no [facility] [facility] auth yet today and Meena is hopeful to admit pt but has some concerns that insurance might deny Acute Rehab auth. LEI met with pt's supportive cousin Aaliyah Singh [phone] and granddtr and they confirm they have seen pt perk up and make good improvements with eating, her attitude, motivation, and speech. SW answered questions regarding Acute Inpt Rehab and provided the [facility] brochure to review and family is very hopeful pt can go to Acute Rehab. Cousin Aaliyah leaves [facility] for a cruise tomorrow Fri night after pt's nieces Darlene and Karissa arrive from [place]. Granddtr has to go back to [place] on Sunday for school and granddtr and pt have a very close relationship. Jyothi Fischer confirms that family will provide transport for pt if auth'd for Acute Rehab. SW also discussed if insurance denies Acute Rehab, pt would likely need to d/c home with intensive outpt ST/OT as pt and family do not feel she would benefit from SNF as it would be too depressing and would try to work out a home plan but ideally pt would go to Acute Rehab. Plan: SW to follow closely with Meena from [facility] Acute to determine if pt's insurance will auth or deny Acute Rehab towards moving forward with discharge planning needs. LAINA Paige
--- NOTE | 2023-03-08 16:04 | OT.IP.TRT ---
Current Diagnoses Cerebral infarction, unspecified (03/04/23) Occupational Therapy Treatment Note M2 OT-IP Current Condition Start: 03/05/23 12:30 Freq: Status: Active Protocol: Document 03/05/23 12:30 CGR (Rec: 03/05/23 12:59 CGR [id number]) Occupational Therapy Current Condition Current Condition Evaluation Date 03/05/23 Treatment Diagnosis CVA Diagnosis Onset Date 03/04/23 M3 OT- IP Subjective and Pain Start: 03/05/23 12:30 Freq: Status: Active Protocol: Document 03/08/23 20:34 CGR (Rec: 03/08/23 20:40 CGR [id number]) OT- Subjective Occupational Therapy Visit Type Type Progress Note Visit Start Time 15:40 Visit Stop Time 16:04 Total Visit Minutes 24 Notes Pt's granddaughter present throughout session Occupational Therapy Visit Comments Patient Comments I have already done all of those things (in regards to ADLs) but what would you like to do? OT Pain Assessment Pain When Pain Assessed At Rest Pain Present Pain Present Denied Pain M4 OT- IP ADL's Start: 03/05/23 12:30 Freq: Status: Active Protocol: Document 03/06/23 09:33 CGR (Rec: 03/06/23 09:41 CGR [id number]) OT TTH-Kyhw-Acqsbwn General Evaluation Self-Feeding Ability Independent Comments OT Self-Feeding Comments drinking coffee OT ADL-Grooming General Evaluation Grooming Ability Moderate Assistance Areas Needing Assistance Combing/Brushing Hair,Face Washing Comments OT Grooming Comments Pt stood for ADLs on this date . Pt needed total assist for finding items on her right. Pt now demonstrating R visual field cut and R neglect that is imparing her ability to perform simple ADLs. Pt was able to wash face and brush hair with mod a once items were identified. Assist with R side. OT ADL-Oral Care General Eval Oral Care Ability Moderate Assistance Areas of Assistance Brushing Teeth Comments Oral Care Comments Pt stood for brushing teeth. Pt needed total assist with finding tooth brush and tooth paste as it was on her right side. Pt displays frustration with tasks on this date. OT ADL-Dressing Comments OT Dressing Comments not performed. Pt declined OT ADL-Toileting Comments OT Toileting Comments Pt declined need OT ADL-Bathing Comments OT Bathing Comments Pt declined offer stating that she had just woken up. M5 OT- IP IADL's Start: 03/05/23 12:30 Freq: Status: Active Protocol: Document 03/05/23 12:30 CGR (Rec: 03/05/23 12:59 CGR [id number]) OT-Instrumental Activities of Daily Living Deficits IADL Deficits Identified No Deficits Home Safety Awareness Awareness of Need for Assistance at Home Good Awareness Ability to Problem Solve Emergency Able to Problem Solve Situations Medication Management Medication Management Comments concerns regarding pts ability to perform given visual field cut Money Management Money Management Comments concerns regarding pts ability to perform given visual field cut Meal Preparation Meal Preparation Comments concerns regarding pts ability to perform given visual field cut Cash Management Clerk Cash Management Clerk Comments concerns regarding pts ability to perform given visual field cut Driving Driving Comments concerns regarding pts ability to perform given visual field cut M6 OT- IP Functional Cognition Start: 03/05/23 12:30 Freq: Status: Active Protocol: Document 03/06/23 09:33 CGR (Rec: 03/06/23 09:41 CGR [id number]) Cognitive Factors Limiting Selfcare Function Cognitive Ability Level of Alertness Alert Patient Orientation Name,Age,Birthday,Month,Date, Year,Day of Week,Place, Situation Cognitive Comments Cognitive Assessment Comments Pt appears more frustrated today with less problem solving. Pt states she had a poor nights sleep. M7 OT- IP Mobility and Balance Start: 03/05/23 12:30 Freq: Status: Active Protocol: Document 03/06/23 09:33 CGR (Rec: 03/06/23 09:41 CGR [id number]) OT- Bed Mobility Assessment Supine to Sit Supine to Sit Assist Standby Assistance Scooting Scooting to Edge of Bed Standby Assistance OT-Transfer Assessment Sit to and From Stand Sit to and from Stand Contact Guard Assistance, Minimal Assistance Transfers Transfer Ability Minimal Assistance Technique Transfer Destination Bed,Chair Transfer Technique Stand Step Pivot Devices Transfer Assistive Devices Gait Belt,Front Wheeled Walker Comments Mobility Comments Pt needed more assist today with mobility and use of walker. Pt needing verbal cues to use walker properly and safely and to avoid hitting items on the right. Pt needed VC to see chair and move towards it. OT- Balance Assessment Sitting Balance and Reactions Static Sitting Balance Ability Normal Dynamic Sitting Balance Ability Normal M8 OT- IP Objective Assessments Start: 07/24/23 12:30 Freq: Status: Active Protocol: Document 03/05/23 12:30 CGR (Rec: 03/05/23 12:59 CGR [id number]) OT Gross Range of Motion Upper Extremity Range of Motion Assessment Within Functional Limits OT Strength Upper Extremity Strength Assessment Within Functional Limits Comments Strength Comments RUE 4-/5, LUE 4/5 OT- Coordination Assessment Upper Extremity Finger to Nose Test Within Functional Limits Finger Tapping Test Within Functional Limits OT-Muscle Tone Assessment Muscle Tone WNL Yes OT Sensation Assessment Edema Edema Absent M9 OT- IP Assessment and Plan Start: 03/05/23 12:30 Freq: Status: Active Protocol: Document 03/08/23 20:34 CGR (Rec: 03/08/23 20:40 CGR [id number]) OT Summary Assessment and Plan Potential Rehabilitation Potential Excellent Analytic Complexity at Evaluation Moderate Summary OT Impairments Strength,Functional Mobility, Self-Feeding,Grooming,Dressing ,Toileting,Bathing,Toilet Transfers,Shower Transfers Progress Towards Goals Progressing Toward Goals Assessment Summary Pt presents as a moderate complexity evaluation s/p admit for CVA. Pt found to have large CVA with expressive aphasia, slight weakness to the R side, and R visual field cut. Pt apeared to be in good spirits today and agreeable to therapy services. Pt participated in trail making with mod assist to participate . Pt is able to find and connect numbered bubbles on the left side of the sheet but needs assist to find the bubbles on the right side. Henry making sample part A appears to be close to pt's current abilities. The full sheet appeared overwhelming for patient. Recommend bubbles numbering 1-10 to begin at this time. Pt continues to be an excellent candidate for acute rehab. Goals Self-Feeding Goal Independent Grooming Goal Independent Dressing Goal Independent Toileting Goal Independent Bathing Goal Independent Toilet Transfer Goal Independent Shower Transfer Goal Independent OT-Other Goals Pt can demonstrate tracking to the R to assist with R visual field deficit Days to Meet Goals 15 Frequency of Treatment Frequency Of Treatment Once a Day Treatment Plan OT Treatment Plan ADL Training,Functional Mobility,Vision Retraining, Patient/Family Education, Discharge Planning Other Treatment Recommendations and Next shower Treatment Focus Discharge Recommendations OT Discharge Recommendations Acute Rehab Transportation Needs at Discharge Private Vehicle
[2023-03-08] MEDS: ATORVASTATIN 20 MG TABLET 80 MG PO (20:49)
[2023-03-09 05:00] VITALS: BP 134/63; PULSE 63; RESP 18; TEMP 36.4; O2SAT 95
--- NOTE | 2023-03-09 07:50 | CM.DPC ---
Addendum entered by Mary Styles R.N. 03/09/23 12:40: Spoke to Alice at [facility], on the auth, she has the same reference number, stated, looks like an auth. She can accept patient today, would like patient there between 2:00-2:30. Updated patient, she is happy, her cousin, Cheryl, will transport, her grand daughter is at bedside, and will update Cheryl when she gets back. Updated Dr. Shepherd, hospitalist, he is working on orders. White board at main nurses station is updated, community health counselor, Job, is aware. Nurse, Bridget, is updated, gave her the main number of [facility] for report. PASSR completed, will fax over DC Summary and orders when completed. Addendum entered by Mary Styles R.N. 03/09/23 12:09: Received a call from Jayce at [facility]. He asked about clinical information, let him know that all clinicals have been faxed, including updated P.T, and O.T. notes. Confirmed that fax did go through. He indicated that one of the catalytic case operator from [facility] will call back with the decision. In the meantime, patient still unsure what is happening. Have already updated her, and continuing to update her cousin, Cheryl. [facility]. Addendum entered by Mary Styles R.N. 03/09/23 10:46: Called over at [facility]. Initially, spoke to Astrid in customer service. She reviewed patient's plan, and gave the phone number for [employer] number is: [phone]. Called and spoke to Huan Moreno. Explained that this DC Client Experience Manager and [facility] are working on getting an auth YAA, for care home. Gave Huan patient's name, and the facility that patient is requesting to go to. Let him know that [facility] is also working with portal for auth. Huan gave this DC Client Experience Manager a reference number of: [id number]. He gave a fax number of: [phone]. Sent over face sheet, clinicals, recent O.T, and P.T. notes to this fax number. Was able to obtain hospitaist, Dr. Shepherd's NPI number. The number is: [id number]. Added this to fax sheet. Huan stated that this DC Client Experience Manager will be contacted. Could possibly have a duplicate auth, if Alice at [facility] receives as well. Alice was going to plan on taking patient at 1400, but she had thought that this DC Client Experience Manager had an auth number. Have spoken to patient, and her cousin, who is in the room. Patient hopes she can go to [facility]. At this time, auth is pending. Patient's cousin, cheryl, is at bedside, she is financial DPOA, Darlene, [id number] is medical DPOA, who resides in [facility]. Let her know that this DC Client Experience Manager has also been in contact with [facility] as well. Addendum entered by Mary Styles R.N. 03/09/23 10:09: Alice at [facility] stated she could accept patient, did not realize that the auth has not yet been obtained. Let her know that doctor to doctor call, hospitalist had asked to expedite the auth. Alice will submit,is unsure if she will have auth by today. This DC Client Experience Manager will also attempt to call insurance to see if auth can be obtained. Original Note: DCP Cont: It is noted that peer to peer was done with [facility] provider and hospitalist, denied acute inpatient rehab. Attempting skilled, left a message with Alice at [facility], patient's first preference. Laura at [facility] wants to do an on-site visit. Spoke to Angela at [facility] Brandyn, she will review and call this DC Client Experience Manager back. P: DCP working on getting patient to one of the [facility]'s, which ever can accept, since it's Sunday, and running into the week-end. Mary Styles RN/Medical Records Custodian
[2023-03-09 08:00] VITALS: BP 124/63; PULSE 73; RESP 17; TEMP 36.2; O2SAT 96
[2023-03-09] MEDS: ASPIRIN EC 81 MG TABLET PO (08:36)
[2023-03-09] MEDS: GABAPENTIN 100 MG CAPSULE 200 MG PO (08:36)
[2023-03-09] MEDS: AMLODIPINE 5 MG TABLET 2.5 MG PO (08:36)
[2023-03-09] MEDS: ENOXAPARIN 40 MG/0.4 ML SYRINGE SUBCUT (08:36)
[2023-03-09 08:37] VITALS: BP 124/63; PULSE 73
[2023-03-09] MEDS: LOSARTAN 50 MG TABLET 100 MG PO (08:37)
[2023-03-09] MEDS: CHLORTHALIDONE 25 MG TABLET PO (08:37)
[2023-03-09 08:38] VITALS: BP 124/63; PULSE 73
[2023-03-09] MEDS: METOPROLOL ER 25 MG TABLET PO (08:38)
[2023-03-09] MEDS: CITALOPRAM 10 MG TABLET PO (08:38)
--- NOTE | 2023-03-09 08:38 | PM.PN.1 ---
Subjective Subjective Interval history: No problems overnight. Speech continues to improve. Walking with PT No CP or dyspnea. Exam Vital Signs (past 8 hours): - 03/09/23 05:00 03/09/23 08:00 Temperature 97.5 F L 97.1 F L Pulse Rate 63 73 Respiratory Rate 18 17 Blood Pressure 134/63 124/63 Pulse Oximetry 95 96 Oxygen Flow Rate 0 0 Oxygen Delivery Method Room Air Oxygen Flow Rate 0 Narrative Exam Narrative: NAD Speech fairly normal. 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) Chronic sinusitis Chronic UTI Compression fracture of L1 lumbar vertebra Compression fracture of T7 vertebra Compression fracture of T8 vertebra Depression Edema Gilbert syndrome Gout (07/19/11) Head contusion Head injury, acute, without loss of consciousness Hordeolum externum of right lower eyelid Hyperlipidemia Hypertension Idiopathic peripheral neuropathy (02/12/15) Idiopathic peripheral neuropathy Impaired hearing Insomnia Left wrist sprain Multiple lipomas Osteoarthritis Osteopenia Osteoporosis Peripheral edema (03/21/16) Postmenopausal atrophic vaginitis Recurrent UTI (urinary tract infection) Thrush TIA (transient ischemic attack) Tinea Toe deformity Traumatic ecchymosis of face Vaginal pessary present Well adult exam Surgical History Hx of appendectomy S/P bilateral breast reduction S/P total abdominal hysterectomy and bilateral salpingo-oophorectomy Status post total hip replacement, 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 Father Prostate cancer Mother Ventricular fibrillation Diabetes mellitus Thyroid disorder Social History marital status: household members: none Smoking Status: Never smoker alcohol intake: current caffeine: No Assessment & Plan Assessment & Plan narrative: 1. Stroke with aphasia. POAI (present on admission and improving). 2. HTN, POAS (present on admission and stable). 3. HLD, POAS. 4. Peripheral neuropathy, POAS Continue current medications and PT,OT, ST. Full code Dispo: [facility] rehab denied by payor, SNF request submitted 03/08. Time Spent With Patient Time with patient: less than 30 minutes
--- NOTE | 2023-03-09 12:32 | OT.IPNOTE ---
Attemped to see pt for OT services. Pt preparing for discharge to SNF. Will hold for transfer.
--- NOTE | 2023-03-09 12:34 | ST.IPTN ---
Visit Care Team Role Provider Type Estuardo Willams DO Primary Care Provider Physician Address: [address] [place] [address], [id number] Bharathi Leon MD Other Providers Physician Address: [address] [place] [address], [place], [address] Felipe Mccormack DO Emergency Provider Physician Referring Provider Address: [address] [place] [address], [address] Tobi Escamilla MD Admit Provider Physician Attending Provider Address: [address] [place] [address], [facility] Fax: AIRLINE COUNTER AGENT Treatment Note AIRLINE COUNTER AGENT Treatment Note Start: 03/07/23 14:26 Freq: Status: Active Protocol: Document 03/09/23 12:17 CG (Rec: 03/09/23 12:33 CG [id number]) Speech Pathology Treatment Note Session Time Visit Start Time 11:18 Visit Stop Time 11:48 Total Visit Minutes 30 Visit Information Visit Number 4 Setting Treatment Setting Acute Care Visit Type Note Type Treatment Note Next Note Type Next Note Type Treatment Note General Information Patient History Pt is a 82 year old female who presented to the ED on with stroke symptoms including confusion, difficulty speaking, and difficulty with vision. MRI report from 03/05/23 indicated: Infarct within left posterior parietal and occipital lobe with associated edema. There are multiple additional small foci restricted diffusion throughout the left cerebral hemisphere. Findings are most concerning for embolic phenomenon. No hemorrhagic conversion. Since admission, OT has noticed that pt's word-finding difficulties have increased and that her difficulties with her right visual field have progressed to full right-sided visual neglect. OT states that the pt says I want to . She is apparently increasingly frustrated from yesterday and having more difficulties with problem solving. Dr. Dyson ordered stat CT to rule out hemhorragic conversion. Subjective Observations/Patient Presentation Pt agreeable to work w/ speech therapy. She was seated at bedside with her grandaughter present upon ST entry to room. Another family member entered the room near the end of the session. Chief Complaint(s) Language Objective Short Term Goals Pt will answer yes/no questions with 80% accuracy independently in order to increase receptive communication skills and facilitate accurate communication with hospital staff. Pt will complete automatic speech tasks with 50% accuracy in order to rehabilitate expressive language skills. Pt will benefit from education regarding communicationstrategies for aphasia, including melodic intonation-based strategies and low-tech AAC. Treatment Activities Continued closed sentence/ sentence completion activities . Re-assessed receptive language with picture ID task. Practiced right visual field attention tasks with caregiver training in strategies to increase attention to right visual field, including using visual anchor (e.g. piece of bright paper) and having visitors stay on right side of patient in order to encourage her to attend to right. Discussed the use of description/ circumlocution strategy to increase word finding and decrease frustration. Assessment Patient Response to Treatment Fair Rehab Potential Good Impairments Identified Expressive language,Receptive language,Speech Progress Towards Goals Good Progress Assessment of Overall Progress Improving Assessment of Improvement Pt's verbal expression is greatly improved from the past 2-3 days. She is speaking in 7+ word sentences regularly, with no verbal paraphasias noted today. She completed closed sentence task with 100% accuracy today, which is an improvement from last session. She is motivated to discharge to SNF and work with therapies because I need to speed up my progress. Given an intial cue to attend to right side of page with visual anchor (AIRLINE COUNTER AGENT's hand), the pt was able to identify pictures with 100% accuracy independently. Pt was receptive to description strategy, and caregiver stated they would incorporate this into conversation with the pt in order to promote use of this strategy and decrease frustration. Additionally, pt and caregivers benefitted from education regarding principals of neuroplasticity and their relationship to the rationale of ST treatment for aphasia recovery. Prognosis is favorable given pt progress and newfound motivation. Reviewed with Patient Goals,Progress Being Made Patient/Caregiver Understanding Good Plan Amount of Therapy Recommended 2-3 Months Comment Daily while at SNF, then outpatient Length of Session 45 Minutes Therapeutic Contents Client Education,Expressive Language Training Provided Patient/Caregiver Instruction Plan of Care Therapy Recommendations Continue with Current Program
--- NOTE | 2023-03-09 12:46 | PM.DS.1 ---
History of Present Illness History of Present Illness Date Patient Seen: 03/09/23 Time Patient Seen: 12:46 Date of Onset of Symptoms: 03/04/23 Chief complaint: feels confused/stroke?? Narrative: From H&P: 82-year-old female presented with confusion. On prsentation she was not oriented to time but later improved.? Her last known well was about 12 hours agho. Later aroung 7:00 p.m. pt found her to be confused. She has trouble speaking and troubles with vision.?The patient denies any change in medications.? She is had no trauma or injury.? At this point she is clearly not a tPA candidate? Discharge Providers Provider Date of admission: 03/04/23 22:42 Discharge Date: 03/09/23 Primary care physician: Estuardo Willams DO Consults: 03/04/23 21:51 Consult to Discharge Planning Routine Comment: Consult to Occupational Therapy Evaluate & Treat Comment: Physician Instructions: Evaluate and treat Consult to Physical Therapy Evaluate & Treat Comment: Physician Instructions: Evaluate and Treat Consult to Speech Therapy Evaluate & Treat Comment: Physician Instructions: Evaluate and treat 03/06/23 13:30 Consult to HEAD KILN OPERATOR - Dot Compliance Coordinator Routine Comment: suicidal ideation Consult to Physician Routine Comment: Consulting Provider: Bharathi Leon Reason for consultation: suicidal thoughts Discharge provider: Vince Shepherd MD Summary Hospital Course Discharge Diagnosis: 1. Stroke with aphasia. POAI (present on admission and improving). 2. HTN, POAS (present on admission and stable). 3. HLD, POAS. 4. Peripheral neuropathy, POAS Hospital Course: The patient was admitted with subacute stroke and not a candidate for lytics by time. She initially had expressive aphasia and processing issues as well as w visual field cut. She was treated with standard medical therapy and evaluated by PT,OT, and speech. Recommendations were for IP rehab which was denied by payor. SNF was authorized. Stable for discharge with improved aphasia and coordination. Status at Discharge Cognitive/behavioral status at discharge: oriented Functional status at discharge: uses cane/walker Overall status at discharge: patient is progressing back to baseline Time Spent with Patient Time spent: Greater than 30 minutes Exam Vital Signs (past 8 hours): - 03/09/23 05:00 03/09/23 08:00 03/09/23 08:37 Temperature 97.5 F L 97.1 F L Pulse Rate 63 73 73 Respiratory Rate 18 17 Blood Pressure 134/63 124/63 124/63 Pulse Oximetry 95 96 Oxygen Flow Rate 0 0 03/09/23 08:38 Temperature Pulse Rate 73 Respiratory Rate Blood Pressure 124/63 Pulse Oximetry Oxygen Flow Rate Oxygen Delivery Method Room Air Oxygen Flow Rate 0 Narrative Exam Narrative: NAD, improved speech. Lungs clear Heart regular Abdomen soft, non-tender No leg edema. Normal strenth of arms and legs. Objective ECG Impression: NSR Imaging CT scan - head: Radiologist's impression: 1. Subacute left posterior parietal infarct. ? 2. Suspect the small punctate focus of increased density at the anterior margin is a chronic incidental calcification. ? 3. No interval development of additional infarcts.? No evidence of hemorrhagic transformation CTA: ?No significant intracranial arterial abnormality is seen.? ? Within the arteries of the neck, no hemodynamically significant stenosis can be seen. ? Cysts ? Bilateral thyroid nodules are incidentally noted.? When clinically appropriate, please consider a follow-up.? MRI - head: Radiologist's impression: 1. Infarct within left posterior parietal and occipital lobe with associated edema.? There are multiple additional small foci restricted diffusion throughout the left cerebral hemisphere.? Findings are most concerning for embolic phenomenon.? No hemorrhagic conversion. 2. Age-related volume loss and small vessel ischemic change. Echo: Radiologist's impression: The ejection fraction is estimated to be 65-70%. There is mild-moderate concentric left ventricular hypertrophy. The right ventricle is normal size. The right ventricular systolic pressure is estimated to be at least 51 mmHg based on an estimated right atrial pressure of 3 mm Hg. There is no Doppler evidence for an interatrial shunt. There is mild mitral stenosis. There is a moderate left-sided pleural effusion. 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) Chronic sinusitis Chronic UTI Compression fracture of L1 lumbar vertebra Compression fracture of T7 vertebra Compression fracture of T8 vertebra Depression Edema Gilbert syndrome Gout (07/19/11) Head contusion Head injury, acute, without loss of consciousness Hordeolum externum of right lower eyelid Hyperlipidemia Hypertension Idiopathic peripheral neuropathy (02/12/15) Idiopathic peripheral neuropathy Impaired hearing Insomnia Left wrist sprain Multiple lipomas Osteoarthritis Osteopenia Osteoporosis Peripheral edema (03/21/16) Postmenopausal atrophic vaginitis Recurrent UTI (urinary tract infection) Thrush TIA (transient ischemic attack) Tinea Toe deformity Traumatic ecchymosis of face Vaginal pessary present Well adult exam Surgical History Hx of appendectomy S/P bilateral breast reduction S/P total abdominal hysterectomy and bilateral salpingo-oophorectomy Status post total hip replacement, 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 Father Prostate cancer Mother Ventricular fibrillation Diabetes mellitus Thyroid disorder Social History marital status: household members: none Smoking Status: Never smoker alcohol intake: current caffeine: No Discharge Assessment & Plan Assessment and Plan Assessment: 1. Stroke with aphasia. POAI (present on admission and improving). 2. HTN, POAS (present on admission and stable). 3. HLD, POAS. 4. Peripheral neuropathy, POAS Plan of Treatment: Transfer to SNF ([facility]) Ongoing medical therapy for stroke Ongoing rehabilitation Discharge Plan Discharge Plan Patient Disposition: SNF Transfer to: [facility] Under care of provider: SNF Doctor Provider Discharge Comment: Stable for discharge to SNF. Discharge orders & Medications Prescriptions: New citalopram 10 mg Tablet 10 mg PO DAILY Qty: 30 3RF metoprolol succinate 25 mg Tablet Extended Release 24 Hr 25 mg PO BID Qty: 60 3RF Continued meloxicam 15 mg tablet 15 mg PO DAILY Qty: 90 3RF chlorthalidone 25 mg tablet 25 mg PO DAILY Qty: 90 3RF metoprolol succinate 100 mg tablet extended release 24 hr 100 mg PO BID Qty: 180 3RF melatonin 5 mg capsule 5 mg PO BEDTIME amlodipine 2.5 mg tablet 2.5 mg PO BID Qty: 180 3RF gabapentin 100 mg capsule 200 mg PO BID Qty: 360 3RF hydrochlorothiazide 12.5 mg tablet 12.5 mg PO DAILY Qty: 90 1RF Rx Instructions: take once a day at noon atorvastatin 40 mg tablet 40 mg PO QPM Rx Instructions: TAKE 1 TABLET BY MOUTH AT BEDTIME estradiol 0.01 % (0.1 mg/gram) cream 1 g vaginal 2XW Rx Instructions: Use on effected area twice a week. olmesartan 40 mg tablet 40 mg PO QAM Rx Instructions: TAKE 1 TABLET BY MOUTH DAILY aspirin [Adult Low Dose Aspirin] 81 mg tablet,delayed release (DR/EC) 81 mg PO DAILY diphenhydramine HCl [Benadryl] 25 mg capsule 25 mg PO BID PRN (Reason: Allergic Symptoms) Medication counseling provided by Pharmacist: No Follow up/Referrals: Estuardo Willams DO [Primary Care Provider] - Discharge Health Status Multidrug resistant organism: No MDRO Diet/Activity/Treatments Diet: Low-cholesterol Liquid consistency: Normal/Thin Activity: per PT, OT Special Rehabilitation Services Reason for rehabilitation: Therapy following stroke Rehab type: Physical therapy, Occupational therapy and Speech therapy Visit Report/Discharge Packet Stand Alone Forms: Patient Portal/API Discharge Data Primary Care Provider: Estuardo Willams Quality Stroke Contraindication Not Initiating IV-Tpa: Not indicated Onset of Symptoms Date: 03/04/23 Onset of Symptoms Time: 19:00 Symptom Onset Unknown: Yes Rehab Services Assessed: Stroke rehabilitation
== END 2023-03-09 13:20 | DRG 64 ==
LOC: ED 20:11 → AC 22:28 → ED 22:41 → AC 22:43
PROVIDERS: Admitting Provider Hospitalist; Emergency Provider Emergency Medicine; PCP Family Medicine; Referring Provider Emergency Medicine; Visit Provider Hospitalist
DX: I63.9 Cerebral infarction, unspecified (principal); G93.6 Cerebral edema; R45.851 Suicidal ideations; R47.01 Aphasia; E78.5 Hyperlipidemia, unspecified; I10 Essential (primary) hypertension; G62.89 Other specified polyneuropathies; M19.90 Unspecified osteoarthritis, unspecified site; R29.706 NIHSS score 6; R29.703 NIHSS score 3
CPT/HCPCS: 36415; 70450; 70496; 70498; 70551; 80053; 80061; 80305; 80320; 81001; 81003; 82550; 82962; 84484; 85025; 85610; 85730; 87635; 92507; 92523; 93005; 93306; 97116; 97162; 97166; 97530; 97535; 99285; J1650; J2405; Q9967

== ENCOUNTER 2023-04-14 09:58 | Emergency (ER) | payer MEDICARE, SELFPAY ==
[2023-03-04 23:04] VITALS: BMI 25.7
[2023-04-14] VITALS (65 sets, daily range): BP systolic 146–231; BP diastolic 66–119; PULSE 56–114; RESP 9–28; TEMP 36.9; O2SAT 93–99; BMI 31.5
--- NOTE | 2023-04-14 10:01 | ED.GENADULT ---
HPI - General Adult <Felipe Mccormack DO - Last Filed: 04/15/23 09:21> General Chief complaint: Chest Pain Stated complaint: chest pressure Time Seen by Provider: 04/14/23 10:00 History of Present Illness HPI narrative: 82-year-old female nonsmoker with history of hypertension, hyperlipidemia and recent admission for stroke which was found to be outside the window and confirmed by MRI presents by EMS for evaluation of chest pressure for the past few days. She states that she just has not felt well and is very nondescript, merely stating that she did not feel great, did not take her medications as a consequence and decided to call the medics today. On their arrival she was still having chest pressure which resolved after a few nitro, she was also given a full-dose aspirin. She denies any obvious provocation or other palliation of her discomfort and denies any radiation of her pain. She denies any dizziness or lightheadedness. She has felt a bit fatigued and under the weather as noted above but denies any shortness of breath, cough or bloody sputum. She denies nausea, vomiting or diarrhea and has no abdominal pain. She denies any change in her bowel habits and has no urinary complaints. Related Data Home Medications Medication Instructions Recorded Confirmed atorvastatin 40 mg tablet 40 mg PO QPM 03/04/23 03/30/23 estradiol 0.01% (0.1 mg/gram) 1 g vaginal 2XW 03/04/23 03/30/23 vaginal cream aspirin 81 mg tablet,delayed 81 mg PO DAILY 03/22/23 03/30/23 release (Adult Low Dose Aspirin) amlodipine 2.5 mg tablet 5 mg PO DAILY 04/14/23 Previous Rx's Medication Instructions Recorded meloxicam 15 mg tablet 15 mg PO DAILY #90 tabs 05/17/22 chlorthalidone 25 mg tablet 25 mg PO DAILY blood pressure #90 09/11/22 tabs gabapentin 100 mg capsule 200 mg PO BID #360 caps 12/28/22 olmesartan 40 mg tablet 40 mg PO DAILY #90 tabs 04/02/23 metoprolol succinate 100 mg 100 mg PO BID #180 tabs 04/09/23 tablet,extended release 24 hr Allergies Allergy/AdvReac Type Severity Reaction Status Date / Time Penicillins [PENICILLINS] Allergy Unknown rash-CHILDH Verified 04/14/23 12:19 OOD amlodipine [AMLODIPINE] AdvReac Intermediate LEG Verified 04/14/23 12:19 SWELLING lisinopril [LISINOPRIL] AdvReac Intermediate cough Verified 04/14/23 12:19 venlafaxine [VENLAFAXINE] AdvReac Mild Pt unsure Verified 04/14/23 12:19 of reaction L NARES TIGHT AdvReac Mild DO NOT USE Uncoded 03/30/23 11:44 L NARES FOR TUBES. Review of Systems <Felipe Mccormack DO - Last Filed: 04/15/23 09:21> Review of Systems Narrative: GENERAL: See HPI HEENT: Denies sinus pain, ear pain, sore throat, difficulty swallowing, dizziness. RESPIRATORY: Denies dyspnea, cough, wheezing, hemoptysis, sputum. CARDIOVASCULAR: See HPI GASTROINTESTINAL: Denies nausea, vomiting, abdominal pain, diarrhea, constipation, melena. : Denies dysuria, frequency, incontinence, hematuria, urinary retention. MUSCULOSKELETAL: denies weakness, joint pain, or bony pain SKIN: Denies rash, skin lesions, or other NEUROLOGIC: Denies weakness, headache, numbness, change in speech, confusion, seizures, incoordination. PSYCHIATRIC: No concerning psychosocial issues. 12 point review of systems is negative except for those stated above Patient History <Felipe Mccormack DO - Last Filed: 04/15/23 09:21> Medical History Anxiety Arthritis [place] grade 3 cystocele (03/21/16) Chronic sinusitis Chronic UTI Compression fracture of L1 lumbar vertebra Compression fracture of T7 vertebra Compression fracture of T8 vertebra Depression Edema Gilbert syndrome Gout (07/19/11) Head contusion Head injury, acute, without loss of consciousness Hordeolum externum of right lower eyelid Hyperlipidemia Hypertension Idiopathic peripheral neuropathy (02/12/15) Idiopathic peripheral neuropathy Impaired hearing Insomnia Left wrist sprain Multiple lipomas Osteoarthritis Osteopenia Osteoporosis Peripheral edema (03/21/16) Postmenopausal atrophic vaginitis Recurrent UTI (urinary tract infection) Thrush TIA (transient ischemic attack) Tinea Toe deformity Traumatic ecchymosis of face Vaginal pessary present Well adult exam Surgical History Hx of appendectomy S/P bilateral breast reduction S/P total abdominal hysterectomy and bilateral salpingo-oophorectomy Status post total hip replacement, 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 Father Prostate cancer Mother Ventricular fibrillation Diabetes mellitus Thyroid disorder Social History marital status: household members: none Smoking Status: Former smoker alcohol intake: current caffeine: No Smoking Status: Never smoker alcohol intake frequency: holidays/special occasions only Substance Use Type: does not use Exam <Felipe Mccormack DO - Last Filed: 04/15/23 09:21> Narrative Exam Narrative: GENERAL: [82] year old patient appears stated age. Well-developed patient, in mild distress. HEAD: Atraumatic. Normocephalic. EYES: Pupils equal round and reactive. Extraocular motions intact. No scleral icterus. No injection or drainage. ENT: Nose without bleeding, purulent drainage. Throat without erythema, tonsillar hypertrophy or exudate. Airway patent. NECK: Trachea midline. Non tender CARDIOVASCULAR: Regular rate and rhythm without murmurs, gallops, or rubs. RESPIRATORY: Clear to auscultation. Breath sounds equal bilaterally. No wheezes, rales, or rhonchi. GASTROINTESTINAL: Abdomen soft, non-tender, nondistended. EXTREMITIES: No edema or joint tenderness. BACK: Nontender without deformity or crepitance. No flank tenderness. NEURO: AOx3. SKIN: No rash or erythema of visible areas Initial Vital Signs Initial Vital Signs: Vital Signs Pulse Rate 103 H 04/14/23 10:04 Blood Pressure 180/87 H 04/14/23 10:04 Pulse Oximetry 99 04/14/23 10:04 <Mirella Angel DO - Last Filed: 04/17/23 19:19> Initial Vital Signs Initial Vital Signs: Vital Signs Pulse Rate 103 H 04/14/23 10:04 Blood Pressure 180/87 H 04/14/23 10:04 Pulse Oximetry 99 04/14/23 10:04 <Mirella Garza MD - Last Filed: 04/15/23 08:10> Initial Vital Signs Initial Vital Signs: Vital Signs Pulse Rate 103 H 04/14/23 10:04 Blood Pressure 180/87 H 04/14/23 10:04 Pulse Oximetry 99 04/14/23 10:04 Scores <Felipe Mccormack DO - Last Filed: 04/15/23 09:21> HEART Score Heart Score history: Moderately Suspicious Heart Score EKG: Non-Specific repolarization disturbance Heart Score Age: > or = 65 years old Heart Score risk factors: > 3 risk factors or hx of atherosclerotic disease Heart Score troponin: < or = to normal limit Heart Score Total: 6 <Mirella Angel DO - Last Filed: 04/17/23 19:19> HEART Score Heart Score Total: 6 <Mirella Garza MD - Last Filed: 04/15/23 08:10> HEART Score Heart Score Total: 6 Course <Felipe Mccormack DO - Last Filed: 04/15/23 09:21> Orders Ordered: Discontinued Medications Losartan Potassium (Losartan 50 Mg Tablet) 50 mg PO NOW ONE Stop: 04/14/23 15:48 Last Admin: 04/14/23 16:04 Dose: 50 mg Documented By: RB Metoprolol Succinate (Metoprolol Er 50 Mg Tablet) 100 mg PO NOW ONE Stop: 04/14/23 12:22 Last Admin: 04/14/23 12:36 Dose: 100 mg Documented By: RB Metoprolol Succinate (Metoprolol Er 50 Mg Tablet) 100 mg PO NOW ONE Stop: 04/14/23 15:48 Last Admin: 04/14/23 16:05 Dose: 100 mg Documented By: RB Nitroglycerin (Nitroglycerin Oint 1 Inch/Gm Oint...G.) 1 inch TOP NOW ONE Stop: 04/14/23 14:51 Last Admin: 04/14/23 14:57 Dose: 1 inch Documented By: RB Reevaluation(s) Reevaluation #1: Patient complains that her chest pain is beginning to come back, repeat EKG and nitro ordered Time: 14:50 Vital Signs Vital signs: Vital Signs - 8 hr 04/15/23 01:30 04/15/23 02:00 04/15/23 02:30 Pulse Rate 55 L 53 L 54 L Respiratory Rate 17 13 17 Blood Pressure Pulse Oximetry 94 93 94 04/15/23 03:00 04/15/23 03:44 04/15/23 04:12 Pulse Rate 54 L 54 L Respiratory Rate 20 15 Blood Pressure 167/99 H Pulse Oximetry 96 96 04/15/23 04:12 04/15/23 04:48 04/15/23 05:01 Pulse Rate 51 L 59 L 54 L Respiratory Rate 13 12 12 Blood Pressure Pulse Oximetry 95 98 97 04/15/23 05:30 04/15/23 06:00 04/15/23 06:00 Pulse Rate 52 L 56 L Respiratory Rate 20 14 Blood Pressure 174/72 H Pulse Oximetry 95 94 04/15/23 06:30 04/15/23 07:31 04/15/23 07:39 Pulse Rate 54 L 60 58 L Respiratory Rate 16 40 H 14 Blood Pressure Pulse Oximetry 93 04/15/23 07:39 04/15/23 08:00 Pulse Rate 58 L Respiratory Rate 24 Blood Pressure 178/82 H Pulse Oximetry <Mirella Angel DO - Last Filed: 04/17/23 19:19> Orders Ordered: Discontinued Medications Losartan Potassium (Losartan 50 Mg Tablet) 50 mg PO NOW ONE Stop: 04/14/23 15:48 Last Admin: 04/14/23 16:04 Dose: 50 mg Documented By: LYNDSAY Metoprolol Succinate (Metoprolol Er 50 Mg Tablet) 100 mg PO NOW ONE Stop: 04/14/23 12:22 Last Admin: 04/14/23 12:36 Dose: 100 mg Documented By: LYNDSAY Metoprolol Succinate (Metoprolol Er 50 Mg Tablet) 100 mg PO NOW ONE Stop: 04/14/23 15:48 Last Admin: 04/14/23 16:05 Dose: 100 mg Documented By: LYNDSAY Nitroglycerin (Nitroglycerin Oint 1 Inch/Gm Oint...G.) 1 inch TOP NOW ONE Stop: 04/14/23 14:51 Last Admin: 04/14/23 14:57 Dose: 1 inch Documented By: LYNDSAY Vital Signs Vital signs: Vital Signs - 8 hr 04/15/23 01:30 04/15/23 02:00 04/15/23 02:30 Pulse Rate 55 L 53 L 54 L Respiratory Rate 17 13 17 Blood Pressure Pulse Oximetry 94 93 94 04/15/23 03:00 04/15/23 03:44 04/15/23 04:12 Pulse Rate 54 L 54 L Respiratory Rate 20 15 Blood Pressure 167/99 H Pulse Oximetry 96 96 04/15/23 04:12 04/15/23 04:48 04/15/23 05:01 Pulse Rate 51 L 59 L 54 L Respiratory Rate 13 12 12 Blood Pressure Pulse Oximetry 95 98 97 04/15/23 05:30 04/15/23 06:00 04/15/23 06:00 Pulse Rate 52 L 56 L Respiratory Rate 20 14 Blood Pressure 174/72 H Pulse Oximetry 95 94 04/15/23 06:30 04/15/23 07:31 04/15/23 07:39 Pulse Rate 54 L 60 58 L Respiratory Rate 16 40 H 14 Blood Pressure Pulse Oximetry 93 04/15/23 07:39 04/15/23 08:00 Pulse Rate 58 L Respiratory Rate 24 Blood Pressure 178/82 H Pulse Oximetry <Mirella Garza MD - Last Filed: 04/15/23 08:10> Orders Ordered: Discontinued Medications Losartan Potassium (Losartan 50 Mg Tablet) 50 mg PO NOW ONE Stop: 04/14/23 15:48 Last Admin: 04/14/23 16:04 Dose: 50 mg Documented By: RB Metoprolol Succinate (Metoprolol Er 50 Mg Tablet) 100 mg PO NOW ONE Stop: 04/14/23 12:22 Last Admin: 04/14/23 12:36 Dose: 100 mg Documented By: LYNDSAY Metoprolol Succinate (Metoprolol Er 50 Mg Tablet) 100 mg PO NOW ONE Stop: 04/14/23 15:48 Last Admin: 04/14/23 16:05 Dose: 100 mg Documented By: LYNDSAY Nitroglycerin (Nitroglycerin Oint 1 Inch/Gm Oint...G.) 1 inch TOP NOW ONE Stop: 04/14/23 14:51 Last Admin: 04/14/23 14:57 Dose: 1 inch Documented By: LYNDSAY Vital Signs Vital signs: Vital Signs - 8 hr 04/15/23 01:30 04/15/23 02:00 04/15/23 02:30 Pulse Rate 55 L 53 L 54 L Respiratory Rate 17 13 17 Blood Pressure Pulse Oximetry 94 93 94 04/15/23 03:00 04/15/23 03:44 04/15/23 04:12 Pulse Rate 54 L 54 L Respiratory Rate 20 15 Blood Pressure 167/99 H Pulse Oximetry 96 96 04/15/23 04:12 04/15/23 04:48 04/15/23 05:01 Pulse Rate 51 L 59 L 54 L Respiratory Rate 13 12 12 Blood Pressure Pulse Oximetry 95 98 97 04/15/23 05:30 04/15/23 06:00 04/15/23 06:00 Pulse Rate 52 L 56 L Respiratory Rate 20 14 Blood Pressure 174/72 H Pulse Oximetry 95 94 04/15/23 06:30 04/15/23 07:31 04/15/23 07:39 Pulse Rate 54 L 60 58 L Respiratory Rate 16 40 H 14 Blood Pressure Pulse Oximetry 93 04/15/23 07:39 04/15/23 08:00 Pulse Rate 58 L Respiratory Rate 24 Blood Pressure 178/82 H Pulse Oximetry Medical Decision Making <Felipe Mccormack, DO - Last Filed: 04/15/23 09:21> Lab Data 04/14/23 10:09 04/14/23 10:09 Labs: Lab Results 04/14/23 04/14/23 04/14/23 Range/Units 10:09 10:09 10:09 WBC 9.2 (4.5-11.0) X10^3/uL RBC 4.31 (4.0-5.2) X10^6/uL Hgb 13.6 (12.0-16.0) g/dL Hct 39.0 (36-46) % MCV 90.4 (80-100) fL MCH 31.6 (26-34) PG MCHC 35.0 (30-36) % RDW 13.2 (11.6-14.8) % Plt Count 241 (150-400) X10^3/uL Neut % (Auto) 76.8 H (50-75) % Lymph % (Auto) 16.2 L (25-40) % [place] % (Auto) 5.9 (3-14) % Eos % (Auto) 0.4 L (2-4) % Baso % (Auto) 0.7 (0-2) % Neut # (Auto) 7100 H (7183-5836) /uL Lymph # (Auto) 1500 (2615-1495) /uL [place] # (Auto) 500 (0-900) /uL Eos # (Auto) 0 (0-450) /uL Baso # (Auto) 100 (0-100) /uL PT (10.1-12.7) SECONDS INR (0.9-1.3) D-Dimer 547 H (<500) ng/ml Sodium 133 L (137-145) mmol/L Potassium 3.5 (3.4-5.1) mmol/L Chloride 97 L (98-107) mmol/L Carbon Dioxide 28 (22-32) mmol/L BUN 8 (7-17) mg/dL Creatinine 0.50 L (0.52-1.04) mg/dL Estimated GFR > 60 (>60) mL/min BUN/Creatinine Ratio 16.0 (6-22) Glucose 107 (80-110) mg/dL Calcium 10.2 (8.4-10.2) mg/dL Magnesium (1.6-2.3) mg/dL Total Bilirubin 1.3 (0.2-1.3) mg/dL AST 33 (14-36) IU/L ALT 27 (<35) IU/L Alkaline Phosphatase 79 (38-126) U/L Total Creatine Kinase (30-135) U/L Troponin I (0.01-0.034) ng/mL NT-Pro-B Natriuret Pep (<450) pg/mL Total Protein 7.9 (6.3-8.2) g/dL Albumin 4.6 (3.5-5.0) g/dL Globulin 3.3 (1.7-4.1) g/dL Albumin/Globulin Ratio 1.4 (1.0-2.8) Lipase 51 (23-300) U/L 04/14/23 04/14/23 04/14/23 Range/Units 10:09 10:09 13:10 WBC (4.5-11.0) X10^3/uL RBC (4.0-5.2) X10^6/uL Hgb (12.0-16.0) g/dL Hct (36-46) % MCV (80-100) fL MCH (26-34) PG MCHC (30-36) % RDW (11.6-14.8) % Plt Count (150-400) X10^3/uL Neut % (Auto) (50-75) % Lymph % (Auto) (25-40) % [place] % (Auto) (3-14) % Eos % (Auto) (2-4) % Baso % (Auto) (0-2) % Neut # (Auto) (3014-1387) /uL Lymph # (Auto) (5045-8248) /uL [place] # (Auto) (0-900) /uL Eos # (Auto) (0-450) /uL Baso # (Auto) (0-100) /uL PT 12.3 (10.1-12.7) SECONDS INR 1.1 (0.9-1.3) D-Dimer (<500) ng/ml Sodium (137-145) mmol/L Potassium (3.4-5.1) mmol/L Chloride (98-107) mmol/L Carbon Dioxide (22-32) mmol/L BUN (7-17) mg/dL Creatinine (0.52-1.04) mg/dL Estimated GFR (>60) mL/min BUN/Creatinine Ratio (6-22) Glucose (80-110) mg/dL Calcium (8.4-10.2) mg/dL Magnesium 1.9 (1.6-2.3) mg/dL Total Bilirubin (0.2-1.3) mg/dL AST (14-36) IU/L ALT (<35) IU/L Alkaline Phosphatase (38-126) U/L Total Creatine Kinase 220 H 208 H (30-135) U/L Troponin I 0.023 0.022 (0.01-0.034) ng/mL NT-Pro-B Natriuret Pep 549 H (<450) pg/mL Total Protein (6.3-8.2) g/dL Albumin (3.5-5.0) g/dL Globulin (1.7-4.1) g/dL Albumin/Globulin Ratio (1.0-2.8) Lipase (23-300) U/L 04/14/23 Range/Units 15:05 WBC (4.5-11.0) X10^3/uL RBC (4.0-5.2) X10^6/uL Hgb (12.0-16.0) g/dL Hct (36-46) % MCV (80-100) fL MCH (26-34) PG MCHC (30-36) % RDW (11.6-14.8) % Plt Count (150-400) X10^3/uL Neut % (Auto) (50-75) % Lymph % (Auto) (25-40) % [place] % (Auto) (3-14) % Eos % (Auto) (2-4) % Baso % (Auto) (0-2) % Neut # (Auto) (4366-9586) /uL Lymph # (Auto) (8276-7853) /uL [place] # (Auto) (0-900) /uL Eos # (Auto) (0-450) /uL Baso # (Auto) (0-100) /uL PT (10.1-12.7) SECONDS INR (0.9-1.3) D-Dimer (<500) ng/ml Sodium (137-145) mmol/L Potassium (3.4-5.1) mmol/L Chloride (98-107) mmol/L Carbon Dioxide (22-32) mmol/L BUN (7-17) mg/dL Creatinine (0.52-1.04) mg/dL Estimated GFR (>60) mL/min BUN/Creatinine Ratio (6-22) Glucose (80-110) mg/dL Calcium (8.4-10.2) mg/dL Magnesium (1.6-2.3) mg/dL Total Bilirubin (0.2-1.3) mg/dL AST (14-36) IU/L ALT (<35) IU/L Alkaline Phosphatase (38-126) U/L Total Creatine Kinase (30-135) U/L Troponin I 0.022 (0.01-0.034) ng/mL NT-Pro-B Natriuret Pep (<450) pg/mL Total Protein (6.3-8.2) g/dL Albumin (3.5-5.0) g/dL Globulin (1.7-4.1) g/dL Albumin/Globulin Ratio (1.0-2.8) Lipase (23-300) U/L Urine Dip Bedside Urine Glucose Negative Bedside Urine Bilirubin - Negative Bedside Urine Ketone - Negative Urine Specific [place] 1.005 Bedside Urine Occult Blood - Negative Bedside Urine pH 6.5 Bedside Urine Protein - Negative Bedside Urine Urobilinogen - Negative Bedside Urine Nitrite - Negative Bedside Urine Leukocytes - Negative Esterase Point of care testing: Urine Dip Bedside Urine Glucose Negative Bedside Urine Bilirubin - Negative Bedside Urine Ketone - Negative Urine Specific [place] 1.005 Bedside Urine Occult Blood - Negative Bedside Urine pH 6.5 Bedside Urine Protein - Negative Bedside Urine Urobilinogen - Negative Bedside Urine Nitrite - Negative Bedside Urine Leukocytes - Negative Esterase MDM Narrative Medical decision making narrative: CC: 82-year-old female with chest pain Complicating co-morbidities: Age, hypertension, hyperlipidemia, recent stroke Data collected from: Patient Medical records reviewed: Prior notes reviewed in our EMR Differential considered, but not limited to: Cardiac ischemia versus pulmonary embolism versus pneumonia versus esophageal spasm versus reflux versus dissection versus AAA versus other Exam documented above, pertinent findings include: Very slightly tachycardic at portions of the exam but regular, lungs clear and nonlabored, abdomen soft and nontender Lab Test results independently reviewed as above. Pertinent findings: No leukocytosis or left shift, no signs of anemia, D-dimer 547, below age corrected cutoff, troponin 0.022 unchanged x3 Independently reviewed EKG as above Patient has had episodes of chest pressure relieved with nitro a few times today, no exertional component or obvious exercise intolerance. Patient is very adamant that she is a DNR, does not wish to pursue further diagnostic testing or evaluation. I have had consultation with the patient's POA (Darlene) regarding this topic who also spoke with the patient and we are all on the same page that the patient does not want to be transferred to pursue further diagnosis. She understands the potential repercussions of this decision and is very clear that she is ready to if that is what will happen. She has been demonstrating increasing signs of dementia since her hospitalization 1 month ago in the family is in talks to pursue the possibility of a residential facility. <Mirella Angel, DO - Last Filed: 04/17/23 19:19> Lab Data Labs: Lab Results 04/14/23 04/14/23 04/14/23 Range/Units 10:09 10:09 10:09 WBC 9.2 (4.5-11.0) X10^3/uL RBC 4.31 (4.0-5.2) X10^6/uL Hgb 13.6 (12.0-16.0) g/dL Hct 39.0 (36-46) % MCV 90.4 (80-100) fL MCH 31.6 (26-34) PG MCHC 35.0 (30-36) % RDW 13.2 (11.6-14.8) % Plt Count 241 (150-400) X10^3/uL Neut % (Auto) 76.8 H (50-75) % Lymph % (Auto) 16.2 L (25-40) % [place] % (Auto) 5.9 (3-14) % Eos % (Auto) 0.4 L (2-4) % Baso % (Auto) 0.7 (0-2) % Neut # (Auto) 7100 H (5681-8652) /uL Lymph # (Auto) 1500 (9698-5417) /uL [place] # (Auto) 500 (0-900) /uL Eos # (Auto) 0 (0-450) /uL Baso # (Auto) 100 (0-100) /uL PT (10.1-12.7) SECONDS INR (0.9-1.3) D-Dimer 547 H (<500) ng/ml Sodium 133 L (137-145) mmol/L Potassium 3.5 (3.4-5.1) mmol/L Chloride 97 L (98-107) mmol/L Carbon Dioxide 28 (22-32) mmol/L BUN 8 (7-17) mg/dL Creatinine 0.50 L (0.52-1.04) mg/dL Estimated GFR > 60 (>60) mL/min BUN/Creatinine Ratio 16.0 (6-22) Glucose 107 (80-110) mg/dL Calcium 10.2 (8.4-10.2) mg/dL Magnesium (1.6-2.3) mg/dL Total Bilirubin 1.3 (0.2-1.3) mg/dL AST 33 (14-36) IU/L ALT 27 (<35) IU/L Alkaline Phosphatase 79 (38-126) U/L Total Creatine Kinase (30-135) U/L Troponin I (0.01-0.034) ng/mL NT-Pro-B Natriuret Pep (<450) pg/mL Total Protein 7.9 (6.3-8.2) g/dL Albumin 4.6 (3.5-5.0) g/dL Globulin 3.3 (1.7-4.1) g/dL Albumin/Globulin Ratio 1.4 (1.0-2.8) Lipase 51 (23-300) U/L 04/14/23 04/14/23 04/14/23 Range/Units 10:09 10:09 13:10 WBC (4.5-11.0) X10^3/uL RBC (4.0-5.2) X10^6/uL Hgb (12.0-16.0) g/dL Hct (36-46) % MCV (80-100) fL MCH (26-34) PG MCHC (30-36) % RDW (11.6-14.8) % Plt Count (150-400) X10^3/uL Neut % (Auto) (50-75) % Lymph % (Auto) (25-40) % [place] % (Auto) (3-14) % Eos % (Auto) (2-4) % Baso % (Auto) (0-2) % Neut # (Auto) (6351-8076) /uL Lymph # (Auto) (4453-4879) /uL [place] # (Auto) (0-900) /uL Eos # (Auto) (0-450) /uL Baso # (Auto) (0-100) /uL PT 12.3 (10.1-12.7) SECONDS INR 1.1 (0.9-1.3) D-Dimer (<500) ng/ml Sodium (137-145) mmol/L Potassium (3.4-5.1) mmol/L Chloride (98-107) mmol/L Carbon Dioxide (22-32) mmol/L BUN (7-17) mg/dL Creatinine (0.52-1.04) mg/dL Estimated GFR (>60) mL/min BUN/Creatinine Ratio (6-22) Glucose (80-110) mg/dL Calcium (8.4-10.2) mg/dL Magnesium 1.9 (1.6-2.3) mg/dL Total Bilirubin (0.2-1.3) mg/dL AST (14-36) IU/L ALT (<35) IU/L Alkaline Phosphatase (38-126) U/L Total Creatine Kinase 220 H 208 H (30-135) U/L Troponin I 0.023 0.022 (0.01-0.034) ng/mL NT-Pro-B Natriuret Pep 549 H (<450) pg/mL Total Protein (6.3-8.2) g/dL Albumin (3.5-5.0) g/dL Globulin (1.7-4.1) g/dL Albumin/Globulin Ratio (1.0-2.8) Lipase (23-300) U/L 04/14/23 Range/Units 15:05 WBC (4.5-11.0) X10^3/uL RBC (4.0-5.2) X10^6/uL Hgb (12.0-16.0) g/dL Hct (36-46) % MCV (80-100) fL MCH (26-34) PG MCHC (30-36) % RDW (11.6-14.8) % Plt Count (150-400) X10^3/uL Neut % (Auto) (50-75) % Lymph % (Auto) (25-40) % [place] % (Auto) (3-14) % Eos % (Auto) (2-4) % Baso % (Auto) (0-2) % Neut # (Auto) (7975-2483) /uL Lymph # (Auto) (0700-7997) /uL [place] # (Auto) (0-900) /uL Eos # (Auto) (0-450) /uL Baso # (Auto) (0-100) /uL PT (10.1-12.7) SECONDS INR (0.9-1.3) D-Dimer (<500) ng/ml Sodium (137-145) mmol/L Potassium (3.4-5.1) mmol/L Chloride (98-107) mmol/L Carbon Dioxide (22-32) mmol/L BUN (7-17) mg/dL Creatinine (0.52-1.04) mg/dL Estimated GFR (>60) mL/min BUN/Creatinine Ratio (6-22) Glucose (80-110) mg/dL Calcium (8.4-10.2) mg/dL Magnesium (1.6-2.3) mg/dL Total Bilirubin (0.2-1.3) mg/dL AST (14-36) IU/L ALT (<35) IU/L Alkaline Phosphatase (38-126) U/L Total Creatine Kinase (30-135) U/L Troponin I 0.022 (0.01-0.034) ng/mL NT-Pro-B Natriuret Pep (<450) pg/mL Total Protein (6.3-8.2) g/dL Albumin (3.5-5.0) g/dL Globulin (1.7-4.1) g/dL Albumin/Globulin Ratio (1.0-2.8) Lipase (23-300) U/L Urine Dip Bedside Urine Glucose Negative Bedside Urine Bilirubin - Negative Bedside Urine Ketone - Negative Urine Specific [place] 1.005 Bedside Urine Occult Blood - Negative Bedside Urine pH 6.5 Bedside Urine Protein - Negative Bedside Urine Urobilinogen - Negative Bedside Urine Nitrite - Negative Bedside Urine Leukocytes - Negative Esterase Point of care testing: Urine Dip Bedside Urine Glucose Negative Bedside Urine Bilirubin - Negative Bedside Urine Ketone - Negative Urine Specific [place] 1.005 Bedside Urine Occult Blood - Negative Bedside Urine pH 6.5 Bedside Urine Protein - Negative Bedside Urine Urobilinogen - Negative Bedside Urine Nitrite - Negative Bedside Urine Leukocytes - Negative Esterase MDM Narrative Medical decision making narrative: CC: 82-year-old female with chest pain Complicating co-morbidities: Age, hypertension, hyperlipidemia, recent stroke Data collected from: Patient Medical records reviewed: Prior notes reviewed in our EMR Differential considered, but not limited to: Cardiac ischemia versus pulmonary embolism versus pneumonia versus esophageal spasm versus reflux versus dissection versus AAA versus other Exam documented above, pertinent findings include: Very slightly tachycardic at portions of the exam but regular, lungs clear and nonlabored, abdomen soft and nontender Lab Test results independently reviewed as above. Pertinent findings: No leukocytosis or left shift, no signs of anemia, D-dimer 547, below age corrected cutoff, troponin 0.022 unchanged x3 Independently reviewed EKG as above Patient has had episodes of chest pressure relieved with nitro a few times today, no exertional component or obvious exercise intolerance. Patient is very adamant that she is a DNR, does not wish to pursue further diagnostic testing or evaluation. I have had consultation with the patient's POA (Darlene) regarding this topic who also spoke with the patient and we are all on the same page that the patient does not want to be transferred to pursue further diagnosis. She understands the potential repercussions of this decision and is very clear that she is ready to if that is what will happen. She has been demonstrating increasing signs of dementia since her hospitalization 1 month ago in the family is in talks to pursue the possibility of a residential facility. 04/14/23 [place]: Patient signed out to myself by Dr. Mccormack. Patient's family is reported to be planning to pick her up in the morning on 04/15/2023. Patient is DNR/DNI she does not wish for interventions or additional treatment. She had chest pain relieved with nitro no elevation in troponins but suspected to be unstable angina. There was talk about rehab or residential but patient would prefer to return home and family was working with resources to come and pick her up during daytime hours. Patient grandson is supposed to come potato picker patient. Patient no additional complaints overnight. She received some of her regular medications including metoprolol x2, losartan and had an inch of nitro paste. Patient did not receive her atorvastatin. After discussion with the patient she has not really been taking her medications regularly. She states her family is coming this morning. She has not had any persistent chest pain, she feels very good this morning 04/15/23. She is anticipating discharge home and states her family is coming to get her. 04/15/23 Greg. 0810 - patient continues to be pain free. Signed out to me by night doctor Dr. Angel. Grandson unable to pick patient up but neighbor arrived to take patient home <Mirella Garza MD - Last Filed: 04/15/23 08:10> Lab Data Labs: Lab Results 04/14/23 04/14/23 04/14/23 Range/Units 10:09 10:09 10:09 WBC 9.2 (4.5-11.0) X10^3/uL RBC 4.31 (4.0-5.2) X10^6/uL Hgb 13.6 (12.0-16.0) g/dL Hct 39.0 (36-46) % MCV 90.4 (80-100) fL MCH 31.6 (26-34) PG MCHC 35.0 (30-36) % RDW 13.2 (11.6-14.8) % Plt Count 241 (150-400) X10^3/uL Neut % (Auto) 76.8 H (50-75) % Lymph % (Auto) 16.2 L (25-40) % [place] % (Auto) 5.9 (3-14) % Eos % (Auto) 0.4 L (2-4) % Baso % (Auto) 0.7 (0-2) % Neut # (Auto) 7100 H (5025-8598) /uL Lymph # (Auto) 1500 (3014-8116) /uL [place] # (Auto) 500 (0-900) /uL Eos # (Auto) 0 (0-450) /uL Baso # (Auto) 100 (0-100) /uL PT (10.1-12.7) SECONDS INR (0.9-1.3) D-Dimer 547 H (<500) ng/ml Sodium 133 L (137-145) mmol/L Potassium 3.5 (3.4-5.1) mmol/L Chloride 97 L (98-107) mmol/L Carbon Dioxide 28 (22-32) mmol/L BUN 8 (7-17) mg/dL Creatinine 0.50 L (0.52-1.04) mg/dL Estimated GFR > 60 (>60) mL/min BUN/Creatinine Ratio 16.0 (6-22) Glucose 107 (80-110) mg/dL Calcium 10.2 (8.4-10.2) mg/dL Magnesium (1.6-2.3) mg/dL Total Bilirubin 1.3 (0.2-1.3) mg/dL AST 33 (14-36) IU/L ALT 27 (<35) IU/L Alkaline Phosphatase 79 (38-126) U/L Total Creatine Kinase (30-135) U/L Troponin I (0.01-0.034) ng/mL NT-Pro-B Natriuret Pep (<450) pg/mL Total Protein 7.9 (6.3-8.2) g/dL Albumin 4.6 (3.5-5.0) g/dL Globulin 3.3 (1.7-4.1) g/dL Albumin/Globulin Ratio 1.4 (1.0-2.8) Lipase 51 (23-300) U/L 04/14/23 04/14/23 04/14/23 Range/Units 10:09 10:09 13:10 WBC (4.5-11.0) X10^3/uL RBC (4.0-5.2) X10^6/uL Hgb (12.0-16.0) g/dL Hct (36-46) % MCV (80-100) fL MCH (26-34) PG MCHC (30-36) % RDW (11.6-14.8) % Plt Count (150-400) X10^3/uL Neut % (Auto) (50-75) % Lymph % (Auto) (25-40) % [place] % (Auto) (3-14) % Eos % (Auto) (2-4) % Baso % (Auto) (0-2) % Neut # (Auto) (1154-0741) /uL Lymph # (Auto) (1642-5325) /uL [place] # (Auto) (0-900) /uL Eos # (Auto) (0-450) /uL Baso # (Auto) (0-100) /uL PT 12.3 (10.1-12.7) SECONDS INR 1.1 (0.9-1.3) D-Dimer (<500) ng/ml Sodium (137-145) mmol/L Potassium (3.4-5.1) mmol/L Chloride (98-107) mmol/L Carbon Dioxide (22-32) mmol/L BUN (7-17) mg/dL Creatinine (0.52-1.04) mg/dL Estimated GFR (>60) mL/min BUN/Creatinine Ratio (6-22) Glucose (80-110) mg/dL Calcium (8.4-10.2) mg/dL Magnesium 1.9 (1.6-2.3) mg/dL Total Bilirubin (0.2-1.3) mg/dL AST (14-36) IU/L ALT (<35) IU/L Alkaline Phosphatase (38-126) U/L Total Creatine Kinase 220 H 208 H (30-135) U/L Troponin I 0.023 0.022 (0.01-0.034) ng/mL NT-Pro-B Natriuret Pep 549 H (<450) pg/mL Total Protein (6.3-8.2) g/dL Albumin (3.5-5.0) g/dL Globulin (1.7-4.1) g/dL Albumin/Globulin Ratio (1.0-2.8) Lipase (23-300) U/L 04/14/23 Range/Units 15:05 WBC (4.5-11.0) X10^3/uL RBC (4.0-5.2) X10^6/uL Hgb (12.0-16.0) g/dL Hct (36-46) % MCV (80-100) fL MCH (26-34) PG MCHC (30-36) % RDW (11.6-14.8) % Plt Count (150-400) X10^3/uL Neut % (Auto) (50-75) % Lymph % (Auto) (25-40) % [place] % (Auto) (3-14) % Eos % (Auto) (2-4) % Baso % (Auto) (0-2) % Neut # (Auto) (5087-2663) /uL Lymph # (Auto) (8929-9603) /uL [place] # (Auto) (0-900) /uL Eos # (Auto) (0-450) /uL Baso # (Auto) (0-100) /uL PT (10.1-12.7) SECONDS INR (0.9-1.3) D-Dimer (<500) ng/ml Sodium (137-145) mmol/L Potassium (3.4-5.1) mmol/L Chloride (98-107) mmol/L Carbon Dioxide (22-32) mmol/L BUN (7-17) mg/dL Creatinine (0.52-1.04) mg/dL Estimated GFR (>60) mL/min BUN/Creatinine Ratio (6-22) Glucose (80-110) mg/dL Calcium (8.4-10.2) mg/dL Magnesium (1.6-2.3) mg/dL Total Bilirubin (0.2-1.3) mg/dL AST (14-36) IU/L ALT (<35) IU/L Alkaline Phosphatase (38-126) U/L Total Creatine Kinase (30-135) U/L Troponin I 0.022 (0.01-0.034) ng/mL NT-Pro-B Natriuret Pep (<450) pg/mL Total Protein (6.3-8.2) g/dL Albumin (3.5-5.0) g/dL Globulin (1.7-4.1) g/dL Albumin/Globulin Ratio (1.0-2.8) Lipase (23-300) U/L Urine Dip Bedside Urine Glucose Negative Bedside Urine Bilirubin - Negative Bedside Urine Ketone - Negative Urine Specific [place] 1.005 Bedside Urine Occult Blood - Negative Bedside Urine pH 6.5 Bedside Urine Protein - Negative Bedside Urine Urobilinogen - Negative Bedside Urine Nitrite - Negative Bedside Urine Leukocytes - Negative Esterase Point of care testing: Urine Dip Bedside Urine Glucose Negative Bedside Urine Bilirubin - Negative Bedside Urine Ketone - Negative Urine Specific [place] 1.005 Bedside Urine Occult Blood - Negative Bedside Urine pH 6.5 Bedside Urine Protein - Negative Bedside Urine Urobilinogen - Negative Bedside Urine Nitrite - Negative Bedside Urine Leukocytes - Negative Esterase MDM Narrative Medical decision making narrative: CC: 82-year-old female with chest pain Complicating co-morbidities: Age, hypertension, hyperlipidemia, recent stroke Data collected from: Patient Medical records reviewed: Prior notes reviewed in our EMR Differential considered, but not limited to: Cardiac ischemia versus pulmonary embolism versus pneumonia versus esophageal spasm versus reflux versus dissection versus AAA versus other Exam documented above, pertinent findings include: Very slightly tachycardic at portions of the exam but regular, lungs clear and nonlabored, abdomen soft and nontender Lab Test results independently reviewed as above. Pertinent findings: No leukocytosis or left shift, no signs of anemia, D-dimer 547, below age corrected cutoff, troponin 0.022 unchanged x3 Independently reviewed EKG as above Patient has had episodes of chest pressure relieved with nitro a few times today, no exertional component or obvious exercise intolerance. Patient is very adamant that she is a DNR, does not wish to pursue further diagnostic testing or evaluation. I have had consultation with the patient's POA (Darlene) regarding this topic who also spoke with the patient and we are all on the same page that the patient does not want to be transferred to pursue further diagnosis. She understands the potential repercussions of this decision and is very clear that she is ready to if that is what will happen. She has been demonstrating increasing signs of dementia since her hospitalization 1 month ago in the family is in talks to pursue the possibility of a residential facility. 04/14/23 Mank: Patient signed out to myself by Dr. Mccormack. Patient's family is reported to be planning to pick her up in the morning on 04/15/2023. Patient is DNR/DNI she does not wish for interventions or additional treatment. She had chest pain relieved with nitro no elevation in troponins but suspected to be unstable angina. There was talk about rehab or residential but patient would prefer to return home and family was working with resources to come and pick her up during daytime hours. Patient dmitriy is supposed to come potato picker patient. Patient no additional complaints overnight. She received some of her regular medications including metoprolol x2, losartan and had an inch of nitro paste. Patient did not receive her atorvastatin. After discussion with the patient she has not really been taking her medications regularly. She states her family is coming this morning. She has not had any persistent chest pain, she feels very good this morning. She is anticipating discharge home and states her family is coming to get her. 04/15/23 Greg. 0810 - patient continues to be pain free. Signed out to me by night doctor Dr. Angel. Dmitriy unable to pick patient up but neighbor arrived to take patient home Discharge Plan Departure Patient Disposition: Home Clinical Impression: Chest pain Instructions: DI for Chest Pain Activity Restrictions/Additional Instructions: Follow up with your physician call for an appointment. As discussed with Dr. Mccormack he is concerned that your chest pain is unstable angina or that your heart is not getting appropriate blood flow and that you would benefit from hospitalization and treatment. You have elected not to have treatment. I would recommend talking with your physician about hospice if you are interested in this. You can continue your home medications. You can return at any time for re-evaluation if you are having new or concerning changes. Prescriptions: No Action meloxicam 15 mg tablet 15 mg PO DAILY Qty: 90 3RF chlorthalidone 25 mg tablet 25 mg PO DAILY Qty: 90 3RF olmesartan 40 mg tablet 40 mg PO DAILY Qty: 90 3RF metoprolol succinate 100 mg tablet extended release 24 hr 100 mg PO BID Qty: 180 3RF aspirin [Adult Low Dose Aspirin] 81 mg tablet,delayed release (DR/EC) 81 mg PO DAILY gabapentin 100 mg capsule 200 mg PO BID Qty: 360 3RF atorvastatin 40 mg tablet 40 mg PO QPM Rx Instructions: TAKE 1 TABLET BY MOUTH AT BEDTIME estradiol 0.01 % (0.1 mg/gram) cream 1 g vaginal 2XW Rx Instructions: Use on effected area twice a week. amlodipine 2.5 mg tablet 5 mg PO DAILY Referrals: Estuardo Willams DO [Primary Care Provider] - Stand Alone Forms: Patient Portal/API ED Sign-out <Felipe Mccormack DO - Last Filed: 04/15/23 09:21> Cosign ED Attending Deisy Attestation: I was immediately available in the department for consultation. Documentation has been reviewed. I agree with assessment and plan.
--- NOTE | 2023-04-14 10:02 | DI.RAD.S_ITS ---
PROCEDURE: XR CHEST 1V INDICATIONS: chest pain TECHNIQUE: One view of the chest was acquired. COMPARISON: [facility], CR, XR CHEST 2V, 06/13/2022, 13:06. FINDINGS: Surgical changes and devices: None. Lungs and pleura: An incomplete inspiratory result is noted, causing a crowded appearance to the lung markings. No focal infiltrates are seen. Generalized interstitial prominence can be seen. No pneumothorax or significant pleural effusions are seen. Mediastinum: The cardiac contours are within normal limits. The aorta demonstrates calcification and tortuosity. Bones and chest wall: No suspicious bony lesions. Age-appropriate bony degenerative changes are seen. Overlying soft tissues appear unremarkable. IMPRESSION: Low lung volumes, with mild interstitial prominence. Differential diagnosis includes artifact and mild pulmonary edema. Dictated by: Devonte Arreola M.D. on 04/14/2023 at 9:44 Approved by: Devonte Arreola M.D. on 04/14/2023 at 9:44
[2023-04-14 10:17] LABS: Add Manual Diff / Slide Review NO; Basophils Absolute Auto 100 /uL (0-100); Basophils Percent Auto 0.7 % (0-2); Eosinophils Absolute Auto 0 /uL (0-450); Eosinophils Percent Auto 0.4 % (2-4); Hemoglobin 13.6 g/dL (12.0-16.0); Lymphocytes Absolute Auto 1500 /uL (1100-4500); Lymphocytes Percent Auto 16.2 % (25-40); Mean Corpuscular Hemoglobin 31.6 PG (26-34); Mean Corpuscular Volume 90.4 fL (80-100); Monocytes Absolute Auto 500 /uL (0-900); Monocytes Percent Auto 5.9 % (3-14); Neutrophils Absolute Auto 7100 /uL (1500-7000); Neutrophils Percent Auto 76.8 % (50-75); Platelet Count 241 X10^3/uL (150-400); Red Blood Cell Count 4.31 X10^6/uL (4.0-5.2); Red Cell Distribution Width 13.2 % (11.6-14.8); White Blood Cell Count 9.2 X10^3/uL (4.5-11.0)
[2023-04-14 10:24] LABS: INR 1.1 (0.9-1.3); Prothrombin Time 12.3 SECONDS (10.1-12.7)
[2023-04-14 10:28] LABS: Creatine Kinase 220 U/L (30-135); Magnesium 1.9 mg/dL (1.6-2.3)
[2023-04-14 10:30] LABS: Alanine Aminotransferase 27 IU/L (<35); Albumin 4.6 g/dL (3.5-5.0); Albumin Globulin Ratio 1.4 (1.0-2.8); Alkaline Phosphatase 79 U/L (38-126); Aspartate Aminotransferase 33 IU/L (14-36); Bilirubin Total 1.3 mg/dL (0.2-1.3); Blood Urea Nitrogen 8 mg/dL (7-17); Calcium 10.2 mg/dL (8.4-10.2); Carbon Dioxide 28 mmol/L (22-32); Chloride 97 mmol/L (98-107); Estimated Glomerular Filt Rate > 60 mL/min (>60); Globulin 3.3 g/dL (1.7-4.1); Glucose 107 mg/dL (80-110); HEMOLYSIS < 15 (0-50); Lipase 51 U/L (23-300); Potassium 3.5 mmol/L (3.4-5.1); Sodium 133 mmol/L (137-145); Total Protein 7.9 g/dL (6.3-8.2)
[2023-04-14 10:32] LABS: D Dimer 547 ng/ml (<500)
[2023-04-14 10:41] LABS: NT-proBNP (BNP-Adult 18+) 549 pg/mL (<450); Troponin I 0.023 ng/mL (0.01-0.034)
--- NOTE | 2023-04-14 12:21 | PC.NURSE ---
Pt became very anxious, had difficulty utilizing call man and stating that no one had been in to see her. When reviewed care, she did state that she had seen the doctor and the nurse multiple times but was upset that her bp cuff had not gone off. Discussed monitoring. Call man was in place. Pt able to return demonstrate use of call man. Verbally reassured and anxiety decreased. Noted hypertension. Pt has not taken her medications for two days. Dr. Mccormack ordered usual Metoprolol dose as seen in Dr. Willams's note.
[2023-04-14] MEDS: METOPROLOL ER 50 MG TABLET 100 MG PO ×2 (12:36→16:05)
--- NOTE | 2023-04-14 12:49 | DI.CT.S_ITS ---
PROCEDURE: CT HEAD/BRAIN WO CON INDICATIONS: confused TECHNIQUE: Noncontrast 4.5 mm thick angled axial sections acquired from the foramen magnum to the vertex, with coronal and sagittal reformats. For radiation dose reduction, the following was used: automated exposure control, adjustment of mA and/or kV according to patient size. COMPARISON: [facility], CT, CT HEAD/BRAIN WO CON, 03/06/2023, 10:37. [facility], CT, CT HEAD/BRAIN WO CON, 03/07/2023, 8:05. FINDINGS: Image quality: Excellent. CSF spaces: Basal cisterns are patent. No extra-axial fluid collections. The ventricles are symmetric in size and shape. Brain: There is moderate size encephalomalacia in the left parietal lobe consistent with and old infarct. No intracranial bleeds or masses. There is cerebral volume loss for age, with resultant ventricular and sulcal prominence. There are periventricular and deep white matter chronic small vessel ischemic changes. There is intracranial internal carotid artery atherosclerosis. Skull and face: Calvarium and visualized facial bones appear intact, without suspicious lesions. Sinuses: Visualized sinuses and mastoids are clear. IMPRESSION: 1. No acute intracranial abnormalities. 2. 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 3. Cerebral volume loss and chronic microvascular ischemic changes. Dictated by: Jeff Jefferson M.D. on 04/14/2023 at 14:00 Approved by: Jeff Jefferson M.D. on 04/14/2023 at 14:02
[2023-04-14 13:29] LABS: Creatine Kinase 208 U/L (30-135)
[2023-04-14 13:42] LABS: Troponin I 0.022 ng/mL (0.01-0.034)
--- NOTE | 2023-04-14 14:51 | PC.NURSE ---
Pt calls and reports chest tightness and pressure. Provider Easton made aware. New verbal orders given.
[2023-04-14] MEDS: NITROGLYCERIN OINT 1 INCH/GM OINT...G. TOP (14:57)
--- NOTE | 2023-04-14 15:00 | PC.NURSE ---
Patient reported sudden chest pressure. Provider informed and ordered EKG, Nitropaste and Troponin blood test.
[2023-04-14 15:37] LABS: Troponin I 0.022 ng/mL (0.01-0.034)
[2023-04-14] MEDS: LOSARTAN 50 MG TABLET PO (16:04)
[2023-04-15] VITALS (18 sets, daily range): BP systolic 144–182; BP diastolic 65–99; PULSE 51–64; RESP 12–40; O2SAT 92–98
== END 2023-04-15 08:13 | disposition home or self-care (01) ==
PROVIDERS: Emergency Medicine; Emergency Provider Emergency Medicine; PCP Family Medicine
DX: R07.9 Chest pain, unspecified (principal); R41.0 Disorientation, unspecified
CPT/HCPCS: 36415; 70450; 71045; 80053; 81003; 82550; 83690; 83735; 83880; 84484; 85025; 85379; 85610; 93005; 99284

== ENCOUNTER → 2023-07-16 09:56 | Outpatient (CLI) | payer MEDICARE, SELFPAY ==
[2023-03-04 23:04] VITALS: BMI 25.7
[2023-07-16 10:38] LABS: Add Manual Diff / Slide Review NO; Basophils Absolute Auto 100 /uL (0-100); Basophils Percent Auto 0.7 % (0-2); Eosinophils Absolute Auto 100 /uL (0-450); Eosinophils Percent Auto 1.3 % (2-4); Hematocrit 39.7 % (36-46); Lymphocytes Absolute Auto 1900 /uL (1100-4500); Lymphocytes Percent Auto 19.1 % (25-40); Mean Corpuscular HGB Conc 35.3 % (30-36); Mean Corpuscular Hemoglobin 31.5 PG (26-34); Mean Corpuscular Volume 89.1 fL (80-100); Monocytes Absolute Auto 800 /uL (0-900); Monocytes Percent Auto 7.7 % (3-14); Neutrophils Absolute Auto 7000 /uL (1500-7000); Neutrophils Percent Auto 71.2 % (50-75); Platelet Count 242 X10^3/uL (150-400); Red Blood Cell Count 4.46 X10^6/uL (4.0-5.2); Red Cell Distribution Width 12.2 % (11.6-14.8); White Blood Cell Count 9.9 X10^3/uL (4.5-11.0)
[2023-07-16 10:44] LABS: Hemoglobin A1C% w Est Avg Glu 5.8 % (4.0-6.0)
[2023-07-16 11:01] LABS: Alanine Aminotransferase 22 IU/L (<35); Albumin 4.4 g/dL (3.5-5.0); Albumin Globulin Ratio 1.4 (1.0-2.8); Alkaline Phosphatase 89 U/L (38-126); Aspartate Aminotransferase 26 IU/L (14-36); BUN Creatinine Ratio 22.6 (6-22); Bilirubin Total 1.2 mg/dL (0.2-1.3); Blood Urea Nitrogen 12 mg/dL (7-17); Calcium 10.8 mg/dL (8.4-10.2); Carbon Dioxide 27 mmol/L (22-32); Chloride 94 mmol/L (98-107); Estimated Glomerular Filt Rate > 60 mL/min (>60); Globulin 3.1 g/dL (1.7-4.1); Glucose 119 mg/dL (80-110); HEMOLYSIS 17 (0-50); Potassium 3.9 mmol/L (3.4-5.1); Sodium 130 mmol/L (137-145); Total Protein 7.5 g/dL (6.3-8.2)
[2023-07-16 11:24] LABS: TSH w/ Reflex to FT4 1.49 uIU/mL (0.47-4.68)
== END ==
PROVIDERS: PCP Family Medicine; Referring Provider Family Medicine; Visit Provider Family Medicine
DX: R07.9 Chest pain, unspecified (principal); R73.03 Prediabetes; F32.9 Major depressive disorder, single episode, unspecified; I63.9 Cerebral infarction, unspecified; R60.9 Edema, unspecified; S32.010A Wedge compression fracture of first lumbar vertebra, initial encounter for closed fracture; I10 Essential (primary) hypertension
CPT/HCPCS: 36415; 80053; 83036; 84443; 85025

== ENCOUNTER 2023-09-14 09:45 | Outpatient (RCR) | payer MEDICARE, SELFPAY ==
[2023-03-04 23:04] VITALS: BMI 25.7
--- NOTE | 2023-09-05 16:24 | PT.OIE ---
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) Chronic sinusitis Chronic UTI Compression fracture of L1 lumbar vertebra Compression fracture of T7 vertebra Compression fracture of T8 vertebra Depression Edema Gilbert syndrome Gout (07/19/11) Has end of life care plan Head contusion Head injury, acute, without loss of consciousness Hordeolum externum of right lower eyelid Hyperlipidemia Hypertension Idiopathic peripheral neuropathy (02/12/15) Idiopathic peripheral neuropathy Impaired hearing Insomnia Left wrist sprain Multiple lipomas Osteoarthritis Osteopenia Osteoporosis Peripheral edema (03/21/16) Postmenopausal atrophic vaginitis Recurrent UTI (urinary tract infection) Stable angina Thrush TIA (transient ischemic attack) Tinea Toe deformity Traumatic ecchymosis of face Vaginal pessary present Well adult exam Past Surgical History (Last Reviewed 07/30/23 @ 10:16 by Estuardo Willams DO) Hx of appendectomy S/P bilateral breast reduction S/P total abdominal hysterectomy and bilateral salpingo-oophorectomy Status post total hip replacement, left (06/06/16) Status post total right knee replacement Visit Care Team Role Provider Type Estuardo Willams DO Attending Provider Physician Primary Care Provider Referring Provider Specialty: [facility] Address: [address] [place] [address], [facility] Email: [email or web address] [facility] Initial Evaluation PT-OP-A Visit Information Start: 09/05/23 08:23 Freq: Status: Active Protocol: Document 09/05/23 08:23 NM (Rec: 09/05/23 09:04 NM [id number]) Out-Patient Physical Therapy Visit Information Visit Information Visit Type Initial Evaluation Visit Start Time 08:20 Visit Stop Time 09:00 Visit Number 1 Evaluation Information Evaluation Date 09/05/23 Precautions Precautions Fall risk, Hx CVA (take vitals ), decreased field of vision PT-OP-B Current Condition Start: 09/05/23 08:23 Freq: Status: Active Protocol: Document 09/05/23 08:23 NM (Rec: 09/05/23 09:04 NM [id number]) Current Condition History of Current Condition Onset Date February 2023 Current Complaints poor balance History of Current Condition Pt presents to PT with reports of balance and gait impairments s/p CVA in February 2023. After her CVA, pt had HHPT but has not had any further PT. She currently uses a spc for community ambulation prn, but not household ambulation. She did not bring her spc today. Prior to CVA, did not use an AD for gait. She reports no difficulty with stairs if using a hand rail; has 2 story home with rails on the stairs . She has no reports of balance changes due to dizziness, lightheadedness, or vertigo. However, she does report a decreased visual field due to her stroke with difficulty being aware of objects. Pt does report tingling B feet. She does not drive. PMH of R TKA, and EARLENE ( pt unsure which hip). She also reports memory issues (recall , short term, etc). She lives alone but her cousin and daughter check on her. Hx provided by pt and her cousin. Prior Functional Status Baseline Function- ADL's Independent Baseline Function- Mobility Independent Baseline Function- Gait 6-8 blocks without AD Baseline Function- Other driving Current Functional Impairments (Reported) Functional Limitations- ADL's No reported difficulty with ADLs Functional Limitations- Mobility/Gait 6-8 blocks with spc for balance Functional Limitations- Other no driving PT-OP-C Subjective Start: 09/05/23 08:23 Freq: Status: Active Protocol: Document 09/05/23 08:23 NM (Rec: 09/05/23 09:04 NM [id number]) OP-PT Subjective Patient Comments Patient Comments see hx above for pt report Patient Questionnaires ABC- Activity Specific Balance Confidence Scale ABC Score 76.6% Other Questionnaire Name and Score Falls Efficacy Scale- International: OP-PT Pain Assessment Pain Assessment Grid Paper Pain Assessment Grid Completed Yes: No pain reported PT-OP-D Balance Start: 09/05/23 08:23 Freq: Status: Active Protocol: Document 09/05/23 08:23 NM (Rec: 09/05/23 09:04 NM [id number]) OP-PT Balance Assessment Sitting Balance Static Sitting Balance Ability Normal Dynamic Sitting Balance Ability Normal Standing Balance Static Standing Balance Ability Good Dynamic Standing Balance Ability Fair Balance Tests Awan Balance Test Awan Balance Test Score 46/56 Single Limb Standing Single Limb- Right 1 sec Single Limb- Left 3 sec Tandem Tandem Standing LLE 30 sec, RLE 10 sec Other Other Balance Tests Performed NBOS: 30 sec; increased trunk sway Eyes closed: 10 sec; increased trunk sway, begins reaching to stability after 10 sec Buckner Fall Scale Copyright Permission PT-OP-E Functional Tests Start: 09/05/23 08:23 Freq: Status: Active Protocol: Document 09/05/23 08:23 NM (Rec: 09/05/23 09:04 NM [id number]) Functional Tests Dynamic Gait Index (DGI) Score 1324 Five Times Sit to Stand Test Score 14.65 sec Comments bilateral knee valgus, excess fwd trunk lean; hands across chest Timed Up and Go (TUG) Score 12.79 seconds Comments no AD used PT-OP-G Mobility & Gait Start: 09/05/23 08:23 Freq: Status: Active Protocol: Document 09/05/23 08:23 NM (Rec: 09/05/23 09:04 NM [id number]) OP Gait Assessment Gait Gait Assistance Required: Standby Assistance Distance (Feet) 200 Assistive Devices Assistive Device Gait Belt Gait Deviations General Gait Pattern Wide Based Gait Factors Limiting Gait Function Factors Limiting Gait Function Decreased Sensation,Decreased Strength,Poor Balance,Poor Safety Awareness Comments Gait Comments Pt demos trunk sway with ambulation, wide based gait without AD use. Does not reach for objects to stabilize, but gait is slow. Able to pivot and stop quickly without LOB. Difficulty with foot clearance when stepping over objects and recognizing location of objects/aware of surroundings, especially when objects are on the floor or periphery. Stair Climbing Evaluation Evaluation Level of Assist On Stairs Contact Guard Assistance Devices Stair Climbing Assistive Devices Right Railing Technique/Endurance Stair Climbing Direction Ascend and Descend Stair Climbing Technique Step Over Step Number of Steps Climbed 4 Stair Climbing Set # Repetitions (reps) 1 Comments Stair Climbing Comments Relies on UE support for balance. Able to clear foot onto step if UE support, otherwise difficulty with maintaining balance onto step. PT-OP-H Neuro Start: 09/05/23 08:23 Freq: Status: Active Protocol: Document 09/05/23 08:23 NM (Rec: 09/05/23 09:04 NM [id number]) Sensation Evaluation Gross Sensation Sensation Description Tingling Comments Summary Comments BUE and BLE dermatomes intact to light touch sensation Coordination Evaluation Upper Extremity Tests Left Finger to Nose Test Moderate Impairment Finger to Therapist's Finger Test Moderate Impairment Finger to Finger Test Moderate Impairment Pronation/Supination Test Normal Performance Right Finger to Nose Test Moderate Impairment Finger to Therapist's Finger Test Moderate Impairment Alternate Nose to Finger Test Moderate Impairment Pronation/Supination Test Normal Performance Lower Extremity Tests Left Alternate Heel to Knee; Heel to Toe Test Minimal Impairment Heel on Rodriguez Test Activity Impossible Foot Tapping Test Minimal Impairment Right Alternate Heel to Knee; Heel to Toe Test Minimal Impairment Heel on Rodriguez Test Activity Impossible Foot Tapping Test Minimal Impairment Deep Tendon Reflex & Clonus Assessment Deep Tendon Reflex Bilateral Achilles Deep Tendon Reflex 1+ Diminished Bilateral Bicep Deep Tendon Reflex 2+ Normal PT-OP-J Posture/Palpation/Skin Start: 09/05/23 08:23 Freq: Status: Active Protocol: Document 09/05/23 08:23 NM (Rec: 09/05/23 09:04 NM [id number]) Posture Evaluation Position Standing Evaluation View Posterior Head/C-Spine Posture Forward Head L-Spine Posture Neutral Shoulder Posture (L) Rounded,(R) Rounded Scapula Posture (L) Neutral,(R) Neutral Arm Posture (L) Internally Rotated,(R) Internally Rotated Pelvis Posture Anteriorly Tilted Weight Distribution Balanced PT-OP-K Range of Motion Start: 09/05/23 08:23 Freq: Status: Active Protocol: Document 09/05/23 08:23 NM (Rec: 09/05/23 09:04 NM [id number]) Hip Goniometric Range of Motion Hip ROM Limitations Comments Limited B hip flexion/rotation ROM PT-OP-M Strength Start: 09/05/23 08:23 Freq: Status: Active Protocol: Document 09/05/23 08:23 NM (Rec: 09/05/23 09:04 NM [id number]) Hip Strength Hip Manual Muscle Testing Right Flexion (L2) 4- Good- Extension (S1) 4- Good- Abduction 4- Good- Adduction 4- Good- External Rotation 4- Good- Internal Rotation 4- Good- Left Flexion (L2) 4- Good- Extension (S1) 4- Good- Abduction 4- Good- Adduction 4- Good- External Rotation 4- Good- Internal Rotation 4- Good- Knee Strength Knee Manual Muscle Testing Right Flexion (S2) 4- Good- Extension (L3) 4- Good- Left Flexion (S2) 4- Good- Extension (L3) 4- Good- Ankle/Foot Strength Ankle and Foot Manual Muscle Testing Right Dorsiflexion (L4) 4 Good Plantarflexion (S1) 4- Good- Inversion 4 Good Eversion (S1) 4 Good Left Dorsiflexion (L4) 4 Good Plantarflexion (S1) 4- Good- Inversion 4 Good Eversion (S1) 4 Good PT-OP-Q Treatments Start: 09/05/23 08:23 Freq: Status: Active Protocol: Document 09/05/23 08:23 NM (Rec: 09/05/23 09:04 NM [id number]) Self-Care/Home Management Treatment Education Patient Education Fall Risk,Safety Other Education PT educated pt on fall risk and safety awareness during gait including looking down, visual scanning, using cane more often for stability. Activities Self-Care/Home Management Activities Vitals: (seated R arm) 139/83 mmHg, 66 bpm, 98 spo2 PT-OP-T Assessment and Plan Start: 09/05/23 08:23 Freq: Status: Active Protocol: Document 09/05/23 08:23 NM (Rec: 09/05/23 09:04 NM [id number]) Physical Therapy Assessment Rehab Potential Rehabilitation Potential Good Evaluation Complexity Number of Personal Factors/Comorbidities 3 or More Number of Body Systems Impaired 1-2 Clinical Presentation at Evaluation Stable Impairments Impairments Activity Tolerance,Balance, Coordination,Functional Activities,Functional Mobility ,Gait,Posture,ROM,Sensation, Soft Tissue Mobility,Strength, Transfers,Vestibular,Visual Motor Other Concerns Fall Risk moderate Age Related Concerns Visual changes Goals Four Impairment gait, safety Impairment Pt bumping into objects on floor, unable to see Log Chipper Goal (LTG) Pt will ambulate using LRAD for at least 500 ft while performing visual scanning of surroundings and without bumping into objects in order to demonstrate improved safety awareness and decrease fall risk. LTG Duration 6 weeks Three Impairment balance Impairment DGI 13/24 Short Term Goal (STG) Pt will increase DGI score to >16/24 in order to demonstrate improved balance during higher level activities STG Duration 3 weeks Log Chipper Goal (LTG) Pt will increase DGI score to >20/24 in order to demonstrate improved balance during higher level activities LTG Duration 6 weeks Two Impairment strength Impairment 5x STS = 14.65 sec Skilled Nursing Goal (LTG) Pt will be able to perform 5x STS without UE support or compensation in less than 12 seconds in order to demonstrate improved BLE strength. LTG Duration 6 weeks One Impairment balance Impairment Awan/56 Skilled Nursing Goal (LTG) Pt will increase Awan score > 50/56 in order to demonstrate improved balance during gait and ADLs. LTG Duration 6 weeks Assessment Summary Assessment Pt is a 83 y.o. female with gait and balance abnormalities s/p CVA in February 2023. Pt's current complaints are decreased balance, particularly with community ambulation or higher level activities after her stroke. She has poor vision after the CVA, which affects her ability to perceive objects that are below her or in her periphery. She currently has decreased bilateral global hip and knee strength, 4/5 MMT. She would benefit from BLE strengthening . Her awan balance score is 46 /56, DGI score is 13/24, and TUG score of 12.49 seconds; all indicate a fall risk. She is able to perform stairs and step over objects; however, she has limited awareness of objects and consistently bumps into them. Pt uses an spc for community ambulation as needed. She has moderate impairments in BUE and BLE coordination, which may also limit her balance. Pt does not have any dizziness or lightheadedness due to visual changes. PT educated pt on exam findings, POC, and awareness of surroundings during gait. She is planning on moving away from the area in October. Pt would benefit from skilled PT to address impairments in balance and gait in order to decrease fall risk, improve safety awareness, and increase activity tolerance. Physical Therapy Plan Frequency and Duration Frequency of Treatment 2x/Week Duration of treatment (weeks) 6 Plan of Care Start Date 09/05/23 Plan of Care End Date 10/19/23 Therapeutic Interventions Therapeutic Interventions Aquatic Therapy,Balance Training,Coordination Training ,Gait Training,Home Exercise Program,Joint Mobilizations, Manual Therapy,Neuromuscular Re-education,Orthotic/ Prosthetic Management,Patient/ Caregiver Education,Self-Care/ Home Management,Sensory Integration,Soft Tissue Mobilization,Taping, Therapeutic Activities, Therapeutic Exercises, Vestibular Rehabilitation Other Referrals/Consults Referrals/Consults Recommended Maintenance Service Technician for visual changes Next Visit Focus/Plan Next Note Type Treatment Note Next Visit Plan Initiate hip strengthening and balance training: STS with band, side steps, standing october with UE support; step taps, EO head turns, change MARCELLE
--- NOTE | 2023-09-07 11:42 | PT.OTN ---
Current Diagnoses Other abnormalities of gait and mobility (09/07/23) Physical Therapy Treatment Note PT-OP-A Visit Information Start: 09/05/23 08:23 Freq: Status: Active Protocol: Document 09/07/23 08:16 NM (Rec: 09/07/23 09:02 NM [id number]) Out-Patient Physical Therapy Visit Information Visit Information Visit Type Treatment Note Visit Start Time 08:17 Visit Stop Time 09:00 Visit Number 2 Evaluation Information Evaluation Date 09/05/23 Precautions Precautions Fall risk, Hx CVA (take vitals ), decreased field of vision PT-OP-B Current Condition Start: 09/05/23 08:23 Freq: Status: Active Protocol: Document 09/05/23 08:23 NM (Rec: 09/05/23 09:04 NM [id number]) Current Condition History of Current Condition Onset Date February 2023 Current Complaints poor balance History of Current Condition Pt presents to PT with reports of balance and gait impairments s/p CVA in February 2023. After her CVA, pt had HHPT but has not had any further PT. She currently uses a spc for community ambulation prn, but not household ambulation. She did not bring her spc today. Prior to CVA, did not use an AD for gait. She reports no difficulty with stairs if using a hand rail; has 2 story home with rails on the stairs . She has no reports of balance changes due to dizziness, lightheadedness, or vertigo. However, she does report a decreased visual field due to her stroke with difficulty being aware of objects. Pt does report tingling B feet. She does not drive. PMH of R TKA, and EARLENE ( pt unsure which hip). She also reports memory issues (recall , short term, etc). She lives alone but her cousin and daughter check on her. Hx provided by pt and her cousin. Prior Functional Status Baseline Function- ADL's Independent Baseline Function- Mobility Independent Baseline Function- Gait 6-8 blocks without AD Baseline Function- Other driving Current Functional Impairments (Reported) Functional Limitations- ADL's No reported difficulty with ADLs Functional Limitations- Mobility/Gait 6-8 blocks with spc for balance Functional Limitations- Other no driving PT-OP-C Subjective Start: 09/05/23 08:23 Freq: Status: Active Protocol: Document 09/07/23 08:16 NM (Rec: 09/07/23 09:02 NM [id number]) OP-PT Subjective Patient Comments Patient Comments Pt reports feeling more wobbly today. She does not present to clinic with her spc . She feels most hampered by the changes in her eye sight, which she reports is discouraging. PT-OP-D Balance Start: 09/05/23 08:23 Freq: Status: Active Protocol: Document 09/05/23 08:23 NM (Rec: 09/05/23 09:04 NM [id number]) OP-PT Balance Assessment Sitting Balance Static Sitting Balance Ability Normal Dynamic Sitting Balance Ability Normal Standing Balance Static Standing Balance Ability Good Dynamic Standing Balance Ability Fair Balance Tests Awan Balance Test Awan Balance Test Score 46/56 Single Limb Standing Single Limb- Right 1 sec Single Limb- Left 3 sec Tandem Tandem Standing LLE 30 sec, RLE 10 sec Other Other Balance Tests Performed NBOS: 30 sec; increased trunk sway Eyes closed: 10 sec; increased trunk sway, begins reaching to stability after 10 sec Buckner Fall Scale Copyright Permission PT-OP-E Functional Tests Start: 09/05/23 08:23 Freq: Status: Active Protocol: Document 09/05/23 08:23 NM (Rec: 09/05/23 09:04 NM [id number]) Functional Tests Dynamic Gait Index (DGI) Score 13/24 Five Times Sit to Stand Test Score 14.65 sec Comments bilateral knee valgus, excess fwd trunk lean; hands across chest Timed Up and Go (TUG) Score 12.79 seconds Comments no AD used PT-OP-G Mobility & Gait Start: 09/05/23 08:23 Freq: Status: Active Protocol: Document 09/05/23 08:23 NM (Rec: 09/05/23 09:04 NM [id number]) OP Gait Assessment Gait Gait Assistance Required: Standby Assistance Distance (Feet) 200 Assistive Devices Assistive Device Gait Belt Gait Deviations General Gait Pattern Wide Based Gait Factors Limiting Gait Function Factors Limiting Gait Function Decreased Sensation,Decreased Strength,Poor Balance,Poor Safety Awareness Comments Gait Comments Pt demos trunk sway with ambulation, wide based gait without AD use. Does not reach for objects to stabilize, but gait is slow. Able to pivot and stop quickly without LOB. Difficulty with foot clearance when stepping over objects and recognizing location of objects/aware of surroundings, especially when objects are on the floor or periphery. Stair Climbing Evaluation Evaluation Level of Assist On Stairs Contact Guard Assistance Devices Stair Climbing Assistive Devices Right Railing Technique/Endurance Stair Climbing Direction Ascend and Descend Stair Climbing Technique Step Over Step Number of Steps Climbed 4 Stair Climbing Set # Repetitions (reps) 1 Comments Stair Climbing Comments Relies on UE support for balance. Able to clear foot onto step if UE support, otherwise difficulty with maintaining balance onto step. PT-OP-H Neuro Start: 09/05/23 08:23 Freq: Status: Active Protocol: Document 09/05/23 08:23 NM (Rec: 09/05/23 09:04 NM [id number]) Sensation Evaluation Gross Sensation Sensation Description Tingling Comments Summary Comments BUE and BLE dermatomes intact to light touch sensation Coordination Evaluation Upper Extremity Tests Left Finger to Nose Test Moderate Impairment Finger to Therapist's Finger Test Moderate Impairment Finger to Finger Test Moderate Impairment Pronation/Supination Test Normal Performance Right Finger to Nose Test Moderate Impairment Finger to Therapist's Finger Test Moderate Impairment Alternate Nose to Finger Test Moderate Impairment Pronation/Supination Test Normal Performance Lower Extremity Tests Left Alternate Heel to Knee; Heel to Toe Test Minimal Impairment Heel on Rodriguez Test Activity Impossible Foot Tapping Test Minimal Impairment Right Alternate Heel to Knee; Heel to Toe Test Minimal Impairment Heel on Rodriguez Test Activity Impossible Foot Tapping Test Minimal Impairment Deep Tendon Reflex & Clonus Assessment Deep Tendon Reflex Bilateral Achilles Deep Tendon Reflex 1+ Diminished Bilateral Bicep Deep Tendon Reflex 2+ Normal PT-OP-J Posture/Palpation/Skin Start: 09/05/23 08:23 Freq: Status: Active Protocol: Document 09/05/23 08:23 NM (Rec: 09/05/23 09:04 NM [id number]) Posture Evaluation Position Standing Evaluation View Posterior Head/C-Spine Posture Forward Head L-Spine Posture Neutral Shoulder Posture (L) Rounded,(R) Rounded Scapula Posture (L) Neutral,(R) Neutral Arm Posture (L) Internally Rotated,(R) Internally Rotated Pelvis Posture Anteriorly Tilted Weight Distribution Balanced PT-OP-K Range of Motion Start: 09/05/23 08:23 Freq: Status: Active Protocol: Document 09/05/23 08:23 NM (Rec: 09/05/23 09:04 NM [id number]) Hip Goniometric Range of Motion Hip ROM Limitations Comments Limited B hip flexion/rotation ROM PT-OP-M Strength Start: 09/05/23 08:23 Freq: Status: Active Protocol: Document 09/05/23 08:23 NM (Rec: 09/05/23 09:04 NM [id number]) Hip Strength Hip Manual Muscle Testing Right Flexion (L2) 4- Good- Extension (S1) 4- Good- Abduction 4- Good- Adduction 4- Good- External Rotation 4- Good- Internal Rotation 4- Good- Left Flexion (L2) 4- Good- Extension (S1) 4- Good- Abduction 4- Good- Adduction 4- Good- External Rotation 4- Good- Internal Rotation 4- Good- Knee Strength Knee Manual Muscle Testing Right Flexion (S2) 4- Good- Extension (L3) 4- Good- Left Flexion (S2) 4- Good- Extension (L3) 4- Good- Ankle/Foot Strength Ankle and Foot Manual Muscle Testing Right Dorsiflexion (L4) 4 Good Plantarflexion (S1) 4- Good- Inversion 4 Good Eversion (S1) 4 Good Left Dorsiflexion (L4) 4 Good Plantarflexion (S1) 4- Good- Inversion 4 Good Eversion (S1) 4 Good PT-OP-Q Treatments Start: 09/05/23 08:23 Freq: Status: Active Protocol: Document 09/07/23 08:16 NM (Rec: 09/07/23 09:02 NM [id number]) Cardio Equipment Recumbent Stepper (Sci-Fit) Duration (Minutes) 4 Resistance 4 Seat Position 10 Other BLE only; warm up Therapeutic Exercises Standing Exercises march Standing Exercise Name alternating Side bilateral Resistance 5# ankle weight ea leg Equipment Used 2 finger support BUE ballet bar Reps/Minutes 2x15 ea LE Comments cue for upright posture Side steps Side bilateral Resistance teal lvl 2 band around thighs Equipment Used prn UE support ballet bar Reps/Minutes 2 sets x15 ft Comments cue for neutral hip/toe/ shoulder rotation, foot clearance Heel raises Side bilateral Equipment Used 2 finger support BUE on ballet bar Reps/Minutes 2x15 Comments cue for complete ROM, no compensation with rocking Sit to stand Standing Exercise Name from chair Side bilateral Resistance teal lvl 2 band around thighs Equipment Used arms across chest Reps/Minutes 2x10 Comments cues for anterior weight shift , hip abd against band Neuro Re-Education Treatment Balance Activities Narrow stance Surface stable Equipment no UE support Comments 1. Narrow stance for time, 2x30- CGA to steady prn 2. Narrow stance with horizontal head turns, pt reporting 1 thing she sees from ea side to increase visual scanning. 2x30 - CGA to steady prn 3. Narrow stance with vertical head turns, pt pausing briefly straight ahead before looking up/down, 2x30- CGA to steady prn, more difficult than horizontal turns Step taps Equipment 6 step Comments 1. 1x10 ea single step taps with 2 fingers of 1UE on rail, better balance LLE than RLE; Cued for slight weight shift to opposite LE and decrease speed for improved control, slight glance down to step for foot clearance, CGA prn, close SBA 2. 1x10 ea alternating step taps with 2 fingers of 1 UE on rail; CGA prn, usually close SBA. Cued for slower controlled step, slight glance down to step for foot clearance 3. 1x10 ea alternating step taps, no hand rail use; cued for slight glance down to step prior to step for foot clearance and awareness of step location, CGA to steady Self-Care/Home Management Treatment Education Patient Education Home Exercise Program Other Education HEP: STS with band, side steps with band, standing march with ankle weight, double leg heel raise; all with UE support prn Educated on visual scanning for fall risk, miguel in community PT-OP-T Assessment and Plan Start: 09/05/23 08:23 Freq: Status: Active Protocol: Document 09/07/23 08:16 NM (Rec: 09/07/23 09:02 NM [id number]) Physical Therapy Assessment Goals Four Impairment gait, safety Impairment Pt bumping into objects on floor, unable to see [employer] Goal (LTG) Pt will ambulate using LRAD for at least 500 ft while performing visual scanning of surroundings and without bumping into objects in order to demonstrate improved safety awareness and decrease fall risk. LTG Duration 6 weeks Three Impairment balance Impairment DGI 13/24 Short Term Goal (STG) Pt will increase DGI score to >16/24 in order to demonstrate improved balance during higher level activities STG Duration 3 weeks [employer] Goal (LTG) Pt will increase DGI score to >20/24 in order to demonstrate improved balance during higher level activities LTG Duration 6 weeks Two Impairment strength Impairment 5x STS = 14.65 sec Snf Goal (LTG) Pt will be able to perform 5x STS without UE support or compensation in less than 12 seconds in order to demonstrate improved BLE strength. LTG Duration 6 weeks One Impairment balance Impairment Awan/56 [employer] Goal (LTG) Pt will increase Awan score > 50/56 in order to demonstrate improved balance during gait and ADLs. LTG Duration 6 weeks Assessment Summary Assessment Initiated BLE strengthening targeting glutes, quads, plantarflexors, and hip flexors for greater ankle stability. During sit to stands, pt verbally cued for anterior weight shift during ascent and descent to assist with lifting hips more easily off of mat and to promote better eccentric control; band added for hip abd strengthening and as tactile cue to prevent knee valgus. Initiated standing marching, side steps, and heel raises; all added to HEP handout. Pt requires moderate cues throughout session to control motion, look at foot placement prior to beginning an activity in order to decrease falls. In narrow stance, pt able to perform head turns to simulate visual scanning and increase awareness of surroundings. PT educated pt on importance of scanning entire environment prior to and during movement as pt is not aware of where her feet are placed, pt verbalizes agreement. Pt would benefit from skilled PT for progressive BLE strengthening, balance, and gait training in order to decrease fall risk, improve stability, and improve QOL. Physical Therapy Plan Frequency and Duration Frequency of Treatment 2x/Week Duration of treatment (weeks) 6 Plan of Care Start Date 09/05/23 Plan of Care End Date 10/19/23 Therapeutic Interventions Therapeutic Interventions Aquatic Therapy,Balance Training,Coordination Training ,Gait Training,Home Exercise Program,Joint Mobilizations, Manual Therapy,Neuromuscular Re-education,Orthotic/ Prosthetic Management,Patient/ Caregiver Education,Self-Care/ Home Management,Sensory Integration,Soft Tissue Mobilization,Taping, Therapeutic Activities, Therapeutic Exercises, Vestibular Rehabilitation Other Referrals/Consults Referrals/Consults Recommended [employer] for visual changes Next Visit Focus/Plan Next Note Type Treatment Note Next Visit Plan Progress strengthening and balance training: STS with band, side steps, standing march with UE support; step taps, EO head turns, change MARCELLE (semi-tandem, tandem, add stepping). Promote visual scanning with activity miguel downward Pt asked to bring spc next session to practice gait with visual scanning and AD placement
--- NOTE | 2023-09-14 13:42 | PT.OTN ---
Current Diagnoses Other abnormalities of gait and mobility (09/14/23) Physical Therapy Treatment Note PT-OP-A Visit Information Start: 09/05/23 08:23 Freq: Status: Active Protocol: Document 09/14/23 09:47 NM (Rec: 09/14/23 10:32 NM [id number]) Out-Patient Physical Therapy Visit Information Visit Information Visit Type Treatment Note Visit Start Time 09:47 Visit Stop Time 10:30 Visit Number 4 Evaluation Information Evaluation Date 09/05/23 Precautions Precautions Fall risk, Hx CVA (take vitals ), decreased field of vision PT-OP-B Current Condition Start: 09/05/23 08:23 Freq: Status: Active Protocol: Document 09/05/23 08:23 NM (Rec: 09/05/23 09:04 NM [id number]) Current Condition History of Current Condition Onset Date February 2023 Current Complaints poor balance History of Current Condition Pt presents to PT with reports of balance and gait impairments s/p CVA in February 2023. After her CVA, pt had HHPT but has not had any further PT. She currently uses a spc for community ambulation prn, but not household ambulation. She did not bring her spc today. Prior to CVA, did not use an AD for gait. She reports no difficulty with stairs if using a hand rail; has 2 story home with rails on the stairs . She has no reports of balance changes due to dizziness, lightheadedness, or vertigo. However, she does report a decreased visual field due to her stroke with difficulty being aware of objects. Pt does report tingling B feet. She does not drive. PMH of R TKA, and EARLENE ( pt unsure which hip). She also reports memory issues (recall , short term, etc). She lives alone but her cousin and daughter check on her. Hx provided by pt and her cousin. Prior Functional Status Baseline Function- ADL's Independent Baseline Function- Mobility Independent Baseline Function- Gait 6-8 blocks without AD Baseline Function- Other driving Current Functional Impairments (Reported) Functional Limitations- ADL's No reported difficulty with ADLs Functional Limitations- Mobility/Gait 6-8 blocks with spc for balance Functional Limitations- Other no driving PT-OP-C Subjective Start: 09/05/23 08:23 Freq: Status: Active Protocol: Document 09/14/23 09:47 NM (Rec: 09/14/23 10:32 NM [id number]) OP-PT Subjective Patient Comments Patient Comments Pt reports that she walked 1/2 miles using her spc. She has been compliant with her HEP every day. PT-OP-D Balance Start: 09/05/23 08:23 Freq: Status: Active Protocol: Document 09/05/23 08:23 NM (Rec: 09/05/23 09:04 NM [id number]) OP-PT Balance Assessment Sitting Balance Static Sitting Balance Ability Normal Dynamic Sitting Balance Ability Normal Standing Balance Static Standing Balance Ability Good Dynamic Standing Balance Ability Fair Balance Tests Awan Balance Test Awan Balance Test Score 46/56 Single Limb Standing Single Limb- Right 1 sec Single Limb- Left 3 sec Tandem Tandem Standing LLE 30 sec, RLE 10 sec Other Other Balance Tests Performed NBOS: 30 sec; increased trunk sway Eyes closed: 10 sec; increased trunk sway, begins reaching to stability after 10 sec Buckner Fall Scale Copyright Permission PT-OP-E Functional Tests Start: 09/05/23 08:23 Freq: Status: Active Protocol: Document 09/05/23 08:23 NM (Rec: 09/05/23 09:04 NM [id number]) Functional Tests Dynamic Gait Index (DGI) Score 13/24 Five Times Sit to Stand Test Score 14.65 sec Comments bilateral knee valgus, excess fwd trunk lean; hands across chest Timed Up and Go (TUG) Score 12.79 seconds Comments no AD used PT-OP-G Mobility & Gait Start: 09/05/23 08:23 Freq: Status: Active Protocol: Document 09/05/23 08:23 NM (Rec: 09/05/23 09:04 NM [id number]) OP Gait Assessment Gait Gait Assistance Required: Standby Assistance Distance (Feet) 200 Assistive Devices Assistive Device Gait Belt Gait Deviations General Gait Pattern Wide Based Gait Factors Limiting Gait Function Factors Limiting Gait Function Decreased Sensation,Decreased Strength,Poor Balance,Poor Safety Awareness Comments Gait Comments Pt demos trunk sway with ambulation, wide based gait without AD use. Does not reach for objects to stabilize, but gait is slow. Able to pivot and stop quickly without LOB. Difficulty with foot clearance when stepping over objects and recognizing location of objects/aware of surroundings, especially when objects are on the floor or periphery. Stair Climbing Evaluation Evaluation Level of Assist On Stairs Contact Guard Assistance Devices Stair Climbing Assistive Devices Right Railing Technique/Endurance Stair Climbing Direction Ascend and Descend Stair Climbing Technique Step Over Step Number of Steps Climbed 4 Stair Climbing Set # Repetitions (reps) 1 Comments Stair Climbing Comments Relies on UE support for balance. Able to clear foot onto step if UE support, otherwise difficulty with maintaining balance onto step. PT-OP-H Neuro Start: 09/05/23 08:23 Freq: Status: Active Protocol: Document 09/05/23 08:23 NM (Rec: 09/05/23 09:04 NM [id number]) Sensation Evaluation Gross Sensation Sensation Description Tingling Comments Summary Comments BUE and BLE dermatomes intact to light touch sensation Coordination Evaluation Upper Extremity Tests Left Finger to Nose Test Moderate Impairment Finger to Therapist's Finger Test Moderate Impairment Finger to Finger Test Moderate Impairment Pronation/Supination Test Normal Performance Right Finger to Nose Test Moderate Impairment Finger to Therapist's Finger Test Moderate Impairment Alternate Nose to Finger Test Moderate Impairment Pronation/Supination Test Normal Performance Lower Extremity Tests Left Alternate Heel to Knee; Heel to Toe Test Minimal Impairment Heel on Rodriguez Test Activity Impossible Foot Tapping Test Minimal Impairment Right Alternate Heel to Knee; Heel to Toe Test Minimal Impairment Heel on Rodriguez Test Activity Impossible Foot Tapping Test Minimal Impairment Deep Tendon Reflex & Clonus Assessment Deep Tendon Reflex Bilateral Achilles Deep Tendon Reflex 1+ Diminished Bilateral Bicep Deep Tendon Reflex 2+ Normal PT-OP-J Posture/Palpation/Skin Start: 09/05/23 08:23 Freq: Status: Active Protocol: Document 09/05/23 08:23 NM (Rec: 09/05/23 09:04 NM [id number]) Posture Evaluation Position Standing Evaluation View Posterior Head/C-Spine Posture Forward Head L-Spine Posture Neutral Shoulder Posture (L) Rounded,(R) Rounded Scapula Posture (L) Neutral,(R) Neutral Arm Posture (L) Internally Rotated,(R) Internally Rotated Pelvis Posture Anteriorly Tilted Weight Distribution Balanced PT-OP-K Range of Motion Start: 09/05/23 08:23 Freq: Status: Active Protocol: Document 09/05/23 08:23 NM (Rec: 09/05/23 09:04 NM [id number]) Hip Goniometric Range of Motion Hip ROM Limitations Comments Limited B hip flexion/rotation ROM PT-OP-M Strength Start: 09/05/23 08:23 Freq: Status: Active Protocol: Document 09/05/23 08:23 NM (Rec: 09/05/23 09:04 NM [id number]) Hip Strength Hip Manual Muscle Testing Right Flexion (L2) 4- Good- Extension (S1) 4- Good- Abduction 4- Good- Adduction 4- Good- External Rotation 4- Good- Internal Rotation 4- Good- Left Flexion (L2) 4- Good- Extension (S1) 4- Good- Abduction 4- Good- Adduction 4- Good- External Rotation 4- Good- Internal Rotation 4- Good- Knee Strength Knee Manual Muscle Testing Right Flexion (S2) 4- Good- Extension (L3) 4- Good- Left Flexion (S2) 4- Good- Extension (L3) 4- Good- Ankle/Foot Strength Ankle and Foot Manual Muscle Testing Right Dorsiflexion (L4) 4 Good Plantarflexion (S1) 4- Good- Inversion 4 Good Eversion (S1) 4 Good Left Dorsiflexion (L4) 4 Good Plantarflexion (S1) 4- Good- Inversion 4 Good Eversion (S1) 4 Good PT-OP-Q Treatments Start: 09/05/23 08:23 Freq: Status: Active Protocol: Document 09/14/23 09:47 NM (Rec: 09/14/23 10:32 NM [id number]) Therapeutic Exercises Sitting Exercises Toe raises Sitting Exercise Name seated to distinguish btwn heel raises (added to HEP) Side bilateral Resistance AROM with isometric at end range Reps/Minutes 15x3 Comments for foot clearance Standing Exercises calf stretch Standing Exercise Name lunge position (review from HEP) Side bilateral Equipment Used handrail prn Reps/Minutes 2x30s ea Comments cues for form (heel on ground) , hold time Heel raises Standing Exercise Name reviewed HEP Side bilateral Equipment Used 2 finger support BUE on ballet bar Reps/Minutes 3x10 Comments cue no compensation with rocking Sit to stand Standing Exercise Name from chair Side bilateral Resistance teal lvl 2 band around thighs Equipment Used arms across chest Reps/Minutes 3x8 Comments cues for anterior weight shift , no knee valgus Gait Training Gait Activity Hurdles Device Used spc Level of Assistance CGA Surface stable Distance/Duration 3 sets x 5 hurdles at 10 ft total distance Treatment Focus coordinating spc, foot clearance, visual scanning Comments Pt stepping over 5 hurdles using spc in 3 pt pattern for safety. CGA for cues and prn steady during foot clearance. Improved spc placement and control with reps Cones Device Used spc Level of Assistance close CBA, prn CGA Surface stable Distance/Duration 4 sets x 20 ft ea direction Treatment Focus visual scanning, obstacles, spc use and placement Comments 1. weaving around cones Pt weaving in/out of cones to simulate obstacles, promote visual scanning with gait. Pt using spc with 2 pt pattern. Did not touch cones. Cued for spc placement in front of pt in R hand 2. turn around cones For visual scanning. Cued to keep spc in front of pt and as 3rd pt of contact with ground for greater stability when turning 3. Nml gait with head turns, calling out cone color at PT command then return to neutral Pt demos decreased gait speed with head turns twd cones placed at head height, improved to nml speed when PT pointed out to pt. Demos good spc use and placement Normal Gait Device Used spc Level of Assistance close SBA, prn CGA to steady Surface stable Distance/Duration 5 laps (180 ft ea) Treatment Focus nml gait, spc placement, spc coord., carrying, visual scanning Comments 1. 2 laps nml gait for 2 pt gait pattern in R hand Improved coord with reps. Decreased cueing for LLE and spc at same time 2. 1 lap L hand spc Pt reports switching btwn R and L hand spc use. Trialed in L hand but pt unable to coordinate without significant loss of gait speed and usign 2 or 3 pt pattern 3. 1 lap with carrying 3# in L hand To simulate pt carrying objects in L hand with spc in R hand. Good trunk posture 4. 1 lap with directed head turns R and L, with nml gait speed Turn head at PT instruction while demo 2 pt pattern. Has slight decrease in gait speed with turn, but no LOB Self-Care/Home Management Treatment Education Patient Education Home Exercise Program,Safety Other Education HEP: toe raises (DF), 2pt gait pattern. Educated on safety during gait including increased visual scanning, awareness of obstacles, foot clearance, and spc placement PT-OP-T Assessment and Plan Start: 09/05/23 08:23 Freq: Status: Active Protocol: Document 09/14/23 09:47 NM (Rec: 09/14/23 10:32 NM [id number]) Physical Therapy Assessment Goals Four Impairment gait, safety Impairment Pt bumping into objects on floor, unable to see Assayer Helper Goal (LTG) Pt will ambulate using LRAD for at least 500 ft while performing visual scanning of surroundings and without bumping into objects in order to demonstrate improved safety awareness and decrease fall risk. LTG Duration 6 weeks Three Impairment balance Impairment DGI 13/24 Short Term Goal (STG) Pt will increase DGI score to >16/24 in order to demonstrate improved balance during higher level activities STG Duration 3 weeks Group Home Goal (LTG) Pt will increase DGI score to >20/24 in order to demonstrate improved balance during higher level activities LTG Duration 6 weeks Two Impairment strength Impairment 5x STS = 14.65 sec Group Home Goal (LTG) Pt will be able to perform 5x STS without UE support or compensation in less than 12 seconds in order to demonstrate improved BLE strength. LTG Duration 6 weeks One Impairment balance Impairment Awan/56 Group Home Goal (LTG) Pt will increase Awan score > 50/56 in order to demonstrate improved balance during gait and ADLs. LTG Duration 6 weeks Assessment Summary Assessment Reviewed HEP with pt as she had questions regarding heel raises and calf stretching. Added seated toe raise to promote better foot clearance during gait, seated version to limit pt confusion with heel raises. Initiated gait training using spc to teach 2 pt gait pattern; cued initially for coordination and spc placement as pt lets spc move behind when stepping. Added gait training with obstacles to promote visual scanning during gait. Pt has tendency to decrease gait speed when rotating head, but improved with bringing awareness to pt. Demos improved awareness of cones when navigating through today, but requries verbal and visual cues to not let spc lag whenever making turns. Pt would benefit from skilled PT for progressive BLE strengthening, gait training with spc and balance training in order to improve pt awareness of surroundings for increased safety in community and to decrease fall risk. Physical Therapy Plan Frequency and Duration Frequency of Treatment 2x/Week Duration of treatment (weeks) 6 Plan of Care Start Date 09/05/23 Plan of Care End Date 10/19/23 Therapeutic Interventions Therapeutic Interventions Aquatic Therapy,Balance Training,Coordination Training ,Gait Training,Home Exercise Program,Joint Mobilizations, Manual Therapy,Neuromuscular Re-education,Orthotic/ Prosthetic Management,Patient/ Caregiver Education,Self-Care/ Home Management,Sensory Integration,Soft Tissue Mobilization,Taping, Therapeutic Activities, Therapeutic Exercises, Vestibular Rehabilitation Other Referrals/Consults Referrals/Consults Recommended Road Repairer for visual changes Next Visit Focus/Plan Next Note Type Treatment Note Next Visit Plan Next session: review 2 pt gait with spc, add obstacles for visual scanning Progress strengthening and balance training: STS with band, side steps, standing march with UE support; step taps, EO head turns, change MARCELLE (semi-tandem, tandem, add stepping). Promote visual scanning with activity miguel downward Practice DGI type activities*
--- NOTE | 2023-09-24 08:39 | PT-OP ANOTE ---
PT called on 09/24 at 0839 am regarding pt cancelling her remaining appt on 09/17 because she believes her body is alright and she needs someone to work on her brain. Pt has consistently expressed concerns about her memory and cognitive function. During conversation today, pt reports that she feels her legs work fine even though her balance is a little off. She has been practicing side steps at home and standing on one leg at the kitchen sink. PT educated pt on safety during those activities, including using hand support on the sink for balance. Pt verbalizes agreement. PT also educated pt on seeking a referral from her new PCP to speech therapy once she moves to her new home in a few months to address her concerns about cognition and memory. PT instructed pt to follow up with PCP if she notices changes in her balance or gait. Pt verbalizes understanding.
--- NOTE | 2023-09-26 08:30 | PT.OPDS ---
Current Diagnoses Other abnormalities of gait and mobility (09/14/23) Visit Care Team Role Provider Type Estuardo Willams DO Attending Provider Physician Primary Care Provider Referring Provider Specialty: [facility] Address: [address] [place] [address], [facility] Email: [email or web address] Visit Number Visit Number 4 Discharge Summary PT-OP-B Current Condition Start: 09/05/23 08:23 Freq: Status: Active Protocol: Document 09/05/23 08:23 NM (Rec: 09/05/23 09:04 NM [id number]) Current Condition History of Current Condition Onset Date February 2023 Current Complaints poor balance History of Current Condition Pt presents to PT with reports of balance and gait impairments s/p CVA in February 2023. After her CVA, pt had HHPT but has not had any further PT. She currently uses a spc for community ambulation prn, but not household ambulation. She did not bring her spc today. Prior to CVA, did not use an AD for gait. She reports no difficulty with stairs if using a hand rail; has 2 story home with rails on the stairs . She has no reports of balance changes due to dizziness, lightheadedness, or vertigo. However, she does report a decreased visual field due to her stroke with difficulty being aware of objects. Pt does report tingling B feet. She does not drive. PMH of R TKA, and EARLENE ( pt unsure which hip). She also reports memory issues (recall , short term, etc). She lives alone but her cousin and daughter check on her. Hx provided by pt and her cousin. Prior Functional Status Baseline Function- ADL's Independent Baseline Function- Mobility Independent Baseline Function- Gait 6-8 blocks without AD Baseline Function- Other driving Current Functional Impairments (Reported) Functional Limitations- ADL's No reported difficulty with ADLs Functional Limitations- Mobility/Gait 6-8 blocks with spc for balance Functional Limitations- Other no driving PT-OP-C Subjective Start: 09/05/23 08:23 Freq: Status: Active Protocol: Document 09/14/23 09:47 NM (Rec: 09/14/23 10:32 NM [id number]) OP-PT Subjective Patient Comments Patient Comments Pt reports that she walked 1/2 miles using her spc. She has been compliant with her HEP every day. PT-OP-D Balance Start: 09/05/23 08:23 Freq: Status: Active Protocol: Document 09/05/23 08:23 NM (Rec: 09/05/23 09:04 NM [id number]) OP-PT Balance Assessment Sitting Balance Static Sitting Balance Ability Normal Dynamic Sitting Balance Ability Normal Standing Balance Static Standing Balance Ability Good Dynamic Standing Balance Ability Fair Balance Tests Awan Balance Test Awan Balance Test Score 46/56 Single Limb Standing Single Limb- Right 1 sec Single Limb- Left 3 sec Tandem Tandem Standing LLE 30 sec, RLE 10 sec Other Other Balance Tests Performed NBOS: 30 sec; increased trunk sway Eyes closed: 10 sec; increased trunk sway, begins reaching to stability after 10 sec Buckner Fall Scale Copyright Permission PT-OP-E Functional Tests Start: 09/05/23 08:23 Freq: Status: Active Protocol: Document 09/05/23 08:23 NM (Rec: 09/05/23 09:04 NM [id number]) Functional Tests Dynamic Gait Index (DGI) Score 13/24 Five Times Sit to Stand Test Score 14.65 sec Comments bilateral knee valgus, excess fwd trunk lean; hands across chest Timed Up and Go (TUG) Score 12.79 seconds Comments no AD used PT-OP-G Mobility & Gait Start: 09/05/23 08:23 Freq: Status: Active Protocol: Document 09/05/23 08:23 NM (Rec: 09/05/23 09:04 NM [id number]) OP Gait Assessment Gait Gait Assistance Required: Standby Assistance Distance (Feet) 200 Assistive Devices Assistive Device Gait Belt Gait Deviations General Gait Pattern Wide Based Gait Factors Limiting Gait Function Factors Limiting Gait Function Decreased Sensation,Decreased Strength,Poor Balance,Poor Safety Awareness Comments Gait Comments Pt demos trunk sway with ambulation, wide based gait without AD use. Does not reach for objects to stabilize, but gait is slow. Able to pivot and stop quickly without LOB. Difficulty with foot clearance when stepping over objects and recognizing location of objects/aware of surroundings, especially when objects are on the floor or periphery. Stair Climbing Evaluation Evaluation Level of Assist On Stairs Contact Guard Assistance Devices Stair Climbing Assistive Devices Right Railing Technique/Endurance Stair Climbing Direction Ascend and Descend Stair Climbing Technique Step Over Step Number of Steps Climbed 4 Stair Climbing Set # Repetitions (reps) 1 Comments Stair Climbing Comments Relies on UE support for balance. Able to clear foot onto step if UE support, otherwise difficulty with maintaining balance onto step. PT-OP-H Neuro Start: 09/05/23 08:23 Freq: Status: Active Protocol: Document 09/05/23 08:23 NM (Rec: 09/05/23 09:04 NM [id number]) Sensation Evaluation Gross Sensation Sensation Description Tingling Comments Summary Comments BUE and BLE dermatomes intact to light touch sensation Coordination Evaluation Upper Extremity Tests Left Finger to Nose Test Moderate Impairment Finger to Therapist's Finger Test Moderate Impairment Finger to Finger Test Moderate Impairment Pronation/Supination Test Normal Performance Right Finger to Nose Test Moderate Impairment Finger to Therapist's Finger Test Moderate Impairment Alternate Nose to Finger Test Moderate Impairment Pronation/Supination Test Normal Performance Lower Extremity Tests Left Alternate Heel to Knee; Heel to Toe Test Minimal Impairment Heel on Rodriguez Test Activity Impossible Foot Tapping Test Minimal Impairment Right Alternate Heel to Knee; Heel to Toe Test Minimal Impairment Heel on Rodriguez Test Activity Impossible Foot Tapping Test Minimal Impairment Deep Tendon Reflex & Clonus Assessment Deep Tendon Reflex Bilateral Achilles Deep Tendon Reflex 1+ Diminished Bilateral Bicep Deep Tendon Reflex 2+ Normal PT-OP-J Posture/Palpation/Skin Start: 09/05/23 08:23 Freq: Status: Active Protocol: Document 09/05/23 08:23 NM (Rec: 09/05/23 09:04 NM [id number]) Posture Evaluation Position Standing Evaluation View Posterior Head/C-Spine Posture Forward Head L-Spine Posture Neutral Shoulder Posture (L) Rounded,(R) Rounded Scapula Posture (L) Neutral,(R) Neutral Arm Posture (L) Internally Rotated,(R) Internally Rotated Pelvis Posture Anteriorly Tilted Weight Distribution Balanced PT-OP-K Range of Motion Start: 09/05/23 08:23 Freq: Status: Active Protocol: Document 09/05/23 08:23 NM (Rec: 09/05/23 09:04 NM [id number]) Hip Goniometric Range of Motion Hip ROM Limitations Comments Limited B hip flexion/rotation ROM PT-OP-M Strength Start: 09/05/23 08:23 Freq: Status: Active Protocol: Document 09/05/23 08:23 NM (Rec: 09/05/23 09:04 NM [id number]) Hip Strength Hip Manual Muscle Testing Right Flexion (L2) 4- Good- Extension (S1) 4- Good- Abduction 4- Good- Adduction 4- Good- External Rotation 4- Good- Internal Rotation 4- Good- Left Flexion (L2) 4- Good- Extension (S1) 4- Good- Abduction 4- Good- Adduction 4- Good- External Rotation 4- Good- Internal Rotation 4- Good- Knee Strength Knee Manual Muscle Testing Right Flexion (S2) 4- Good- Extension (L3) 4- Good- Left Flexion (S2) 4- Good- Extension (L3) 4- Good- Ankle/Foot Strength Ankle and Foot Manual Muscle Testing Right Dorsiflexion (L4) 4 Good Plantarflexion (S1) 4- Good- Inversion 4 Good Eversion (S1) 4 Good Left Dorsiflexion (L4) 4 Good Plantarflexion (S1) 4- Good- Inversion 4 Good Eversion (S1) 4 Good PT-OP-T Assessment and Plan Start: 09/05/23 08:23 Freq: Status: Active Protocol: Document 09/24/23 08:48 NM (Rec: 09/24/23 08:57 NM [id number]) Physical Therapy Assessment Goals Four Impairment gait, safety Impairment Pt bumping into objects on floor, unable to see Prison Goal (LTG) Pt will ambulate using LRAD for at least 500 ft while performing visual scanning of surroundings and without bumping into objects in order to demonstrate improved safety awareness and decrease fall risk. LTG Duration 6 weeks Three Impairment balance Impairment DGI 13/24 Short Term Goal (STG) Pt will increase DGI score to >16/24 in order to demonstrate improved balance during higher level activities STG Duration 3 weeks Flight Attendant Goal (LTG) Pt will increase DGI score to >20/24 in order to demonstrate improved balance during higher level activities LTG Duration 6 weeks Two Impairment strength Impairment 5x STS = 14.65 sec Flight Attendant Goal (LTG) Pt will be able to perform 5x STS without UE support or compensation in less than 12 seconds in order to demonstrate improved BLE strength. LTG Duration 6 weeks One Impairment balance Impairment Awan/56 Prison Goal (LTG) Pt will increase Awan score > 50/56 in order to demonstrate improved balance during gait and ADLs. LTG Duration 6 weeks Progress Towards Goals Progress Comments Goals not met as pt attended 3 sessions and canceled remaining sessions Assessment Summary Assessment Pt was evaluated for balance and gait abnormalities on 09/05 s/p hx of stroke. Sessions focused on improving pt BLE strength, balance and gait, particularly with visual scanning to improve pt awareness of surroundings. Pt is safe for community ambulation with spc, but has visual changes that limit her ability to see objects on the ground without cueing. Pt has not met any STG or LTGs; she only attended 3 treatment sessions after IE. She called on 09/17/23 requesting to cancel remaining appointments because she feels like her memory and cognition are greater concerns than her balance. She was compliant with HEP for BLE strengthening . PT called pt on 09/24 to follow up regarding her request to discharge. PT recommended pt continue with PT to further address her balance impairments, which pt declined. PT then recommended pt get referral to speech therapy when she moves to her new home in upcoming month to address pt concerns about memory and cognition, which pt was grateful for. PT instructed pt to follow up with PCP regarding any changes in balance or gait, or if desires new referral. Pt verbalizes agreement. Physical Therapy Plan Frequency and Duration Frequency of Treatment 2x/Week Duration of treatment (weeks) 6 Plan of Care Start Date 09/05/23 Plan of Care End Date 10/19/23 Discharge Physical Therapy Discharge Reasons Patient Request Discharge Comments Pt called on 09/17/23 canceling remaining appts and requesting discharge Next Visit Focus/Plan Next Visit Plan Discharge from PT services per pt request
== END 2023-10-01 09:37 | disposition home or self-care (01) ==
LOC: PHYS 09:45
PROVIDERS: PCP Family Medicine; Referring Provider Family Medicine; Visit Provider Family Medicine
DX: R26.89 Other abnormalities of gait and mobility (principal)
CPT/HCPCS: 97110; 97112; 97116; 97161; 97535

== ENCOUNTER 2023-10-08 13:45 | Outpatient (RCR) | payer MEDICARE, SELFPAY ==
[2023-03-04 23:04] VITALS: BMI 25.7
--- NOTE | 2023-09-27 11:39 | ST.OPIE ---
Visit Care Team Role Provider Type Estuardo Willams DO Attending Provider Physician Family Provider Primary Care Provider Referring Provider Specialty: Family Practice Address: [address] [place] [address], [facility] Email: [email or web address] Speech-Language Pathology Initial Evaluation RADIATION THERAPY TECHNICIAN Adult Cognitive Linguistic Eval Start: 09/27/23 10:08 Freq: Status: Active Protocol: Document 09/27/23 10:08 HUMA (Rec: 09/27/23 10:27 HUMA [id number]) Adult Cognitive Linguistic Evaluation Session Time Visit Start Time 09:45 Visit Stop Time 10:30 Total Visit Minutes 45 Visit Information Visit Number 1 Plan of Care Dates 09/27/23-10/26/23 Insurance Information Medicare Referral Referring Provider Dr. Willams Reason for Referral CVA Setting Assessment Location Outpatient Care Visit Type Note Type Initial evaluation Next Note Type Next Note Type Treatment Note Patient Information Identification Type Name Patient History Pt is an 83 year old female seen this date for cognitive- 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 She reports a lot of improvements, however states she feels Lost up here while pointing to head. She states she can remember past information, however short term memory issues since stroke and fogginess. She lives alone, however has cousins that live neary that help with medication/finance management. She reports she is moving to [facility] mid October to live in a community where her cousins live as well. She reports she doesn't drive d/t to stroke, however can complete most ADLs/IADLs without difficulties. PMHx significant for: Anxiety Arthritis [place]-Walker grade 3 cystocele (03/21/16) Chronic sinusitis Chronic UTI Compression fracture of L1 lumbar vertebra Compression fracture of T7 vertebra Compression fracture of T8 vertebra Depression Edema Gilbert syndrome Gout (07/19/11) Head contusion Head injury, acute, without loss of consciousness Hordeolum externum of right lower eyelid Hyperlipidemia Hypertension Idiopathic peripheral neuropathy (02/12/15) Idiopathic peripheral neuropathy Impaired hearing Insomnia Left wrist sprain Multiple lipomas Osteoarthritis Osteopenia Osteoporosis Peripheral edema (03/21/16) Postmenopausal atrophic vaginitis Recurrent UTI (urinary tract infection) Thrush TIA (transient ischemic attack ) Tinea Toe deformity Traumatic ecchymosis of face Vaginal pessary present Hearing Hearing Level Normal Vision Vision Status Impaired Comments R sided visual neglect Previous Therapy Previous Speech-Language Therapy No: Unknown Subjective Patient Report See patient history Mental Status Alert,Responsive,Cooperative Assessment Oral Motor Examination Completed No Informal Assessment Pragmatic Language Normal Yes Speech Normal Yes Cognition Normal No Cognitive Impairment(s) Short-term memory,Executive functioning Formal Assessment Standardized Test/Screener Type Cognitive Linguistic Quick Test (CLQT) Administration Complete Results ST administered CLQT with Pt scoring a total score of 3.6, which indicates a severity rating of WNL. The score range for WNL is 3.5-4.0, putting her on the cusp of scoring mild overall. She scored on the following on each subdomain: Attention 144- mild Memory 146- WNL Executive Functions 17- mild Language 28- WNL Visuospatial skills 69- mild Clock drawing 11- WNL She demonstrated most deficits in attention and executive functions, however scored on the lower end of the range for memory (141-185). Pt scored WNL for memory, however reports memory impacts daily life and she can't remember short term information as easily as she did prior to the stroke. Findings/Results Language Function Within functional limits Cognitive Function Mildly impaired Findings Pt presents with mild cognitive-communication deficit characterized by memory and executive function deficits. Additionally, she demonstrtaed generative naming difficulties on the CLQT. Cognitive Communication Deficits Self-awareness of Cognitive- Predictive awareness (able to Communication Deficits predict problem; impact of impairments) Prognosis Prognosis Good Plan of Care Speech-Language Treatment Yes Frequency 1x/week Duration 1 month Patient/Caregiver Education Patient expressed agreement with goals and treatment plans ,Patient requires further education/training Short Term Goals STG 1: Patient will demonstrate increase short term recall for functional/ daily life information with 90 % of opportunities given environmental modifications implemented and by using visual aids in order to increase safety during ADLs. STG 2: Patient will sequence 3 -4 functional steps with 80% accuracy with mild verbal and visual cues in order to promote independence and safety with ADLs. Longterm Goals LTG 1: Patient will increase memory skills using compensatory strategies as trained, using visual/auditory aids as needed in order increase safety during ADLs and promote independence. LTG 2: Patient will increase functional problem solving skills with occasional Verbal Cues and occasional Visual cues in order to increase safety during ADLs, increase safety during daily living tasks, and promote independence. Discharge Recommendations Inpatient rehab facility
--- NOTE | 2023-09-27 11:39 | ST.OPPOC ---
Physical, Occupational & Speech Therapy At [facility] Visit Care Team Role Provider Type Estuardo Willams DO Attending Provider Physician Family Provider Primary Care Provider Referring Provider Address: [address] [place] [address], [id number] Speech Pathology Plan of Care Plan of Care Dates 09/27/23-10/26/[address] Willams Patient History Pt is an 83 year old female seen this date for cognitive-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 She reports a lot of improvements, however states she feels Lost up here while pointing to head. She states she can remember past information, however short term memory issues since stroke and fogginess. She lives alone, however [facility] that help with [facility]/fin[facility] management. She reports she is moving to [facility] mid October to live in a community where her cousins live as well. She reports she doesn't drive d/t to stroke, however can complete most ADLs/IADLs without difficulties. PMHx significant for: Anxiety Arthritis [place]-Walker grade 3 cystocele (03/21/16) Chronic sinusitis Chronic UTI Compression fracture of L1 lumbar vertebra Compression fracture of T7 vertebra Compression fracture of T8 vertebra Depression Edema Gilbert syndrome Gout (07/19/11) Head contusion Head injury, acute, without loss of consciousness Hordeolum externum of right lower eyelid Hyperlipidemia Hypertension Idiopathic peripheral neuropathy (02/12/15) Idiopathic peripheral neuropathy Impaired hearing Insomnia Left wrist sprain Multiple lipomas Osteoarthritis Osteopenia Osteoporosis Peripheral edema (03/21/16) Postmenopausal atrophic vaginitis Recurrent UTI (urinary tract infection) Thrush TIA (transient ischemic attack) Tinea Toe deformity Traumatic ecchymosis of face Vaginal pessary present Self-awareness of Cognitive- Predictive awareness (abl Communication Deficits Short Term Goals STG 1: Patient will demonstrate increase short term recall for functional/daily life information with 90% of opportunities given environmental modifications implemented and by using visual aids in order to increase safety during ADLs. STG 2: Patient will sequence 3-4 functional steps with 80% accuracy with mild verbal and visual cues in order to promote independence and safety with ADLs. Shelter Goals LTG 1: Patient will increase memory skills using compensatory strategies as trained, using visual/auditory aids as needed in order increase safety during ADLs and promote independence. LTG 2: Patient will increase functional problem solving skills with occasional Verbal Cues and occasional Visual cues in order to increase safety during ADLs, increase safety during daily living tasks, and promote independence. Comment: Electronically Signed by: DEZ Martin 09/27/23 9023 If you are in agreement with this Plan of Care, please return a signed and dated copy. I have reviewed this Plan of Care and certify that the skilled therapy services above are required to meet the patient?s needs. Physician Signature Date Printed Name and Credentials Clinical Instructor Signature Printed Name and Credentials
--- NOTE | 2023-10-01 14:26 | ST.OPTN ---
Visit Care Team Role Provider Type Estuardo Willams DO Attending Provider Physician Family Provider Primary Care Provider Referring Provider Address: [address] [place] [address], [id number] SET STAFF FITTER Treatment Note SET STAFF FITTER Treatment Note Start: 10/01/23 14:22 Freq: Status: Active Protocol: Document 10/01/23 14:22 MA (Rec: 10/01/23 14:26 MA [id number]) Speech Pathology Treatment Note Session Time Visit Start Time 13:45 Visit Stop Time 14:20 Total Visit Minutes 35 Visit Information Visit Number 2 Plan of Care Dates 09/27/23-10/26/23 Setting Treatment Setting Outpatient Care Next Note Type Next Note Type Treatment Note General Information Patient History Pt is an 83 year old female seen this date for cognitive- 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 She reports a lot of improvements, however states she feels Lost up here while pointing to head. She states she can remember past information, however short term memory issues since stroke and fogginess. She lives alone, however [facility]. She reports she is moving to [facility] mid October to live in a community where her cousins live as well. She reports she doesn't drive d/t to stroke, however can complete most ADLs/IADLs without difficulties. PMHx significant for: Anxiety Arthritis [place]-Walker grade 3 cystocele (03/21/16) Chronic sinusitis Chronic UTI Compression fracture of L1 lumbar vertebra Compression fracture of T7 vertebra Compression fracture of T8 vertebra Depression Edema Gilbert syndrome Gout (07/19/11) Head contusion Head injury, acute, without loss of consciousness Hordeolum externum of right lower eyelid Hyperlipidemia Hypertension Idiopathic peripheral neuropathy (02/12/15) Idiopathic peripheral neuropathy Impaired hearing Insomnia Left wrist sprain Multiple lipomas Osteoarthritis Osteopenia Osteoporosis Peripheral edema (03/21/16) Postmenopausal atrophic vaginitis Recurrent UTI (urinary tract infection) Thrush TIA (transient ischemic attack ) Tinea Toe deformity Traumatic ecchymosis of face Vaginal pessary present Subjective Observations/Patient Presentation Pt arrived to therapy on time. Objective Short Term Goals STG 1: Patient will demonstrate increase short term recall for functional/ daily life information with 90 % of opportunities given environmental modifications implemented and by using visual aids in order to increase safety during ADLs. STG 2: Patient will sequence 3 -4 functional steps with 80% accuracy with mild verbal and visual cues in order to promote independence and safety with ADLs. Custodial Goals LTG 1: Patient will increase memory skills using compensatory strategies as trained, using visual/auditory aids as needed in order increase safety during ADLs and promote independence. LTG 2: Patient will increase functional problem solving skills with occasional Verbal Cues and occasional Visual cues in order to increase safety during ADLs, increase safety during daily living tasks, and promote independence. Treatment Activities Memory compensatory strategies and aids Assessment Assessment of Improvement ST reviewed results from CLQT with Pt. Pt verbalized understanding. She reports she doesn't have much difficulty remembering daily information, such as appointments. Pt reports she utilizes a calendar and writes everything down. ST provided educational handout on external and internal memory aids and reviewed material. Pt reports she has trouble with numbers and it took her 2 days to bake cookies due to all the numbers. ST assessed memory recall utilizing word association strategy and visualization with recall of 5 unrelated items in order to promote carryover. Pt recalled 5 unrelated items with use of strategies with 30% accuracy. She demonstrated improvements in recall provided a visual cue or carrier phrase. Pt demonstrated memory recall difficulties during session, characterized by her repeating information already said at the beginning. ST provided Pt with memory homework to take home and bring back for next session. Pt verbalized understanding. Reviewed with Patient Goals,Home Exercise Program Patient/Caregiver Understanding Excellent
--- NOTE | 2023-10-08 16:48 | ST.OPDS ---
Visit Care Team Role Provider Type Estuardo Willams DO Attending Provider Physician Family Provider Primary Care Provider Referring Provider Address: [address] [place] [address], [id number] CHIEF PASSENGER SHIP STEWARD/STEWARDESS Treatment Note CHIEF PASSENGER SHIP STEWARD/STEWARDESS Treatment Note Start: 10/01/23 14:22 Freq: Status: Active Protocol: Document 10/08/23 16:41 MA (Rec: 10/08/23 16:48 MA [id number]) Speech Pathology Treatment Note Session Time Visit Start Time 13:45 Visit Stop Time 14:15 Total Visit Minutes 30 Visit Information Visit Number 3 Plan of Care Dates 09/27/23-10/26/23 Setting Treatment Setting Outpatient Care Next Note Type Next Note Type Treatment Note General Information Patient History Pt is an 83 year old female seen this date for cognitive- 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 She reports a lot of improvements, however states she feels Lost up here while pointing to head. She states she can remember past information, however short term memory issues since stroke and fogginess. She lives alone, however [facility]. She reports she is moving to [facility] mid October to live in a community where her cousins live as well. She reports she doesn't drive d/t to stroke, however can complete most ADLs/IADLs without difficulties. PMHx significant for: Anxiety Arthritis [place]-Walker grade 3 cystocele (03/21/16) Chronic sinusitis Chronic UTI Compression fracture of L1 lumbar vertebra Compression fracture of T7 vertebra Compression fracture of T8 vertebra Depression Edema Gilbert syndrome Gout (07/19/11) Head contusion Head injury, acute, without loss of consciousness Hordeolum externum of right lower eyelid Hyperlipidemia Hypertension Idiopathic peripheral neuropathy (02/12/15) Idiopathic peripheral neuropathy Impaired hearing Insomnia Left wrist sprain Multiple lipomas Osteoarthritis Osteopenia Osteoporosis Peripheral edema (03/21/16) Postmenopausal atrophic vaginitis Recurrent UTI (urinary tract infection) Thrush TIA (transient ischemic attack ) Tinea Toe deformity Traumatic ecchymosis of face Vaginal pessary present Subjective Observations/Patient Presentation Pt arrived to therapy on time. Objective Short Term Goals STG 1: Patient will demonstrate increase short term recall for functional/ daily life information with 90 % of opportunities given environmental modifications implemented and by using visual aids in order to increase safety during ADLs.- MET STG 2: Patient will sequence 3 -4 functional steps with 80% accuracy with mild verbal and visual cues in order to promote independence and safety with ADLs.- NOT MET Inspector Open Die Goals LTG 1: Patient will increase memory skills using compensatory strategies as trained, using visual/auditory aids as needed in order increase safety during ADLs and promote independence.-MET LTG 2: Patient will increase functional problem solving skills with occasional Verbal Cues and occasional Visual cues in order to increase safety during ADLs, increase safety during daily living tasks, and promote independence.- NOT MET Treatment Activities Memory compensatory strategies and aids, discharge recommendations Assessment Assessment of Improvement ST assessed memory recall utilizing word association strategy with recall of 5 unrelated items in order to promote carryover. Pt recalled 5 unrelated items with use of strategy with about 10% accurracy requiring max verbal cues. Pt reports she has no difficulties doing things around her house and write down everything. She says she has been writing everything down on post it notes for years and it's what works for her. She says she never forgets to look at notes and she hasn't had trouble recalling appointments or other important information. She reports she is getting a whiteboard to write down reminders on. She states she will be moving in 2 weeks to live in a senior living community with her cousins. Pt communicated she would like today to be her last session d /t her not reporting memory impacts daily life at this time. She reports she does puzzles and attempts crosswords and word searches. ST recommended Pt continue to be engaged in brain stimulating activities and utilize external and internal memory compensatory stategies. ST also recommended Pt establish a routine once she has moved and to continue to write information down to assist with recall. ST recommends Pt be referred to speech therapy in [facility] if increase in cognitive issues arise. Pt verbalized understanding. Reviewed with Patient Goals,Home Exercise Program Patient/Caregiver Understanding Excellent Plan Amount of Therapy Recommended No Further Therapy Frequency of Treatment No Further Therapy Reason for Discharge Per Pt request and that she is moving
== END 2023-10-09 10:02 | disposition home or self-care (01) ==
LOC: SP 13:45
PROVIDERS: Family Provider Family Medicine; PCP Family Medicine; Referring Provider Family Medicine; Visit Provider Family Medicine
DX: I63.9 Cerebral infarction, unspecified (principal)
CPT/HCPCS: 92507; 92523